=== PATIENT | male | born 1945 | race Caucasian/White ===

== ENCOUNTER → 2024-02-06 | Outpatient (CLI) | payer MEDICARE, MEDICAID, SELFPAY ==
[2024-02-06 16:54] LABS: Collection Type, Urine Catheter; Squamous Epithelial Cell,Urine 0 /hpf (0-5)
[2024-02-06 17:32] LABS: Bilirubin,Urine Negative (Negative); Blood,Urine 2+ (Negative); Color,Urine Yellow (Lt Yel-Yel); Glucose, Urine Negative (Negative); Hyaline Casts,Urine < 1 /hpf (0-1); Ketones,Urine Negative (Negative); Leukocyte Esterase,Urine Positive (Negative); Nitrite,Urine Negative (Negative); Protein,Urine 1+ (Neg - Trace); RBC,Urine 207 /hpf (0-3); Specific Gravity,Urine 1.014 (1.001-1.035); Urobilinogen,Urine Negative mg/dL (0.0-1.0); WBC,Urine 23 /hpf (0-5)
[2024-02-06 17:34] LABS: Clarity,Urine Hazy (Clear/Hazy); Culture Indicated,Urine Yes
== END | disposition home or self-care (01) ==
LOC: SLDO 16:41
PROVIDERS: PCP Family Medicine; Referring Provider Family Medicine; Visit Provider Family Medicine
DX: N39.0 Urinary tract infection, site not specified (principal); E11.9 Type 2 diabetes mellitus without complications; F73 Profound intellectual disabilities
CPT/HCPCS: 81001; 87086

== ENCOUNTER → 2024-03-25 | Outpatient (CLI) | payer MEDICARE, MEDICAID, SELFPAY ==
[2024-03-25 16:33] LABS: Collection Type, Urine Catheter
[2024-03-25 17:36] LABS: Bilirubin,Urine Negative (Negative); Blood,Urine 1+ (Negative); Color,Urine Yellow (Lt Yel-Yel); Glucose, Urine Negative (Negative); Hyaline Casts,Urine < 1 /hpf (0-1); Ketones,Urine Negative (Negative); Leukocyte Esterase,Urine Positive (Negative); Nitrite,Urine Negative (Negative); Protein,Urine Trace (Neg - Trace); RBC,Urine 24 /hpf (0-3); Squamous Epithelial Cell,Urine < 1 /hpf (0-5); Urobilinogen,Urine Negative mg/dL (0.0-1.0); WBC,Urine 22 /hpf (0-5)
[2024-03-25 17:43] LABS: Clarity,Urine Hazy (Clear/Hazy); Culture Indicated,Urine Yes
== END | disposition home or self-care (01) ==
LOC: SLDO 16:28
PROVIDERS: PCP Family Medicine; Referring Provider Family Medicine; Visit Provider Family Medicine
DX: N39.0 Urinary tract infection, site not specified (principal); E11.9 Type 2 diabetes mellitus without complications; F73 Profound intellectual disabilities
CPT/HCPCS: 81001; 87086

== ENCOUNTER → 2024-04-18 | Outpatient (CLI) | payer MEDICARE, MEDICAID, SELFPAY ==
[2024-04-18 20:41] LABS: Collection Type, Urine Catheter
[2024-04-18 21:26] LABS: Bacteria,Urine 1+; Bilirubin,Urine Negative (Negative); Blood,Urine 3+ (Negative); Clarity,Urine Turbid (Clear/Hazy); Color,Urine Yellow (Lt Yel-Yel); Glucose, Urine Negative (Negative); Hyaline Casts,Urine < 1 /hpf (0-1); Ketones,Urine Negative (Negative); Leukocyte Esterase,Urine Positive (Negative); Nitrite,Urine Negative (Negative); PH,Urine 6.5 (5.0-7.0); Protein,Urine 2+ (Neg - Trace); RBC,Urine 1375 /hpf (0-3); Squamous Epithelial Cell,Urine 1 /hpf (0-5); Urobilinogen,Urine Negative mg/dL (0.0-1.0); WBC,Urine 159 /hpf (0-5)
== END | disposition home or self-care (01) ==
LOC: SLAB 20:03
PROVIDERS: PCP Family Medicine; Referring Provider Family Medicine; Visit Provider Family Medicine
DX: N39.0 Urinary tract infection, site not specified (principal); E11.9 Type 2 diabetes mellitus without complications; F73 Profound intellectual disabilities
CPT/HCPCS: 81001

== ENCOUNTER → 2024-04-26 | Outpatient (CLI) | payer MEDICARE, MEDICAID, SELFPAY ==
[2024-04-26 16:59] LABS: Collection Type, Urine Catheter; Squamous Epithelial Cell,Urine 0 /hpf (0-5)
[2024-04-26 18:13] LABS: Bacteria,Urine Rare; Bilirubin,Urine Negative (Negative); Blood,Urine 1+ (Negative); Clarity,Urine Turbid (Clear/Hazy); Color,Urine Yellow (Lt Yel-Yel); Glucose, Urine Negative (Negative); Hyaline Casts,Urine < 1 /hpf (0-1); Ketones,Urine Negative (Negative); Leukocyte Esterase,Urine Positive (Negative); Nitrite,Urine Negative (Negative); Protein,Urine 1+ (Neg - Trace); RBC,Urine 11 /hpf (0-3); Specific Gravity,Urine 1.011 (1.001-1.035); Urobilinogen,Urine Negative mg/dL (0.0-1.0); WBC,Urine 124 /hpf (0-5)
[2024-04-26 18:14] LABS: Culture Indicated,Urine Yes
== END | disposition home or self-care (01) ==
LOC: SLDO 16:50
PROVIDERS: PCP Family Medicine; Referring Provider Family Medicine; Visit Provider Family Medicine
DX: N39.0 Urinary tract infection, site not specified (principal); E11.9 Type 2 diabetes mellitus without complications; F73 Profound intellectual disabilities
CPT/HCPCS: 81001; 87077; 87086; 87186

== ENCOUNTER → 2024-05-29 | Outpatient (CLI) | payer MEDICARE, MEDICAID, SELFPAY ==
[2024-05-29 20:09] LABS: Collection Type, Urine Catheter; Squamous Epithelial Cell,Urine 0 /hpf (0-5)
[2024-05-29 20:52] LABS: Bacteria,Urine 1+; Bilirubin,Urine Negative (Negative); Blood,Urine 2+ (Negative); Clarity,Urine Turbid (Clear/Hazy); Color,Urine Yellow (Lt Yel-Yel); Glucose, Urine Negative (Negative); Ketones,Urine Negative (Negative); Leukocyte Esterase,Urine Positive (Negative); Nitrite,Urine Negative (Negative); Protein,Urine 1+ (Neg - Trace); RBC,Urine 91 /hpf (0-3); Specific Gravity,Urine 1.014 (1.001-1.035); Urobilinogen,Urine Negative mg/dL (0.0-1.0); WBC,Urine 319 /hpf (0-5)
[2024-05-29 20:53] LABS: Culture Indicated,Urine Yes
== END | disposition home or self-care (01) ==
LOC: SLAB 19:56 → SLDO 05-30 09:26
PROVIDERS: PCP Family Medicine; Referring Provider Family Medicine; Visit Provider Family Medicine
DX: N39.0 Urinary tract infection, site not specified (principal); E11.9 Type 2 diabetes mellitus without complications; F73 Profound intellectual disabilities
CPT/HCPCS: 81001; 87077; 87086; 87186

== ENCOUNTER → 2024-07-15 | Outpatient (CLI) | payer MEDICARE, MEDICAID, SELFPAY ==
[2024-07-15 18:26] LABS: Collection Type, Urine Clean Catch
[2024-07-15 18:33] LABS: Basophils % (Auto) 0 % (0-2.5); Eosinophils % (Auto) 0 % (0-10); Hematocrit 33.7 % (41.0-53.0); Hemoglobin 11.2 g/dL (13.5-16.0); Immature Granulocytes % (Auto) 0 % (0-0); Immature Granulocytes Auto 0.03 Thou/mm3 (0.00-0.00); Lymphocytes # (Auto) 1.6 Thou/mm3 (1.0-4.8); Lymphocytes % (Auto) 13 % (10-50); Mean Corpuscular HGB Conc 33.2 g/dl (31.0-37.0); Mean Corpuscular Hemoglobin 30.9 pg (25.0-35.0); Mean Corpuscular Volume 93 fL (80-100); Monocytes # (Auto) 1.6 Thou/mm3 (0.0-0.8); Monocytes % (Auto) 13 % (0-12); Neutrophils # (Auto) 8.7 Thou/mm3 (1.8-7.7); Neutrophils % (Auto) 73 % (37-80); Nucleated Red Blood Cell % 0 /100 WBC (0); Platelet Count 160 Thou/mm3 (140-440); RDW Standard Deviation 45.6 fL (35.1-43.9); Red Blood Count 3.62 Miln/mm3 (4.50-5.90)
[2024-07-15 18:44] LABS: Bacteria,Urine 1+; Bilirubin,Urine Negative (Negative); Blood,Urine 1+ (Negative); Color,Urine Yellow (Lt Yel-Yel); Glucose, Urine Negative (Negative); Hyaline Casts,Urine 3 /hpf (0-1); Ketones,Urine Negative (Negative); Leukocyte Esterase,Urine Positive (Negative); Nitrite,Urine Positive (Negative); Protein,Urine 1+ (Neg - Trace); RBC,Urine 33 /hpf (0-3); Specific Gravity,Urine 1.018 (1.001-1.035); Squamous Epithelial Cell,Urine < 1 /hpf (0-5); Urobilinogen,Urine Negative mg/dL (0.0-1.0); WBC,Urine 907 /hpf (0-5)
[2024-07-15 18:46] LABS: Clarity,Urine Turbid (Clear/Hazy); Culture Indicated,Urine Yes
[2024-07-15 19:06] LABS: Alanine Aminotransferase 15 U/L (10-49); Albumin, Serum 3.6 gm/dL (3.4-4.8); Albumin/Globulin Ratio 1.2 (1.2-2.2); Alkaline Phosphatase 96 U/L (46-116); Anion Gap 10 (7-16); Aspartate Amino Transferase 23 U/L (0-34); BUN/Creatinine Ratio 24 Ratio (12-20); Bilirubin,Total 0.6 mg/dL (0.3-1.2); Blood Urea Nitrogen 34 mg/dL (9-23); Calcium 9.6 mg/dL (8.3-10.6); Calcium (Corrected) 9.9 mg/dL (8.5-10.1); Carbon Dioxide 28.5 mMol/L (20.0-31.0); Chloride 100 mMol/L (98-107); Creatinine (Component) 1.4 mg/dL (0.6-1.3); Globulin 2.9 gm/dL (2.3-3.5); Glucose 176 mg/dL (74-106); Osmolality,Calculated 287 (275-295); Sodium 138 mMol/L (136-145); Total Protein 6.5 gm/dL (5.7-8.2); eGFR 51 See Note
== END | disposition home or self-care (01) ==
LOC: SLDO 18:12
PROVIDERS: PCP Family Medicine; Referring Provider Family Medicine; Visit Provider Family Medicine
DX: N39.0 Urinary tract infection, site not specified (principal); F73 Profound intellectual disabilities; E11.9 Type 2 diabetes mellitus without complications
CPT/HCPCS: 36415; 80053; 81001; 84100; 85025; 87077; 87086; 87186

== ENCOUNTER 2024-07-19 23:20 | Inpatient (IN) | payer MEDICARE, MEDICAID, SELFPAY ==
[2024-07-19 23:38] VITALS: BP 127/76; PULSE 124; RESP 27; TEMP 39.7; O2SAT 96; BMI 18.3
[2024-07-19 23:45] VITALS: BP 127/76; PULSE 120; RESP 28; O2SAT 95
--- NOTE | 2024-07-19 23:45 | PD.EDSEIZ ---
ED Seizures RME/HPI General Chief Complaint: Seizure Stated Complaint: SEIZURES Time Seen by Provider: 07/19/24 23:48 Arrival date/time: 07/19/24 23:20 RME / HPI RME / HPI Narrative: This section includes all my notes and documentations, including HPI, PE, and ED course. Eugene Salas MD HPI: 78yo male with a history of developmental delay, seizures, DM, HLD BIBA from a [facility] presents with possible seizure. Per EMS, caregivers on scene called due to the patient having possible several minute seizure. They note the patient is taking all of his medications as prescribed, including Lamictal for seizures. Can't obtain history from the patient due to baseline GCS 10. ROS: Can't obtain history from the patient due to baseline GCS 10. Physical Exam: General: Alert. Moaning and groaning, possibly due to pain. Fever noted. Hypotension noted. Eyes: Conjunctivae and lids clear. PERRL. EOMI. ENT: No nasal congestion. Pharynx normal. TM normal bilaterally. Neck: Supple. Heart: Sinus tachycardia noted. Lungs: No respiratory distress. Good air movement with rales. Abdomen: Soft and nontender. Skin: Warm and dry. Neuro: Difficult exam due to baseline decreased mental status. Patient needed Ativan 1.5 mg IV to help him stay still for the CT scans. I reviewed all diagnostic test results. My interpretation of the EKG is sinus tachycardia with no acute ST?T changes. My interpretation of the chest x-ray is infiltrates. My review of the head CT report is NAD. My review of the chest/abdomen/pelvis CT report is right base pneumonia. Blood tests and urine tests remarkable for WBC 13.1, ESR 57, CRP 4.4, BNP 156, procalcitonin 1.91, and lactic acid 1.8. Influenza positive. At this point, diagnoses include: Sepsis Seizure Pneumonia UTI Influenza Treatment here included IV fluid, Tylenol and Toradol, Rocephin and Zithromax, Keppra, and Levophed drip. Significant improvement not noted. I discussed the case with our hospitalist. About the presentation and exam and diagnostics and treatments here. And need of further care in the hospital. Will accept the patient. Eugene Salas MD Related Data Home Medications ?Medication ?Instructions ?Recorded ?Confirmed Alendronate Sodium * (FOSAMAX *) 70 mg PO .MONDAY ##0 08/13/12 07/20/24 simvastatin 10 mg tablet (Zocor) 10 mg PO HS ##0 08/13/12 07/20/24 MULTIVITAMIN (MULTI VITAMIN DAILY) 1 tab PO QDAY ##0 08/02/16 07/20/24 docusate sodium 250 mg capsule 1 cap PO BID ##0 08/02/16 07/20/24 magnesium hydroxide 400 mg/5 mL 30 ml PO EVERYDAY 03/16/18 07/20/24 oral suspension (Milk of Magnesia) polyethylene glycol 3350 17 gram 17 g PO QDAY PRN constipation 03/16/18 07/20/24 oral powder packet (Miralax) melatonin 10 mg tablet 10 mg PO HS 12/12/23 07/20/24 olanzapine 2.5 mg tablet 5 mg PO HS 12/12/23 07/20/24 valbenazine 60 mg capsule 60 mg PO QDAY 12/12/23 07/20/24 (Ingrezza) cranberry-B.jzefpuray-X-Fm phos 1 tab PO QDAY 12/25/23 07/20/24 480 mg-20 mg-100 million cell tablet (Cranberry-Probiotic) metformin 500 mg tablet 500 mg PO BID 12/25/23 07/20/24 ibuprofen 400 mg tablet 400 mg PO Q6H PRN pain 07/20/24 07/20/24 loratadine 10 mg tablet 10 mg PO QDAY 07/20/24 07/20/24 zolpidem 5 mg tablet 5 mg PO QHSPRN 07/20/24 07/20/24 Allergies Allergy/AdvReac Type Severity Reaction Status Date / Time No Known Allergies Allergy Verified 07/19/24 23:27 Review of Systems Review of Systems Systems Reviewed: All systems reviewed, normal except as documented Past Medical History Past Medical History NEUROLOGIC: Positive Neurological Disorders and Seizures CARDIAC: Positive Hypercholesterolemia; Negative Congestive Heart Failure RESPIRATORY: Negative Chronic Obstructive Pulmonary Disease (COPD) GASTROINTESTINAL: Positive Gastrointestinal Disorders GENITOURINARY: Negative Genitourinary Disorders or Renal Disease MUSCULOSKELETAL: Positive Musculoskeletal Disorders ENDOCRINE: Positive Diabetes Mellitus Type 2; Negative Diabetes Mellitus Type 1 PSYCHO/SOCIAL: Positive Depression and Anxiety OTHER HISTORY: Positive Developmental Delay; Negative Blood Transfusions, Anesthesia Reactions or MRSA Social History SMOKING STATUS: Unknown if ever smoked SUBSTANCE USE: does not use ED Exam Narrative Physical exam: As noted in HPI. Course Course Course Narrative: 2339: Sepsis alert initiated. Orders made at this time are congruent with ED Adult Sepsis Order List. Re-evaluation is to be completed. CXR is ordered for determining the etiology of fever. 0012: NS IVF started. 0206: Sepsis reassessment performed consisting of lab review, vitals, physical exam including auscultation of heart, lungs, and visual evaluation of capillary refills, mucosal membranes and extremities. Quality Measures Possible source: pulmonary and genitourinary Blood cultures ordered: yes Antibiotic ordered: Yes Pertinent labs: 07/19/24 00:00 Lactic Acid 1.8 mMol/L (0.4-2.0) Procalcitonin 1.91 H ng/ml (0.0-0.49) sepsis Orders Category Date Time Status Bedside COVID-19 Antigen Test NOW Care 07/19/24 23:49 Completed Bedside Influenza A&B Antigen Test NOW Care 07/19/24 23:49 Completed COVID-19 Screening Questionnaire NOW Care 07/20/24 05:14 Completed Decision to Admit X1 Care 07/20/24 05:14 Completed EKG (ED ONLY) *Do not use* NOW Care 07/19/24 23:52 Completed Saline [Insert IV] NOW Care 07/19/24 23:49 Active Straight [In and Out Catheter] X1 Care 07/19/24 23:[address] chest abdomen pelvis wo Stat Exams 07/19/24 23:[address] head/brain wo con Stat Exams 07/19/24 23:53 Completed EKG (ED Only) Stat Exams 07/19/24 23:52 Stop Req XR chest 1V portable Stat Exams 07/19/24 23:52 Completed ABG [Arterial Blood Gas] Stat Lab 07/20/24 00:42 Completed Ammonia Stat Lab 07/19/24 23:53 Completed BNP [B-Type Natriuretic Peptide] Stat Lab 07/19/24 23:53 Completed Bilirubin,Direct Stat Lab 07/19/24 23:53 Completed Blood Culture (Lab) Stat Lab 07/19/24 23:53 Completed CBC Stat Lab 07/19/24 23:53 Completed CK [Creatine Kinase] Stat Lab 07/19/24 23:53 Completed CMP [Comprehensive Metabolic Panel] Stat Lab 07/19/24 23:53 Completed CRP [C-Reactive Protein] Stat Lab 07/19/24 23:53 Completed ESR [Sed Rate (ESR)] Stat Lab 07/19/24 23:53 Completed Free T4 (Free Thyroxine) Stat Lab 07/19/24 23:53 Completed Lactate (Lactic Acid) Stat Lab 07/19/24 23:53 Completed Magnesium Stat Lab 07/19/24 23:53 Completed PT [Prothrombin Time with INR] Stat Lab 07/19/24 23:53 Completed PTT [Partial Thromboplastin Time] Stat Lab 07/19/24 23:53 Completed Procalcitonin Stat Lab 07/19/24 23:53 Completed RSV [Respiratory Syncytial Virus Ag] Stat Lab 07/19/24 00:01 Completed Strep A Rapid Stat Lab 07/20/24 00:01 Completed TSH [Thyroid Stimulating Hormone] Stat Lab 07/19/24 23:53 Completed Troponin I Stat Lab 07/19/24 23:53 Completed UA, C/S IF [Urinalysis, C/S if Indicated] Stat Lab 07/19/24 00:01 Completed Urine Culture Stat Lab 07/19/24 00:01 Completed Acetaminophen Ivpb [Ofirmev Inj] Med 07/20/24 00:00 Discontinued 1,000 mg in 100 ml IV Q6HR Acetaminophen Ivpb [Ofirmev Inj] Med 07/19/24 23:52 Discontinued 1,000 mg in 100 ml IV X1 Azithromycin Inj [Zithromax Inj] 500 mg Med 07/20/24 05:10 Discontinued Sodium Chloride 0.9% 250 ml [Ns] 250 ml IV X1 Ketorolac Inj [Toradol Inj] Med 07/19/24 23:49 Discontinued 15 mg IVP X1 ONE LORazepam [Ativan Inj] Med 07/20/24 02:22 Discontinued 1.5 mg IVP X1 ONE Norepinephrine/NS 16mg/250ml [Levophed in NS 16mg/250ml Med 07/20/24 03:19 Discontinued ] 16 mg in 250 ml IV 0.05 mcg/kg/min Oseltamivir [Tamiflu] Med 07/20/24 00:06 Discontinued 75 mg PO X1 ONE Sodium Chloride 0.9% 1000 ml [Ns] 1,000 ml Med 07/19/24 23:49 Discontinued IV 999 mls/hr Sodium Chloride 0.9% 1000 ml [Ns] 1,000 ml Med 07/19/24 23:50 Discontinued IV 999 mls/hr cefTRIAXone [Rocephin] 1,000 mg Med 07/19/24 23:50 Discontinued SODIUM CHLORIDE 0.9% (Popper) [Ns 0.9% (P)] 50 ml IV X1 levETIRAcetam INJ [Keppra Inj] Med 07/19/24 23:49 Discontinued 1,500 mg IVP X1 ONE Vital Signs Vital signs: Vital Signs Temperature 103.5 F H 07/19/24 23:38 Pulse Rate 124 H 07/19/24 23:38 Respiratory Rate 27 H 07/19/24 23:38 Blood Pressure 127/76 07/19/24 23:38 Pulse Oximetry (%) 96 07/19/24 23:38 Oxygen Delivery Method Room Air 07/19/24 23:38 Seizure MDM Narrative MDM Narrative:: Scribe Attestation: 07/19/24 - Chantal Davis am scribing for and in the presence of Dr. Salas. 78yo male with a history of developmental delay, seizures, DM, H[facility]IB[facility] from a [facility] presents to the ED for a chief complaint of a seizure. Per EMS, caregivers on scene called due to the patient having a 2 minute seizure. They note the patient is taking all of his medications as prescribed. Full ROS is unobtainable due to the patient being nonverbal. Patient data External records reviewed:: [facility] previous records (Per chart review, patient was admitted here on 12/24/23 for a fever.) Clinical information provided by:: patient Social determinants that could affect healthcare access:: none Patient has the following chronic illnesses:: developmental delay, DM, HLD, seizures How is presenting disease/condition affected by chronic disease/condition?: caused by Evaluation data The following diagnostics were reviewed and interpreted by me:: lab results, radiology exam(s) and EKG tracing(s) (My interpretation of the EKG is: Sinus tachycardia (117 bpm) with nonspecific ST-T changes. Eugene Salas MD) Lab and/or radiology exams considered but not ordered:: none Interpretation Summary: I reviewed all diagnostic test results. My interpretation of the EKG is sinus tachycardia with no acute ST?T changes. My interpretation of the chest x-ray is infiltrates. My review of the head CT report is NAD. My review of the chest/abdomen/pelvis CT report is right base pneumonia. Blood tests and urine tests remarkable for WBC 13.1, ESR 57, CRP 4.4, BNP 156, procalcitonin 1.91, and lactic acid 1.8. Influenza positive. Medications / Prescriptions Medications or Prescriptions considered but not ordered:: none Medication administrations:: Medication Administration History Acetaminophen (Acetaminophen 325 Mg Tablet) 650 mg PO Q4HR PRN PRN Reason: PAIN SCALE 1-3 (mild Stop: 08/19/24 06:13 Atorvastatin Calcium (Atorvastatin Calcium 10 Mg Tablet) 5 mg PO HS GREG Stop: 08/19/24 20:59 Last Admin: 07/25/24 21:36 Dose: 5 mg Documented By: Admin: 07/24/24 20:35 Dose: 5 mg Documented By: Admin: 07/23/24 22:29 Dose: 5 mg Documented By: ANNA MARIE Admin: 07/22/24 22:38 Dose: 5 mg Documented By: ANNA MARIE Admin: 07/21/24 21:59 Dose: 5 mg Documented By: Admin: 07/20/24 21:00 Dose: 5 mg Documented By: JASE Docusate Sodium (Docusate Sod 250 Mg Capsule) 250 mg PO BID GREG; Protocol Stop: 08/20/24 10:14 Last Admin: 07/26/24 08:42 Dose: 250 mg Documented By: Admin: 07/25/24 21:36 Dose: 250 mg Documented By: Admin: 07/25/24 09:22 Dose: 250 mg Documented By: Admin: 07/24/24 20:35 Dose: 250 mg Documented By: Admin: 07/24/24 09:50 Dose: 250 mg Documented By: MIGUEL ÁNGEL Admin: 07/23/24 22:30 Dose: 250 mg Documented By: ANNA MARIE Admin: 07/23/24 10:08 Dose: Not Given Documented By: MIGUEL ÁNGEL Non-Admin Reason: Other, see note Admin: 07/22/24 22:38 Dose: 250 mg Documented By: ANNA MARIE Admin: 07/22/24 09:50 Dose: 250 mg Documented By: MIGUEL ÁNGEL Admin: 07/21/24 21:58 Dose: 250 mg Documented By: Admin: 07/21/24 10:15 Dose: Not Given Documented By: CS Non-Admin Reason: Contraindicated Comments: had pasty/soft bowel movement this AM Heparin Sodium (Porcine) (Heparin Sod Inj 5000 Unit/Ml Vial) 5,000 unit SC Q8HR GREG Stop: 08/03/24 13:59 Last Admin: 07/26/24 05:51 Dose: 5,000 unit Documented By: MALLY Co-signed By: KAYY Admin: 07/25/24 21:35 Dose: 5,000 unit Documented By: MALLY Co-signed By: POLO Admin: 07/25/24 14:37 Dose: 5,000 unit Documented By: CAMDEN Co-signed By: SHIVAM Admin: 07/25/24 06:21 Dose: 5,000 unit Documented By: Co-signed By: ANNA MARIE Admin: 07/24/24 21:58 Dose: 5,000 unit Documented By: Co-signed By: ANNA MARIE Admin: 07/24/24 15:01 Dose: 5,000 unit Documented By: JANETTE Co-signed By: ADRIAN Admin: 07/24/24 05:08 Dose: 5,000 unit Documented By: ANNA MARIE Co-signed By: OJ Admin: 07/23/24 22:29 Dose: 5,000 unit Documented By: ANNA MARIE Co-signed By: KIERRA Admin: 07/23/24 13:48 Dose: 5,000 unit Documented By: MIGUEL ÁNGEL Co-signed By: JUDY Admin: 07/23/24 05:35 Dose: 5,000 unit Documented By: ANNA MARIE Co-signed By: JOANNA Admin: 07/22/24 22:37 Dose: 5,000 unit Documented By: ANNA MARIE Co-signed By: MP Admin: 07/22/24 13:12 Dose: 5,000 unit Documented By: MIGUEL ÁNGEL Co-signed By: YM Admin: 07/22/24 05:17 Dose: 5,000 unit Documented By: KIERRA Co-signed By: ME Admin: 07/21/24 22:33 Dose: 5,000 unit Documented By: KIERRA Co-signed By: ME Admin: 07/21/24 14:55 Dose: 5,000 unit Documented By: SILVER Co-signed By: SHIVAM Admin: 07/21/24 05:15 Dose: 5,000 unit Documented By: JASE Co-signed By: Admin: 07/20/24 21:03 Dose: 5,000 unit Documented By: JASE Co-signed By: ARTUR Admin: 07/20/24 14:32 Dose: 5,000 unit Documented By: ONELIA Co-signed By: kayden Meropenem 1,000 mg/ Sodium (Chloride) 50 mls @ 100 mls/hr IV Q8HR GREG Stop: 07/26/24 23:00 Lamotrigine (Lamotrigine 25 Mg Chew) 100 mg PO BID GREG Stop: 08/19/24 20:59 Last Admin: 07/26/24 08:43 Dose: Not Given Documented By: VIV Non-Admin Reason: Medication Not Available Admin: 07/25/24 21:26 Dose: Not Given Documented By: MALLY Non-Admin Reason: Medication Not Available Admin: 07/25/24 09:29 Dose: Not Given Documented By: CAMDEN Non-Admin Reason: Medication Not Available Admin: 07/24/24 20:37 Dose: Not Given Documented By: Non-Admin Reason: Medication Not Available Admin: 07/24/24 09:50 Dose: Not Given Documented By: MIGUEL ÁNGEL Non-Admin Reason: Medication Not Available Admin: 07/23/24 22:31 Dose: Not Given Documented By: ANNA MARIE Non-Admin Reason: Other, see note Comments: Medication out of stock, aware and okayed to proceed to only give Keppra 500 mg. Admin: 07/23/24 10:00 Dose: Not Given Documented By: MIGUEL ÁNGEL Non-Admin Reason: Medication Not Available Admin: 07/22/24 23:10 Dose: 100 mg Documented By: ANNA MARIE Comments: Medication not available, awaiting delivery Admin: 07/22/24 09:50 Dose: 100 mg Documented By: MIGUEL ÁNGEL Admin: 07/21/24 21:58 Dose: 100 mg Documented By: Admin: 07/21/24 09:17 Dose: 100 mg Documented By: Admin: 07/20/24 21:02 Dose: 100 mg Documented By: JASE Levetiracetam (Levetiracetam Inj 100 Mg/Ml Vial 5ml) 500 mg IVP Q12HR GREG Stop: 08/22/24 20:59 Last Admin: 07/26/24 08:42 Dose: 500 mg Documented By: Admin: 07/25/24 21:37 Dose: 500 mg Documented By: Admin: 07/25/24 09:28 Dose: 500 mg Documented By: Admin: 07/24/24 20:36 Dose: 500 mg Documented By: Admin: 07/24/24 09:50 Dose: 500 mg Documented By: MIGUEL ÁNGEL Admin: 07/23/24 22:29 Dose: 500 mg Documented By: ANNA MARIE Olanzapine (Olanzapine 5 Mg Tablet) 5 mg PO HS GREG Stop: 08/19/24 20:59 Last Admin: 07/25/24 21:36 Dose: 5 mg Documented By: Admin: 07/24/24 20:35 Dose: 5 mg Documented By: Admin: 07/23/24 22:30 Dose: 5 mg Documented By: ANNA MARIE Admin: 07/22/24 22:38 Dose: 5 mg Documented By: ANNA MARIE Admin: 07/21/24 21:58 Dose: 5 mg Documented By: Admin: 07/20/24 21:02 Dose: 5 mg Documented By: JASE Pantoprazole Sodium (Pantoprazole Inj 40 Mg Vial) 40 mg IVP QDAY GREG Stop: 08/19/24 08:59 Last Admin: 07/26/24 08:42 Dose: 40 mg Documented By: Admin: 07/25/24 09:22 Dose: 40 mg Documented By: Admin: 07/24/24 09:50 Dose: 40 mg Documented By: MIGUEL ÁNGEL Admin: 07/23/24 10:07 Dose: 40 mg Documented By: MIGUEL ÁNGEL Admin: 07/22/24 09:49 Dose: 40 mg Documented By: MIGUEL ÁNGEL Admin: 07/21/24 09:17 Dose: 40 mg Documented By: Admin: 07/20/24 09:38 Dose: 40 mg Documented By: ONELIA Polyethylene Glycol (Polyethylene Glycol 17 Gm Packet) 17 gm PO QDAY GREG Stop: 08/20/24 08:59 Last Admin: 07/26/24 08:42 Dose: 17 gm Documented By: Admin: 07/25/24 09:22 Dose: 17 gm Documented By: Admin: 07/24/24 09:51 Dose: Not Given Documented By: MIGUEL ÁNGEL Non-Admin Reason: Other, see note Admin: 07/23/24 10:08 Dose: Not Given Documented By: MIGUEL ÁNGEL Non-Admin Reason: Other, see note Admin: 07/22/24 09:50 Dose: 17 gm Documented By: MIGUEL ÁNGEL Admin: 07/21/24 09:17 Dose: 17 gm Documented By: SILVER Sennosides (Senna Tablet) 1 tab PO QDAY PRN; Protocol PRN Reason: Constipation Stop: 08/19/24 08:59 Discontinued Medications Acetaminophen (Acetaminophen 325 Mg Tablet) 650 mg PO Q4HR PRN PRN Reason: PAIN SCALE 1-3 (mild Stop: 08/19/24 06:13 Last Admin: 07/20/24 21:03 Dose: 650 mg Documented By: JASE Alendronate Sodium (Alendronate Sodium 70 Mg Tablet) 70 mg PO Q7D GREG Stop: 08/23/24 06:29 Dextrose (Dextrose 50%-Water Inj 50 Ml Syringe) 25 ml IV Q15MIN PRN PRN Reason: BG 50-70 responsive npo pt Stop: 08/19/24 06:21 Dextrose (Dextrose 50%-Water Inj 50 Ml Syringe) 50 ml IV Q15MIN PRN PRN Reason: BG <50 OR BG <70 & pt unresponsive Stop: 08/19/24 06:21 Glucagon (Glucagon Inj 1 Mg Vial) 1 mg IM Q15MIN PRN PRN Reason: BG <70, and no IV access Acetaminophen (Ofirmev Inj) 1,000 mg in 100 mls @ 250 mls/hr IV Q6HR [facility] Stop: 07/20/24 18:23 Sodium Chloride (Ns) 1,000 mls @ 999 mls/hr IV .Q1H1M ONE Stop: 07/20/24 00:49 Last Infusion: 07/20/24 01:37 Dose: Infused Documented By: Admin: 07/20/24 00:12 Dose: 999 mls/hr Documented By: ROXY Ceftriaxone Sodium 1,000 mg/ (Sodium Chloride) 50 mls @ 100 mls/hr IV X1 ONE Stop: 07/20/24 00:19 Last Infusion: 07/20/24 00:53 Dose: Infused Documented By: Admin: 07/20/24 00:10 Dose: 100 mls/hr Documented By: ROXY Sodium Chloride (Ns) 1,000 mls @ 999 mls/hr IV .Q1H1M ONE Stop: 07/20/24 00:50 Last Infusion: 07/20/24 01:36 Dose: Infused Documented By: Admin: 07/20/24 00:13 Dose: 999 mls/hr Documented By: ROXY Acetaminophen (Ofirmev Inj) 1,000 mg in 100 mls @ 250 mls/hr IV X1 ONE Stop: 07/20/24 00:15 Last Infusion: 07/20/24 00:53 Dose: Infused Documented By: Admin: 07/20/24 00:12 Dose: 250 mls/hr Documented By: EE Norepinephrine Bitartrate (Levophed In Ns 16mg/250ml) 16 mg in 250 mls @ 2.87 mls/hr IV .Q24H PRN; Protocol PRN Reason: PER PROTOCOL Stop: 08/19/24 03:18 Last Titration: 07/20/24 09:40 Dose: 0 mcg/kg/min, 0 mls/hr Documented By: Titration: 07/20/24 09:30 Dose: 0.01 mcg/kg/min, 0.574 mls/hr Documented By: kayden Titration: 07/20/24 09:19 Dose: 0.03 mcg/kg/min, 1.722 mls/hr Documented By: kayden Titration: 07/20/24 09:13 Dose: 0.05 mcg/kg/min, 2.87 mls/hr Documented By: kayden Titration: 07/20/24 09:07 Dose: 0.07 mcg/kg/min, 4.019 mls/hr Documented By: kayden Titration: 07/20/24 08:30 Dose: 0.07 mcg/kg/min, 4.019 mls/hr Documented By: Titration: 07/20/24 08:20 Dose: 0.07 mcg/kg/min, 4.019 mls/hr Documented By: Titration: 07/20/24 08:15 Dose: 0.07 mcg/kg/min, 4.019 mls/hr Documented By: Titration: 07/20/24 08:00 Dose: 0.05 mcg/kg/min, 2.87 mls/hr Documented By: Titration: 07/20/24 07:45 Dose: 0.07 mcg/kg/min, 4.019 mls/hr Documented By: Titration: 07/20/24 07:30 Dose: 0.07 mcg/kg/min, 4.019 mls/hr Documented By: Titration: 07/20/24 07:14 Dose: 0.07 mcg/kg/min, 4.019 mls/hr Documented By: Titration: 07/20/24 05:10 Dose: 0.07 mcg/kg/min, 4.019 mls/hr Documented By: Titration: 07/20/24 04:45 Dose: 0.07 mcg/kg/min, 4.019 mls/hr Documented By: Titration: 07/20/24 04:12 Dose: 0.07 mcg/kg/min, 4.019 mls/hr Documented By: Titration: 07/20/24 04:00 Dose: 0.07 mcg/kg/min, 4.019 mls/hr Documented By: Titration: 07/20/24 03:55 Dose: 0.09 mcg/kg/min, 5.167 mls/hr Documented By: Titration: 07/20/24 03:50 Dose: 0.11 mcg/kg/min, 6.315 mls/hr Documented By: Titration: 07/20/24 03:45 Dose: 0.09 mcg/kg/min, 5.167 mls/hr Documented By: Titration: 07/20/24 03:40 Dose: 0.07 mcg/kg/min, 4.019 mls/hr Documented By: Admin: 07/20/24 03:35 Dose: 0.05 mcg/kg/min, 2.87 mls/hr Documented By: EE Azithromycin 500 mg/ Sodium (Chloride) 250 mls @ 250 mls/hr IV X1 ONE Stop: 07/20/24 06:09 Last Infusion: 07/20/24 07:00 Dose: Infused Documented By: Admin: 07/20/24 05:22 Dose: 250 mls/hr Documented By: EE Piperacillin/Tazobactam/Dextrose (Zosyn) 3.375 gm in 50 mls @ 12.5 mls/hr IV Q8HR [facility] Stop: 07/27/24 13:59 Last Admin: 07/22/24 05:17 Dose: 12.5 mls/hr Documented By: Infusion: 07/22/24 01:59 Dose: Infused Documented By: Admin: 07/21/24 21:59 Dose: 12.5 mls/hr Documented By: Infusion: 07/21/24 18:00 Dose: Infused Documented By: Admin: 07/21/24 14:00 Dose: 12.5 mls/hr Documented By: Infusion: 07/21/24 09:15 Dose: Infused Documented By: Admin: 07/21/24 05:15 Dose: 12.5 mls/hr Documented By: Infusion: 07/21/24 01:03 Dose: Infused Documented By: Admin: 07/20/24 21:03 Dose: 12.5 mls/hr Documented By: Infusion: 07/20/24 18:33 Dose: Infused Documented By: Admin: 07/20/24 14:33 Dose: 12.5 mls/hr Documented By: ONELIA Piperacillin/Tazobactam/Dextrose (Zosyn) 3.375 gm in 50 mls @ 100 mls/hr IV X1 ONE Stop: 07/20/24 06:59 Last Infusion: 07/20/24 07:22 Dose: Infused Documented By: Admin: 07/20/24 06:51 Dose: 100 mls/hr Documented By: ROXY Lactated Ringer's (Lactated Ringers) 1,000 mls @ 999 mls/hr IV .Q1H1M ONE Stop: 07/20/24 10:33 Last Admin: 07/20/24 09:39 Dose: 999 mls/hr Documented By: KR Sodium Chloride (Ns) 1,000 mls @ 75 mls/hr IV .[id number] ONE Stop: 07/21/24 05:04 Last Admin: 07/20/24 17:02 Dose: 75 mls/hr Documented By: KR Lactated Ringer's (Lactated Ringers) 1,000 mls @ 75 mls/hr IV .[id number] ONE Stop: 07/21/24 23:23 Last Admin: 07/21/24 11:47 Dose: 75 mls/hr Documented By: CS Meropenem 1,000 mg/ Sodium (Chloride) 50 mls @ 100 mls/hr IV Q8HR GREG Stop: 07/29/24 13:59 Last Admin: 07/26/24 05:50 Dose: 100 mls/hr Documented By: Infusion: 07/25/24 22:05 Dose: Infused Documented By: Admin: 07/25/24 21:35 Dose: 100 mls/hr Documented By: Infusion: 07/25/24 15:06 Dose: Infused Documented By: Admin: 07/25/24 14:36 Dose: 100 mls/hr Documented By: Infusion: 07/25/24 06:50 Dose: Infused Documented By: Admin: 07/25/24 06:20 Dose: 100 mls/hr Documented By: Infusion: 07/24/24 22:28 Dose: Infused Documented By: Admin: 07/24/24 21:58 Dose: 100 mls/hr Documented By: Infusion: 07/24/24 15:30 Dose: Infused Documented By: Admin: 07/24/24 15:00 Dose: 100 mls/hr Documented By: Infusion: 07/24/24 05:38 Dose: Infused Documented By: Admin: 07/24/24 05:08 Dose: 100 mls/hr Documented By: Infusion: 07/23/24 22:59 Dose: Infused Documented By: Admin: 07/23/24 22:29 Dose: 100 mls/hr Documented By: Infusion: 07/23/24 14:18 Dose: Infused Documented By: ANNA MARIE Admin: 07/23/24 13:48 Dose: 100 mls/hr Documented By: MIGUEL ÁNGEL Infusion: 07/23/24 06:06 Dose: Infused Documented By: MIGUEL ÁNGEL Admin: 07/23/24 05:36 Dose: 100 mls/hr Documented By: Infusion: 07/22/24 23:07 Dose: Infused Documented By: ANNA MARIE Admin: 07/22/24 22:37 Dose: 100 mls/hr Documented By: Infusion: 07/22/24 13:42 Dose: Infused Documented By: ANNA MARIE Admin: 07/22/24 13:12 Dose: 100 mls/hr Documented By: MIGUEL ÁNGEL Insulin Human Lispro (Insulin Lispro (Admelog) 1 Unit/0.01 Ml Unit) 0 unit SC AC GREG; Protocol Stop: 08/19/24 07:29 Last Admin: 07/22/24 07:26 Dose: Not Given Documented By: MIGUEL ÁNGEL Non-Admin Reason: Per Protocol Admin: 07/21/24 17:30 Dose: Not Given Documented By: CS Non-Admin Reason: Per Protocol Admin: 07/21/24 11:30 Dose: Not Given Documented By: CS Non-Admin Reason: Per Protocol Admin: 07/21/24 08:20 Dose: Not Given Documented By: CS Non-Admin Reason: Per Protocol Admin: 07/20/24 17:06 Dose: Not Given Documented By: KR Non-Admin Reason: Per Protocol Admin: 07/20/24 12:23 Dose: Not Given Documented By: kayden Non-Admin Reason: bs 140 Admin: 07/20/24 07:07 Dose: Not Given Documented By: ROXY Non-Admin Reason: Per Protocol Comments: FSBS 142 Ketorolac Tromethamine (Ketorolac Inj 30 Mg/Ml Vial) 15 mg IVP X1 ONE Stop: 07/19/24 23:50 Last Admin: 07/20/24 00:11 Dose: 15 mg Documented By: ROXY Levetiracetam (Levetiracetam Inj 100 Mg/Ml Vial 5ml) 1,500 mg IVP X1 ONE Stop: 07/19/24 23:50 Last Admin: 07/20/24 00:10 Dose: 1,500 mg Documented By: ROXY Lorazepam (Lorazepam 2 Mg/Ml Vial) 1.5 mg IVP X1 ONE Stop: 07/20/24 02:23 Last Admin: 07/20/24 02:33 Dose: 1.5 mg Documented By: ROXY Lorazepam (Lorazepam 2 Mg/Ml Vial) 4 mg IVP Q5MIN PRN PRN Reason: seizure Oseltamivir Phosphate (Oseltamivir 75 Mg Capsule) 75 mg PO X1 ONE Stop: 07/20/24 00:07 Last Admin: 07/20/24 00:22 Dose: Not Given Documented By: ROXY Non-Admin Reason: Contraindicated Oseltamivir Phosphate (Oseltamivir 75 Mg Capsule) 75 mg PO BID GREG Stop: 07/25/24 09:01 Last Admin: 07/25/24 09:22 Dose: 75 mg Documented By: Admin: 07/24/24 20:35 Dose: 75 mg Documented By: Admin: 07/24/24 09:50 Dose: 75 mg Documented By: MIGUEL ÁNGEL Admin: 07/23/24 22:30 Dose: 75 mg Documented By: ANNA MARIE Admin: 07/23/24 10:08 Dose: 75 mg Documented By: MIGUEL ÁNGEL Admin: 07/22/24 22:38 Dose: 75 mg Documented By: ANNA MARIE Admin: 07/22/24 09:50 Dose: 75 mg Documented By: MIGUEL ÁNGEL Admin: 07/21/24 21:58 Dose: 75 mg Documented By: Admin: 07/21/24 09:18 Dose: 75 mg Documented By: Admin: 07/20/24 21:03 Dose: 75 mg Documented By: JASE Treatment from mi here included IV fluid, Tylenol and Toradol, Rocephin and Zithromax, Keppra, and Levophed drip. Consultations Consultation(s) initiated? (list below): No Diagnosis Seizure Differential Diagnosis: intractable seizure disorder, febrile convulsion, focal seizure, generalized seizure, epileptic seizure, status epilepticus and other (CVA, brain tumor, UTI, Pneumonia, Sepsis) Most likely diagnosis given after review of the tests above:: At this point, diagnoses include: Sepsis Seizure Pneumonia UTI Influenza Admission Indicated Admission indicated?: indicated Explain why admission is indicated or not indicated:: Sepsis Seizure Pneumonia UTI Influenza Admission Request Was there a request for admission?: Yes Admission Attestation Admission request attestation: Discussed case with ICU service regarding admission. Discussed patients ED course, exam findings, labs, and radiology results. Agrees to accept the patient for admission. Disposition Plan Disposition Plan: Admit Critical Care Time Critical Care Time Critical Care Time: Yes Total Critical Care Time (min.): 36 Attestation: Due to a high probability of clinically significant, life threatening deterioration, the patient required my highest level of preparedness to intervene emergently and I personally spent this critical care time directly and personally managing the patient. This critical care time included obtaining a history; examining the patient; ordering and review of studies; arranging urgent treatment with development of a management plan; evaluation of patient's response to treatment; frequent reassessment; and discussions with family and other providers. It was exclusive of separately billable procedures and treating other patients and teaching time. Eugene Salas MD Discharge Plan Plan Patient Disposition: Admit Acute Care w/in Hospital Problem List Clinical Impression: Sepsis, Pneumonia, UTI (urinary tract infection), Influenza, Seizure
--- NOTE | 2024-07-19 23:52 | XR_ITS ---
Examination: CT chest, without intravenous contrast. CT abdomen, without intravenous contrast. CT pelvis, without intravenous contrast. 2-D sagittal and coronal reconstructions. 3-D reconstructions. Date and time of exam:July 20, 2024 0257 hrs. Indications: Shortness of breath chest and abdominal pain onset today CTDI vol (mgy) 9.62 DLP (MGycm)757 Technique: Multiple CT images, 3.0 mm slice thickness, obtained chest, abdomen, pelvis, with the high-resolution 64 slice scanner.. Sagittal and coronal 2-D reconstructions are obtained. 3-D reconstructions Low dose protocols were performed. One or more of the following dose reduction techniques were used; automated exposure control, adjustment of the mA and/or KV according to patient size, use of iterative reconstruction technique. Findings: No thoracic aortic aneurysm dilatation Pulmonary artery segments are not enlarged Significant calcification left anterior descending coronary artery Moderate vascular congestion Pneumonia right base with right pleural fluid 12 mm liver cyst, liver is irregular in contour Splenomegaly AP dimension 14.2 cm Possible gallbladder sludge No pancreatic mass Bilateral renal calculi including 22 mm calculus left ureteropelvic junction but no significant hydronephrosis Aorta normal size No bowel obstruction Abundant stool throughout the colon especially rectum with rectal wall thickening Prostate is irregular in contour, AP dimension 3.8 cm Fat-containing inguinal hernias No pericecal inflammatory change Impression: Right base pneumonia Primary hepatocellular disease Mild splenomegaly Bilateral renal calculi including 22 mm calculus left ureteropelvic junction but no significant hydronephrosis Abundant stool throughout the colon is partially rectum with thickening the rectal wall, proctitis included in the differential Prostate is irregular in contour, recommend correlation with PSA
--- NOTE | 2024-07-19 23:52 | XR_ITS ---
Examination: AP chest single view Technique one AP portable upright chest single view Exam date and time: July 20, 2024 at 0020 hrs. Indications: Shortness of breath today Findings: Right perihilar right basilar pneumonia Normal heart size Ectatic thoracic aorta Impression: Right perihilar right basilar pneumonia
--- NOTE | 2024-07-19 23:53 | XR_ITS ---
Examination: CT brain head without contrast. 2-D sagittal coronal reconstructions Date and time of exam:July 20, 2024 0255 hrs. Comparison 12/12/2023 Indications: Seizures today CTDI: vol (mGy):50.7 DLP: (mGycm):1165 Technique: Multiple CT axial sections of the brain have been obtained, 5 mm slice thickness. Contrast has not been administered. 2-D sagittal, coronal reconstructions have been obtained Low dose protocols were performed. One or more of the following dose reduction techniques were used; automated exposure control, adjustment of the mA and/or KV according to patient size, use of iterative reconstruction technique. Findings: There remains asymmetric enlargement of the right ventricular system The entire study is degraded by extensive patient motion Basal ganglia calcification No gross mass effect, no gross hemorrhage Impression: Study is severely limited secondary to patient motion No interval gross hemorrhage or gross mass effect
[2024-07-20] VITALS (49 sets, daily range): BP systolic 63–167; BP diastolic 35–91; PULSE 53–105; RESP 12–100; TEMP 36.2–39.7; O2SAT 91–100; BMI 18.3
[2024-07-20 00:10] LABS: Collection Type, Urine Clean Catch; Squamous Epithelial Cell,Urine 0 /hpf (0-5)
[2024-07-20] MEDS: levETIRAcetam INJ 100 MG/ML VIAL 5ML 1500 MG IVP (00:10)
[2024-07-20] MEDS: cefTRIAXone 1,000 MG in SODIUM CHLORIDE 0.9% (Popper) 50 ML 100 MG IV (00:10)
[2024-07-20] MEDS: KETOROLAC INJ 30 MG/ML VIAL 15 MG IVP (00:11)
[2024-07-20] MEDS: ACETAMINOPHEN IVPB 1,000 MG/100 ML VIAL 250 MG IV (00:12)
[2024-07-20] MEDS: SODIUM CHLORIDE 0.9% 1000 ML 1,000 ML 999 ML IV ×2 (00:12→00:13)
[2024-07-20 00:14] LABS: Lactate (Lactic Acid) 1.8 mMol/L (0.4-2.0)
[2024-07-20 00:15] LABS: Basophils % (Auto) 0 % (0-2.5); Eosinophils # (Auto) 0.1 Thou/mm3 (0.0-0.5); Eosinophils % (Auto) 1 % (0-10); Hematocrit 37.4 % (41.0-53.0); Hemoglobin 12.7 g/dL (13.5-16.0); Immature Granulocytes % (Auto) 1 % (0-0); Immature Granulocytes Auto 0.12 Thou/mm3 (0.00-0.00); Lymphocytes # (Auto) 0.6 Thou/mm3 (1.0-4.8); Lymphocytes % (Auto) 4 % (10-50); Mean Corpuscular Hemoglobin 30.5 pg (25.0-35.0); Mean Corpuscular Volume 90 fL (80-100); Monocytes # (Auto) 0.7 Thou/mm3 (0.0-0.8); Monocytes % (Auto) 5 % (0-12); Neutrophils # (Auto) 11.6 Thou/mm3 (1.8-7.7); Neutrophils % (Auto) 89 % (37-80); Nucleated Red Blood Cell % 0 /100 WBC (0); Platelet Count 172 Thou/mm3 (140-440); Red Blood Count 4.17 Miln/mm3 (4.50-5.90); White Blood Count 13.1 Thou/mm3 (3.8-10.6)
[2024-07-20 00:24] LABS: Bilirubin,Urine Negative (Negative); Blood,Urine 3+ (Negative); Clarity,Urine Turbid (Clear/Hazy); Color,Urine Lt-Yellow (Lt Yel-Yel); Glucose, Urine Negative (Negative); Ketones,Urine Negative (Negative); Leukocyte Esterase,Urine Positive (Negative); Nitrite,Urine Negative (Negative); Protein,Urine 1+ (Neg - Trace); RBC,Urine 574 /hpf (0-3); Specific Gravity,Urine 1.014 (1.001-1.035); Urobilinogen,Urine Negative mg/dL (0.0-1.0); WBC,Urine 137 /hpf (0-5)
[2024-07-20 00:25] LABS: Culture Indicated,Urine Yes
[2024-07-20 00:27] LABS: Sed Rate (ESR) 57 mm/hr (0-20)
[2024-07-20 00:30] LABS: INR 1.1 (0.9-1.3); Partial Thromboplastin Time 28.9 Seconds (22.0-36.0); Prothrombin Time 11.6 Seconds (9.0-12.2)
[2024-07-20 00:34] LABS: Ammonia < 10 uMol/L (11-32)
[2024-07-20 00:45] LABS: B-Type Natriuretic Peptide 156 pg/mL (0-100)
[2024-07-20 00:49] LABS: Base Excess 6 (-3-3); HCO3 30 mEq/L (20-26); Inspired Oxygen, FIO2 21 %; O2 Saturation 90 % (91-98); PCO2 43 mmHg (32.0-48.0); pH, Arterial 7.45 (7.35-7.45)
[2024-07-20 00:54] LABS: Strep A Rapid Negative (Negative)
[2024-07-20 00:54] LABS: Respiratory Syncytial Virus Ag Negative (Negative)
[2024-07-20 00:56] LABS: Allen Test Performed/OK; PO2 55 mmHg (83-108); Puncture Site Right Radial
[2024-07-20 00:57] LABS: Alanine Aminotransferase 16 U/L (10-49); Albumin/Globulin Ratio 1.1 (1.2-2.2); Alkaline Phosphatase 107 U/L (46-116); Anion Gap 6 (7-16); Aspartate Amino Transferase 21 U/L (0-34); BUN/Creatinine Ratio 14 Ratio (12-20); Bilirubin,Direct 0.2 mg/dL (0.0-0.3); Bilirubin,Total 0.6 mg/dL (0.3-1.2); Blood Urea Nitrogen 11 mg/dL (9-23); C-Reactive Protein 4.4 mg/dL (0.0-0.9); Calcium 10.2 mg/dL (8.3-10.6); Calcium (Corrected) 10.2 mg/dL (8.5-10.1); Carbon Dioxide 32.3 mMol/L (20.0-31.0); Chloride 101 mMol/L (98-107); Creatine Kinase 28 U/L (34-171); Creatinine (Component) 0.8 mg/dL (0.6-1.3); Estimated Creatinine Clearance 63.8 mL/min (>60); Globulin 3.5 gm/dL (2.3-3.5); Glucose 212 mg/dL (74-106); Magnesium 1.6 mg/dL (1.6-2.6); Osmolality,Calculated 282 (275-295); Potassium 4.2 mMol/L (3.4-5.1); Procalcitonin 1.91 ng/ml (0.0-0.49); Sodium 139 mMol/L (136-145); Thyroid Stimulating Hormone 3.12 uIU/mL (0.55-4.78); Total Protein 7.5 gm/dL (5.7-8.2); Troponin I < 0.020 ng/mL (0.0-0.045); eGFR > 60 See Note
[2024-07-20] MEDS: LORazepam 2 MG/ML VIAL 1.5 MG IVP (02:33)
[2024-07-20] MEDS: Norepinephrine/NS 16mg/250ml 16 MG/250 ML BAG 2.87 MG IV (03:35)
--- NOTE | 2024-07-20 04:48 | PRELIM_ITS ---
CT scan of the head without intravenous contrast (axial sections with sagittal and coronal reformats) July 20, 2024 0255 hours Clinical history: Seizure Comparison: None. Findings: The evaluation is markedly limited due to motion artifact. There is asymmetric [id number] enlargement of the right lateral ventricle.There is no gross evidence of intracranial hemorrhage or midline shift. There are periventricular white matter hypodensities, compatible with chronic small vessel ischemia. There is mild volume loss. Basal ganglia hyperdensities are present bilaterally. Pineal gland calcification is seen.There is atheromatous calcification of the intracranial arteries.The calvarium is unremarkable. 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 There is moderate mucosal thickening in ethmoid sinuses.The mastoid air cells and the other visualized paranasal sinuses are clear. Impression: The evaluation is grossly limited due to motion artifact.While there is no definitive evidence of intracranial hemorrhage or midline shift, a small hemorrhage cannot be entirely excluded. Recommend follow-up with motion free imaging. Asymmetric [id number] enlargement of the right lateral ventricle, which may be due to obstructive hydrocephalus. Recommend clinical correlation, comparison with prior studies and follow-up with MRI, if clinically indicated. Report Electronically Signed By: Rudy Shea 07/20/2024 4:47:45 AM [EST]
--- NOTE | 2024-07-20 05:01 | PRELIM_ITS ---
CT scan of the chest, abdomen and pelvis without intravenous contrast (axial sections with sagittal and coronal reformats) July 20, 2024 0257 hours Clinical History: Shortness of breath, abdominal pain. Findings: There is mild volume loss of the right lung.There is subpleural consolidation at the right lung baseand subpleural ground-glass opacities in the right upper lobe and right middle lobe. There is mild mucus impaction of the right lower lobe segmental bronchi. Interstitial septal thickening is seen bilaterally.There is no pleural effusion or pneumothorax. The thoracic aorta demonstrates atheromatous calcification without evidence of aneurysm. Coronary artery calcification is noted.No evidence of mediastinal mass or lymphadenopathy. There is no pericardial effusion. Small hypodense lesions are noted in the liver, too small to characterize. The liver is enlarged, measuring 20.8 cm. Dependent hyperdensity is identified within the gallbladder, which may represent sludge.There is mild nodular right adrenal thickening. Nonobstructing renal calculi are seen bilaterally, the largest in the left renal pelvis measuring 2 x 1.5 x 2.6 cm.No obstructing ureteric calculus or hydronephrosis. Extrarenal pelvis is seen on the right. Perinephric fat stranding on the left.The spleen, pancreas, left adrenal are unremarkableon this noncontrast study. No evidence of bowel obstruction. There are multiple colonic diverticula without evidence of diverticulitis.A moderate amount of fecal material is present in the colon. Abundant fecal material is noted in the rectum. The appendix is not visualized. The urinary bladder is incompletely distended at the time of the examination and appears mildly thick walled. The prostate is enlarged with its median lobe projecting within the bladder lumen.There is no free fluid or free air. There are small fat-containing bilateral inguinal hernias. Degenerative changes are identified in the spine. Impression: 1. No evidence of bowel obstruction, free air or fluid collection on this noncontrast study. Findings suggestive of rectal fecal impaction. 2. Large nonobstructing left renal pelvic calculus. Urinary infection cannot be excluded. No obstructing ureteric calculus or hydronephrosis. Recommend clinical correlation. 3. Chronic interstitial changes in the right lung withsubpleural infiltrate /atelectasis at the right lung base and mucus impaction as described. Superimposed infection cannot be excluded. Recommend clinical correlation. Report Electronically Signed By: Rudy Shea 07/20/2024 5:00:56 AM [EST]
[2024-07-20] MEDS: AZITHROMYCIN INJ 500 MG in SODIUM CHLORIDE 0.9% 250 ML 250 ML 250 MG IV (05:22)
--- NOTE | 2024-07-20 06:31 | PD.RESHP ---
Documentation for date of: 07/20/24 HPI History of Present Illness History of present illness: Patient is a 78-year-old male with history of developmental delay, seizure disorder, diabetes mellitus, hyperlipidemia, ESBL UTIs, depression, and GERD who presented [facility] with concerns of seizure disorder. Patient was accompanied by caregiver Anabella who assisted in providing history, history also obtained per chart review. Per caregiver, patient appears to be near his baseline mentation, which is non-verbal and unable to follow most commands, however is usually more active. Caregiver states patient had episodes of seizure like activity for about 30 minutes roughly 4 days prior. Patient was evaluated by his physician at the [facility] setting, was also treated by a nurse who visits the [facility]. Yesterday on 07/19, patient began to experience the shaking episodes again, was subsequently brought into the ED. There were no inciting factors or sick contacts reported. ROS pertinent only for physical shaking and seizure-like movements, remainder of ROS unremarkable. Remainder of history limited. PMH: developmental delay, seizure disorder, diabetes mellitus, hyperlipidemia, ESBL UTIs, depression, and GERD FH: Unknown Surgical Hx: Unknown Social Hx: No alcohol, tobacco, or illicit drug use Travel Hx: No recent travels outside of [place] Medication list per caregiver's documentation: - Acetaminophen 325mg prn - Ibuprofen 400mg prn - Polyethylene 17gms prn - Bisacodyl suppository 10mg prn - Calmoseptine ointment prn - Robitussin 5ml prn - Zolpidem tartrate 5mg hs prn - Simvastatin 10mg hs - Melatonin 10mg hs - Olanzapine 5mg hs - Ingrezza 60mg qday - Alendronate sodium 70mg q7days (on Wednesdays) - Metformin hcl 500mg BID - Loratadine 10mg qday - Docusate sodium 250 mg qd - Milk of magnesia liquid 30ml po q every other day - Cranberry probiotic tab - Multivitamin tab - NOTE: lamotrigine 100mg BID was not included in caregiver's list ED Significant vitals: 103.5F, heart rate 124, respiratory rate 27, blood pressure 69/46 Significant labs: WBC 13.1, CO2 32.3, glucose 212, CRP 4.4, procalcitonin 1.91 Urinalysis: 574 RBC, 137 WBC, leukocyte Esterase positive Head CT, chest/abdomen/pelvis CT, and chest x-ray: Final reads pending. Preliminary Head CT: Limited due to motion artifact, asymmetric moderate to severe enlargement of right lateral ventricle, which may be due to obstructive hydrocephalus, clinical correlation advised. No gross evidence of intracranial hemorrhage or midline shift. Periventricular white matter hypodensities, compatible with chronic small vessel ischemia. In ED, patient's presenting vitals revealed temperature of 103.5F, heart rate 124, respiratory rate 27, and blood pressure is 127/76, however BP noted to drop to 69/46. Patient was treated with 1500 mg Keppra, 2 L NS fluids, azithromycin, Rocephin, lorazepam, and oseltamivir. Patient was started on Levophed, ICU team consulted for admission for septic shock. Review of Systems Review of Systems ROS Unobtainable: unobtainable due to medical condition (Patient non-verbal, ROS negative per caregiver) Narrative Review of Systems: Patient non-verbal, ROS negative per caregiver Past Medical History Past Medical History Comments PMH COMMENT: PMH: developmental delay, seizure disorder, diabetes mellitus, hyperlipidemia, ESBL UTIs, depression, and GERD FH: Unknown Surgical Hx: Unknown Social Hx: No alcohol, tobacco, or illicit drug use Travel Hx: No recent travels outside of [place] Exam Vital Signs Temp Pulse Resp BP Pulse Ox O2 Del Method O2 Flow Rate 98.9 F 53 L 18 126/66 98 Nasal Cannula 2 07/20/24 02:00 07/20/24 05:20 07/20/24 05:20 07/20/24 05:20 07/20/24 05:20 07/20/24 05:20 07/20/24 05:20 Narrative Exam General: Does not appear to be in acute distress, non-verbal, AOx0 HEENT: Right eye opaque, edentulous, oral mucosa appears dry Heart: RRR, S1 and S2 without clicks or murmurs Lungs: Reduced left lung sounds, otherwise no difficulty breathing Abdomen: Soft, nontender. Bowel sounds present on all quadrants Skin: Intact, no cyanosis or edema noted Neuro: GCS 8, patient unable to cooperate with neurological exam Results: Labs 07/20/24 16:01 07/20/24 16:01 Labs: Short CBC 07/19/24 Range/Units 00:00 WBC 13.1 H (3.8-10.6) Thou/mm3 Hgb 12.7 L (13.5-16.0) g/dL Hct 37.4 L (41.0-53.0) % Plt Count 172 (140-440) Thou/mm3 BMP 07/19/24 00:00 Sodium 139 Potassium 4.2 Chloride 101 Carbon Dioxide 32.3 H BUN 11 Creatinine 0.8 D Glucose 212 H Calcium 10.2 Cardiac Enzymes 07/19/24 Range/Units 00:00 Total Creatine Kinase 28 L (34-171) U/L Troponin I < 0.020 (0.0-0.045) ng/mL Liver Function 07/19/24 Range/Units 00:00 Total Bilirubin 0.6 (0.3-1.2) mg/dL Direct Bilirubin 0.2 (0.0-0.3) mg/dL AST 21 (0-34) U/L ALT 16 (10-49) U/L Alkaline Phosphatase 107 (46-116) U/L Albumin 4.0 (3.4-4.8) gm/dL Urine 07/19/24 Range/Units 00:01 Urine Color Lt-Yellow (Lt Yel-Yel) Urine Clarity Turbid A (Clear/Hazy) Urine pH 8.0 H (5.0-7.0) Ur Specific [place] 1.014 (1.001-1.035) Urine Protein 1+ A (Neg - Trace) Urine Glucose (UA) Negative (Negative) ABG Interpretation ABG results: 07/20/24 00:42 ABG pH 7.45 ABG pCO2 43 ABG pO2 55 L* ABG HCO3 30 H ABG O2 Saturation 90 L ABG Base Excess 6 H Quality Measures Quality Measures VTE prophylaxis (Heparin subq) Advance care planning discussed with:: other Medications Home Medications and Allergies Home Medications ?Medication ?Instructions ?Recorded ?Confirmed ?Type Alendronate Sodium * (FOSAMAX *) 70 mg PO .MONDAY ##0 08/13/12 07/20/24 History OLANZAPINE (OLANZAPINE ODT) 5 mg PO HS ##0 08/13/12 07/20/24 History simvastatin 10 mg tablet (Zocor) 10 mg PO HS ##0 08/13/12 07/20/24 History Calcium Carbonate/Vitamin D3 1 tab PO BID ##0 08/02/16 07/20/24 History (Calcium + D 600 Mg Tablet) Held on 07/20/24. Instructions: Doctor's Order LORATADINE (CLARITIN) 1 tab PO QDAY ##0 08/02/16 07/20/24 History MULTIVITAMIN (MULTI VITAMIN DAILY) 1 tab PO QDAY ##0 08/02/16 07/20/24 History docusate sodium 250 mg capsule 1 cap PO BID ##0 08/02/16 07/20/24 History sertraline 100 mg tablet 200 mg PO QDAY 03/05/18 07/20/24 History cholecalciferol (vitamin D3) 25 1,000 unit PO BID 03/16/18 07/20/24 History mcg (1,000 unit) tablet (Vitamin D3) Held on 07/20/24. Instructions: Order Change magnesium hydroxide 400 mg/5 mL 30 ml PO EVERYOTHERDAY 03/16/18 07/20/24 History oral suspension (Milk of Magnesia) polyethylene glycol 3350 17 gram 17 g PO QDAY PRN constipation 03/16/18 07/20/24 History oral powder packet (Miralax) ferrous sulfate 325 mg (65 mg 325 mg PO TID 12/12/23 07/20/24 History iron) tablet (FeroSul) Held on 07/20/24. Instructions: Order Change melatonin 10 mg tablet 10 mg PO HS 12/12/23 07/20/24 History olanzapine 2.5 mg tablet 5 mg PO HS 12/12/23 07/20/24 History valbenazine 60 mg capsule 60 mg PO QDAY 12/12/23 07/20/24 History (Ingrezza) cranberry-B.xcdlmkxux-D-Bk phos 1 tab PO QDAY 12/25/23 07/20/24 History 480 mg-20 mg-100 million cell tablet (Cranberry-Probiotic) d-mannose 500 mg capsule (AZO 2,000 mg PO QDAY 12/25/23 07/20/24 History D-Mannose) metformin 500 mg tablet 500 mg PO BID 12/25/23 07/20/24 History amoxicillin 875 mg-potassium 1 tab PO Q8H 07/20/24 07/20/24 History clavulanate 125 mg tablet ibuprofen 400 mg tablet 400 mg PO Q6H PRN pain 07/20/24 07/20/24 History loratadine 10 mg tablet 10 mg PO QDAY 07/20/24 07/20/24 History zolpidem 5 mg tablet 5 mg PO QHSPRN 07/20/24 07/20/24 History Allergies Allergy/AdvReac Type Severity Reaction Status Date / Time No Known Allergies Allergy Verified 07/19/24 23:27 Visit Medications Acetaminophen (Acetaminophen 325 Mg Tablet) 650 mg PO Q4HR PRN PRN Reason: PAIN SCALE 1-3 (mild Stop: 08/19/24 06:13 Alendronate Sodium (Alendronate Sodium 70 Mg Tablet) 70 mg PO Q7D GREG Stop: 08/23/24 06:29 Dextrose (Dextrose 50%-Water Inj 50 Ml Syringe) 25 ml IV Q15MIN PRN PRN Reason: BG 50-70 responsive npo pt Stop: 08/19/24 06:21 Dextrose (Dextrose 50%-Water Inj 50 Ml Syringe) 50 ml IV Q15MIN PRN PRN Reason: BG <50 OR BG <70 & pt unresponsive Stop: 08/19/24 06:21 Glucagon (Glucagon Inj 1 Mg Vial) 1 mg IM Q15MIN PRN PRN Reason: BG <70, and no IV access Heparin Sodium (Porcine) (Heparin Sod Inj 5000 Unit/Ml Vial) 5,000 unit SC Q8HR GREG Stop: 08/03/24 13:59 Norepinephrine Bitartrate (Levophed In Ns 16mg/250ml) 16 mg in 250 mls @ 2.87 mls/hr IV .Q24H PRN; Protocol PRN Reason: PER PROTOCOL Stop: 08/19/24 03:18 Last Titration: 07/20/24 05:10 Dose: 0.07 mcg/kg/min, 4.019 mls/hr Piperacillin/Tazobactam/Dextrose (Zosyn) 3.375 gm in 50 mls @ 12.5 mls/hr IV Q8HR GREG Stop: 07/27/24 13:59 Piperacillin/Tazobactam/Dextrose (Zosyn) 3.375 gm in 50 mls @ 100 mls/hr IV X1 ONE Stop: 07/20/24 06:59 Insulin Human Lispro (Insulin Lispro (Admelog) 1 Unit/0.01 Ml Unit) 0 unit SC AC GREG; Protocol Stop: 08/19/24 07:29 Lorazepam (Lorazepam 2 Mg/Ml Vial) 4 mg IVP Q5MIN PRN PRN Reason: seizure Non-Formulary Medication (Simvastatin) 10 mg PO HS GREG Stop: 08/19/24 20:59 Olanzapine (Olanzapine 5 Mg Tablet) 5 mg PO HS GREG Stop: 08/19/24 20:59 Oseltamivir Phosphate (Oseltamivir 75 Mg Capsule) 75 mg PO BID GREG Stop: 07/24/24 20:59 Pantoprazole Sodium (Pantoprazole Inj 40 Mg Vial) 40 mg IVP QDAY GREG Stop: 08/19/24 08:59 Sennosides (Senna Tablet) 1 tab PO QDAY PRN; Protocol PRN Reason: Constipation Stop: 08/19/24 08:59 Discontinued Medications Acetaminophen (Ofirmev Inj) 1,000 mg in 100 mls @ 250 mls/hr IV Q6HR GREG Stop: 07/20/24 18:23 Sodium Chloride (Ns) 1,000 mls @ 999 mls/hr IV .Q1H1M ONE Stop: 07/20/24 00:49 Last Infusion: 07/20/24 01:37 Dose: Infused Ceftriaxone Sodium 1,000 mg/ (Sodium Chloride) 50 mls @ 100 mls/hr IV X1 ONE Stop: 07/20/24 00:19 Last Infusion: 07/20/24 00:53 Dose: Infused Sodium Chloride (Ns) 1,000 mls @ 999 mls/hr IV .Q1H1M ONE Stop: 07/20/24 00:50 Last Infusion: 07/20/24 01:36 Dose: Infused Acetaminophen (Ofirmev Inj) 1,000 mg in 100 mls @ 250 mls/hr IV X1 ONE Stop: 07/20/24 00:15 Last Infusion: 07/20/24 00:53 Dose: Infused Azithromycin 500 mg/ Sodium (Chloride) 250 mls @ 250 mls/hr IV X1 ONE Stop: 07/20/24 06:09 Last Admin: 07/20/24 05:22 Dose: 250 mls/hr Ketorolac Tromethamine (Ketorolac Inj 30 Mg/Ml Vial) 15 mg IVP X1 ONE Stop: 07/19/24 23:50 Last Admin: 07/20/24 00:11 Dose: 15 mg Levetiracetam (Levetiracetam Inj 100 Mg/Ml Vial 5ml) 1,500 mg IVP X1 ONE Stop: 07/19/24 23:50 Last Admin: 07/20/24 00:10 Dose: 1,500 mg Lorazepam (Lorazepam 2 Mg/Ml Vial) 1.5 mg IVP X1 ONE Stop: 07/20/24 02:23 Last Admin: 07/20/24 02:33 Dose: 1.5 mg Oseltamivir Phosphate (Oseltamivir 75 Mg Capsule) 75 mg PO X1 ONE Stop: 07/20/24 00:07 Last Admin: 07/20/24 00:22 Dose: Not Given Assessment & Plan Plan Patient is a 78-year-old male with history of developmental delay, seizure disorder, diabetes mellitus, hyperlipidemia, ESBL UTIs, depression, and GERD who presented [facility] with concerns of seizure disorder, found to become hypotensive requiring vasopressor support for likely septic shock secondary to UTI, flu, and/or pneumonia. Neurological #Possible acute encephalopathy secondary to infection vs post-ictal, resolving #History of developmental delay Patient noted to have seizure-like episodes, has resolved in ED. Per caregiver patient's mentation appears baseline, however patient is less active. ? Treat infection and seizure disorder as noted below ? NPO, speech therapy referral pending #History of seizure disorder No antiseizure medication was noted on patient's medication list. Previous hospitalizations indicate lamotrigine use Treated with Keppra in ED ? Neurologist Dr Gonzalez consulted, we appreciate recommendations ? Med rec pending, may consider resuming antiseizure medications if confirmed on med list ? IV Ativan as needed for seizures #Asymmetric moderate?severe enlargement of right lateral ventricle, possible obstructive hydrocephalus Preliminary Head CT: Limited due to motion artifact, asymmetric moderate to severe enlargement of right lateral ventricle, which may be due to obstructive hydrocephalus, clinical correlation advised. No gross evidence of intracranial hemorrhage or midline shift. Periventricular white matter hypodensities, compatible with chronic small vessel ischemia. ? Final head CT pending, consider MRI pending final CT report ? Will appreciate neurology recommendations #History of insomnia #History of depression #Possible history of Tardive dyskinesia ? Resume home Zyprexa ? Med rec pending, consider resuming home Ingrezza Cardiovascular #Shock, likely distributive/septic to UTI, Influenza, and/or community-acquired PNA. Blood pressures noted to drop to 69/46 after fluid resuscitation. Vasopressors started ? Continue Levophed wean as clinically tolerated ? Treat UTI, influenza, pneumonia as noted below #History of hyperlipidemia ? Resume home simvastatin 10mg qday, med rec pending Respiratory #Possible Community-acquired PNA ? See below under ID section Gastrointestinal #History of GERD #History of constipation ? IV Protonix 40 mg daily ? Senna as needed ? Med rec pending ? NPO, speech therapy referral pending Renal ? No active issue Endocrine #History of diabetes mellitus type 2 Glucose levels 212 in ED. Previous A1c in December 2023 was 5.4 ? Hold patient's home metformin ? Insulin sliding scale started #Suspected history of Osteoporosis ? Resume home alendronate 70mg q7days (on Wednesdays) Infectious Disease #Shock, likely distributive/septic to UTI, Influenza, and/or community-acquired PNA. #Influenza #Possible community-acquired pneumonia #History of ESBL UTIs, sensitive to Zosyn Vitals upon ED arrival show temperature 103.5 F, heart rate 124, respiratory rate 27. WBC 13.1 with CRP 4.4 and Pro-Giovanni 1.91. UA showing 137 WBC, 574 RBC, and leukocyte esterase positive ? Fluid resuscitation 2 liters normal saline given in ED ? Start IV Zosyn course ? Blood and urine cultures pending ? Wean vasopressor support as tolerated ? Tamiflu started Hematology/Oncology ? No active issue Diet: NPO, speech referral pending DVT prophylaxis: Heparin subcutaneously GI prophylaxis: IV Protonix 40mg qday Code status: Full Code Disposition: Admission to ICU for continued vasopressor support, will wean as tolerated. Patient case discussed with attending physician Dr. Jacob Crystal DO PGY-3 Attending Provider Attestation/Addendum I have examined the patient, reviewed labs and imaging findings, discussed the case with the resident(s), and reviewed entered orders. I agree with the plan of care as outlined in this note. Dr. Jacob MD
[2024-07-20] MEDS: PIPER/TAZO 3.375 GM PREMIX 3.375 GM/50 ML BAG IV ×3 (06:51→21:03)
--- NOTE | 2024-07-20 07:32 | PC.NURSE ---
DR. Memo MAR AT BEDSIDE ASSESSING PT.
--- NOTE | 2024-07-20 08:33 | PC.NURSE ---
ATTEMPTED TO GIVE REPORT TO DOROTHY ACUPRESSURE THERAPIST AT THIS TIME; DOROTHY BABCOCK NOT AVAILABLE; PER DOROTHY BABCOCK, WILL GIVE YOU A CALL BACK.
[2024-07-20] MEDS: PANTOPRAZOLE INJ 40 MG VIAL IVP (09:38)
[2024-07-20] MEDS: RINGERS LACTATED 1000 ML 1,000 ML 999 ML IV (09:39)
--- NOTE | 2024-07-20 13:38 | PD.RESPRO ---
Documentation for date of: 07/20/24 Exam Vital Signs Temp Pulse Resp BP Pulse Ox O2 Del Method O2 Flow Rate 100.5 F H 82 17 122/68 93 L Room Air 2 07/20/24 12:00 07/20/24 12:00 07/20/24 12:00 07/20/24 12:00 07/20/24 12:00 07/20/24 07:16 07/20/24 07:04 Objective Labs 07/19/24 00:00 07/19/24 00:00 Labs: Laboratory Results - last 24 hr 07/19/24 07/19/24 07/20/24 00:00 00:01 00:01 WBC 13.1 H RBC 4.17 L Hgb 12.7 L Hct 37.4 L MCV 90 MCH 30.5 MCHC 34.0 RDW Std Deviation 41.0 Plt Count 172 Neut % (Auto) 89 H Lymph % (Auto) 4 L [place] % (Auto) 5 Eos % (Auto) 1 Baso % (Auto) 0 Neut # (Auto) 11.6 H Lymph # (Auto) 0.6 L [place] # (Auto) 0.7 Eos # (Auto) 0.1 Baso # (Auto) 0.0 Immature Gran # (Auto) 0.12 H Absolute Nucleated RBC 0.00 Immature Gran % 1 H Nucleated RBC % 0 ESR 57 H PT 11.6 INR 1.1 APTT 28.9 Puncture Site ABG pH ABG pCO2 ABG pO2 ABG HCO3 ABG O2 Saturation ABG Base Excess FiO2 Sodium 139 Potassium 4.2 Chloride 101 Carbon Dioxide 32.3 H Anion Gap 6 L BUN 11 Creatinine 0.8 D Estim Creat Clear Calc 63.8 eGFR > 60 BUN/Creatinine Ratio 14 Glucose 212 H Calculated Osmolality 282 Lactic Acid 1.8 Calcium 10.2 Corrected Calcium 10.2 H Magnesium 1.6 Total Bilirubin 0.6 Direct Bilirubin 0.2 AST 21 ALT 16 Alkaline Phosphatase 107 Ammonia < 10 L Total Creatine Kinase 28 L Troponin I < 0.020 C-Reactive Prot, Quant 4.4 H B-Natriuretic Peptide 156 H Total Protein 7.5 Albumin 4.0 Globulin 3.5 Albumin/Globulin Ratio 1.1 L Procalcitonin 1.91 H TSH 3.12 Free T4 1.00 Ur Collection Type Clean Catch Urine Color Lt-Yellow Urine Clarity Turbid A Urine pH 8.0 H Ur Specific [place] 1.014 Urine Protein 1+ A Urine Glucose (UA) Negative Urine Ketones Negative Urine Blood 3+ A Urine Nitrite Negative Urine Bilirubin Negative Urine Urobilinogen (Auto) Negative Ur Leukocyte Esterase Positive Urine RBC 574 H Urine WBC 137 H Ur Squamous Epith Cells 0 Urine Bacteria None Ur Culture Indicated? Yes RSV Rapid Negative Group A Strep Rapid Negative 07/20/24 00:42 WBC RBC Hgb Hct MCV MCH MCHC RDW Std Deviation Plt Count Neut % (Auto) Lymph % (Auto) [place] % (Auto) Eos % (Auto) Baso % (Auto) Neut # (Auto) Lymph # (Auto) [place] # (Auto) Eos # (Auto) Baso # (Auto) Immature Gran # (Auto) Absolute Nucleated RBC Immature Gran % Nucleated RBC % ESR PT INR APTT Puncture Site Right Radial ABG pH 7.45 ABG pCO2 43 ABG pO2 55 L* ABG HCO3 30 H ABG O2 Saturation 90 L ABG Base Excess 6 H FiO2 21 Sodium Potassium Chloride Carbon Dioxide Anion Gap BUN Creatinine Estim Creat Clear Calc eGFR BUN/Creatinine Ratio Glucose Calculated Osmolality Lactic Acid Calcium Corrected Calcium Magnesium Total Bilirubin Direct Bilirubin AST ALT Alkaline Phosphatase Ammonia Total Creatine Kinase Troponin I C-Reactive Prot, Quant B-Natriuretic Peptide Total Protein Albumin Globulin Albumin/Globulin Ratio Procalcitonin TSH Free T4 Ur Collection Type Urine Color Urine Clarity Urine pH Ur Specific [place] Urine Protein Urine Glucose (UA) Urine Ketones Urine Blood Urine Nitrite Urine Bilirubin Urine Urobilinogen (Auto) Ur Leukocyte Esterase Urine RBC Urine WBC Ur Squamous Epith Cells Urine Bacteria Ur Culture Indicated? RSV Rapid Group A Strep Rapid ABG Interpretation ABG results: 07/20/24 00:42 ABG pH 7.45 ABG pCO2 43 ABG pO2 55 L* ABG HCO3 30 H ABG O2 Saturation 90 L ABG Base Excess 6 H Quality Measures Quality Measures VTE prophylaxis (Heparin subq) Assessment & Plan Assessment Current Active Medications: Generic Name Dose Route Start Last Admin Trade Name Freq PRN Reason Stop Dose Admin Acetaminophen 650 mg 07/20/24 06:14 Acetaminophen 325 Mg Tablet PO 08/19/24 06:13 Q4HR PRN PAIN SCALE 1-3 (mild Alendronate Sodium 70 mg 07/24/24 06:30 Alendronate Sodium 70 Mg Tablet PO 08/23/24 06:29 Q7D GREG Atorvastatin Calcium 5 mg 07/20/24 21:00 Atorvastatin Calcium 10 Mg Tablet PO 08/19/24 20:59 HS GREG Dextrose 25 ml 07/20/24 06:22 Dextrose 50%-Water Inj 50 Ml Syringe IV 08/19/24 06:21 Q15MIN PRN BG 50-70 responsive npo pt Dextrose 50 ml 07/20/24 06:22 Dextrose 50%-Water Inj 50 Ml Syringe IV 08/19/24 06:21 Q15MIN PRN BG <50 OR BG <70 & pt unresponsive Glucagon 1 mg 07/20/24 06:22 Glucagon Inj 1 Mg Vial IM Q15MIN PRN BG <70, and no IV access Heparin Sodium (Porcine) 5,000 unit 07/20/24 14:00 Heparin Sod Inj 5000 Unit/Ml Vial SC 08/03/24 13:59 Q8HR [facility] Norepinephrine Bitartrate 16 mg in 250 mls @ 2.87 mls/hr 07/20/24 03:19 07/20/24 09:40 Levophed In Ns 16mg/250ml IV 08/19/24 03:18 0 mcg/kg/min .Q24H PRN 0 mls/hr PER PROTOCOL Titration Protocol 0.05 MCG/KG/MIN Piperacillin/Tazobactam/Dextrose 3.375 gm in 50 mls @ 12.5 mls/hr 07/20/24 14:00 Zosyn IV 07/27/24 13:59 Q8HR [facility] Insulin Human Lispro 0 unit 07/20/24 07:30 07/20/24 12:23 Insulin Lispro (Admelog) 1 Unit/0.01 Ml Unit SC 08/19/24 07:29 Not Given AC [facility] Protocol Lorazepam 4 mg 07/20/24 06:18 Lorazepam 2 Mg/Ml Vial IVP Q5MIN PRN seizure Olanzapine 5 mg 07/20/24 21:00 Olanzapine 5 Mg Tablet PO 08/19/24 20:59 HS GREG Oseltamivir Phosphate 75 mg 07/20/24 21:00 Oseltamivir 75 Mg Capsule PO 07/24/24 20:59 BID GREG Pantoprazole Sodium 40 mg 07/20/24 09:00 07/20/24 09:38 Pantoprazole Inj 40 Mg Vial IVP 08/19/24 08:59 40 mg QDAY GREG Administration Sennosides 1 tab 07/20/24 06:25 Senna Tablet PO 08/19/24 08:59 QDAY PRN Constipation Protocol
--- NOTE | 2024-07-20 13:41 | ESPR_ITS ---
Documentation for date of: 07/20/24 Subjective Subjective Interval history: Patient admitted overnight for management of septic shock requiring pressors. Received 2L IV fluid resucitation while on the ER, was started on levophed at around 3am. This AM around 9:00 am pressors stopped, one more liter of fluid given, patient's MAP has mantained above 65 for the past few hours, saturating adequately on room air. Safe and stable fot downgrade to the floors. Exam Vital Signs Temp Pulse Resp BP Pulse Ox O2 Del Method O2 Flow Rate 100.5 F H 82 17 122/68 93 L Room Air 2 07/20/24 12:00 07/20/24 12:00 07/20/24 12:00 07/20/24 12:00 07/20/24 12:00 07/20/24 07:16 07/20/24 07:04 Narrative Exam GENERAL: Somnolent but able to be awaked, non verbal at baseline, doesnt follow commands at baseline HEENT: Normocephalic, atraumatic and nontender.? Pupils are equal and reactive to light and accommodation.? Oral mucosa dry NECK: Supple without adenopathy. Traquea midline. Nontender, carotid pulse 2+ bilaterally without bruits, no JVD.? CHEST: Heart rate and rythm normal, no murmurs, gallops auscultated. S1 & 2 normal insensity. Nontender on palpation, no deformity and no crepitus. LUNGS: Lung sounds are clear.? No wheezing, rales or ronchi.? No intercostal subcostal retraction. Room air ABDOMEN: Soft,symmetric , nontender, no guarding or rebound tenderness. Bowel sounds are normoactive in all 4 quadrants. EXTREMITIES: Nontender.? No pitting edema.? No cyanosis.? Patient is able to move all 4 extremities. SKIN: No rashes noted. Objective Labs 07/21/24 04:28 07/21/24 04:28 Labs: Laboratory Results - last 24 hr 07/19/24 07/19/24 07/20/24 00:00 00:01 00:01 WBC 13.1 H RBC 4.17 L Hgb 12.7 L Hct 37.4 L MCV 90 MCH 30.5 MCHC 34.0 RDW Std Deviation 41.0 Plt Count 172 Neut % (Auto) 89 H Lymph % (Auto) 4 L Turner % (Auto) 5 Eos % (Auto) 1 Baso % (Auto) 0 Neut # (Auto) 11.6 H Lymph # (Auto) 0.6 L Turner # (Auto) 0.7 Eos # (Auto) 0.1 Baso # (Auto) 0.0 Immature Gran # (Auto) 0.12 H Absolute Nucleated RBC 0.00 Immature Gran % 1 H Nucleated RBC % 0 ESR 57 H PT 11.6 INR 1.1 APTT 28.9 Puncture Site ABG pH ABG pCO2 ABG pO2 ABG HCO3 ABG O2 Saturation ABG Base Excess FiO2 Sodium 139 Potassium 4.2 Chloride 101 Carbon Dioxide 32.3 H Anion Gap 6 L BUN 11 Creatinine 0.8 D Estim Creat Clear Calc 63.8 eGFR > 60 BUN/Creatinine Ratio 14 Glucose 212 H Calculated Osmolality 282 Lactic Acid 1.8 Calcium 10.2 Corrected Calcium 10.2 H Magnesium 1.6 Total Bilirubin 0.6 Direct Bilirubin 0.2 AST 21 ALT 16 Alkaline Phosphatase 107 Ammonia < 10 L Total Creatine Kinase 28 L Troponin I < 0.020 C-Reactive Prot, Quant 4.4 H B-Natriuretic Peptide 156 H Total Protein 7.5 Albumin 4.0 Globulin 3.5 Albumin/Globulin Ratio 1.1 L Procalcitonin 1.91 H TSH 3.12 Free T4 1.00 Ur Collection Type Clean Catch Urine Color Lt-Yellow Urine Clarity Turbid A Urine pH 8.0 H Ur Specific [place] 1.014 Urine Protein 1+ A Urine Glucose (UA) Negative Urine Ketones Negative Urine Blood 3+ A Urine Nitrite Negative Urine Bilirubin Negative Urine Urobilinogen (Auto) Negative Ur Leukocyte Esterase Positive Urine RBC 574 H Urine WBC 137 H Ur Squamous Epith Cells 0 Urine Bacteria None Ur Culture Indicated? Yes RSV Rapid Negative Group A Strep Rapid Negative 07/20/24 00:42 WBC RBC Hgb Hct MCV MCH MCHC RDW Std Deviation Plt Count Neut % (Auto) Lymph % (Auto) Turner % (Auto) Eos % (Auto) Baso % (Auto) Neut # (Auto) Lymph # (Auto) Turner # (Auto) Eos # (Auto) Baso # (Auto) Immature Gran # (Auto) Absolute Nucleated RBC Immature Gran % Nucleated RBC % ESR PT INR APTT Puncture Site Right Radial ABG pH 7.45 ABG pCO2 43 ABG pO2 55 L* ABG HCO3 30 H ABG O2 Saturation 90 L ABG Base Excess 6 H FiO2 21 Sodium Potassium Chloride Carbon Dioxide Anion Gap BUN Creatinine Estim Creat Clear Calc eGFR BUN/Creatinine Ratio Glucose Calculated Osmolality Lactic Acid Calcium Corrected Calcium Magnesium Total Bilirubin Direct Bilirubin AST ALT Alkaline Phosphatase Ammonia Total Creatine Kinase Troponin I C-Reactive Prot, Quant B-Natriuretic Peptide Total Protein Albumin Globulin Albumin/Globulin Ratio Procalcitonin TSH Free T4 Ur Collection Type Urine Color Urine Clarity Urine pH Ur Specific [place] Urine Protein Urine Glucose (UA) Urine Ketones Urine Blood Urine Nitrite Urine Bilirubin Urine Urobilinogen (Auto) Ur Leukocyte Esterase Urine RBC Urine WBC Ur Squamous Epith Cells Urine Bacteria Ur Culture Indicated? RSV Rapid Group A Strep Rapid ABG Interpretation ABG results: 07/20/24 00:42 ABG pH 7.45 ABG pCO2 43 ABG pO2 55 L* ABG HCO3 30 H ABG O2 Saturation 90 L ABG Base Excess 6 H Quality Measures Quality Measures VTE prophylaxis (Heparin subq) Advance care planning discussed with:: patient Assessment & Plan Assessment Current Active Medications: Generic Name Dose Route Start Last Admin Trade Name Freq PRN Reason Stop Dose Admin Acetaminophen 650 mg 07/20/24 06:14 Acetaminophen 325 Mg Tablet PO 08/19/24 06:13 Q4HR PRN PAIN SCALE 1-3 (mild Alendronate Sodium 70 mg 07/24/24 06:30 Alendronate Sodium 70 Mg Tablet PO 08/23/24 06:29 Q7D GREG Atorvastatin Calcium 5 mg 07/20/24 21:00 Atorvastatin Calcium 10 Mg Tablet PO 08/19/24 20:59 HS GREG Dextrose 25 ml 07/20/24 06:22 Dextrose 50%-Water Inj 50 Ml Syringe IV 08/19/24 06:21 Q15MIN PRN BG 50-70 responsive npo pt Dextrose 50 ml 07/20/24 06:22 Dextrose 50%-Water Inj 50 Ml Syringe IV 08/19/24 06:21 Q15MIN PRN BG <50 OR BG <70 & pt unresponsive Glucagon 1 mg 07/20/24 06:22 Glucagon Inj 1 Mg Vial IM Q15MIN PRN BG <70, and no IV access Heparin Sodium (Porcine) 5,000 unit 07/20/24 14:00 Heparin Sod Inj 5000 Unit/Ml Vial SC 08/03/24 13:59 Q8HR [facility] Norepinephrine Bitartrate 16 mg in 250 mls @ 2.87 mls/hr 07/20/24 03:19 07/20/24 09:40 Levophed In Ns 16mg/250ml IV 08/19/24 03:18 0 mcg/kg/min .Q24H PRN 0 mls/hr PER PROTOCOL Titration Protocol 0.05 MCG/KG/MIN Piperacillin/Tazobactam/Dextrose 3.375 gm in 50 mls @ 12.5 mls/hr 07/20/24 14:00 Zosyn IV 07/27/24 13:59 Q8HR GREG Insulin Human Lispro 0 unit 07/20/24 07:30 07/20/24 12:23 Insulin Lispro (Admelog) 1 Unit/0.01 Ml Unit SC 08/19/24 07:29 Not Given AC GREG Protocol Lorazepam 4 mg 07/20/24 06:18 Lorazepam 2 Mg/Ml Vial IVP Q5MIN PRN seizure Olanzapine 5 mg 07/20/24 21:00 Olanzapine 5 Mg Tablet PO 08/19/24 20:59 HS GREG Oseltamivir Phosphate 75 mg 07/20/24 21:00 Oseltamivir 75 Mg Capsule PO 07/24/24 20:59 BID GREG Pantoprazole Sodium 40 mg 07/20/24 09:00 07/20/24 09:38 Pantoprazole Inj 40 Mg Vial IVP 08/19/24 08:59 40 mg QDAY GREG Administration Sennosides 1 tab 07/20/24 06:25 Senna Tablet PO 08/19/24 08:59 QDAY PRN Constipation Protocol Plan 78-year-old male with history of developmental delay, seizure disorder, diabetes mellitus, hyperlipidemia, ESBL UTIs, depression, and GERD who [facility] concerns of seizure disorder, found to become hypotensive requiring vasopressor support for likely septic shock secondary to flu, and/or pneumonia. Neurological #Acute encephalopathy #History of developmental delay Per caregiver patient's mentation appears baseline, however a bit more somnolent, he is non verbal and does not follow commands at baseline #History of seizure disorder No antiseizure medication was noted on patient's medication list. Previous hospitalizations indicate lamotrigine use Treated with Keppra in ED ? Neurologist Dr Gonzalez consulted, we appreciate recommendations ? Med rec pending, may consider resuming antiseizure medications if confirmed on med list ? IV Ativan as needed for seizures - No seizures noted since admit #History of insomnia #History of depression #Possible history of Tardive dyskinesia ? Resume home Zyprexa ? Med rec pending, consider resuming home Ingrezza Cardiovascular #Shock, -Likely distributive/septic due to Influenza with suspected superimposed bacterial pneumonia -Received 2L IV fluid resucitation while on the ER, was started on levophed at around 3am. This AM around 9:00 am pressors stopped, one more liter of fluid given, patient's MAP has mantained above 65 for the past few hours #History of hyperlipidemia ? Resume home simvastatin 10mg qday, med rec pending Respiratory #Flu infection with suspected superimposed bacterial pneumonia ? See below under ID section Gastrointestinal #History of GERD #History of constipation ? IV Protonix 40 mg daily ? Senna as needed ? Med rec pending ? NPO, speech therapy referral pending Renal ? No active issue Endocrine #History of diabetes mellitus type 2 Glucose levels 212 in ED. Previous A1c in December 2023 was 5.4 ? Hold patient's home metformin ? Insulin sliding scale started #Suspected history of Osteoporosis ? Resume home alendronate 70mg q7days (on Wednesdays) Infectious Disease #Influenza #Possible superimposed bacterial pneumonia #History of ESBL UTIs, sensitive to Zosyn Vitals upon ED arrival show temperature 103.5 F, heart rate 124, respiratory rate 27. WBC 13.1 with CRP 4.4 and Pro-Giovanni 1.91. UA showing 137 WBC, 574 RBC, and leukocyte esterase positive ? Fluid resuscitation 2 liters normal saline given in ED ? Start IV Zosyn course ? Blood and urine cultures pending ? Wean vasopressor support as tolerated ? Tamiflu started Hematology/Oncology ? No active issue Diet: NPO, speech referral pending DVT prophylaxis: Heparin subcutaneously GI prophylaxis: IV Protonix 40mg qday Code status: Full Code Disposition: Admission to ICU for continued vasopressor support, weaned off, safe and stable for downgrade to floors Patient case discussed with attending physician Dr. Jac Reid MD PGY-3 Attending Provider Attestation/Addendum pt seen and examined, d/w resident. In brief this is a 78yo M admitted for rigors and septic shock. He has a h/o sz disorder in the past and was originally brought to the ER for suspicion of sz. He is a [facility] resident and is conserved. He received 2lts of IVF on arrival. It is felt that he is still dry and was given additional volume. He was rapidly able to come off of levophed on arrival to the ICU. UA was suggestive of UTI. He is on abx. Physical exam shows a thin , frail, elderly gentleman who is nonverbal. oral mucosa appears dry, LCTAB, HRRR, no increase in WOB. He was given a 3rd lt of IVF. After observation for an additional 6hrs he was downgraded to tele. Case d/w ICU team labs, imaging, records reviewed ~38min required for eval, exam, review, intervention, discussion and formulation of POC
[2024-07-20] MEDS: HEPARIN SOD INJ 5000 UNIT/ML VIAL SC ×2 (14:32→21:03)
--- NOTE | 2024-07-20 14:38 | ESPR_ITS ---
Documentation for date of: 07/20/24 Subjective Subjective Interval history: Patient seen and assessed in ICU. Patient is an overnight admit that required pressors for blood pressure support. Patient has been off pressors since around 9 AM and has remained stable. Patient will be downgraded to floors will week we will continue care. Patient [facility], is now at baseline at his nonverbal state. Patient is flu positive. Exam Vital Signs Temp Pulse Resp BP Pulse Ox O2 Del Method O2 Flow Rate 100.5 F H 79 16 90/54 L 94 L Room Air 2 07/20/24 12:00 07/20/24 13:00 07/20/24 13:00 07/20/24 13:00 07/20/24 13:00 07/20/24 07:16 07/20/24 07:04 Narrative Exam GENERAL: Somnolent but arousable, non verbal, doesnt follow commands. CHEST: Regular rate and rhythm, no murmurs, gallops auscultated. LUNGS: Clear breath sounds bilaterally.? No wheezing, rales or ronchi.? No intercostal subcostal retraction. On room air ABDOMEN: Soft,symmetric , nontender, no guarding or rebound tenderness. Active bowel sounds. EXTREMITIES: Nontender.? No pitting edema.? No cyanosis.? Withdraws to pain/ noxious stimuli. B/l LE contracted SKIN: No rashes noted. Objective Labs 07/19/24 00:00 07/19/24 00:00 Labs: Laboratory Results - last 24 hr 07/19/24 07/19/24 07/20/24 00:00 00:01 00:01 WBC 13.1 H RBC 4.17 L Hgb 12.7 L Hct 37.4 L MCV 90 MCH 30.5 MCHC 34.0 RDW Std Deviation 41.0 Plt Count 172 Neut % (Auto) 89 H Lymph % (Auto) 4 L Rogers % (Auto) 5 Eos % (Auto) 1 Baso % (Auto) 0 Neut # (Auto) 11.6 H Lymph # (Auto) 0.6 L [place] # (Auto) 0.7 Eos # (Auto) 0.1 Baso # (Auto) 0.0 Immature Gran # (Auto) 0.12 H Absolute Nucleated RBC 0.00 Immature Gran % 1 H Nucleated RBC % 0 ESR 57 H PT 11.6 INR 1.1 APTT 28.9 Puncture Site ABG pH ABG pCO2 ABG pO2 ABG HCO3 ABG O2 Saturation ABG Base Excess FiO2 Sodium 139 Potassium 4.2 Chloride 101 Carbon Dioxide 32.3 H Anion Gap 6 L BUN 11 Creatinine 0.8 D Estim Creat Clear Calc 63.8 eGFR > 60 BUN/Creatinine Ratio 14 Glucose 212 H Calculated Osmolality 282 Lactic Acid 1.8 Calcium 10.2 Corrected Calcium 10.2 H Magnesium 1.6 Total Bilirubin 0.6 Direct Bilirubin 0.2 AST 21 ALT 16 Alkaline Phosphatase 107 Ammonia < 10 L Total Creatine Kinase 28 L Troponin I < 0.020 C-Reactive Prot, Quant 4.4 H B-Natriuretic Peptide 156 H Total Protein 7.5 Albumin 4.0 Globulin 3.5 Albumin/Globulin Ratio 1.1 L Procalcitonin 1.91 H TSH 3.12 Free T4 1.00 Ur Collection Type Clean Catch Urine Color Lt-Yellow Urine Clarity Turbid A Urine pH 8.0 H Ur Specific [place] 1.014 Urine Protein 1+ A Urine Glucose (UA) Negative Urine Ketones Negative Urine Blood 3+ A Urine Nitrite Negative Urine Bilirubin Negative Urine Urobilinogen (Auto) Negative Ur Leukocyte Esterase Positive Urine RBC 574 H Urine WBC 137 H Ur Squamous Epith Cells 0 Urine Bacteria None Ur Culture Indicated? Yes RSV Rapid Negative Group A Strep Rapid Negative 07/20/24 00:42 WBC RBC Hgb Hct MCV MCH MCHC RDW Std Deviation Plt Count Neut % (Auto) Lymph % (Auto) Rogers % (Auto) Eos % (Auto) Baso % (Auto) Neut # (Auto) Lymph # (Auto) Rogers # (Auto) Eos # (Auto) Baso # (Auto) Immature Gran # (Auto) Absolute Nucleated RBC Immature Gran % Nucleated RBC % ESR PT INR APTT Puncture Site Right Radial ABG pH 7.45 ABG pCO2 43 ABG pO2 55 L* ABG HCO3 30 H ABG O2 Saturation 90 L ABG Base Excess 6 H FiO2 21 Sodium Potassium Chloride Carbon Dioxide Anion Gap BUN Creatinine Estim Creat Clear Calc eGFR BUN/Creatinine Ratio Glucose Calculated Osmolality Lactic Acid Calcium Corrected Calcium Magnesium Total Bilirubin Direct Bilirubin AST ALT Alkaline Phosphatase Ammonia Total Creatine Kinase Troponin I C-Reactive Prot, Quant B-Natriuretic Peptide Total Protein Albumin Globulin Albumin/Globulin Ratio Procalcitonin TSH Free T4 Ur Collection Type Urine Color Urine Clarity Urine pH Ur Specific [place] Urine Protein Urine Glucose (UA) Urine Ketones Urine Blood Urine Nitrite Urine Bilirubin Urine Urobilinogen (Auto) Ur Leukocyte Esterase Urine RBC Urine WBC Ur Squamous Epith Cells Urine Bacteria Ur Culture Indicated? RSV Rapid Group A Strep Rapid ABG Interpretation ABG results: 07/20/24 00:42 ABG pH 7.45 ABG pCO2 43 ABG pO2 55 L* ABG HCO3 30 H ABG O2 Saturation 90 L ABG Base Excess 6 H Quality Measures Quality Measures VTE prophylaxis (Heparin subq) Advance care planning discussed with:: patient Assessment & Plan Assessment Current Active Medications: Generic Name Dose Route Start Last Admin Trade Name Freq PRN Reason Stop Dose Admin Acetaminophen 650 mg 07/20/24 06:14 Acetaminophen 325 Mg Tablet PO 08/19/24 06:13 Q4HR PRN PAIN SCALE 1-3 (mild Alendronate Sodium 70 mg 07/24/24 06:30 Alendronate Sodium 70 Mg Tablet PO 08/23/24 06:29 Q7D GREG Atorvastatin Calcium 5 mg 07/20/24 21:00 Atorvastatin Calcium 10 Mg Tablet PO 08/19/24 20:59 HS GREG Dextrose 25 ml 07/20/24 06:22 Dextrose 50%-Water Inj 50 Ml Syringe IV 08/19/24 06:21 Q15MIN PRN BG 50-70 responsive npo pt Dextrose 50 ml 07/20/24 06:22 Dextrose 50%-Water Inj 50 Ml Syringe IV 08/19/24 06:21 Q15MIN PRN BG <50 OR BG <70 & pt unresponsive Glucagon 1 mg 07/20/24 06:22 Glucagon Inj 1 Mg Vial IM Q15MIN PRN BG <70, and no IV access Heparin Sodium (Porcine) 5,000 unit 07/20/24 14:00 07/20/24 14:32 Heparin Sod Inj 5000 Unit/Ml Vial SC 08/03/24 13:59 5,000 unit Q8HR GREG Administration Piperacillin/Tazobactam/Dextrose 3.375 gm in 50 mls @ 12.5 mls/hr 07/20/24 14:00 07/20/24 14:33 Zosyn IV 07/27/24 13:59 12.5 mls/hr Q8HR GREG Administration Insulin Human Lispro 0 unit 07/20/24 07:30 07/20/24 12:23 Insulin Lispro (Admelog) 1 Unit/0.01 Ml Unit SC 08/19/24 07:29 Not Given AC [facility] Protocol Lorazepam 4 mg 07/20/24 06:18 Lorazepam 2 Mg/Ml Vial IVP Q5MIN PRN seizure Olanzapine 5 mg 07/20/24 21:00 Olanzapine 5 Mg Tablet PO 08/19/24 20:59 HS GREG Oseltamivir Phosphate 75 mg 07/20/24 21:00 Oseltamivir 75 Mg Capsule PO 07/24/24 20:59 BID GREG Pantoprazole Sodium 40 mg 07/20/24 09:00 07/20/24 09:38 Pantoprazole Inj 40 Mg Vial IVP 08/19/24 08:59 40 mg QDAY GREG Administration Sennosides 1 tab 07/20/24 06:25 Senna Tablet PO 08/19/24 08:59 QDAY PRN Constipation Protocol Plan 78-year-old male with history of developmental delay, seizure disorder, diabetes mellitus, hyperlipidemia, ESBL UTIs, depression, and GERD who presented [facility] the [facility] with concerns of seizure disorder, found to become hypotensive requiring vasopressor support for likely septic shock secondary to flu, and/or pneumonia. #Sepsis #Influenza pneumonia #Possible superimposed pneumonia VS aspiration pneumonia #Shock?resolved #History of ESBL E. coli Patient came in with leukocytosis, tachycardia, febrile, and tachypneic with source being influenza pneumonia with possible superimposed bacterial infection Imaging showing right base pneumonia Patient was admitted to ICU for pressor support and has not been stable off pressors since 9 AM this morning. UA positive for WBCs and leukocyte esterase Pro-Giovanni elevated Patient on antibiotics and Tamiflu. Patient received IV fluids per sepsis protocol Pending blood cultures Pending urine cultures Will narrow antibiotics pending cultures #Acute encephalopathy #History of developmental delay Possibly infectious in source versus secondary to medication as Ingrezza can cause somnolence CT head negative for any acute hemorrhage or mass effect. Per caregiver patient's mentation appears baseline, however a bit more somnolent, he is non verbal and does not follow commands at baseline Will await neurology evaluation to start Ingrezza. #History of seizure disorder No antiseizure medication was noted on patient's medication list. Previous hospitalizations indicate lamotrigine use Treated with Solange in ED Neurologist Dr Gonzalez consulted, we appreciate recommendations IV Ativan as needed for seizures No seizures noted since admit Patient noted to be prescribed lamotrigine 100 mg twice daily in June [address] Gonzalez, will resume this medication at this time. Will also order lamotrigine levels #History of insomnia #History of depression #Possible history of Tardive dyskinesia Resume home Zyprexa Med rec pending, consider resuming home Ingrezza #History of hyperlipidemia Resume home simvastatin #History of GERD #History of constipation IV Protonix 40 mg daily Senna as needed #History of diabetes mellitus type 2 Glucose levels 212 in ED. Previous A1c in December 2023 was 5.4 Hold patient's home metformin Patient on insulin sliding scale #History of Osteoporosis Resume home alendronate 70mg q7days (on Wednesdays) Diet: Dysphagia 1 diet DVT prophylaxis: Heparin GI prophylaxis: Protonix Code status: Full Code Case discussed with attending Dr. Raffaele Raphael MD PGY3 Attending Provider Attestation/Addendum Susan, Bess Castorena DO, attest that I was physically present for the [place] portions of the service and evaluated the patient with the resident and I reviewed and discussed the case with the resident and agree with the resident's findings and plans of care as documented above Patient is an 78 year old male with PmHx of developmental delay, seizures, ESBL UTIs, depression, GERD and type 2 NIDDM who was brought to ED due to seizure like activity. History was obtained from chart review as there was no drop machine operator at bedside. Patient is nonverbal and unable to follow commands at baseline. Patient was admitted to the ICU for septic shock. Due to history of frequent ESBL UTIs, patient was started on IV Zosyn. Patient was requiring pressor support due to septic shock. Urine culture positive for ESBL E.coli and blood culture positive GNR, likely from similar source. Patient has not required any pressors since this morning and has been downgraded to hospitalist service. Will continue with IV abx at this time. Pending neuro evaluation due to seizure like activity. Patient remained febrile overnight.
[2024-07-20 16:27] LABS: Basophils % (Auto) 0 % (0-2.5); Eosinophils # (Auto) 0.2 Thou/mm3 (0.0-0.5); Eosinophils % (Auto) 1 % (0-10); Hematocrit 34.8 % (41.0-53.0); Hemoglobin 11.5 g/dL (13.5-16.0); Immature Granulocytes % (Auto) 1 % (0-0); Immature Granulocytes Auto 0.05 Thou/mm3 (0.00-0.00); Lymphocytes # (Auto) 0.7 Thou/mm3 (1.0-4.8); Lymphocytes % (Auto) 7 % (10-50); Mean Corpuscular Hemoglobin 30.5 pg (25.0-35.0); Mean Corpuscular Volume 92 fL (80-100); Monocytes # (Auto) 0.6 Thou/mm3 (0.0-0.8); Monocytes % (Auto) 5 % (0-12); Neutrophils # (Auto) 9.5 Thou/mm3 (1.8-7.7); Neutrophils % (Auto) 86 % (37-80); Nucleated Red Blood Cell % 0 /100 WBC (0); Platelet Count 152 Thou/mm3 (140-440); RDW Standard Deviation 42.5 fL (35.1-43.9); Red Blood Count 3.77 Miln/mm3 (4.50-5.90)
[2024-07-20 16:40] LABS: Anion Gap 4 (7-16); BUN/Creatinine Ratio 13 Ratio (12-20); Blood Urea Nitrogen 10 mg/dL (9-23); Calcium 8.9 mg/dL (8.3-10.6); Carbon Dioxide 31.1 mMol/L (20.0-31.0); Chloride 109 mMol/L (98-107); Creatinine (Component) 0.8 mg/dL (0.6-1.3); Estimated Creatinine Clearance 63.8 mL/min (>60); Glucose 127 mg/dL (74-106); Osmolality,Calculated 287 (275-295); Potassium 4.4 mMol/L (3.4-5.1); Sodium 144 mMol/L (136-145); eGFR > 60 See Note
[2024-07-20] MEDS: SODIUM CHLORIDE 0.9% 1000 ML 1,000 ML 75 ML IV (17:02)
[2024-07-20] MEDS: ATORVASTATIN CALCIUM 10 MG TABLET 5 MG PO (21:00)
[2024-07-20] MEDS: lamoTRIgine 25 MG CHEW 100 MG PO (21:02)
[2024-07-20] MEDS: OLANZapine 5 MG TABLET PO (21:02)
[2024-07-20] MEDS: ACETAMINOPHEN 325 MG TABLET 650 MG PO (21:03)
[2024-07-20] MEDS: OSELTAMIVIR 75 MG CAPSULE PO (21:03)
[2024-07-21] VITALS (13 sets, daily range): BP systolic 87–145; BP diastolic 44–85; PULSE 53–80; RESP 14–96; TEMP 36.3–37.4; O2SAT 91–98
--- NOTE | 2024-07-21 03:15 | PC.NURSE ---
Patient noted to have red urine in haley tubing, pale yellow color noted previous to this, no other signs of bleeding noted. MD Esquivel notified, instructed to continue to monitor pt at this time.
[2024-07-21] MEDS: PIPER/TAZO 3.375 GM PREMIX 3.375 GM/50 ML BAG IV ×3 (05:15→21:59)
[2024-07-21] MEDS: HEPARIN SOD INJ 5000 UNIT/ML VIAL SC ×3 (05:15→22:33)
[2024-07-21 06:12] LABS: Basophils % (Auto) 0 % (0-2.5); Eosinophils # (Auto) 0.3 Thou/mm3 (0.0-0.5); Eosinophils % (Auto) 3 % (0-10); Hematocrit 30.2 % (41.0-53.0); Immature Granulocytes % (Auto) 1 % (0-0); Immature Granulocytes Auto 0.05 Thou/mm3 (0.00-0.00); Lymphocytes # (Auto) 1.7 Thou/mm3 (1.0-4.8); Lymphocytes % (Auto) 18 % (10-50); Mean Corpuscular HGB Conc 33.1 g/dl (31.0-37.0); Mean Corpuscular Hemoglobin 31.1 pg (25.0-35.0); Mean Corpuscular Volume 94 fL (80-100); Monocytes # (Auto) 1.1 Thou/mm3 (0.0-0.8); Monocytes % (Auto) 12 % (0-12); Neutrophils # (Auto) 6.2 Thou/mm3 (1.8-7.7); Neutrophils % (Auto) 67 % (37-80); Nucleated Red Blood Cell % 0 /100 WBC (0); Platelet Count 140 Thou/mm3 (140-440); RDW Standard Deviation 43.6 fL (35.1-43.9); Red Blood Count 3.22 Miln/mm3 (4.50-5.90); White Blood Count 9.3 Thou/mm3 (3.8-10.6)
[2024-07-21 06:54] LABS: Alanine Aminotransferase 27 U/L (10-49); Albumin, Serum 3.1 gm/dL (3.4-4.8); Albumin/Globulin Ratio 1.1 (1.2-2.2); Alkaline Phosphatase 83 U/L (46-116); Anion Gap 4 (7-16); Aspartate Amino Transferase 32 U/L (0-34); BUN/Creatinine Ratio 16 Ratio (12-20); Bilirubin,Total 0.5 mg/dL (0.3-1.2); Blood Urea Nitrogen 13 mg/dL (9-23); Calcium 8.5 mg/dL (8.3-10.6); Calcium (Corrected) 9.2 mg/dL (8.5-10.1); Carbon Dioxide 28.6 mMol/L (20.0-31.0); Chloride 110 mMol/L (98-107); Creatinine (Component) 0.8 mg/dL (0.6-1.3); Estimated Creatinine Clearance 63.8 mL/min (>60); Globulin 2.8 gm/dL (2.3-3.5); Glucose 99 mg/dL (74-106); Osmolality,Calculated 285 (275-295); Potassium 4.1 mMol/L (3.4-5.1); Sodium 143 mMol/L (136-145); Total Protein 5.9 gm/dL (5.7-8.2); eGFR > 60 See Note
--- NOTE | 2024-07-21 09:12 | PC.SS ---
SS follow up note; Patient has a large kidney stone and has GNR bacteremia.
[2024-07-21] MEDS: PANTOPRAZOLE INJ 40 MG VIAL IVP (09:17)
[2024-07-21] MEDS: lamoTRIgine 25 MG CHEW 100 MG PO ×2 (09:17→21:58)
[2024-07-21] MEDS: POLYETHYLENE GLYCOL 17 GM PACKET PO (09:17)
[2024-07-21] MEDS: OSELTAMIVIR 75 MG CAPSULE PO ×2 (09:18→21:58)
--- NOTE | 2024-07-21 11:38 | PC.SS ---
Patient Inocencio Hope is a 78 Year old male admitted for Seizure, Hypotension. SS contacted [facility] and spoke to Cecilia Koehler [phone]. She reports patient is not conserved, however for any invasive procedures they would have to get consent through [facility] [phone], for all other medical questions Cecilia would need to be contacted. Cecilia reports patient is non verbal and is bed bound, Patient utilizes a wheelchair and utilizes 02 at home PRN. Patient needs assistance completing all ADL's. At time of discharge patient will return back to [facility]. SS will need to assist with transportation via Ambulance, with [facility]. Next of kin: Leela Koehler [phone]. Invasive and consents, contact [facility] [phone]. Discharge plan: [facility].
[2024-07-21] MEDS: RINGERS LACTATED 1000 ML 1,000 ML 75 ML IV (11:47)
--- NOTE | 2024-07-21 12:55 | ESPR_ITS ---
<Statement entered by Javid Raphael MD - 07/21/24 18:26> Patient seen and assessed at bedside. Patient have hematuria overnight noted in catheter with some blood clots. Team asked nurse to flush and assess for any further blood clots. Patient on IV antibiotics with blood cultures showing GNR bacteremia. Patient continues with precautions due to influenza. Will continue patient on IV fluids as he is not really eating. Patient saturating well on room air. Case discussed with team. Javid Raphael MD PGY3 Documentation for date of: 07/21/24 Subjective Subjective Interval history: Patient is seen and examined at bedside Overnight, patient noted to have blood in the urinary catheter and febrile episode. Patient is not communicative at baseline Vitals are stable. On physical examination, noted milka blood coming out of the Haley catheter Labs showed mild anemia. Blood cultures showed gram-negative rods. Urine cultures are still pending Will continue Zosyn for now Informed nurse to flush the catheter and tape the catheter to the body so that he will not have traumatic hematuria from haley catheter Exam Vital Signs Temp Pulse Resp BP Pulse Ox O2 Del Method O2 Flow Rate 97.4 F 75 16 145/72 H 96 Room Air 3 07/21/24 12:00 07/21/24 12:00 07/21/24 12:00 07/21/24 12:00 07/21/24 12:00 07/21/24 12:00 07/20/24 18:43 Narrative Exam General: Awake. Not interactive at baseline HEENT: Normocephalic, atraumatic, mucous membranes moist. Heart: Regular rate and rhythm, no murmurs. Lungs: Clear to auscultation with no wheezing or crackles. Abdomen: Soft, nondistended, nontender, positive bowel sounds. ?No guarding or rebound tenderness. Noted gross blood in the catheter Neurologic: Alert and oriented x3, no gross neurological deficit, and patient able to move all 4 extremities. Extremities: Noted contractures and wasting in the lower extremities. Skin: No rash or ecchymoses. Objective Labs 07/22/24 05:26 07/22/24 05:26 Labs: Laboratory Results - last 24 hr 07/20/24 07/21/24 16:01 04:28 WBC 11.0 H 9.3 RBC 3.77 L 3.22 L Hgb 11.5 L 10.0 L Hct 34.8 L 30.2 L MCV 92 94 MCH 30.5 31.1 MCHC 33.0 33.1 RDW Std Deviation 42.5 43.6 Plt Count 152 140 Neut % (Auto) 86 H 67 Lymph % (Auto) 7 L 18 [place] % (Auto) 5 12 Eos % (Auto) 1 3 Baso % (Auto) 0 0 Neut # (Auto) 9.5 H 6.2 Lymph # (Auto) 0.7 L 1.7 [place] # (Auto) 0.6 1.1 H Eos # (Auto) 0.2 0.3 Baso # (Auto) 0.0 0.0 Immature Gran # (Auto) 0.05 H 0.05 H Absolute Nucleated RBC 0.00 0.00 Immature Gran % 1 H 1 H Nucleated RBC % 0 0 Sodium 144 143 Potassium 4.4 4.1 Chloride 109 H 110 H Carbon Dioxide 31.1 H 28.6 Anion Gap 4 L 4 L BUN 10 13 Creatinine 0.8 0.8 Estim Creat Clear Calc 63.8 63.8 eGFR > 60 > 60 BUN/Creatinine Ratio 13 16 Glucose 127 H D 99 Calculated Osmolality 287 285 Calcium 8.9 8.5 Corrected Calcium 9.2 Total Bilirubin 0.5 AST 32 ALT 27 Alkaline Phosphatase 83 D Total Protein 5.9 Albumin 3.1 L D Globulin 2.8 Albumin/Globulin Ratio 1.1 L ABG Interpretation ABG results: 07/20/24 00:42 ABG pH 7.45 ABG pCO2 43 ABG pO2 55 L* ABG HCO3 30 H ABG O2 Saturation 90 L ABG Base Excess 6 H Quality Measures Quality Measures VTE prophylaxis (Heparin subq) Advance care planning discussed with:: other Assessment & Plan Assessment Current Active Medications: Generic Name Dose Route Start Last Admin Trade Name Freq PRN Reason Stop Dose Admin Acetaminophen 650 mg 07/21/24 06:31 Acetaminophen 325 Mg Tablet PO 08/19/24 06:13 Q4HR PRN PAIN SCALE 1-3 (mild Atorvastatin Calcium 5 mg 07/20/24 21:00 07/20/24 21:00 Atorvastatin Calcium 10 Mg Tablet PO 08/19/24 20:59 5 mg HS GREG Administration Dextrose 25 ml 07/20/24 06:22 Dextrose 50%-Water Inj 50 Ml Syringe IV 08/19/24 06:21 Q15MIN PRN BG 50-70 responsive npo pt Dextrose 50 ml 07/20/24 06:22 Dextrose 50%-Water Inj 50 Ml Syringe IV 08/19/24 06:21 Q15MIN PRN BG <50 OR BG <70 & pt unresponsive Docusate Sodium 250 mg 07/21/24 10:15 07/21/24 10:15 Docusate Sod 250 Mg Capsule PO 08/20/24 10:14 Not Given BID [facility] Protocol Glucagon 1 mg 07/20/24 06:22 Glucagon Inj 1 Mg Vial IM Q15MIN PRN BG <70, and no IV access Heparin Sodium (Porcine) 5,000 unit 07/20/24 14:00 07/21/24 05:15 Heparin Sod Inj 5000 Unit/Ml Vial SC 08/03/24 13:59 5,000 unit Q8HR GREG Administration Piperacillin/Tazobactam/Dextrose 3.375 gm in 50 mls @ 12.5 mls/hr 07/20/24 14:00 07/21/24 05:15 Zosyn IV 07/27/24 13:59 12.5 mls/hr Q8HR GREG Administration Lactated Ringer's 1,000 mls @ 75 mls/hr 07/21/24 10:04 07/21/24 11:47 Lactated Ringers IV 07/21/24 23:23 75 mls/hr .[id number] Administration Insulin Human Lispro 0 unit 07/20/24 07:30 07/21/24 08:20 Insulin Lispro (Admelog) 1 Unit/0.01 Ml Unit SC 08/19/24 07:29 Not Given AC [facility] Protocol Lamotrigine 100 mg 07/20/24 21:00 07/21/24 09:17 Lamotrigine 25 Mg Chew PO 08/19/24 20:59 100 mg BID GREG Administration Lorazepam 4 mg 07/20/24 06:18 Lorazepam 2 Mg/Ml Vial IVP Q5MIN PRN seizure Olanzapine 5 mg 07/20/24 21:00 07/20/24 21:02 Olanzapine 5 Mg Tablet PO 08/19/24 20:59 5 mg HS GREG Administration Oseltamivir Phosphate 75 mg 07/20/24 21:00 07/21/24 09:18 Oseltamivir 75 Mg Capsule PO 07/24/24 20:59 75 mg BID GREG Administration Pantoprazole Sodium 40 mg 07/20/24 09:00 07/21/24 09:17 Pantoprazole Inj 40 Mg Vial IVP 08/19/24 08:59 40 mg QDAY GREG Administration Polyethylene Glycol 17 gm 07/21/24 09:00 07/21/24 09:17 Polyethylene Glycol 17 Gm Packet PO 08/20/24 08:59 17 gm QDAY GREG Administration Sennosides 1 tab 07/20/24 06:25 Senna Tablet PO 08/19/24 08:59 QDAY PRN Constipation Protocol Plan 78-year-old male with history of developmental delay, seizure disorder, diabetes mellitus, hyperlipidemia, ESBL UTIs, depression, and GERD who presented to the ED BIBA from care home with concerns of seizure disorder, found to become hypotensive requiring vasopressor support for likely septic shock secondary to flu, and/or pneumonia. # Hematuria # likely traumatic - Patient is noted to have hematuria in the catheter overnight on 07/20/2024 - On physical examination, no abrasions or trauma noted on the genital organs Plan - Recommended to flush the Haley catheter - Recommended to take the Haley catheter to the lower extremity - Will reevaluate tomorrow and if patient has persistent hematuria, will consider urological evaluation #Sepsis, resolved #Influenza pneumonia #Possible superimposed pneumonia VS aspiration pneumonia # Gram-negative bacteremia #Shock?resolved #History of ESBL E. coli Patient came in with leukocytosis, tachycardia, febrile, and tachypneic with source being influenza pneumonia with possible superimposed bacterial infection Imaging showing right base pneumonia Patient was admitted to ICU for pressor support and has not been stable off pressors since 07/20/2024 UA positive for WBCs and leukocyte esterase Pro-Giovanni elevated Blood cultures grew gram-negative rods, pending final culture Urine cultures are still pending Plan Patient received IV fluids per sepsis protocol Started on Zosyn 3.375 g every 8 hourly [07/20-present] Started on oseltamivir 75 Mg p.o. twice daily [07/20-present] #Acute encephalopathy, resolved #History of developmental delay Possibly infectious in source versus secondary to medication as Ingrezza can cause somnolence CT head negative for any acute hemorrhage or mass effect. Per caregiver patient's mentation appears baseline, however a bit more somnolent, he is non verbal and does not follow commands at baseline Consulted neurologist Dr. Gonzalez, will appreciate her recommendations #History of seizure disorder No antiseizure medication was noted on patient's medication list. Previous hospitalizations indicate lamotrigine use Treated with Keppra in ED Neurologist Dr Gonzalez consulted, we appreciate recommendations IV Ativan as needed for seizures No seizures noted since admit Patient noted to be prescribed lamotrigine 100 mg twice daily in June [address] Gonzalez, will resume this medication at this time. Will also order lamotrigine levels #History of insomnia #History of depression #Possible history of Tardive dyskinesia Resume home Zyprexa Med rec pending, consider resuming home Ingrezza #History of hyperlipidemia Resume home simvastatin #History of GERD #History of constipation IV Protonix 40 mg daily Senna as needed #History of diabetes mellitus type 2 Glucose levels 212 in ED. Previous A1c in December 2023 was 5.4 Hold patient's home metformin Patient on insulin sliding scale #History of Osteoporosis Recommended to continue alendronate on outpatient basis Diet: Dysphagia 1 diet DVT prophylaxis: Heparin GI prophylaxis: Protonix Code status: Full Code Patient plan of care was discussed with the attending physician, Dr. Castorena and senior resident Dr. Donavon Khan, PGY1 Attending Provider Attestation/Addendum Bess Davis DO, attest that I was physically present for the [place] portions of the service and evaluated the patient with the resident and I reviewed and discussed the case with the resident and agree with the resident's findings and plans of care as documented above Patient seen and evaluated this AM. Patient is much more alert and back at his baseline mental status. He is tapping his surroundings with his arms, which his safety coordinator states he likes to do. He is able to eat with assistance. Hematuria noted in haley, likely traumatic and suspect patient had tugged on it. Pending final cultures and sensitivities of blood cultures that is positive for GNR, likely same species as the urine that has grown ESBL E.coli
[2024-07-21] MEDS: DOCUSATE SOD 250 MG CAPSULE PO (21:58)
[2024-07-21] MEDS: OLANZapine 5 MG TABLET PO (21:58)
[2024-07-21] MEDS: ATORVASTATIN CALCIUM 10 MG TABLET 5 MG PO (21:59)
--- NOTE | 2024-07-21 23:57 | VVPN_ITS ---
Telemedicine visit statement This visit was conducted with the use of interactive audio and video telecommunications system that permits real time communication between the patient and the provider. Patient's verbal consent for virtual visit was obtained on 07/21/24 at 2357. Documentation for date of: 07/21/24 Subjective Subjective Interval history: Patient was seen in [facility] today virtually. No new symptoms reported. He is refusing to take medication today and eat. Slept well overnight. Virtual exam Vital Signs Temp Pulse Resp BP Pulse Ox O2 Del Method O2 Flow Rate 98.5 F 71 16 122/65 92 L Room Air 3 07/21/24 20:00 07/21/24 20:00 07/21/24 20:00 07/21/24 20:00 07/21/24 20:00 07/21/24 20:00 07/20/24 18:43 Objective Labs 07/21/24 04:28 07/21/24 04:28 Labs: Laboratory Results - last 24 hr 07/21/24 04:28 WBC 9.3 RBC 3.22 L Hgb 10.0 L Hct 30.2 L MCV 94 MCH 31.1 MCHC 33.1 RDW Std Deviation 43.6 Plt Count 140 Neut % (Auto) 67 Lymph % (Auto) 18 [place] % (Auto) 12 Eos % (Auto) 3 Baso % (Auto) 0 Neut # (Auto) 6.2 Lymph # (Auto) 1.7 [place] # (Auto) 1.1 H Eos # (Auto) 0.3 Baso # (Auto) 0.0 Immature Gran # (Auto) 0.05 H Absolute Nucleated RBC 0.00 Immature Gran % 1 H Nucleated RBC % 0 Sodium 143 Potassium 4.1 Chloride 110 H Carbon Dioxide 28.6 Anion Gap 4 L BUN 13 Creatinine 0.8 Estim Creat Clear Calc 63.8 eGFR > 60 BUN/Creatinine Ratio 16 Glucose 99 Calculated Osmolality 285 Calcium 8.5 Corrected Calcium 9.2 Total Bilirubin 0.5 AST 32 ALT 27 Alkaline Phosphatase 83 D Total Protein 5.9 Albumin 3.1 L D Globulin 2.8 Albumin/Globulin Ratio 1.1 L ABG Interpretation ABG results: 07/20/24 00:42 ABG pH 7.45 ABG pCO2 43 ABG pO2 55 L* ABG HCO3 30 H ABG O2 Saturation 90 L ABG Base Excess 6 H Assessment & Plan Problem List (1) Altered mental status: Status: Acute Assessment and plan: Likely from a flu/UTI Slowly should improve as the infection clears (2) UTI (urinary tract infection): Status: Acute Assessment and plan: Continue with Zosyn (3) Influenza: Status: Acute Assessment and plan: Continue with the supportive care and Tamiflu (4) Seizures: Status: Chronic Assessment and plan: Continue with Lamictal as before 100 mg twice (5) Mental and behavioral problem: Status: Chronic Assessment and plan: Continue with olanzapine
[2024-07-22] VITALS (8 sets, daily range): BP systolic 126–160; BP diastolic 72–96; PULSE 65–86; RESP 18–24; TEMP 36.2–36.8; O2SAT 92–97; BMI 17.6
--- NOTE | 2024-07-22 05:03 | PC.NURSE ---
called Dr. Florez regarding patient's urine pinkish red in color but no clots observed. Per MD to flush catheter and notify MD if clots appear or more red in color.
[2024-07-22] MEDS: HEPARIN SOD INJ 5000 UNIT/ML VIAL SC ×3 (05:17→22:37)
[2024-07-22] MEDS: PIPER/TAZO 3.375 GM PREMIX 3.375 GM/50 ML BAG IV (05:17)
--- NOTE | 2024-07-22 06:15 | PC.NURSE ---
called Dr. Solis regarding patient's urine catheter is blood tinged, reddish/ pinkish in color. Flushed cath with 20cc but no blood clots observed, also noticed catheter leaking. No new orders received.
[2024-07-22 06:17] LABS: Basophils % (Auto) 1 % (0-2.5); Eosinophils # (Auto) 0.4 Thou/mm3 (0.0-0.5); Eosinophils % (Auto) 7 % (0-10); Hematocrit 31.9 % (41.0-53.0); Hemoglobin 10.6 g/dL (13.5-16.0); Immature Granulocytes % (Auto) 1 % (0-0); Immature Granulocytes Auto 0.06 Thou/mm3 (0.00-0.00); Lymphocytes # (Auto) 1.9 Thou/mm3 (1.0-4.8); Lymphocytes % (Auto) 31 % (10-50); Mean Corpuscular HGB Conc 33.2 g/dl (31.0-37.0); Mean Corpuscular Hemoglobin 30.8 pg (25.0-35.0); Mean Corpuscular Volume 93 fL (80-100); Monocytes # (Auto) 0.8 Thou/mm3 (0.0-0.8); Monocytes % (Auto) 13 % (0-12); Neutrophils # (Auto) 2.8 Thou/mm3 (1.8-7.7); Neutrophils % (Auto) 47 % (37-80); Nucleated Red Blood Cell % 0 /100 WBC (0); Platelet Count 169 Thou/mm3 (140-440); RDW Standard Deviation 42.8 fL (35.1-43.9); Red Blood Count 3.44 Miln/mm3 (4.50-5.90)
[2024-07-22 06:59] LABS: Alanine Aminotransferase 23 U/L (10-49); Albumin, Serum 3.3 gm/dL (3.4-4.8); Albumin/Globulin Ratio 1.1 (1.2-2.2); Alkaline Phosphatase 77 U/L (46-116); Anion Gap 8 (7-16); Aspartate Amino Transferase 22 U/L (0-34); BUN/Creatinine Ratio 14 Ratio (12-20); Bilirubin,Total 0.6 mg/dL (0.3-1.2); Blood Urea Nitrogen 13 mg/dL (9-23); Calcium 8.5 mg/dL (8.3-10.6); Calcium (Corrected) 9.1 mg/dL (8.5-10.1); Carbon Dioxide 27.3 mMol/L (20.0-31.0); Chloride 105 mMol/L (98-107); Creatinine (Component) 0.9 mg/dL (0.6-1.3); Estimated Creatinine Clearance 54.8 mL/min (>60); Globulin 2.9 gm/dL (2.3-3.5); Glucose 99 mg/dL (74-106); Osmolality,Calculated 279 (275-295); Potassium 3.9 mMol/L (3.4-5.1); Sodium 140 mMol/L (136-145); Total Protein 6.2 gm/dL (5.7-8.2); eGFR > 60 See Note
[2024-07-22] MEDS: PANTOPRAZOLE INJ 40 MG VIAL IVP (09:49)
[2024-07-22] MEDS: DOCUSATE SOD 250 MG CAPSULE PO ×2 (09:50→22:38)
[2024-07-22] MEDS: OSELTAMIVIR 75 MG CAPSULE PO ×2 (09:50→22:38)
[2024-07-22] MEDS: lamoTRIgine 25 MG CHEW 100 MG PO ×2 (09:50→23:10)
[2024-07-22] MEDS: POLYETHYLENE GLYCOL 17 GM PACKET PO (09:50)
--- NOTE | 2024-07-22 12:20 | PC.SS ---
Addendum entered by Lulu Huston 07/22/24 15:15: F/u: [facility] Mary, who confirms their carehome cannot accommodate i.v. antibiotics. SS inquired if we are to send patient to SNF short term for the remaining days. Mgr states she needs to talk to [facility] and get back with us. Alternate option would be to keep patient here for remaining short days. Original Note: Follow up note: SS spoke to physician and patient will need i.v. antibiotics for an additional 4-5 days. SS [place] [facility] [place] for dry house wheeler, Mary. Patient is from a [facility] and will need approval for i.v. antibiotics.
[2024-07-22] MEDS: MEROPENEM INJ 1,000 MG in SODIUM CHLORIDE 0.9% (Popper) 50 ML 100 MG IV ×2 (13:12→22:37)
--- NOTE | 2024-07-22 14:51 | PD.RESPRO ---
Documentation for date of: 07/22/24 Subjective Subjective Interval history: Patient seen and examined at bedside. No acute overnight events. No new symptoms reported per nurse at bedside. Patient receiving medications and eating appropriately. Continues to be on Lamictal 100 mg twice daily as well as olanzapine 5 mg at bedtime. Exam Vital Signs Temp Pulse Resp BP Pulse Ox O2 Del Method O2 Flow Rate 97.9 F 80 19 160/96 H 97 Room Air 3 07/22/24 11:47 07/22/24 12:00 07/22/24 11:47 07/22/24 11:47 07/22/24 11:47 07/22/24 11:47 07/20/24 18:43 Narrative Exam GENERAL: Awake, non interactive NEURO: Able to move extremites x 4, CN 11-XII grossly intact, no focal neurologic deficits HEENT: Moist mucosa. Eyes open, symmetrical, & clear CARDIO: No chest pain on palpation. Heart RRR, no obvious murmurs PULM: No noted coughing/dyspnea. Lungs CTA B/L GI: Abdomen soft, nondistended, no pain on palpation. BSx4 URO/TRAVELING INVENTORY ASSOCIATE:: No further abnormalities noted. SKIN/MSK/EXT: Some wasting and contractures in bilateral lower extremities Objective Labs 07/23/24 05:50 07/23/24 05:50 Labs: Laboratory Results - last 24 hr 07/22/24 05:26 WBC 6.0 RBC 3.44 L Hgb 10.6 L Hct 31.9 L MCV 93 MCH 30.8 MCHC 33.2 RDW Std Deviation 42.8 Plt Count 169 D Neut % (Auto) 47 Lymph % (Auto) 31 [place] % (Auto) 13 H Eos % (Auto) 7 Baso % (Auto) 1 Neut # (Auto) 2.8 Lymph # (Auto) 1.9 [place] # (Auto) 0.8 Eos # (Auto) 0.4 Baso # (Auto) 0.0 Immature Gran # (Auto) 0.06 H Absolute Nucleated RBC 0.00 Immature Gran % 1 H Nucleated RBC % 0 Sodium 140 Potassium 3.9 Chloride 105 Carbon Dioxide 27.3 Anion Gap 8 BUN 13 Creatinine 0.9 Estim Creat Clear Calc 54.8 L eGFR > 60 BUN/Creatinine Ratio 14 Glucose 99 Calculated Osmolality 279 Calcium 8.5 Corrected Calcium 9.1 Total Bilirubin 0.6 AST 22 ALT 23 Alkaline Phosphatase 77 Total Protein 6.2 Albumin 3.3 L Globulin 2.9 Albumin/Globulin Ratio 1.1 L ABG Interpretation ABG results: 07/20/24 00:42 ABG pH 7.45 ABG pCO2 43 ABG pO2 55 L* ABG HCO3 30 H ABG O2 Saturation 90 L ABG Base Excess 6 H Quality Measures Quality Measures VTE prophylaxis (Heparin subq) Advance care planning discussed with:: other Assessment & Plan Assessment Current Active Medications: Generic Name Dose Route Start Last Admin Trade Name Freq PRN Reason Stop Dose Admin Acetaminophen 650 mg 07/21/24 06:31 Acetaminophen 325 Mg Tablet PO 08/19/24 06:13 Q4HR PRN PAIN SCALE 1-3 (mild Atorvastatin Calcium 5 mg 07/20/24 21:00 07/21/24 21:59 Atorvastatin Calcium 10 Mg Tablet PO 08/19/24 20:59 5 mg HS GREG Administration Docusate Sodium 250 mg 07/21/24 10:15 07/22/24 09:50 Docusate Sod 250 Mg Capsule PO 08/20/24 10:14 250 mg BID GREG Administration Protocol Heparin Sodium (Porcine) 5,000 unit 07/20/24 14:00 07/22/24 13:12 Heparin Sod Inj 5000 Unit/Ml Vial SC 08/03/24 13:59 5,000 unit Q8HR GREG Administration Meropenem 1,000 mg/ Sodium 50 mls @ 100 mls/hr 07/22/24 14:00 07/22/24 13:12 Chloride IV 07/29/24 13:59 100 mls/hr Q8HR GREG Administration Lamotrigine 100 mg 07/20/24 21:00 07/22/24 09:50 Lamotrigine 25 Mg Chew PO 08/19/24 20:59 100 mg BID GREG Administration Lorazepam 4 mg 07/20/24 06:18 Lorazepam 2 Mg/Ml Vial IVP Q5MIN PRN seizure Olanzapine 5 mg 07/20/24 21:00 07/21/24 21:58 Olanzapine 5 Mg Tablet PO 08/19/24 20:59 5 mg HS GREG Administration Oseltamivir Phosphate 75 mg 07/20/24 21:00 07/22/24 09:50 Oseltamivir 75 Mg Capsule PO 07/24/24 20:59 75 mg BID GREG Administration Pantoprazole Sodium 40 mg 07/20/24 09:00 07/22/24 09:49 Pantoprazole Inj 40 Mg Vial IVP 08/19/24 08:59 40 mg QDAY GREG Administration Polyethylene Glycol 17 gm 07/21/24 09:00 07/22/24 09:50 Polyethylene Glycol 17 Gm Packet PO 08/20/24 08:59 17 gm QDAY GREG Administration Sennosides 1 tab 07/20/24 06:25 Senna Tablet PO 08/19/24 08:59 QDAY PRN Constipation Protocol Plan Summary: The patient is an 78-year-old male with past medical history of developmental delay, seizure disorder, hyperlipidemia, type II DM, ESBL UTIs, depression and GERD who was [facility] to the ED from nursing home on 07/20/2024 with concerns of seizure-like activities #History of seizure disorder Patient was brought in from a nursing home with concern of seizure-like activities. Per caregiver although he was near his baseline mentation, he had some activities that were very similar to seizures for about 30 minutes about 4 days prior. He had a repeat episode about the day prior to presentation and presents ED for further evaluation. Head CT was done which showed no gross mass effect or hemorrhage although limited due to patient's inability to be immobile. Otherwise, he has had no seizure-like activities since admission and is relatively stable. He continues to be on Lamictal 100 mg twice daily was restarted on olanzapine 5 mg at bedtime. Plan: - Will continue Lamictal - Okay to discharge once medically clear #Acute encephalopathy, resolved #Sepsis, secondary to UTI #ESBL UTI -Management per primary team Case was discussed with attending physician, Dr Lisa Camara MD PGY-1 Disclaimer: This note was dictated by speech recognition. Minor errors in welding machine operator/tender may be present due to voice recognition software. Attending Provider Attestation/Addendum I personally have seen and examined the patient at the bedside and I agree with resident findings, assessment and plan of care. No seizures reported after admission. Continue with the current management.
--- NOTE | 2024-07-22 17:40 | ESPR_ITS ---
<Statement entered by Stan Bacon MD - 07/22/24 18:13> Senior Resident Attestation: I supervised/discussed management plan with research program intern physician Dr. Khan, and was involved in the care of this patient. I personally saw and examined the patient and discussed the assessment and plan with the entire medicine team, including my attending. I agree with the assessment and plan as documented. Patient continues to have hematuria which improved since yesterday. Urine culture showed ESBL E. coli and he was started on meropenem. Urology is on board and will evaluate patient today. Patient's care was discussed with attending physician, Dr. Castorena. Stan Bacon MD PGY-2. Documentation for date of: 07/22/24 Subjective Subjective Interval history: Patient is seen and examined at bedside No acute overnight events. Still noted hematuria, but decreased from yesterday Vitals are stable and patient is on room air Labs did not show any significant abnormality Blood culture showed ESBL E. coli and patient was started on meropenem Consulted urologist Dr. Sales in view of renal calculi and recurrent urinary tract infection. Recommended to follow-up in outpatient basis for percutaneous nephro lithotripsy Byrne catheter was discontinued Exam Vital Signs Temp Pulse Resp BP Pulse Ox O2 Del Method O2 Flow Rate 97.8 F 75 20 126/77 92 L Room Air 3 07/22/24 16:00 07/22/24 16:00 07/22/24 16:00 07/22/24 16:00 07/22/24 16:00 07/22/24 16:00 07/20/24 18:43 Narrative Exam General: Awake. Not interactive at baseline HEENT: Normocephalic, atraumatic, mucous membranes moist. Heart: Regular rate and rhythm, no murmurs. Lungs: Clear to auscultation with no wheezing or crackles. Abdomen: Soft, nondistended, nontender, positive bowel sounds. ?No guarding or rebound tenderness. Noted gross blood in the catheter Neurologic: Alert and oriented x3, no gross neurological deficit, and patient able to move all 4 extremities. Extremities: Noted contractures and wasting in the lower extremities. Skin: No rash or ecchymoses. Objective Labs 07/23/24 05:50 07/23/24 05:50 Labs: Laboratory Results - last 24 hr 07/22/24 05:26 WBC 6.0 RBC 3.44 L Hgb 10.6 L Hct 31.9 L MCV 93 MCH 30.8 MCHC 33.2 RDW Std Deviation 42.8 Plt Count 169 D Neut % (Auto) 47 Lymph % (Auto) 31 Sutter % (Auto) 13 H Eos % (Auto) 7 Baso % (Auto) 1 Neut # (Auto) 2.8 Lymph # (Auto) 1.9 Sutter # (Auto) 0.8 Eos # (Auto) 0.4 Baso # (Auto) 0.0 Immature Gran # (Auto) 0.06 H Absolute Nucleated RBC 0.00 Immature Gran % 1 H Nucleated RBC % 0 Sodium 140 Potassium 3.9 Chloride 105 Carbon Dioxide 27.3 Anion Gap 8 BUN 13 Creatinine 0.9 Estim Creat Clear Calc 54.8 L eGFR > 60 BUN/Creatinine Ratio 14 Glucose 99 Calculated Osmolality 279 Calcium 8.5 Corrected Calcium 9.1 Total Bilirubin 0.6 AST 22 ALT 23 Alkaline Phosphatase 77 Total Protein 6.2 Albumin 3.3 L Globulin 2.9 Albumin/Globulin Ratio 1.1 L ABG Interpretation ABG results: 07/20/24 00:42 ABG pH 7.45 ABG pCO2 43 ABG pO2 55 L* ABG HCO3 30 H ABG O2 Saturation 90 L ABG Base Excess 6 H Quality Measures Quality Measures VTE prophylaxis (Heparin subq) Advance care planning discussed with:: other Assessment & Plan Assessment Current Active Medications: Generic Name Dose Route Start Last Admin Trade Name Freq PRN Reason Stop Dose Admin Acetaminophen 650 mg 07/21/24 06:31 Acetaminophen 325 Mg Tablet PO 08/19/24 06:13 Q4HR PRN PAIN SCALE 1-3 (mild Atorvastatin Calcium 5 mg 07/20/24 21:00 07/21/24 21:59 Atorvastatin Calcium 10 Mg Tablet PO 08/19/24 20:59 5 mg HS GREG Administration Docusate Sodium 250 mg 07/21/24 10:15 07/22/24 09:50 Docusate Sod 250 Mg Capsule PO 08/20/24 10:14 250 mg BID GREG Administration Protocol Heparin Sodium (Porcine) 5,000 unit 07/20/24 14:00 07/22/24 13:12 Heparin Sod Inj 5000 Unit/Ml Vial SC 08/03/24 13:59 5,000 unit Q8HR GREG Administration Meropenem 1,000 mg/ Sodium 50 mls @ 100 mls/hr 07/22/24 14:00 07/22/24 13:12 Chloride IV 07/29/24 13:59 100 mls/hr Q8HR GREG Administration Lamotrigine 100 mg 07/20/24 21:00 07/22/24 09:50 Lamotrigine 25 Mg Chew PO 08/19/24 20:59 100 mg BID GREG Administration Lorazepam 4 mg 07/20/24 06:18 Lorazepam 2 Mg/Ml Vial IVP Q5MIN PRN seizure Olanzapine 5 mg 07/20/24 21:00 07/21/24 21:58 Olanzapine 5 Mg Tablet PO 08/19/24 20:59 5 mg HS GREG Administration Oseltamivir Phosphate 75 mg 07/20/24 21:00 07/22/24 09:50 Oseltamivir 75 Mg Capsule PO 07/24/24 20:59 75 mg BID GREG Administration Pantoprazole Sodium 40 mg 07/20/24 09:00 07/22/24 09:49 Pantoprazole Inj 40 Mg Vial IVP 08/19/24 08:59 40 mg QDAY GREG Administration Polyethylene Glycol 17 gm 07/21/24 09:00 07/22/24 09:50 Polyethylene Glycol 17 Gm Packet PO 08/20/24 08:59 17 gm QDAY GREG Administration Sennosides 1 tab 07/20/24 06:25 Senna Tablet PO 08/19/24 08:59 QDAY PRN Constipation Protocol Plan 78-year-old male with history of developmental delay, seizure disorder, diabetes mellitus, hyperlipidemia, ESBL UTIs, depression, and GERD who presented [facility] the [facility] with concerns of seizure disorder, found to become hypotensive requiring vasopressor support for likely septic shock secondary to flu, and/or pneumonia. # Hematuria # likely traumatic - Patient is noted to have hematuria in the catheter overnight on 07/20/2024 - On physical examination, no abrasions or trauma noted on the genital organs Plan -Byrne catheter was discontinued as it is suspected to cause traumatic hematuria - Urologist Dr. Sales was consulted and he recommended outpatient basis follow-up for percutaneous nephrolithotomy #Sepsis, resolved #Influenza pneumonia #Possible superimposed pneumonia VS aspiration pneumonia # ESBL E. coli bacteremia #Shock?resolved Patient came in with leukocytosis, tachycardia, febrile, and tachypneic with source being influenza pneumonia with possible superimposed bacterial infection Imaging showing right base pneumonia Patient was admitted to ICU for pressor support and has not been stable off pressors since 07/20/2024 UA positive for WBCs and leukocyte esterase Pro-Giovanni elevated Blood cultures grew ESBL E. coli Urine cultures are still pending Plan Patient received IV fluids per sepsis protocol Started on Zosyn 3.375 g every 8 hourly [07/20-07/21], started on meropenem in view of ESBL E. coli [07/22- Started on oseltamivir 75 Mg p.o. twice daily [07/20-present] #Acute encephalopathy, resolved #History of developmental delay Possibly infectious in source versus secondary to medication as Ingrezza can cause somnolence CT head negative for any acute hemorrhage or mass effect. Per caregiver patient's mentation appears baseline, however a bit more somnolent, he is non verbal and does not follow commands at baseline Consulted neurologist Dr. Gonzalez, will appreciate her recommendations #History of seizure disorder No antiseizure medication was noted on patient's medication list. Previous hospitalizations indicate lamotrigine use Treated with Keppra in ED Plan Neurologist Dr Gonzalez consulted, we appreciate recommendations IV Ativan as needed for seizures No seizures noted since admit Patient noted to be prescribed lamotrigine 100 mg twice daily in June [address] Gonzalez, resumed lamotrigine Will also order lamotrigine levels #History of insomnia #History of depression #Possible history of Tardive dyskinesia Resume home Zyprexa Med rec pending, consider resuming home Ingrezza on outpatient basis #History of hyperlipidemia Resume home simvastatin #History of GERD #History of constipation IV Protonix 40 mg daily Senna as needed #History of diabetes mellitus type 2 Glucose levels 212 in ED. Previous A1c in December 2023 was 5.4 Hold patient's home metformin Patient on insulin sliding scale #History of Osteoporosis Recommended to continue alendronate on outpatient basis Diet: Dysphagia 1 diet DVT prophylaxis: Heparin GI prophylaxis: Protonix Code status: Full Code Patient plan of care was discussed with the attending physician, Dr. Castorena and senior resident Dr. Jordi Khan, PGY1 Attending Provider Attestation/Addendum I, Bess Castorena, DO, attest that I was physically present for the [place] portions of the service and evaluated the patient with the resident and I reviewed and discussed the case with the resident and agree with the resident's findings and plans of care as documented above Patient seen and evaluated this AM. No acute events overnight. Patient remains at baseline. No bung remover at bedside at time of evaluation. Switched to meropenem due to ESBL UTI in preparation of discharging home with home health with PICC line to complete IV abx. However, [facility] and unable to accomodate IV abx at home. Pending bung remover's decision regarding snf placement for IV abx vs completing abx inpt. Case was discussed with urology regarding 22mm renal calculus at [facility]. Outpt f/u and PCNL was offered and discussed wtih bung remover by urologist, but risks may outweigh the benefits given patient's advanced age. Continue with IV abx at this time. No seizure activity throughout hospitalization.
--- NOTE | 2024-07-22 18:49 | ESPR_ITS ---
RE: BRANDON WRIGHT : 1945 DATE OF SERVICE: 07/22/2024 CHIEF COMPLAINT: 1. BPH with urinary obstruction, status post placement of Byrne catheter. 2. Bilateral nonobstructive renal calculi, 2.2 cm stone, left ureteropelvic junction with Hounsfield unit of 1016 and small stone on the right side. COMORBID CONDITIONS: 1. History of development delay. 2. Seizure disorder. 3. Diabetes mellitus. 4. Hyperlipidemia. 5. GERD 6 depression. 7 possible acute encephalopathy secondary to infection HISTORY OF PRESENT ILLNESS: This is an 78-year-old gentleman. He presented to the emergency room from assisted. He is accompanied by the care provider. I have reviewed the charts and dictated the consultation patientis nonverbal. I was unable to get the whole history from the patient all information I received is from patient's chart. Past medical history, family history, review of the system, personal history, please refer to patient's history form dated 07/20/2024, it is in HPI, in EMR. PHYSICAL EXAMINATION: The patient is lying in the bed. He is curled up. He is not in any acute distress he has indwelling catheter and patient has contraction of lower extremities vital signs are stable VARIOUS LABORATORIES: WBC is 13.1 and hemoglobin is 12.7. Serum sodium is 139, potassium 4.2, creatinine 0.9, and BUN is 11. ASSESSMENT AND PLAN: 1. For his kidney stones, stones are nonobstructive. My recommendation is to treat the patient with antibiotics according to the culture sensitivity. For his nonobstructive stones no surgical intervention is needed at this time 2. If he gets obstruction from the stones and sepsis, he is going to need a placement of percutaneous nephrostomy. At this time, he does not need surgical intervention and his urosepsis due to urinary tract infection Treated with appropriately antibiotics. Start him on tamsulosin 0.4 mg p.o. daily finasteride 5 mg p.o. daily give him a trial of voiding within week and I will give him follow-up appointment to see me in my office in 3 months thank you DT: 16:48:17 TT: 18:48:00 Ref: [id number] - TID: [id number] [facility]
[2024-07-22] MEDS: ATORVASTATIN CALCIUM 10 MG TABLET 5 MG PO (22:38)
[2024-07-22] MEDS: OLANZapine 5 MG TABLET PO (22:38)
[2024-07-23] VITALS: BP 134/78; PULSE 69; PULSE 71; RESP 16; TEMP 36.2; O2SAT 94
[2024-07-23 04:00] VITALS: BP 159/92; PULSE 82; RESP 20; TEMP 37.3; O2SAT 95
[2024-07-23] MEDS: HEPARIN SOD INJ 5000 UNIT/ML VIAL SC ×3 (05:35→22:29)
[2024-07-23] MEDS: MEROPENEM INJ 1,000 MG in SODIUM CHLORIDE 0.9% (Popper) 50 ML 100 MG IV ×3 (05:36→22:29)
[2024-07-23 05:46] VITALS: BMI 17.1
[2024-07-23 06:38] LABS: Nucleated Red Blood Cell % 0 /100 WBC (0); RDW Standard Deviation 41.8 fL (35.1-43.9)
[2024-07-23 06:51] LABS: Basophils % (Auto) 1 % (0-2.5); Eosinophils # (Auto) 0.4 Thou/mm3 (0.0-0.5); Eosinophils % (Auto) 6 % (0-10); Hemoglobin 12.1 g/dL (13.5-16.0); Immature Granulocytes % (Auto) 1 % (0-0); Immature Granulocytes Auto 0.08 Thou/mm3 (0.00-0.00); Lymphocytes # (Auto) 1.5 Thou/mm3 (1.0-4.8); Lymphocytes % (Auto) 25 % (10-50); Mean Corpuscular HGB Conc 33.6 g/dl (31.0-37.0); Mean Corpuscular Volume 89 fL (80-100); Monocytes # (Auto) 0.7 Thou/mm3 (0.0-0.8); Monocytes % (Auto) 11 % (0-12); Neutrophils # (Auto) 3.4 Thou/mm3 (1.8-7.7); Neutrophils % (Auto) 56 % (37-80); Platelet Count 199 Thou/mm3 (140-440); Red Blood Count 4.04 Miln/mm3 (4.50-5.90); White Blood Count 6.1 Thou/mm3 (3.8-10.6)
[2024-07-23 07:19] LABS: Alanine Aminotransferase 19 U/L (10-49); Albumin, Serum 3.5 gm/dL (3.4-4.8); Alkaline Phosphatase 87 U/L (46-116); Anion Gap 8 (7-16); Aspartate Amino Transferase 21 U/L (0-34); BUN/Creatinine Ratio 16 Ratio (12-20); Bilirubin,Total 0.6 mg/dL (0.3-1.2); Blood Urea Nitrogen 13 mg/dL (9-23); Calcium 8.8 mg/dL (8.3-10.6); Calcium (Corrected) 9.2 mg/dL (8.5-10.1); Carbon Dioxide 26.3 mMol/L (20.0-31.0); Chloride 110 mMol/L (98-107); Creatinine (Component) 0.8 mg/dL (0.6-1.3); Estimated Creatinine Clearance 59.7 mL/min (>60); Globulin 3.4 gm/dL (2.3-3.5); Glucose 111 mg/dL (74-106); Osmolality,Calculated 287 (275-295); Potassium 3.9 mMol/L (3.4-5.1); Sodium 144 mMol/L (136-145); Total Protein 6.9 gm/dL (5.7-8.2); eGFR > 60 See Note
[2024-07-23 08:00] VITALS: BP 166/93; PULSE 74; PULSE 77; RESP 17; TEMP 36.8; O2SAT 92
[2024-07-23 08:09] LABS: Glucose Estimated Average 117 mg/dL (80-131); Hemoglobin A1C 5.7 % Hgb (4.8-6.0)
[2024-07-23] MEDS: PANTOPRAZOLE INJ 40 MG VIAL IVP (10:07)
[2024-07-23] MEDS: OSELTAMIVIR 75 MG CAPSULE PO ×2 (10:08→22:30)
--- NOTE | 2024-07-23 11:20 | PD.RESPRO ---
Documentation for date of: 07/23/24 Subjective Subjective Interval history: Patient seen and examined with caregiver at bedside. No acute overnight events. Patient has been seizure-free since admission and continues to be on Lamictal 100 mg twice daily. Will continue Lamictal at this dose, monitor for seizure-like activities. Otherwise, continue other management. Exam Vital Signs Temp Pulse Resp BP Pulse Ox O2 Del Method O2 Flow Rate 98.2 F 74 17 166/93 H 92 L Room Air 3 07/23/24 08:00 07/23/24 08:00 07/23/24 08:00 07/23/24 08:00 07/23/24 08:00 07/23/24 08:00 07/23/24 08:00 Narrative Exam GENERAL: Awake, non interactive, incomprehensible sounds NEURO: Able to move extremites x 4, CN 11-XII grossly intact, no focal neurologic deficits HEENT: Moist mucosa. Eyes open, symmetrical, & clear CARDIO: No chest pain on palpation. Heart RRR, no obvious murmurs PULM: No noted coughing/dyspnea. Lungs CTA B/L GI: Abdomen soft, nondistended, no pain on palpation. BSx4 URO/ELECTRICAL UNIT REBUILDER:: No further abnormalities noted. SKIN/MSK/EXT: Some wasting and contractures in bilateral lower extremities Objective Labs 07/25/24 04:21 07/25/24 04:21 Labs: Laboratory Results - last 24 hr 07/23/24 05:50 WBC 6.1 RBC 4.04 L Hgb 12.1 L Hct 36.0 L MCV 89 MCH 30.0 MCHC 33.6 RDW Std Deviation 41.8 Plt Count 199 D Neut % (Auto) 56 Lymph % (Auto) 25 [place]ulloch % (Auto) 11 Eos % (Auto) 6 Baso % (Auto) 1 Neut # (Auto) 3.4 Lymph # (Auto) 1.5 [place]ulloch # (Auto) 0.7 Eos # (Auto) 0.4 Baso # (Auto) 0.0 Immature Gran # (Auto) 0.08 H Absolute Nucleated RBC 0.00 Immature Gran % 1 H Nucleated RBC % 0 Sodium 144 Potassium 3.9 Chloride 110 H Carbon Dioxide 26.3 Anion Gap 8 BUN 13 Creatinine 0.8 Estim Creat Clear Calc 59.7 L eGFR > 60 BUN/Creatinine Ratio [address] Glu mg/dL 117 Hemoglobin A1c 5.7 Calculated Osmolality 287 Calcium 8.8 Corrected Calcium 9.2 Total Bilirubin 0.6 AST 21 ALT 19 Alkaline Phosphatase 87 Total Protein 6.9 Albumin 3.5 Globulin 3.4 Albumin/Globulin Ratio 1.0 L ABG Interpretation ABG results: 07/20/24 00:42 ABG pH 7.45 ABG pCO2 43 ABG pO2 55 L* ABG HCO3 30 H ABG O2 Saturation 90 L ABG Base Excess 6 H Quality Measures Quality Measures VTE prophylaxis (Heparin subq) Advance care planning discussed with:: other Assessment & Plan Assessment Current Active Medications: Generic Name Dose Route Start Last Admin Trade Name Freq PRN Reason Stop Dose Admin Acetaminophen 650 mg 07/21/24 06:31 Acetaminophen 325 Mg Tablet PO 08/19/24 06:13 Q4HR PRN PAIN SCALE 1-3 (mild Atorvastatin Calcium 5 mg 07/20/24 21:00 07/22/24 22:38 Atorvastatin Calcium 10 Mg Tablet PO 08/19/24 20:59 5 mg HS GREG Administration Docusate Sodium 250 mg 07/21/24 10:15 07/23/24 10:08 Docusate Sod 250 Mg Capsule PO 08/20/24 10:14 Not Given BID GREG Protocol Heparin Sodium (Porcine) 5,000 unit 07/20/24 14:00 07/23/24 05:35 Heparin Sod Inj 5000 Unit/Ml Vial SC 08/03/24 13:59 5,000 unit Q8HR GREG Administration Meropenem 1,000 mg/ Sodium 50 mls @ 100 mls/hr 07/22/24 14:00 07/23/24 05:36 Chloride IV 07/29/24 13:59 100 mls/hr Q8HR GREG Administration Lamotrigine 100 mg 07/20/24 21:00 07/23/24 10:00 Lamotrigine 25 Mg Chew PO 08/19/24 20:59 Not Given BID GREG Lorazepam 4 mg 07/20/24 06:18 Lorazepam 2 Mg/Ml Vial IVP Q5MIN PRN seizure Olanzapine 5 mg 07/20/24 21:00 07/22/24 22:38 Olanzapine 5 Mg Tablet PO 08/19/24 20:59 5 mg HS GREG Administration Oseltamivir Phosphate 75 mg 07/20/24 21:00 07/23/24 10:08 Oseltamivir 75 Mg Capsule PO 07/24/24 20:59 75 mg BID GREG Administration Pantoprazole Sodium 40 mg 07/20/24 09:00 07/23/24 10:07 Pantoprazole Inj 40 Mg Vial IVP 08/19/24 08:59 40 mg QDAY GREG Administration Polyethylene Glycol 17 gm 07/21/24 09:00 07/23/24 10:08 Polyethylene Glycol 17 Gm Packet PO 08/20/24 08:59 Not Given QDAY GREG Sennosides 1 tab 07/20/24 06:25 Senna Tablet PO 08/19/24 08:59 QDAY PRN Constipation Protocol Plan Summary: The patient is an 78-year-old male with past medical history of developmental delay, seizure disorder, hyperlipidemia, type II DM, ESBL UTIs, depression and GERD who was [facility] to the ED from residential on 07/20/2024 with concerns of seizure-like activities #History of seizure disorder Patient was brought in from a residential with concern of seizure-like activities. Per caregiver although he was near his baseline mentation, he had some activities that were very similar to seizures for about 30 minutes about 4 days prior. He had a repeat episode about the day prior to presentation and presents ED for further evaluation. Head CT was done which showed no gross mass effect or hemorrhage although limited due to patient's inability to be immobile. Otherwise, he has had no seizure-like activities since admission and is relatively stable. He continues to be on Lamictal 100 mg twice daily was restarted on olanzapine 5 mg at bedtime. No new seizure like activities Plan: - Will continue Lamictal - Okay to discharge once medically clear #Acute encephalopathy, resolved #Sepsis, secondary to UTI #ESBL UTI -Management per primary team Case was discussed with attending physician, Dr Lisa Camara MD PGY-1 Attending Provider Attestation/Addendum I personally have seen and examined the patient and agreed with resident's findings, assessment and plan of care. stable on current AEDs.
[2024-07-23 12:00] VITALS: BP 173/111; PULSE 77; PULSE 99; RESP 25; TEMP 36.6; O2SAT 94
--- NOTE | 2024-07-23 12:35 | PC.SS ---
SS follow up note; SS was informed by Lulu OTERO that she was contacted by [facility] assisted living home director, Cecilia and she informed SS that she does not want patient to discharge to SNF and would like for patient to stay admitted until patient completes his ABX dosage. SS will update Team A.
--- NOTE | 2024-07-23 14:30 | PC.SS ---
Addendum entered by Tara Hernandez 07/23/24 15:41: SS follow up note; SS contacted [facility] [phone] and spoke to patient's [employer] Sales Representative, Markos Silva in regards to patient needing IV ABX for a duration of 10 days, however SS informed her that Cecilia from [facility] is refusing to allow the patient discharge to A SNF. Markos indicated that the decision regarding the patient's discharge plan will be Dr. Chavez, as to he is the one to decide whats best for the patient. If Dr. Chavez determines that the patient can be discharged to SNF, [facility] will then Contact Cecilia and inform her of patient's discharge plan. Markos requested for our Doctors to reach out to DR. Chavez to clarify the situation. SS updated Team A and they reported that at the time ID rec's are pending and once they are available, they will contact DR. Chavez to explain further more the situation. SS will stand by for further needs. Original Note: SS follow up note: SS Contacted Cecilia from [facility] in regards to patient needing IV ABX. provided choices and Cecilia reported She does not want patient to discharge to SNF or have patient discharge back to [facility] on IV ABX. She reported they are not allowed to administer medication in the senior care. Cecilia suggested for patient to complete IV ABX dosage and then have patient discharge back to [facility]. informed Cecilia that patient will need IV ABX for a duration of ten days and therefore there needs to be an established plan. Cecilia reported to that she would like for To contact her. updated Dr. Mckinley and Dr. Bacon. SS will stand by for further needs.
[2024-07-23 16:00] VITALS: BP 109/68; PULSE 88; PULSE 92; RESP 24; TEMP 36.6; O2SAT 94
--- NOTE | 2024-07-23 17:57 | ESPR_ITS ---
<Statement entered by Pilar Mckinley MD - 07/29/24 13:19> I reviewed above note and agree with findings and plans. I have also personally examined the patient with medicine team and went over assessment and plan with medical team including dietary internship and resident physician. <Statement entered by Stan Bacon MD - 07/24/24 14:44> Senior Resident Attestation: I supervised/discussed management plan with dietary internship physician Dr. Khan, and was involved in the care of this patient. I personally saw and examined the patient and discussed the assessment and plan with the entire medicine team, including my attending. I agree with the assessment and plan as documented. Patient remains asymptomatic and does not have any complaints. Will continue current antibiotic regimen for ESBL UTI and bacteremia, will obtain ID consult tomorrow for discharge planning. Patient's care was discussed with attending physician, Dr. Mckinley. Stan Bacon MD PGY-2. Documentation for date of: 07/23/24 Subjective Subjective Interval history: Patient is seen and examined at bedside No acute overnight events. Vitals are stable except for mildly elevated blood pressures CBC and CMP are within normal limits except for mild anemia Consulted Dr Blanco for antibiotic duration and route Plan to discharge tomorrow once we get Dr Blanco's recommendations Exam Vital Signs Temp Pulse Resp BP Pulse Ox O2 Del Method O2 Flow Rate 97.8 F 92 25 H 173/111 H 94 L Room Air 3 07/23/24 12:00 07/23/24 16:00 07/23/24 12:00 07/23/24 12:00 07/23/24 12:00 07/23/24 12:00 07/23/24 08:00 Narrative Exam General: Awake. Not interactive at baseline HEENT: Normocephalic, atraumatic, mucous membranes moist. Heart: Regular rate and rhythm, no murmurs. Lungs: Clear to auscultation with no wheezing or crackles. Abdomen: Soft, nondistended, nontender, positive bowel sounds. ?No guarding or rebound tenderness. Noted gross blood in the catheter Neurologic: Alert and oriented x3, no gross neurological deficit, and patient able to move all 4 extremities. Extremities: Noted contractures and wasting in the lower extremities. Skin: No rash or ecchymoses. Objective Labs 07/23/24 05:50 07/23/24 05:50 Labs: Laboratory Results - last 24 hr 07/23/24 05:50 WBC 6.1 RBC 4.04 L Hgb 12.1 L Hct 36.0 L MCV 89 MCH 30.0 MCHC 33.6 RDW Std Deviation 41.8 Plt Count 199 D Neut % (Auto) 56 Lymph % (Auto) 25 [place] % (Auto) 11 Eos % (Auto) 6 Baso % (Auto) 1 Neut # (Auto) 3.4 Lymph # (Auto) 1.5 [place] # (Auto) 0.7 Eos # (Auto) 0.4 Baso # (Auto) 0.0 Immature Gran # (Auto) 0.08 H Absolute Nucleated RBC 0.00 Immature Gran % 1 H Nucleated RBC % 0 Sodium 144 Potassium 3.9 Chloride 110 H Carbon Dioxide 26.3 Anion Gap 8 BUN 13 Creatinine 0.8 Estim Creat Clear Calc 59.7 L eGFR > 60 BUN/Creatinine Ratio [address] Glu mg/dL 117 Hemoglobin A1c 5.7 Calculated Osmolality 287 Calcium 8.8 Corrected Calcium 9.2 Total Bilirubin 0.6 AST 21 ALT 19 Alkaline Phosphatase 87 Total Protein 6.9 Albumin 3.5 Globulin 3.4 Albumin/Globulin Ratio 1.0 L ABG Interpretation ABG results: 07/20/24 00:42 ABG pH 7.45 ABG pCO2 43 ABG pO2 55 L* ABG HCO3 30 H ABG O2 Saturation 90 L ABG Base Excess 6 H Quality Measures Quality Measures VTE prophylaxis (Heparin subq) Advance care planning discussed with:: other Assessment & Plan Assessment Current Active Medications: Generic Name Dose Route Start Last Admin Trade Name Clemencia PRN Reason Stop Dose Admin Acetaminophen 650 mg 07/21/24 06:31 Acetaminophen 325 Mg Tablet PO 08/19/24 06:13 Q4HR PRN PAIN SCALE 1-3 (mild Atorvastatin Calcium 5 mg 07/20/24 21:00 07/22/24 22:38 Atorvastatin Calcium 10 Mg Tablet PO 08/19/24 20:59 5 mg HS GREG Administration Docusate Sodium 250 mg 07/21/24 10:15 07/23/24 10:08 Docusate Sod 250 Mg Capsule PO 08/20/24 10:14 Not Given BID GREG Protocol Heparin Sodium (Porcine) 5,000 unit 07/20/24 14:00 07/23/24 13:48 Heparin Sod Inj 5000 Unit/Ml Vial SC 08/03/24 13:59 5,000 unit Q8HR GREG Administration Meropenem 1,000 mg/ Sodium 50 mls @ 100 mls/hr 07/22/24 14:00 07/23/24 13:48 Chloride IV 07/29/24 13:59 100 mls/hr Q8HR GREG Administration Lamotrigine 100 mg 07/20/24 21:00 07/23/24 10:00 Lamotrigine 25 Mg Chew PO 08/19/24 20:59 Not Given BID GREG Levetiracetam 500 mg 07/23/24 21:00 Levetiracetam Inj 100 Mg/Ml Vial 5ml IVP 08/22/24 20:59 Q12HR GREG Lorazepam 4 mg 07/20/24 06:18 Lorazepam 2 Mg/Ml Vial IVP Q5MIN PRN seizure Olanzapine 5 mg 07/20/24 21:00 07/22/24 22:38 Olanzapine 5 Mg Tablet PO 08/19/24 20:59 5 mg HS GERG Administration Oseltamivir Phosphate 75 mg 07/20/24 21:00 07/23/24 10:08 Oseltamivir 75 Mg Capsule PO 07/24/24 20:59 75 mg BID GREG Administration Pantoprazole Sodium 40 mg 07/20/24 09:00 07/23/24 10:07 Pantoprazole Inj 40 Mg Vial IVP 08/19/24 08:59 40 mg QDAY GREG Administration Polyethylene Glycol 17 gm 07/21/24 09:00 07/23/24 10:08 Polyethylene Glycol 17 Gm Packet PO 08/20/24 08:59 Not Given QDAY GREG Sennosides 1 tab 07/20/24 06:25 Senna Tablet PO 08/19/24 08:59 QDAY PRN Constipation Protocol Plan 78-year-old male with history of developmental delay, seizure disorder, diabetes mellitus, hyperlipidemia, ESBL UTIs, depression, and GERD who presented to the ED BIBA from assisted with concerns of seizure disorder, found to become hypotensive requiring vasopressor support for likely septic shock secondary to flu, and/or pneumonia. # Hematuria, resolved # likely traumatic - Patient is noted to have hematuria in the catheter overnight on 07/20/2024 - On physical examination, no abrasions or trauma noted on the genital organs Plan -Byrne catheter was discontinued as it is suspected to cause traumatic hematuria - Urologist Dr. Sales was consulted and he recommended outpatient basis follow-up for percutaneous nephrolithotomy #Sepsis, resolved #Influenza pneumonia #Possible superimposed pneumonia VS aspiration pneumonia # ESBL E. coli bacteremia #Shock?resolved Patient came in with leukocytosis, tachycardia, febrile, and tachypneic with source being influenza pneumonia with possible superimposed bacterial infection Imaging showing right base pneumonia Patient was admitted to ICU for pressor support and has not been stable off pressors since 07/20/2024 UA positive for WBCs and leukocyte esterase Pro-Giovanni elevated Blood cultures grew ESBL E. coli Urine cultures are still pending Plan Patient received IV fluids per sepsis protocol Started on Zosyn 3.375 g every 8 hourly [07/20-07/21], started on meropenem in view of ESBL E. coli [07/22- Started on oseltamivir 75 Mg p.o. twice daily [07/20-present] #Acute encephalopathy, resolved #History of developmental delay Possibly infectious in source versus secondary to medication as Ingrezza can cause somnolence CT head negative for any acute hemorrhage or mass effect. Per caregiver patient's mentation appears baseline, however a bit more somnolent, he is non verbal and does not follow commands at baseline Consulted neurologist Dr. Gonzalez, will appreciate her recommendations #History of seizure disorder No antiseizure medication was noted on patient's medication list. Previous hospitalizations indicate lamotrigine use Treated with Keppra in ED Plan Neurologist Dr Gonzalez consulted, we appreciate recommendations IV Ativan as needed for seizures No seizures noted since admit Patient noted to be prescribed lamotrigine 100 mg twice daily in June [address] Gonzalez, resumed lamotrigine Will also order lamotrigine levels #History of insomnia #History of depression #Possible history of Tardive dyskinesia Resume home Zyprexa Med rec pending, consider resuming home Ingrezza on outpatient basis #History of hyperlipidemia Resume home simvastatin #History of GERD #History of constipation IV Protonix 40 mg daily Senna as needed #History of diabetes mellitus type 2 Glucose levels 212 in ED. Previous A1c in December 2023 was 5.4 Hold patient's home metformin Patient on insulin sliding scale #History of Osteoporosis Recommended to continue alendronate on outpatient basis Diet: Dysphagia 1 diet DVT prophylaxis: Heparin GI prophylaxis: Protonix Code status: Full Code Patient plan of care was discussed with the attending physician, Dr. Mckinley and senior resident Dr. Jordi Khan, PGY1
[2024-07-23 20:00] VITALS: BP 135/83; PULSE 78; PULSE 96; RESP 23; TEMP 37.1; O2SAT 95
[2024-07-23] MEDS: ATORVASTATIN CALCIUM 10 MG TABLET 5 MG PO (22:29)
[2024-07-23] MEDS: levETIRAcetam INJ 100 MG/ML VIAL 5ML 500 MG IVP (22:29)
[2024-07-23] MEDS: DOCUSATE SOD 250 MG CAPSULE PO (22:30)
[2024-07-23] MEDS: OLANZapine 5 MG TABLET PO (22:30)
[2024-07-24] VITALS (8 sets, daily range): BP systolic 107–142; BP diastolic 60–87; PULSE 75–87; RESP 16–20; TEMP 36.1–37.2; O2SAT 90–100; BMI 16.5
[2024-07-24] MEDS: HEPARIN SOD INJ 5000 UNIT/ML VIAL SC ×3 (05:08→21:58)
[2024-07-24] MEDS: MEROPENEM INJ 1,000 MG in SODIUM CHLORIDE 0.9% (Popper) 50 ML 100 MG IV ×3 (05:08→21:58)
--- NOTE | 2024-07-24 08:24 | PC.NURSE ---
RN contacted by MD about lack of morning lab draw, RN contacted lab about lack of morning labs, lab stated they will return to draw labs on patient. No reason given by lab for lack of morning labs
[2024-07-24 09:10] LABS: Basophils % (Auto) 1 % (0-2.5); Eosinophils # (Auto) 0.3 Thou/mm3 (0.0-0.5); Eosinophils % (Auto) 3 % (0-10); Hematocrit 34.5 % (41.0-53.0); Hemoglobin 11.6 g/dL (13.5-16.0); Immature Granulocytes % (Auto) 1 % (0-0); Immature Granulocytes Auto 0.06 Thou/mm3 (0.00-0.00); Lymphocytes # (Auto) 1.8 Thou/mm3 (1.0-4.8); Lymphocytes % (Auto) 20 % (10-50); Mean Corpuscular HGB Conc 33.6 g/dl (31.0-37.0); Mean Corpuscular Hemoglobin 30.7 pg (25.0-35.0); Mean Corpuscular Volume 91 fL (80-100); Monocytes % (Auto) 11 % (0-12); Neutrophils # (Auto) 5.6 Thou/mm3 (1.8-7.7); Neutrophils % (Auto) 64 % (37-80); Nucleated Red Blood Cell % 0 /100 WBC (0); Platelet Count 182 Thou/mm3 (140-440); RDW Standard Deviation 42.5 fL (35.1-43.9); Red Blood Count 3.78 Miln/mm3 (4.50-5.90); White Blood Count 8.7 Thou/mm3 (3.8-10.6)
[2024-07-24 09:42] LABS: Anion Gap 8 (7-16); BUN/Creatinine Ratio 20 Ratio (12-20); Blood Urea Nitrogen 14 mg/dL (9-23); Calcium 8.6 mg/dL (8.3-10.6); Carbon Dioxide 26.1 mMol/L (20.0-31.0); Chloride 110 mMol/L (98-107); Creatinine (Component) 0.7 mg/dL (0.6-1.3); Estimated Creatinine Clearance 65.7 mL/min (>60); Glucose 136 mg/dL (74-106); Osmolality,Calculated 289 (275-295); Potassium 3.9 mMol/L (3.4-5.1); Sodium 144 mMol/L (136-145); eGFR > 60 See Note
[2024-07-24] MEDS: OSELTAMIVIR 75 MG CAPSULE PO ×2 (09:50→20:35)
[2024-07-24] MEDS: DOCUSATE SOD 250 MG CAPSULE PO ×2 (09:50→20:35)
[2024-07-24] MEDS: levETIRAcetam INJ 100 MG/ML VIAL 5ML 500 MG IVP ×2 (09:50→20:36)
[2024-07-24] MEDS: PANTOPRAZOLE INJ 40 MG VIAL IVP (09:50)
--- NOTE | 2024-07-24 12:29 | PD.RESPRO ---
Documentation for date of: 07/24/24 Subjective Subjective Interval history: Patient seen and examined with caregiver at bedside. No acute overnight events. Patient has been seizure-free since admission and continues to be on Lamictal 100 mg twice daily. Will continue Lamictal at this dose, monitor for seizure-like activities. Pending Dr Blanco recommendations for antibiotics Otherwise, continue other management. Exam Vital Signs Temp Pulse Resp BP Pulse Ox O2 Del Method O2 Flow Rate 99 F 78 20 117/74 95 Nasal Cannula 2 07/24/24 11:35 07/24/24 11:35 07/24/24 11:35 07/24/24 11:35 07/24/24 11:37 07/24/24 11:37 07/24/24 11:37 Narrative Exam GENERAL: Awake, non interactive, incomprehensible sounds NEURO: Able to move extremites x 4, CN 11-XII grossly intact, no focal neurologic deficits HEENT: Moist mucosa. Eyes open, symmetrical, & clear CARDIO: No chest pain on palpation. Heart RRR, no obvious murmurs PULM: No noted coughing/dyspnea. Lungs CTA B/L GI: Abdomen soft, nondistended, no pain on palpation. BSx4 URO/EMERGENCY DEPARTMENT PHYSICIAN:: No further abnormalities noted. SKIN/MSK/EXT: Some wasting and contractures in bilateral lower extremities Objective Labs 07/25/24 04:21 07/25/24 04:21 Labs: Laboratory Results - last 24 hr 07/24/24 08:59 WBC 8.7 D RBC 3.78 L Hgb 11.6 L Hct 34.5 L MCV 91 MCH 30.7 MCHC 33.6 RDW Std Deviation 42.5 Plt Count 182 Neut % (Auto) 64 Lymph % (Auto) 20 [place] % (Auto) 11 Eos % (Auto) 3 Baso % (Auto) 1 Neut # (Auto) 5.6 Lymph # (Auto) 1.8 [place] # (Auto) 1.0 H Eos # (Auto) 0.3 Baso # (Auto) 0.0 Immature Gran # (Auto) 0.06 H Absolute Nucleated RBC 0.00 Immature Gran % 1 H Nucleated RBC % 0 Sodium 144 Potassium 3.9 Chloride 110 H Carbon Dioxide 26.1 Anion Gap 8 BUN 14 Creatinine 0.7 Estim Creat Clear Calc 65.7 eGFR > 60 BUN/Creatinine Ratio 20 Glucose 136 H Calculated Osmolality 289 Calcium 8.6 ABG Interpretation ABG results: 07/20/24 00:42 ABG pH 7.45 ABG pCO2 43 ABG pO2 55 L* ABG HCO3 30 H ABG O2 Saturation 90 L ABG Base Excess 6 H Quality Measures Quality Measures VTE prophylaxis (Heparin subq) Advance care planning discussed with:: other Assessment & Plan Assessment Current Active Medications: Generic Name Dose Route Start Last Admin Trade Name Freq PRN Reason Stop Dose Admin Acetaminophen 650 mg 07/21/24 06:31 Acetaminophen 325 Mg Tablet PO 08/19/24 06:13 Q4HR PRN PAIN SCALE 1-3 (mild Atorvastatin Calcium 5 mg 07/20/24 21:00 07/23/24 22:29 Atorvastatin Calcium 10 Mg Tablet PO 08/19/24 20:59 5 mg HS GREG Administration Docusate Sodium 250 mg 07/21/24 10:15 07/24/24 09:50 Docusate Sod 250 Mg Capsule PO 08/20/24 10:14 250 mg BID GREG Administration Protocol Heparin Sodium (Porcine) 5,000 unit 07/20/24 14:00 07/24/24 05:08 Heparin Sod Inj 5000 Unit/Ml Vial SC 08/03/24 13:59 5,000 unit Q8HR GREG Administration Meropenem 1,000 mg/ Sodium 50 mls @ 100 mls/hr 07/22/24 14:00 07/24/24 05:08 Chloride IV 07/29/24 13:59 100 mls/hr Q8HR GREG Administration Lamotrigine 100 mg 07/20/24 21:00 07/24/24 09:50 Lamotrigine 25 Mg Chew PO 08/19/24 20:59 Not Given BID GREG Levetiracetam 500 mg 07/23/24 21:00 07/24/24 09:50 Levetiracetam Inj 100 Mg/Ml Vial 5ml IVP 08/22/24 20:59 500 mg Q12HR GREG Administration Lorazepam 4 mg 07/20/24 06:18 Lorazepam 2 Mg/Ml Vial IVP Q5MIN PRN seizure Olanzapine 5 mg 07/20/24 21:00 07/23/24 22:30 Olanzapine 5 Mg Tablet PO 08/19/24 20:59 5 mg HS GREG Administration Oseltamivir Phosphate 75 mg 07/20/24 21:00 07/24/24 09:50 Oseltamivir 75 Mg Capsule PO 07/24/24 20:59 75 mg BID GREG Administration Pantoprazole Sodium 40 mg 07/20/24 09:00 07/24/24 09:50 Pantoprazole Inj 40 Mg Vial IVP 08/19/24 08:59 40 mg QDAY GREG Administration Polyethylene Glycol 17 gm 07/21/24 09:00 07/24/24 09:51 Polyethylene Glycol 17 Gm Packet PO 08/20/24 08:59 Not Given QDAY GREG Sennosides 1 tab 07/20/24 06:25 Senna Tablet PO 08/19/24 08:59 QDAY PRN Constipation Protocol Plan Summary: The patient is an 78-year-old male with past medical history of developmental delay, seizure disorder, hyperlipidemia, type II DM, ESBL UTIs, depression and GERD who was Biba to the ED from half-way on 07/20/2024 with concerns of seizure-like activities #History of seizure disorder Patient was brought in from a half-way with concern of seizure-like activities. Per caregiver although he was near his baseline mentation, he had some activities that were very similar to seizures for about 30 minutes about 4 days prior. He had a repeat episode about the day prior to presentation and presents ED for further evaluation. Head CT was done which showed no gross mass effect or hemorrhage although limited due to patient's inability to be immobile. Otherwise, he has had no seizure-like activities since admission and is relatively stable. He continues to be on Lamictal 100 mg twice daily was restarted on olanzapine 5 mg at bedtime. No new seizure like activities Plan: - Will continue Lamictal - Okay to discharge once medically clear #Acute encephalopathy, resolved #Sepsis, secondary to UTI #ESBL UTI -Management per primary team Case was discussed with attending physician, Dr Lisa Camara MD PGY-1 Disclaimer: This note was dictated by speech recognition. Minor errors in head of english may be present due to voice recognition software. Attending Provider Attestation/Addendum I personally have seen and reviewed the chart and agreed with resident's findings, assessment and plan of care. no sz on current meds.Continue the same.
--- NOTE | 2024-07-24 14:38 | PC.SS ---
SS follow up note: Dr. Blanco's Rec's pending, once recommendations are in, Team A will contact DR. Chavez in regard to discharge plan and patient discharging to SNF to complete IV ABX. SS also contactclaude Burrows- consulting solution manager from [facility] and she informed SS she would like SS to contact her once IV ABX is established.
--- NOTE | 2024-07-24 14:49 | ESPR_ITS ---
Subjective Subjective Interval history: reportedly failed augmentin, but may not have had it much if at all. even so, we usually do not trust those abx for esbl Exam Vital Signs Temp Pulse Resp BP Pulse Ox O2 Del Method O2 Flow Rate 99 F 78 20 117/74 95 Nasal Cannula 2 07/24/24 11:35 07/24/24 11:35 07/24/24 11:35 07/24/24 11:35 07/24/24 11:37 07/24/24 11:37 07/24/24 11:37 Narrative Exam pt status noted. organism is r to all po so those are not good options no hydronephrosis noted. Objective - Internal Medicine Labs 07/24/24 08:59 07/24/24 08:59 Labs: Laboratory Results - last 24 hr 07/24/24 08:59 WBC 8.7 D RBC 3.78 L Hgb 11.6 L Hct 34.5 L MCV 91 MCH 30.7 MCHC 33.6 RDW Std Deviation 42.5 Plt Count 182 Neut % (Auto) 64 Lymph % (Auto) 20 [place] % (Auto) 11 Eos % (Auto) 3 Baso % (Auto) 1 Neut # (Auto) 5.6 Lymph # (Auto) 1.8 [place] # (Auto) 1.0 H Eos # (Auto) 0.3 Baso # (Auto) 0.0 Immature Gran # (Auto) 0.06 H Absolute Nucleated RBC 0.00 Immature Gran % 1 H Nucleated RBC % 0 Sodium 144 Potassium 3.9 Chloride 110 H Carbon Dioxide 26.1 Anion Gap 8 BUN 14 Creatinine 0.7 Estim Creat Clear Calc 65.7 eGFR > 60 BUN/Creatinine Ratio 20 Glucose 136 H Calculated Osmolality 289 Calcium 8.6 ABG Interpretation ABG results: 07/20/24 00:42 ABG pH 7.45 ABG pCO2 43 ABG pO2 55 L* ABG HCO3 30 H ABG O2 Saturation 90 L ABG Base Excess 6 H Assessment & Plan A&P Narrative bacteremia with esbl e coli bc's noted serially, non obstructive renal stones osteoporosis dm II. on metformin finish rx with outpt ertapenem 1 gm iv daily thru 07/26 or merrem at current dose if he is to stay here for rx. as he was on zosyn on admit which works and is s if he stays, then stay with merrem thru 07/26. today is 07/24, so duration of outpt rx will be short. Time Spent With Patient Time: Total time spent is greater than 50% in coordination of care (as documented) at patient's floor/unit and/or counseling patient:
--- NOTE | 2024-07-24 17:44 | PD.RESCONSUL ---
HPI Data of Consult Patient: new to practice Consult date: 07/24/24 Requesting Physician: Pilar Mckinley MD Admitting Provider: Alex James MD Attending Provider: Pilar Mckinley MD Primary Care Provider: Emilio Nuñez Consult Narrative Reason for consult: ESBL bacteremia History of present illness: Patient is an 78-year-old male with past medical history of developmental delay, seizure disorder, type 2 diabetes, hyperlipidemia, frequent urinary tract infections with ESBL bacteria, depression, GERD who presented to [facility] with a chief complaint of seizure-like activity. Patient was experiencing seizure-like activity for a few days at home with repeat shaking-like episodes so decision was made to bring him to [facility]. Initially he was admitted to the ICU for management of septic shock requiring the use of chemical pressors. He was noted to have blood cultures positive for ESBL bacteria along with a urinary tract infection similar to his previous urinary tract infections with ESBL. PMH: developmental delay, seizure disorder, diabetes mellitus, hyperlipidemia, ESBL UTIs, depression, and GERD FH: Unknown Surgical Hx: Unknown Social Hx: No alcohol, tobacco, or illicit drug use Travel Hx: No recent travels outside of [place] Medication list per caregiver's documentation: - Acetaminophen 325mg prn - Ibuprofen 400mg prn - Polyethylene 17gms prn - Bisacodyl suppository 10mg prn - Calmoseptine ointment prn - Robitussin 5ml prn - Zolpidem tartrate 5mg hs prn - Simvastatin 10mg hs - Melatonin 10mg hs - Olanzapine 5mg hs - Ingrezza 60mg qday - Alendronate sodium 70mg q7days (on Wednesdays) - Metformin hcl 500mg BID - Loratadine 10mg qday - Docusate sodium 250 mg qd - Milk of magnesia liquid 30ml po q every other day - Cranberry probiotic tab - Multivitamin tab - NOTE: lamotrigine 100mg BID was not included in caregiver's list cc:: cc: Pilar Mckinley MD Review of Systems Review of Systems Systems Reviewed: All systems reviewed, normal except as documented Exam Vital Signs Temp Pulse Resp BP Pulse Ox O2 Del Method O2 Flow Rate 97.1 F 80 18 113/64 100 Nasal Cannula 2 07/24/24 16:00 07/24/24 16:00 07/24/24 16:00 07/24/24 16:00 07/24/24 16:00 07/24/24 16:00 07/24/24 16:00 Narrative Exam General: Awake. Not interactive at baseline HEENT: Normocephalic, atraumatic, mucous membranes moist. Heart: Regular rate and rhythm, no murmurs. Lungs: Clear to auscultation with no wheezing or crackles. Abdomen: Soft, nondistended, nontender, positive bowel sounds. ?No guarding or rebound tenderness. Neurologic: Alert and oriented x3, no gross neurological deficit, and patient able to move all 4 extremities. Extremities: Noted contractures and wasting in the lower extremities. Skin: No rash or ecchymoses. Results Labs 07/24/24 08:59 07/24/24 08:59 Labs: Short CBC 07/24/24 Range/Units 08:59 WBC 8.7 D (3.8-10.6) Thou/mm3 Hgb 11.6 L (13.5-16.0) g/dL Hct 34.5 L (41.0-53.0) % Plt Count 182 (140-440) Thou/mm3 BMP 07/24/24 08:59 Sodium 144 Potassium 3.9 Chloride 110 H Carbon Dioxide 26.1 BUN 14 Creatinine 0.7 Glucose 136 H Calcium 8.6 ABG Interpretation ABG results: 07/20/24 00:42 ABG pH 7.45 ABG pCO2 43 ABG pO2 55 L* ABG HCO3 30 H ABG O2 Saturation 90 L ABG Base Excess 6 H Quality Measures Quality Measures VTE prophylaxis (Heparin subq) Advance care planning discussed with:: other Medications Home Medications and Allergies Home Medications ?Medication ?Instructions ?Recorded ?Confirmed ?Type Alendronate Sodium * (FOSAMAX *) 70 mg PO .MONDAY ##0 08/13/12 07/20/24 History OLANZAPINE (OLANZAPINE ODT) 5 mg PO HS ##0 08/13/12 07/20/24 History simvastatin 10 mg tablet (Zocor) 10 mg PO HS ##0 08/13/12 07/20/24 History Calcium Carbonate/Vitamin D3 1 tab PO BID ##0 08/02/16 07/20/24 History (Calcium + D 600 Mg Tablet) Held on 07/20/24. Instructions: Doctor's Order LORATADINE (CLARITIN) 1 tab PO QDAY ##0 08/02/16 07/20/24 History MULTIVITAMIN (MULTI VITAMIN DAILY) 1 tab PO QDAY ##0 08/02/16 07/20/24 History docusate sodium 250 mg capsule 1 cap PO BID ##0 08/02/16 07/20/24 History sertraline 100 mg tablet 200 mg PO QDAY 03/05/18 07/20/24 History cholecalciferol (vitamin D3) 25 1,000 unit PO BID 03/16/18 07/20/24 History mcg (1,000 unit) tablet (Vitamin D3) Held on 07/20/24. Instructions: Order Change magnesium hydroxide 400 mg/5 mL 30 ml PO EVERYOTHERDAY 03/16/18 07/20/24 History oral suspension (Milk of Magnesia) polyethylene glycol 3350 17 gram 17 g PO QDAY PRN constipation 03/16/18 07/20/24 History oral powder packet (Miralax) ferrous sulfate 325 mg (65 mg 325 mg PO TID 12/12/23 07/20/24 History iron) tablet (FeroSul) Held on 07/20/24. Instructions: Order Change melatonin 10 mg tablet 10 mg PO HS 12/12/23 07/20/24 History olanzapine 2.5 mg tablet 5 mg PO HS 12/12/23 07/20/24 History valbenazine 60 mg capsule 60 mg PO QDAY 12/12/23 07/20/24 History (Ingrezza) cranberry-B.vxvycuure-I-Bt phos 1 tab PO QDAY 12/25/23 07/20/24 History 480 mg-20 mg-100 million cell tablet (Cranberry-Probiotic) d-mannose 500 mg capsule (AZO 2,000 mg PO QDAY 12/25/23 07/20/24 History D-Mannose) metformin 500 mg tablet 500 mg PO BID 12/25/23 07/20/24 History amoxicillin 875 mg-potassium 1 tab PO Q8H 07/20/24 07/20/24 History clavulanate 125 mg tablet ibuprofen 400 mg tablet 400 mg PO Q6H PRN pain 07/20/24 07/20/24 History loratadine 10 mg tablet 10 mg PO QDAY 07/20/24 07/20/24 History zolpidem 5 mg tablet 5 mg PO QHSPRN 07/20/24 07/20/24 History Allergies Allergy/AdvReac Type Severity Reaction Status Date / Time No Known Allergies Allergy Verified 07/19/24 23:27 Visit Medications Acetaminophen (Acetaminophen 325 Mg Tablet) 650 mg PO Q4HR PRN PRN Reason: PAIN SCALE 1-3 (mild Stop: 08/19/24 06:13 Atorvastatin Calcium (Atorvastatin Calcium 10 Mg Tablet) 5 mg PO HS GREG Stop: 08/19/24 20:59 Last Admin: 07/23/24 22:29 Dose: 5 mg Docusate Sodium (Docusate Sod 250 Mg Capsule) 250 mg PO BID GREG; Protocol Stop: 08/20/24 10:14 Last Admin: 07/24/24 09:50 Dose: 250 mg Heparin Sodium (Porcine) (Heparin Sod Inj 5000 Unit/Ml Vial) 5,000 unit SC Q8HR GREG Stop: 08/03/24 13:59 Last Admin: 07/24/24 15:01 Dose: 5,000 unit Meropenem 1,000 mg/ Sodium (Chloride) 50 mls @ 100 mls/hr IV Q8HR GREG Stop: 07/29/24 13:59 Last Admin: 07/24/24 15:00 Dose: 100 mls/hr Lamotrigine (Lamotrigine 25 Mg Chew) 100 mg PO BID GREG Stop: 08/19/24 20:59 Last Admin: 07/24/24 09:50 Dose: Not Given Levetiracetam (Levetiracetam Inj 100 Mg/Ml Vial 5ml) 500 mg IVP Q12HR GREG Stop: 08/22/24 20:59 Last Admin: 07/24/24 09:50 Dose: 500 mg Lorazepam (Lorazepam 2 Mg/Ml Vial) 4 mg IVP Q5MIN PRN PRN Reason: seizure Olanzapine (Olanzapine 5 Mg Tablet) 5 mg PO HS GREG Stop: 08/19/24 20:59 Last Admin: 07/23/24 22:30 Dose: 5 mg Oseltamivir Phosphate (Oseltamivir 75 Mg Capsule) 75 mg PO BID GREG Stop: 07/25/24 09:01 Last Admin: 07/24/24 09:50 Dose: 75 mg Pantoprazole Sodium (Pantoprazole Inj 40 Mg Vial) 40 mg IVP QDAY GREG Stop: 08/19/24 08:59 Last Admin: 07/24/24 09:50 Dose: 40 mg Polyethylene Glycol (Polyethylene Glycol 17 Gm Packet) 17 gm PO QDAY GREG Stop: 08/20/24 08:59 Last Admin: 07/24/24 09:51 Dose: Not Given Sennosides (Senna Tablet) 1 tab PO QDAY PRN; Protocol PRN Reason: Constipation Stop: 08/19/24 08:59 Discontinued Medications Acetaminophen (Acetaminophen 325 Mg Tablet) 650 mg PO Q4HR PRN PRN Reason: PAIN SCALE 1-3 (mild Stop: 08/19/24 06:13 Last Admin: 07/20/24 21:03 Dose: 650 mg Alendronate Sodium (Alendronate Sodium 70 Mg Tablet) 70 mg PO Q7D [facility] Stop: 08/23/24 06:29 Dextrose (Dextrose 50%-Water Inj 50 Ml Syringe) 25 ml IV Q15MIN PRN PRN Reason: BG 50-70 responsive npo pt Stop: 08/19/24 06:21 Dextrose (Dextrose 50%-Water Inj 50 Ml Syringe) 50 ml IV Q15MIN PRN PRN Reason: BG <50 OR BG <70 & pt unresponsive Stop: 08/19/24 06:21 Glucagon (Glucagon Inj 1 Mg Vial) 1 mg IM Q15MIN PRN PRN Reason: BG <70, and no IV access Acetaminophen (Ofirmev Inj) 1,000 mg in 100 mls @ 250 mls/hr IV Q6HR [facility] Stop: 07/20/24 18:23 Sodium Chloride (Ns) 1,000 mls @ 999 mls/hr IV .Q1H1M ONE Stop: 07/20/24 00:49 Last Infusion: 07/20/24 01:37 Dose: Infused Ceftriaxone Sodium 1,000 mg/ (Sodium Chloride) 50 mls @ 100 mls/hr IV X1 ONE Stop: 07/20/24 00:19 Last Infusion: 07/20/24 00:53 Dose: Infused Sodium Chloride (Ns) 1,000 mls @ 999 mls/hr IV .Q1H1M ONE Stop: 07/20/24 00:50 Last Infusion: 07/20/24 01:36 Dose: Infused Acetaminophen (Ofirmev Inj) 1,000 mg in 100 mls @ 250 mls/hr IV X1 ONE Stop: 07/20/24 00:15 Last Infusion: 07/20/24 00:53 Dose: Infused Norepinephrine Bitartrate (Levophed In Ns 16mg/250ml) 16 mg in 250 mls @ 2.87 mls/hr IV .Q24H PRN; Protocol PRN Reason: PER PROTOCOL Stop: 08/19/24 03:18 Last Titration: 07/20/24 09:40 Dose: 0 mcg/kg/min, 0 mls/hr Azithromycin 500 mg/ Sodium (Chloride) 250 mls @ 250 mls/hr IV X1 ONE Stop: 07/20/24 06:09 Last Infusion: 07/20/24 07:00 Dose: Infused Piperacillin/Tazobactam/Dextrose (Zosyn) 3.375 gm in 50 mls @ 12.5 mls/hr IV Q8HR [facility] Stop: 07/27/24 13:59 Last Admin: 07/22/24 05:17 Dose: 12.5 mls/hr Piperacillin/Tazobactam/Dextrose (Zosyn) 3.375 gm in 50 mls @ 100 mls/hr IV X1 ONE Stop: 07/20/24 06:59 Last Infusion: 07/20/24 07:22 Dose: Infused Lactated Ringer's (Lactated Ringers) 1,000 mls @ 999 mls/hr IV .Q1H1M ONE Stop: 07/20/24 10:33 Last Admin: 07/20/24 09:39 Dose: 999 mls/hr Sodium Chloride (Ns) 1,000 mls @ 75 mls/hr IV .[id number] ONE Stop: 07/21/24 05:04 Last Admin: 07/20/24 17:02 Dose: 75 mls/hr Lactated Ringer's (Lactated Ringers) 1,000 mls @ 75 mls/hr IV .[id number] ONE Stop: 07/21/24 23:23 Last Admin: 07/21/24 11:47 Dose: 75 mls/hr Insulin Human Lispro (Insulin Lispro (Admelog) 1 Unit/0.01 Ml Unit) 0 unit SC AC GREG; Protocol Stop: 08/19/24 07:29 Last Admin: 07/22/24 07:26 Dose: Not Given Ketorolac Tromethamine (Ketorolac Inj 30 Mg/Ml Vial) 15 mg IVP X1 ONE Stop: 07/19/24 23:50 Last Admin: 07/20/24 00:11 Dose: 15 mg Levetiracetam (Levetiracetam Inj 100 Mg/Ml Vial 5ml) 1,500 mg IVP X1 ONE Stop: 07/19/24 23:50 Last Admin: 07/20/24 00:10 Dose: 1,500 mg Lorazepam (Lorazepam 2 Mg/Ml Vial) 1.5 mg IVP X1 ONE Stop: 07/20/24 02:23 Last Admin: 07/20/24 02:33 Dose: 1.5 mg Oseltamivir Phosphate (Oseltamivir 75 Mg Capsule) 75 mg PO X1 ONE Stop: 07/20/24 00:07 Last Admin: 07/20/24 00:22 Dose: Not Given Assessment & Plan Plan #ESBL bacteremia E. coli #E. coli UTI #Influenza Initially on Zosyn which was further escalated to meropenem on the Patient was septic upon initial presentation requiring ICU stay with chemical pressors Currently patient is back to baseline health and mentation Recommend continued meropenem until July 26, 2024 for completed 7-day antibiotic therapy Recommend conversation with patient's medical decision-maker in regards to further treatments if necessitated given the fact that patient has multidrug-resistant bacteremia with potential for recurrence CT abdomen also reveals a 22 mm stone but no hydronephrosis for which urology recommends finasteride and Flomax Not a good candidate for surgical intervention May benefit from hospitalization till July 26 to complete antibiotic therapy with meropenem Can continue Tamiflu until completion of therapy #Acute encephalopathy, resolved #History of developmental delay #History of seizure disorder #History of insomnia #History of depression #Possible history of Tardive dyskinesia #History of hyperlipidemia #History of GERD #History of constipation #History of diabetes mellitus type 2 #History of Osteoporosis ?Rest of management as per primary team Plan of care discussed with supervising attending Dr. Francis Zazueta M.D. PGY-3
--- NOTE | 2024-07-24 17:48 | ESPR_ITS ---
<Statement entered by Pilar Mckinley MD - 07/30/24 13:38> I reviewed above note and agree with findings and plans. I have also personally examined the patient with medicine team and went over assessment and plan with medical team including marketing operations intern and resident physician. <Statement entered by Stan Bacon MD - 07/27/24 13:28> Senior Resident Attestation: I supervised/discussed management plan with marketing operations intern physician Dr. Khan, and was involved in the care of this patient. I personally saw and examined the patient and discussed the assessment and plan with the entire medicine team, including my attending. I agree with the assessment and plan as documented. Patient continues on meropenem for ESBL bacteremia and UTI. No complains or overnight events. Patient's care was discussed with attending physician, Dr. Mckinley. Stan Bacon MD PGY-2. Documentation for date of: 07/24/24 Subjective Subjective Interval history: Patient is seen and examined at bedside No acute overnight events and patient appears comfortably resting Vitals are stable. Patient is on room air Labs did not show any significant abnormality Will continue meropenem till 07/26/2024 Exam Vital Signs Temp Pulse Resp BP Pulse Ox O2 Del Method O2 Flow Rate 97.1 F 80 18 113/64 100 Nasal Cannula 2 07/24/24 16:00 07/24/24 16:00 07/24/24 16:00 07/24/24 16:00 07/24/24 16:00 07/24/24 16:00 07/24/24 16:00 Narrative Exam General: Awake. Not interactive at baseline HEENT: Normocephalic, atraumatic, mucous membranes moist. Heart: Regular rate and rhythm, no murmurs. Lungs: Clear to auscultation with no wheezing or crackles. Abdomen: Soft, nondistended, nontender, positive bowel sounds. ?No guarding or rebound tenderness. Noted gross blood in the catheter Neurologic: Alert and oriented x3, no gross neurological deficit, and patient able to move all 4 extremities. Extremities: Noted contractures and wasting in the lower extremities. Skin: No rash or ecchymoses. Objective Labs 07/24/24 08:59 07/24/24 08:59 Labs: Laboratory Results - last 24 hr 07/24/24 08:59 WBC 8.7 D RBC 3.78 L Hgb 11.6 L Hct 34.5 L MCV 91 MCH 30.7 MCHC 33.6 RDW Std Deviation 42.5 Plt Count 182 Neut % (Auto) 64 Lymph % (Auto) 20 [place] % (Auto) 11 Eos % (Auto) 3 Baso % (Auto) 1 Neut # (Auto) 5.6 Lymph # (Auto) 1.8 [place] # (Auto) 1.0 H Eos # (Auto) 0.3 Baso # (Auto) 0.0 Immature Gran # (Auto) 0.06 H Absolute Nucleated RBC 0.00 Immature Gran % 1 H Nucleated RBC % 0 Sodium 144 Potassium 3.9 Chloride 110 H Carbon Dioxide 26.1 Anion Gap 8 BUN 14 Creatinine 0.7 Estim Creat Clear Calc 65.7 eGFR > 60 BUN/Creatinine Ratio 20 Glucose 136 H Calculated Osmolality 289 Calcium 8.6 ABG Interpretation ABG results: 07/20/24 00:42 ABG pH 7.45 ABG pCO2 43 ABG pO2 55 L* ABG HCO3 30 H ABG O2 Saturation 90 L ABG Base Excess 6 H Quality Measures Quality Measures VTE prophylaxis (Heparin subq) Advance care planning discussed with:: other Assessment & Plan Assessment Current Active Medications: Generic Name Dose Route Start Last Admin Trade Name Freq PRN Reason Stop Dose Admin Acetaminophen 650 mg 07/21/24 06:31 Acetaminophen 325 Mg Tablet PO 08/19/24 06:13 Q4HR PRN PAIN SCALE 1-3 (mild Atorvastatin Calcium 5 mg 07/20/24 21:00 07/23/24 22:29 Atorvastatin Calcium 10 Mg Tablet PO 08/19/24 20:59 5 mg HS GREG Administration Docusate Sodium 250 mg 07/21/24 10:15 07/24/24 09:50 Docusate Sod 250 Mg Capsule PO 08/20/24 10:14 250 mg BID GREG Administration Protocol Heparin Sodium (Porcine) 5,000 unit 07/20/24 14:00 07/24/24 15:01 Heparin Sod Inj 5000 Unit/Ml Vial SC 08/03/24 13:59 5,000 unit Q8HR GREG Administration Meropenem 1,000 mg/ Sodium 50 mls @ 100 mls/hr 07/22/24 14:00 07/24/24 15:00 Chloride IV 07/29/24 13:59 100 mls/hr Q8HR GREG Administration Lamotrigine 100 mg 07/20/24 21:00 07/24/24 09:50 Lamotrigine 25 Mg Chew PO 08/19/24 20:59 Not Given BID GREG Levetiracetam 500 mg 07/23/24 21:00 07/24/24 09:50 Levetiracetam Inj 100 Mg/Ml Vial 5ml IVP 08/22/24 20:59 500 mg Q12HR GREG Administration Lorazepam 4 mg 07/20/24 06:18 Lorazepam 2 Mg/Ml Vial IVP Q5MIN PRN seizure Olanzapine 5 mg 07/20/24 21:00 07/23/24 22:30 Olanzapine 5 Mg Tablet PO 08/19/24 20:59 5 mg HS GREG Administration Oseltamivir Phosphate 75 mg 07/20/24 21:00 07/24/24 09:50 Oseltamivir 75 Mg Capsule PO 07/25/24 09:01 75 mg BID GREG Administration Pantoprazole Sodium 40 mg 07/20/24 09:00 07/24/24 09:50 Pantoprazole Inj 40 Mg Vial IVP 08/19/24 08:59 40 mg QDAY GREG Administration Polyethylene Glycol 17 gm 07/21/24 09:00 07/24/24 09:51 Polyethylene Glycol 17 Gm Packet PO 08/20/24 08:59 Not Given QDAY GREG Sennosides 1 tab 07/20/24 06:25 Senna Tablet PO 08/19/24 08:59 QDAY PRN Constipation Protocol Plan 78-year-old male with history of developmental delay, seizure disorder, diabetes mellitus, hyperlipidemia, ESBL UTIs, depression, and GERD who presented to the ED BIBA from [facility] with concerns of seizure disorder, found to become hypotensive requiring vasopressor support for likely septic shock secondary to flu, and/or pneumonia. # Hematuria, resolved # likely traumatic - Patient is noted to have hematuria in the catheter overnight on 07/20/2024 - On physical examination, no abrasions or trauma noted on the genital organs Plan -Byrne catheter was discontinued as it is suspected to cause traumatic hematuria - Urologist Dr. Sales was consulted and he recommended outpatient basis follow-up for percutaneous nephrolithotomy #Sepsis, resolved #Influenza pneumonia #Possible superimposed pneumonia VS aspiration pneumonia # ESBL E. coli bacteremia #Shock?resolved Patient came in with leukocytosis, tachycardia, febrile, and tachypneic with source being influenza pneumonia with possible superimposed bacterial infection Imaging showing right base pneumonia Patient was admitted to ICU for pressor support and has not been stable off pressors since 07/20/2024 UA positive for WBCs and leukocyte esterase Pro-Giovanni elevated Blood cultures grew ESBL E. coli Urine cultures showed no growth Plan Patient received IV fluids per sepsis protocol Started on Zosyn 3.375 g every 8 hourly [07/20-07/21], started on meropenem in view of ESBL E. coli [07/22-will continue till 07/26, per Dr. Blanco recommendations Started on oseltamivir 75 Mg p.o. twice daily [07/20-present] #Acute encephalopathy, resolved #History of developmental delay Possibly infectious in source versus secondary to medication as Ingrezza can cause somnolence CT head negative for any acute hemorrhage or mass effect. Per caregiver patient's mentation appears baseline, however a bit more somnolent, he is non verbal and does not follow commands at baseline Consulted neurologist Dr. Gonzalez, will appreciate her recommendations #History of seizure disorder No antiseizure medication was noted on patient's medication list. Previous hospitalizations indicate lamotrigine use Treated with Keppra in ED Plan Neurologist Dr Gonzalez consulted, we appreciate recommendations IV Ativan as needed for seizures No seizures noted since admit Patient noted to be prescribed lamotrigine 100 mg twice daily in June [address] Gonzalez, resumed lamotrigine Ordered lamotrigine levels, still pending #History of insomnia #History of depression #Possible history of Tardive dyskinesia Resume home Zyprexa Med rec pending, consider resuming home Ingrezza on outpatient basis #History of hyperlipidemia Resume home simvastatin #History of GERD #History of constipation IV Protonix 40 mg daily Senna as needed #History of diabetes mellitus type 2 Glucose levels 212 in ED. Previous A1c in December 2023 was 5.4 Hold patient's home metformin Patient on insulin sliding scale #History of Osteoporosis Recommended to continue alendronate on outpatient basis Diet: Dysphagia 1 diet DVT prophylaxis: Heparin GI prophylaxis: Protonix Code status: Full Code Patient plan of care was discussed with the attending physician, Dr. Mckinley and senior resident Dr. Jordi Khan, PGY1
[2024-07-24] MEDS: ATORVASTATIN CALCIUM 10 MG TABLET 5 MG PO (20:35)
[2024-07-24] MEDS: OLANZapine 5 MG TABLET PO (20:35)
[2024-07-25] VITALS (7 sets, daily range): BP systolic 116–130; BP diastolic 65–84; PULSE 68–102; RESP 16–19; TEMP 36.1–36.8; O2SAT 92–95; BMI 16.5
[2024-07-25 06:00] LABS: Basophils # (Auto) 0.1 Thou/mm3 (0.0-0.2); Basophils % (Auto) 1 % (0-2.5); Eosinophils # (Auto) 0.2 Thou/mm3 (0.0-0.5); Eosinophils % (Auto) 2 % (0-10); Hematocrit 36.7 % (41.0-53.0); Hemoglobin 12.3 g/dL (13.5-16.0); Immature Granulocytes % (Auto) 1 % (0-0); Lymphocytes # (Auto) 1.2 Thou/mm3 (1.0-4.8); Lymphocytes % (Auto) 12 % (10-50); Mean Corpuscular HGB Conc 33.5 g/dl (31.0-37.0); Mean Corpuscular Hemoglobin 30.4 pg (25.0-35.0); Mean Corpuscular Volume 91 fL (80-100); Monocytes % (Auto) 10 % (0-12); Neutrophils # (Auto) 7.5 Thou/mm3 (1.8-7.7); Neutrophils % (Auto) 75 % (37-80); Nucleated Red Blood Cell % 0 /100 WBC (0); Platelet Count 200 Thou/mm3 (140-440); RDW Standard Deviation 42.2 fL (35.1-43.9); Red Blood Count 4.05 Miln/mm3 (4.50-5.90)
[2024-07-25] MEDS: MEROPENEM INJ 1,000 MG in SODIUM CHLORIDE 0.9% (Popper) 50 ML 100 MG IV ×3 (06:20→21:35)
[2024-07-25] MEDS: HEPARIN SOD INJ 5000 UNIT/ML VIAL SC ×3 (06:21→21:35)
[2024-07-25 06:23] LABS: Anion Gap 7 (7-16); BUN/Creatinine Ratio 20 Ratio (12-20); Blood Urea Nitrogen 16 mg/dL (9-23); Calcium 8.8 mg/dL (8.3-10.6); Carbon Dioxide 26.3 mMol/L (20.0-31.0); Chloride 110 mMol/L (98-107); Creatinine (Component) 0.8 mg/dL (0.6-1.3); Estimated Creatinine Clearance 57.5 mL/min (>60); Glucose 137 mg/dL (74-106); Osmolality,Calculated 288 (275-295); Potassium 4.1 mMol/L (3.4-5.1); Sodium 143 mMol/L (136-145); eGFR > 60 See Note
[2024-07-25] MEDS: POLYETHYLENE GLYCOL 17 GM PACKET PO (09:22)
[2024-07-25] MEDS: DOCUSATE SOD 250 MG CAPSULE PO ×2 (09:22→21:36)
[2024-07-25] MEDS: OSELTAMIVIR 75 MG CAPSULE PO (09:22)
[2024-07-25] MEDS: PANTOPRAZOLE INJ 40 MG VIAL IVP (09:22)
[2024-07-25] MEDS: levETIRAcetam INJ 100 MG/ML VIAL 5ML 500 MG IVP ×2 (09:28→21:37)
--- NOTE | 2024-07-25 10:40 | PC.SS ---
1035- ASW Carlos Sterling contacted Skilled Nursing youth care worker Cecilia Koehler [phone] and provided her an update on the pts stay. She was informed that we are currently waiting on direction from Dr. Blacno's recommendation on IV antibiotics. Per Cecilia, she stated they are prepared to accept the pt home with IV antibiotic as they received approval from [facility] and have a RN ready to provide the IV antibiotic. [employer] Press Operator informed Cecilia that if there is any other additional information, flex o writer operator will contact her tripp.
--- NOTE | 2024-07-25 10:52 | PC.SS ---
1052-Plan update: Per Tara, Dr. Blanco reported in his progress note that pt will have a last dose of IV antibiotics tomorrow and after his last dose, pt will be ready for d/c. Driller Machine contacted Cecilia from the intermediate and provided this update. Cecilia is aware of the plan and will be ready to accept the pt back home.
--- NOTE | 2024-07-25 14:14 | PD.RESPRO ---
Documentation for date of: 07/25/24 Subjective Subjective Interval history: Patient seen and examined with caregiver at bedside. No acute overnight events. Patient has been seizure-free since admission and continues to be on Lamictal 100 mg twice daily plus Keppra 500mg bid Will continue Lamictal at this dose, monitor for seizure-like activities. Otherwise, continue other management. Planned for disharge tomorrow once antibiotic course has been completed Exam Vital Signs Temp Pulse Resp BP Pulse Ox O2 Del Method O2 Flow Rate 97.0 F 70 16 116/68 95 Room Air 1 07/25/24 12:00 07/25/24 12:00 07/25/24 12:00 07/25/24 12:00 07/25/24 12:00 07/25/24 12:00 07/25/24 08:00 Narrative Exam GENERAL: Awake, non interactive, incomprehensible sounds NEURO: Able to move extremites x 4, CN 11-XII grossly intact, no focal neurologic deficits HEENT: Moist mucosa. Eyes open, symmetrical, & clear CARDIO: No chest pain on palpation. Heart RRR, no obvious murmurs PULM: No noted coughing/dyspnea. Lungs CTA B/L GI: Abdomen soft, nondistended, no pain on palpation. BSx4 URO/MANUFACTURING DEVELOPMENT ENGINEER:: No further abnormalities noted. SKIN/MSK/EXT: Some wasting and contractures in bilateral lower extremities Objective Labs 07/26/24 05:47 07/26/24 05:47 Labs: Laboratory Results - last 24 hr 07/25/24 04:21 WBC 10.0 RBC 4.05 L Hgb 12.3 L Hct 36.7 L MCV 91 MCH 30.4 MCHC 33.5 RDW Std Deviation 42.2 Plt Count 200 Neut % (Auto) 75 Lymph % (Auto) 12 Coal % (Auto) 10 Eos % (Auto) 2 Baso % (Auto) 1 Neut # (Auto) 7.5 Lymph # (Auto) 1.2 Coal # (Auto) 1.0 H Eos # (Auto) 0.2 Baso # (Auto) 0.1 Immature Gran # (Auto) 0.10 H Absolute Nucleated RBC 0.00 Immature Gran % 1 H Nucleated RBC % 0 Sodium 143 Potassium 4.1 Chloride 110 H Carbon Dioxide 26.3 Anion Gap 7 BUN 16 Creatinine 0.8 Estim Creat Clear Calc 57.5 L eGFR > 60 BUN/Creatinine Ratio 20 Glucose 137 H Calculated Osmolality 288 Calcium 8.8 ABG Interpretation ABG results: 07/20/24 00:42 ABG pH 7.45 ABG pCO2 43 ABG pO2 55 L* ABG HCO3 30 H ABG O2 Saturation 90 L ABG Base Excess 6 H Quality Measures Quality Measures VTE prophylaxis (Heparin subq) Advance care planning discussed with:: other Assessment & Plan Assessment Current Active Medications: Generic Name Dose Route Start Last Admin Trade Name Freq PRN Reason Stop Dose Admin Acetaminophen 650 mg 07/21/24 06:31 Acetaminophen 325 Mg Tablet PO 08/19/24 06:13 Q4HR PRN PAIN SCALE 1-3 (mild Atorvastatin Calcium 5 mg 07/20/24 21:00 07/24/24 20:35 Atorvastatin Calcium 10 Mg Tablet PO 08/19/24 20:59 5 mg HS GREG Administration Docusate Sodium 250 mg 07/21/24 10:15 07/25/24 09:22 Docusate Sod 250 Mg Capsule PO 08/20/24 10:14 250 mg BID GREG Administration Protocol Heparin Sodium (Porcine) 5,000 unit 07/20/24 14:00 07/25/24 06:21 Heparin Sod Inj 5000 Unit/Ml Vial SC 08/03/24 13:59 5,000 unit Q8HR GREG Administration Meropenem 1,000 mg/ Sodium 50 mls @ 100 mls/hr 07/22/24 14:00 07/25/24 06:20 Chloride IV 07/29/24 13:59 100 mls/hr Q8HR GREG Administration Lamotrigine 100 mg 07/20/24 21:00 07/25/24 09:29 Lamotrigine 25 Mg Chew PO 08/19/24 20:59 Not Given BID GREG Levetiracetam 500 mg 07/23/24 21:00 07/25/24 09:28 Levetiracetam Inj 100 Mg/Ml Vial 5ml IVP 08/22/24 20:59 500 mg Q12HR GREG Administration Olanzapine 5 mg 07/20/24 21:00 07/24/24 20:35 Olanzapine 5 Mg Tablet PO 08/19/24 20:59 5 mg HS GREG Administration Pantoprazole Sodium 40 mg 07/20/24 09:00 07/25/24 09:22 Pantoprazole Inj 40 Mg Vial IVP 08/19/24 08:59 40 mg QDAY GREG Administration Polyethylene Glycol 17 gm 07/21/24 09:00 07/25/24 09:22 Polyethylene Glycol 17 Gm Packet PO 08/20/24 08:59 17 gm QDAY GREG Administration Sennosides 1 tab 07/20/24 06:25 Senna Tablet PO 08/19/24 08:59 QDAY PRN Constipation Protocol Plan Summary: The patient is an 78-year-old male with past medical history of developmental delay, seizure disorder, hyperlipidemia, type II DM, ESBL UTIs, depression and GERD who was [facility] to the ED from senior living on 07/20/2024 with concerns of seizure-like activities #History of seizure disorder Patient was brought in from a senior living with concern of seizure-like activities. Per caregiver although he was near his baseline mentation, he had some activities that were very similar to seizures for about 30 minutes about 4 days prior. He had a repeat episode about the day prior to presentation and presents ED for further evaluation. Head CT was done which showed no gross mass effect or hemorrhage although limited due to patient's inability to be immobile. Otherwise, he has had no seizure-like activities since admission and is relatively stable. He continues to be on Lamictal 100 mg twice daily was restarted on olanzapine 5 mg at bedtime. No new seizure like activities Plan: - Will continue Lamictal - Okay to discharge once medically clear #Acute encephalopathy, resolved #Sepsis, secondary to UTI #ESBL UTI -Management per primary team Case was discussed with attending physician, Dr Lisa Camara MD PGY-1 Disclaimer: This note was dictated by speech recognition. Minor errors in it infrastructure specialist may be present due to voice recognition software. Attending Provider Attestation/Addendum I personally have seen and examined the patient at the bedside and I agreed with resident's findings, assessment and plan of care. neurologically stable for dc on current meds, FU in 2 weeks.
--- NOTE | 2024-07-25 14:29 | PC.SS ---
Rounding note: Update is that pt will d/c tomorrow once he gets his stole softener. SS to contact Cecilia Koehler [phone] once pt is completely ready for d/c. Please provide Cecilia with any updates as the day goes along.
--- NOTE | 2024-07-25 15:47 | ESPR_ITS ---
<Statement entered by Pilar Mckinley MD - 07/30/24 13:44> I reviewed above note and agree with findings and plans. I have also personally examined the patient with medicine team and went over assessment and plan with medical team including internet cafe manager and resident physician. <Statement entered by Stan Bacon MD - 07/27/24 13:30> Senior Resident Attestation: I supervised/discussed management plan with internet cafe manager physician Dr. Khan, and was involved in the care of this patient. I personally saw and examined the patient and discussed the assessment and plan with the entire medicine team, including my attending. I agree with the assessment and plan as documented. Patient continues on meropenem, tomorrow is the last day of antibiotics and he will be discharged. Patient's care was discussed with attending physician, Dr. Mckinley. Stan Bacon MD PGY-2. Documentation for date of: 07/25/24 Subjective Subjective Interval history: Patient is seen and examined at bedside No acute overnight events. Vitals are stable Physical examination remains unchanged Labs did not show any significant abnormality Will continue meropenem till tomorrow and will discharge Exam Vital Signs Temp Pulse Resp BP Pulse Ox O2 Del Method O2 Flow Rate 97.0 F 70 16 116/68 95 Room Air 1 07/25/24 12:00 07/25/24 12:00 07/25/24 12:00 07/25/24 12:00 07/25/24 12:00 07/25/24 12:00 07/25/24 08:00 Narrative Exam General: Awake. Not interactive at baseline HEENT: Normocephalic, atraumatic, mucous membranes moist. Heart: Regular rate and rhythm, no murmurs. Lungs: Clear to auscultation with no wheezing or crackles. Abdomen: Soft, nondistended, nontender, positive bowel sounds. ?No guarding or rebound tenderness. Noted gross blood in the catheter Neurologic: Alert and oriented x3, no gross neurological deficit, and patient able to move all 4 extremities. Extremities: Noted contractures and wasting in the lower extremities. Skin: No rash or ecchymoses. Objective Labs 07/25/24 04:21 07/25/24 04:21 Labs: Laboratory Results - last 24 hr 07/25/24 04:21 WBC 10.0 RBC 4.05 L Hgb 12.3 L Hct 36.7 L MCV 91 MCH 30.4 MCHC 33.5 RDW Std Deviation 42.2 Plt Count 200 Neut % (Auto) 75 Lymph % (Auto) 12 [place] % (Auto) 10 Eos % (Auto) 2 Baso % (Auto) 1 Neut # (Auto) 7.5 Lymph # (Auto) 1.2 [place] # (Auto) 1.0 H Eos # (Auto) 0.2 Baso # (Auto) 0.1 Immature Gran # (Auto) 0.10 H Absolute Nucleated RBC 0.00 Immature Gran % 1 H Nucleated RBC % 0 Sodium 143 Potassium 4.1 Chloride 110 H Carbon Dioxide 26.3 Anion Gap 7 BUN 16 Creatinine 0.8 Estim Creat Clear Calc 57.5 L eGFR > 60 BUN/Creatinine Ratio 20 Glucose 137 H Calculated Osmolality 288 Calcium 8.8 ABG Interpretation ABG results: 07/20/24 00:42 ABG pH 7.45 ABG pCO2 43 ABG pO2 55 L* ABG HCO3 30 H ABG O2 Saturation 90 L ABG Base Excess 6 H Quality Measures Quality Measures VTE prophylaxis (Heparin subq) Advance care planning discussed with:: other Assessment & Plan Assessment Current Active Medications: Generic Name Dose Route Start Last Admin Trade Name Freq PRN Reason Stop Dose Admin Acetaminophen 650 mg 07/21/24 06:31 Acetaminophen 325 Mg Tablet PO 08/19/24 06:13 Q4HR PRN PAIN SCALE 1-3 (mild Atorvastatin Calcium 5 mg 07/20/24 21:00 07/24/24 20:35 Atorvastatin Calcium 10 Mg Tablet PO 08/19/24 20:59 5 mg HS GREG Administration Docusate Sodium 250 mg 07/21/24 10:15 07/25/24 09:22 Docusate Sod 250 Mg Capsule PO 08/20/24 10:14 250 mg BID GREG Administration Protocol Heparin Sodium (Porcine) 5,000 unit 07/20/24 14:00 07/25/24 14:37 Heparin Sod Inj 5000 Unit/Ml Vial SC 08/03/24 13:59 5,000 unit Q8HR GREG Administration Meropenem 1,000 mg/ Sodium 50 mls @ 100 mls/hr 07/22/24 14:00 07/25/24 14:36 Chloride IV 07/29/24 13:59 100 mls/hr Q8HR GREG Administration Lamotrigine 100 mg 07/20/24 21:00 07/25/24 09:29 Lamotrigine 25 Mg Chew PO 08/19/24 20:59 Not Given BID GREG Levetiracetam 500 mg 07/23/24 21:00 07/25/24 09:28 Levetiracetam Inj 100 Mg/Ml Vial 5ml IVP 08/22/24 20:59 500 mg Q12HR GREG Administration Olanzapine 5 mg 07/20/24 21:00 07/24/24 20:35 Olanzapine 5 Mg Tablet PO 08/19/24 20:59 5 mg HS GREG Administration Pantoprazole Sodium 40 mg 07/20/24 09:00 07/25/24 09:22 Pantoprazole Inj 40 Mg Vial IVP 08/19/24 08:59 40 mg QDAY GREG Administration Polyethylene Glycol 17 gm 07/21/24 09:00 07/25/24 09:22 Polyethylene Glycol 17 Gm Packet PO 08/20/24 08:59 17 gm QDAY GREG Administration Sennosides 1 tab 07/20/24 06:25 Senna Tablet PO 08/19/24 08:59 QDAY PRN Constipation Protocol Plan 78-year-old male with history of developmental delay, seizure disorder, diabetes mellitus, hyperlipidemia, ESBL UTIs, depression, and GERD who presented to the ED [facility]IB[facility] from [facility] with concerns of seizure disorder, found to become hypotensive requiring vasopressor support for likely septic shock secondary to flu, and/or pneumonia. # Hematuria, resolved # likely traumatic - Patient is noted to have hematuria in the catheter overnight on 07/20/2024 - On physical examination, no abrasions or trauma noted on the genital organs Plan -Byrne catheter was discontinued as it is suspected to cause traumatic hematuria - Urologist Dr. Sales was consulted and he recommended outpatient basis follow-up for percutaneous nephrolithotomy #Sepsis, resolved #Influenza pneumonia #Possible superimposed pneumonia VS aspiration pneumonia # ESBL E. coli bacteremia # Underlying Nephrolithiasis Patient came in with leukocytosis, tachycardia, febrile, and tachypneic with source being influenza pneumonia with possible superimposed bacterial infection Imaging showing right base pneumonia Patient was admitted to ICU for pressor support and has not been stable off pressors since 07/20/2024 UA positive for WBCs and leukocyte esterase Pro-Giovanni elevated Blood cultures grew ESBL E. coli Urine cultures showed no growth Plan Patient received IV fluids per sepsis protocol Started on Zosyn 3.375 g every 8 hourly [07/20-07/21], started on meropenem in view of ESBL E. coli [07/22-will continue till 07/26, per Dr. Blanco recommendations Started on oseltamivir 75 Mg p.o. twice daily [07/20-present] #Acute encephalopathy, resolved #History of developmental delay Possibly infectious in source versus secondary to medication as Ingrezza can cause somnolence CT head negative for any acute hemorrhage or mass effect. Per caregiver patient's mentation appears baseline, he is non verbal and does not follow commands at baseline Consulted neurologist Dr. Gonzalez, will appreciate her recommendations #History of seizure disorder No antiseizure medication was noted on patient's medication list. Previous hospitalizations indicate lamotrigine use Treated with Keppra in ED Plan Neurologist Dr Gonzalez consulted, we appreciate recommendations IV Ativan as needed for seizures No seizures noted since admit Patient noted to be prescribed lamotrigine 100 mg twice daily in June [address] Gonzalez, resumed lamotrigine Ordered lamotrigine levels, still pending #History of insomnia #History of depression #Possible history of Tardive dyskinesia Resume home Zyprexa Med rec pending, consider resuming home Ingrezza on outpatient basis #History of hyperlipidemia Resume home simvastatin #History of GERD #History of constipation IV Protonix 40 mg daily Senna as needed #History of diabetes mellitus type 2 Glucose levels 212 in ED. Previous A1c in December 2023 was 5.4 Hold patient's home metformin Patient on insulin sliding scale #History of Osteoporosis Recommended to continue alendronate on outpatient basis Diet: Dysphagia 1 diet DVT prophylaxis: Heparin GI prophylaxis: Protonix Code status: Full Code Patient plan of care was discussed with the attending physician, Dr. Mckinley and senior resident Dr. Jordi Khan, PGY1
[2024-07-25] MEDS: OLANZapine 5 MG TABLET PO (21:36)
[2024-07-25] MEDS: ATORVASTATIN CALCIUM 10 MG TABLET 5 MG PO (21:36)
[2024-07-26] VITALS: BP 111/65; PULSE 73; RESP 22; TEMP 36.4; O2SAT 91
[2024-07-26 04:00] VITALS: BP 96/57; PULSE 70; PULSE 78; RESP 20; TEMP 36.1; O2SAT 92
[2024-07-26] MEDS: MEROPENEM INJ 1,000 MG in SODIUM CHLORIDE 0.9% (Popper) 50 ML 100 MG IV ×2 (05:50→13:17)
[2024-07-26] MEDS: HEPARIN SOD INJ 5000 UNIT/ML VIAL SC ×2 (05:51→13:17)
[2024-07-26 06:00] VITALS: BMI 16.9
[2024-07-26 06:17] LABS: Basophils # (Auto) 0.1 Thou/mm3 (0.0-0.2); Basophils % (Auto) 1 % (0-2.5); Eosinophils # (Auto) 0.3 Thou/mm3 (0.0-0.5); Eosinophils % (Auto) 4 % (0-10); Hematocrit 34.4 % (41.0-53.0); Hemoglobin 11.6 g/dL (13.5-16.0); Immature Granulocytes % (Auto) 1 % (0-0); Lymphocytes # (Auto) 2.1 Thou/mm3 (1.0-4.8); Lymphocytes % (Auto) 30 % (10-50); Mean Corpuscular HGB Conc 33.7 g/dl (31.0-37.0); Mean Corpuscular Hemoglobin 30.8 pg (25.0-35.0); Mean Corpuscular Volume 91 fL (80-100); Monocytes % (Auto) 15 % (0-12); Neutrophils # (Auto) 3.4 Thou/mm3 (1.8-7.7); Neutrophils % (Auto) 49 % (37-80); Nucleated Red Blood Cell % 0 /100 WBC (0); Platelet Count 185 Thou/mm3 (140-440); Red Blood Count 3.77 Miln/mm3 (4.50-5.90); White Blood Count 6.9 Thou/mm3 (3.8-10.6)
[2024-07-26 06:51] LABS: Alanine Aminotransferase 27 U/L (10-49); Albumin, Serum 3.3 gm/dL (3.4-4.8); Alkaline Phosphatase 78 U/L (46-116); Anion Gap 5 (7-16); Aspartate Amino Transferase 28 U/L (0-34); BUN/Creatinine Ratio 26 Ratio (12-20); Bilirubin,Total 0.5 mg/dL (0.3-1.2); Blood Urea Nitrogen 18 mg/dL (9-23); Calcium 8.6 mg/dL (8.3-10.6); Calcium (Corrected) 9.2 mg/dL (8.5-10.1); Carbon Dioxide 26.1 mMol/L (20.0-31.0); Chloride 111 mMol/L (98-107); Creatinine (Component) 0.7 mg/dL (0.6-1.3); Estimated Creatinine Clearance 67.4 mL/min (>60); Globulin 3.2 gm/dL (2.3-3.5); Glucose 134 mg/dL (74-106); Osmolality,Calculated 287 (275-295); Potassium 3.9 mMol/L (3.4-5.1); Sodium 142 mMol/L (136-145); Total Protein 6.5 gm/dL (5.7-8.2); eGFR > 60 See Note
[2024-07-26 07:59] VITALS: BP 120/65; PULSE 83; RESP 15; TEMP 36.2; O2SAT 98
[2024-07-26 08:00] VITALS: PULSE 72
[2024-07-26] MEDS: POLYETHYLENE GLYCOL 17 GM PACKET PO (08:42)
[2024-07-26] MEDS: DOCUSATE SOD 250 MG CAPSULE PO (08:42)
[2024-07-26] MEDS: levETIRAcetam INJ 100 MG/ML VIAL 5ML 500 MG IVP (08:42)
[2024-07-26] MEDS: PANTOPRAZOLE INJ 40 MG VIAL IVP (08:42)
--- NOTE | 2024-07-26 09:48 | PD.IDPROG ---
Subjective Subjective Interval history: ok to finish abx today and f/u with outpt primary. Exam Vital Signs Temp Pulse Resp BP Pulse Ox O2 Del Method O2 Flow Rate 97.1 F 83 15 120/65 98 Room Air 1 07/26/24 07:59 07/26/24 07:59 07/26/24 07:59 07/26/24 07:59 07/26/24 07:59 07/26/24 07:59 07/25/24 08:00 Narrative Exam limited eval. Objective - Internal Medicine Labs 07/26/24 05:47 07/26/24 05:47 Labs: Laboratory Results - last 24 hr 07/26/24 05:47 WBC 6.9 RBC 3.77 L Hgb 11.6 L Hct 34.4 L MCV 91 MCH 30.8 MCHC 33.7 RDW Std Deviation 43.0 Plt Count 185 Neut % (Auto) 49 Lymph % (Auto) 30 [place] % (Auto) 15 H Eos % (Auto) 4 Baso % (Auto) 1 Neut # (Auto) 3.4 Lymph # (Auto) 2.1 [place] # (Auto) 1.0 H Eos # (Auto) 0.3 Baso # (Auto) 0.1 Immature Gran # (Auto) 0.10 H Absolute Nucleated RBC 0.00 Immature Gran % 1 H Nucleated RBC % 0 Sodium 142 Potassium 3.9 Chloride 111 H Carbon Dioxide 26.1 Anion Gap 5 L BUN 18 Creatinine 0.7 Estim Creat Clear Calc 67.4 eGFR > 60 BUN/Creatinine Ratio 26 H Glucose 134 H Calculated Osmolality 287 Calcium 8.6 Corrected Calcium 9.2 Total Bilirubin 0.5 AST 28 ALT 27 Alkaline Phosphatase 78 Total Protein 6.5 Albumin 3.3 L Globulin 3.2 Albumin/Globulin Ratio 1.0 L ABG Interpretation ABG results: 07/20/24 00:42 ABG pH 7.45 ABG pCO2 43 ABG pO2 55 L* ABG HCO3 30 H ABG O2 Saturation 90 L ABG Base Excess 6 H Assessment & Plan A&P Narrative bacteremia with esbl e coli bc's noted serially, non obstructive renal stones osteoporosis dm II. on metformin finish rx with merrem as ordered thru this pm dose note that he was on zosyn on admit which works and is s if he stays, then stay with merrem thru 07/26. today is 4/25 am, so duration of rx will be short. will see prn, order for merrem changed. likely home or placement when able. may be tomorrow Time Spent With Patient Time: Total time spent is greater than 50% in coordination of care (as documented) at patient's floor/unit and/or counseling patient:
--- NOTE | 2024-07-26 09:55 | PC.SS ---
SS follow up note; SS contacted Cecilia from [facility] in regards to patient discharging today. SS informed her that patient will discharge today after his IV ABX dosage. Cecilia requesting SS to set up transportation through [facility]. SS set up transportation through [email or web address] portal for 3PM. SS also contacted patient's nurse Alissa and informed her that SS would be setting up transportation for later this afternoon. SS will stand by for further needs.
[2024-07-26 12:00] VITALS: BP 105/57; PULSE 75; PULSE 81; RESP 16; TEMP 37.1; O2SAT 93
--- NOTE | 2024-07-26 12:12 | PC.SS ---
Addendum entered by Tara Hernandez 07/26/24 13:33: SS follow up note; SS contacted Cecilia from [facility] and informed her that patient would be transported via ambulance at 1600. SS also updated patient's nurse, Alissa. Original Note: SS Follow up note; SS received a call from Opal from [facility], ETA back to [facility] is 1600.
[2024-07-26 16:00] VITALS: BP 144/89; PULSE 79; RESP 16; TEMP 36.8; O2SAT 95
--- NOTE | 2024-07-26 17:36 | ESDS_ITS ---
<Statement entered by Pilar Mckinley MD - 08/02/24 08:19> I reviewed above note and agree with findings and plans. I have also personally examined the patient with medicine team and went over assessment and plan with medical team including recruitment intern and resident physician. Planned Discharge Date 07/26/24 DS: Providers Provider Date of admission: 07/20/24 06:13 Primary care physician: Emilio Nuñez Admitting Provider: Alex James MD Attending Provider on Admission: Pilar Mckinley MD Consults: 07/20/24 06:17 Consult to Neurology / Tele-Neurology Stat Comment: CC prolonged seizure, hx seizures Consulting Provider: Darrin Gonzalez Speech Therapy Stat Comment: 07/23/24 11:34 Consult to Infectious Diseases Routine Comment: ESBL E.Coli bacteremia Consulting Provider: Amadou Blanco Attending Provider on DC: Vin Khan MD Discharging Provider: Vin Khan MD DS: Diagnosis Problem List Completed Was Problem List Reviewed/Reconciled?: Yes Hospital Course Hospital Course Hospital course: A 78-year-old male with significant past medical history of developmental delay, seizure disorder, diabetes mellitus, hyperlipidemia, ESBL UTIs, depression, GERD presented to the hospital with concerns of seizure disorder and admitted in the hospital for sepsis 2/2 ESBL E. Coli Bacteremia and influenza pneumonia Hospital course: Vitals at the time of admission are significant for 103.5 F, HR 124, BP 69/46. Labs significant for WBC 13.1, procal 1.91. Urinalysis significant for 574 RBC, 137 WBC, positive Leukocyte esterase. Tested positive for Influenza A. CT Chest/Abdomen/pelvis showed Right base pneumonia, Mild splenomegaly, Bilateral renal calculi including 22 mm calculus left ureteropelvic junction but no significant hydronephrosis. issi. Head CT - limited study, no interval gross hemorrhage or gross mass effect. Urine culture and Blood culture showed ESBL E. Coli Patient is initially admitted in the ICU for septic shock and was treated with pessors, his blood pressure is improved and later downgraded the floors for further management. Consulted Dr. Blanco and he recommended to treat patient with Meropenem. Later urologist Dr. Sales was consulted in view of renal calculi and he recommended no procedure in the hospital and to follow up on outpatient basis in 3 months Patient is discharged back to nursing facility with the following medications and recommendations -Follow-up with PCP within 1 week of discharge. If you do not have appointment, please follow-up with the [facility] with Dr. Khan. Call [phone] to make an appointment. -Recommended to stop augmentin, Calcium, sertraline -Continue rest of the home medications -Return to ED if symptoms persist or return # Hematuria, resolved # likely traumatic #Sepsis, resolved #Influenza pneumonia #Possible superimposed pneumonia VS aspiration pneumonia # ESBL E. coli bacteremia # Underlying Nephrolithiasis #Acute encephalopathy, resolved #History of developmental delay #History of seizure disorder #History of insomnia #History of depression #Possible history of Tardive dyskinesia #History of hyperlipidemia #History of GERD #History of constipation #History of diabetes mellitus type 2 #History of Osteoporosis Patient plan of care was discussed with the attending physician, Dr. Elías Khan, PGY1 Time Spent with Patient Time attestation: Total time spent providing and/or coordinating discharge services: Time spent: Greater than 30 minutes Exam Vital Signs Temp Pulse Resp BP Pulse Ox O2 Del Method O2 Flow Rate 98.2 F 79 16 144/89 H 95 Room Air 1 07/26/24 16:00 07/26/24 16:00 07/26/24 16:00 07/26/24 16:00 07/26/24 16:00 07/26/24 12:00 07/25/24 08:00 Narrative Exam General: Awake. Not interactive at baseline HEENT: Normocephalic, atraumatic, mucous membranes moist. Heart: Regular rate and rhythm, no murmurs. Lungs: Clear to auscultation with no wheezing or crackles. Abdomen: Soft, nondistended, nontender, positive bowel sounds. ?No guarding or rebound tenderness. Noted gross blood in the catheter Neurologic: Alert and oriented x3, no gross neurological deficit, and patient able to move all 4 extremities. Extremities: Noted contractures and wasting in the lower extremities. Skin: No rash or ecchymoses. Discharge Plan Plan Patient Disposition: [facility]fer [facility] ([facility]) Patient condition on transfer: Stable Care Plan Goals: -Follow-up with PCP within 1 week of discharge. If you do not have appointment, please follow-up with the [facility] with Dr. Khan. Call [phone] to make an appointment. -Recommended to stop augmentin, Calcium, sertraline -Continue rest of the home medications -Return to ED if symptoms persist or return Prescriptions/Referrals Prescriptions/Med Rec: Continued Alendronate Sodium * (FOSAMAX *) 70 MG tablet 70 mg PO .MONDAY Qty: 0 simvastatin [Zocor] 10 MG tablet 10 mg PO HS Qty: 0 docusate sodium 250 MG capsule 1 cap PO BID Qty: 0 MULTIVITAMIN (MULTI VITAMIN DAILY) 1 EACH tablet 1 tab PO QDAY Qty: 0 polyethylene glycol 3350 [Miralax] 17 gram Powder In Packet 17 g PO QDAY PRN (Reason: constipation) Rx Instructions: hold for loose stools magnesium hydroxide [Milk of Magnesia] 400 mg/5 mL Suspension 30 ml PO EVERYOTHERDAY olanzapine 2.5 mg tablet 5 mg PO HS melatonin 10 mg Tablet 10 mg PO HS Ingrezza 60 mg capsule 60 mg PO QDAY loratadine 10 mg tablet 10 mg PO QDAY zolpidem 5 mg tablet 5 mg PO QHSPRN ibuprofen 400 mg tablet 400 mg PO Q6H PRN (Reason: pain) metformin 500 mg tablet 500 mg PO BID Cranberry-Probiotic 480 mg-20 mg- 100million cell Tablet 1 tab PO QDAY Discontinued sertraline 100 mg tablet 200 mg PO QDAY OLANZAPINE (OLANZAPINE ODT) 5 MG TAB.RAPDIS 5 mg PO HS Qty: 0 Calcium Carbonate/Vitamin D3 (Calcium + D 600 Mg Tablet) 1 EACH tablet 1 tab PO BID Qty: 0 LORATADINE (CLARITIN) 10 MG capsule 1 tab PO QDAY Qty: 0 cholecalciferol (vitamin D3) [Vitamin D3] 1,000 unit Tablet 1,000 unit PO BID ferrous sulfate [FeroSul] 325 mg (65 mg iron) tablet 325 mg PO TID amoxicillin-pot clavulanate 875-125 mg tablet 1 tab PO Q8H AZO D-Mannose 500 mg Capsule 2,000 mg PO QDAY Referrals: Emilio Nuñez [Primary Care Provider] - Patient/Caregiver Discharge Instructions Education Materials: What Is Pneumonia?, Anatomy of the Male Urinary Tract, Dementia Caregiver Tips, The Flu (Influenza) Print Language: Spanish Stand Alone Forms: Sarai Award Info., Patient Portal Info Letter Discharge Order Discharge Orders: Discharge (Routine); Ordered 07/26/24 Ordered By: Vin Khan Quality Discharge Quality Measures VTE prophylaxis
[2024-07-29 07:07] LABS: Lamotrigine* 2.9 mcg/mL (2.5-15.0)
--- NOTE | 2024-07-30 07:27 | ESCONSULT_ITS ---
RE: BRANDON WRIGHT : 1945 DATE OF CONSULTATION: 07/24/2024 REFERRING PHYSICIAN: Dr. James. REASON FOR CONSULTATION: Bacteremia in a 78-year-old man HISTORY OF PRESENT ILLNESS: The patient appears to come from a senior care. This is a senior care variant. He has been living there for a long time. The caregiver is at his bedside, knows him well. He has been there at least 7 months. She has not seen anybody come to visit. That is important information and probably should lead to a discussion about end of life goals. His medical problems include diabetes, hyperlipidemia, and altered mentation, which does not appear to be grossly improved. He is on supplemental oxygen, which is apparently new. According to the caregiver, his sats run between 93 and 94 on room air at the [facility] and probably here they are about the same, but he did get started on oxygen here.SURGICAL HISTORY: None noted. PMH: none noted other than in record IMMUNIZATIONS: Unavailable. ALLERGIES: NONE NOTED. FAMILY HISTORY: Unknown. SOCIAL HISTORY: He apparently lives in a senior care. No known tobacco, alcohol, or drug use. PHYSICAL EXAMINATION: General: A nearly hairless elderly man looking his stated age. He is not responsive and interactive and looks to have some contractures. HEENT: Appear benign grossly. Heart: Appear benign grossly. Lungs: Appear benign grossly. ASSESSMENT: 1. Probable infection in urine resulting in a bloodstream infection. Either even if it is not, if it is a spontaneous bloodstream infection, we needed some discussion about overall planning as an important variable for this unfortunate gentleman. Indeed, for the current process, we can easily treat that with a few more days of antimicrobial therapy. We can send him on ertapenem through Monday. Alternatively, we can keep him here till Monday and give him a dose of meropenem in the morning and let him go by mid. He seems to be doing okay currently and has been on Zosyn initially. And then was changed to meropenem when the cultures came back. Meropenem is non formulary but is a reasonable choice and ertapenem is non-formulary, so changing that for outpatient once a day use can be convenient for the senior care. It is otherwise more expensive for us. We usually give it inpatient. If he is going to stay, I would leave him on either Zosyn or meropenem. Either should be fine. Their issue is going to be whether or not he would want to have further intervention if that is appropriate. I will check on him on Monday if he remains. DT: 15:21:59 TT: 17:04:00 Ref: [id number] - TID: [id number] MTDD
== END 2024-07-26 17:13 | disposition intermediate care facility (04) | DRG 871 ==
LOC: SERX 07-20 05:19 → SERHOLD 07-20 06:45 → S2SX 07-20 09:07 → S3NX 07-21 06:57
PROVIDERS: Internal Medicine; Student in an Organized Health Care Education/Training Program; Admitting Provider Student in an Organized Health Care Education/Training Program; Emergency Provider Emergency Medicine; PCP Family Medicine; Visit Provider Internal Medicine
DX: A41.51 Sepsis due to Escherichia coli [E. coli] (principal); J10.01 Influenza due to other identified influenza virus with the same other identified influenza virus pneumonia; R65.21 Severe sepsis with septic shock; G93.40 Encephalopathy, unspecified; N39.0 Urinary tract infection, site not specified; Z16.12 Extended spectrum beta lactamase (ESBL) resistance; T83.83XA Hemorrhage due to genitourinary prosthetic devices, implants and grafts, initial encounter; Z16.24 Resistance to multiple antibiotics; N13.8 Other obstructive and reflux uropathy; N20.2 Calculus of kidney with calculus of ureter; E78.5 Hyperlipidemia, unspecified; E11.9 Type 2 diabetes mellitus without complications; K21.9 Gastro-esophageal reflux disease without esophagitis; K59.00 Constipation, unspecified; G47.00 Insomnia, unspecified; F32.A Depression, unspecified; R54 Age-related physical debility; R56.9 Unspecified convulsions; M81.0 Age-related osteoporosis without current pathological fracture; D64.9 Anemia, unspecified; N40.1 Benign prostatic hyperplasia with lower urinary tract symptoms; Z86.19 Personal history of other infectious and parasitic diseases; Z87.440 Personal history of urinary (tract) infections; Z86.69 Personal history of other diseases of the nervous system and sense organs; Z79.899 Other long term (current) drug therapy; Z79.84 Long term (current) use of oral hypoglycemic drugs; Y73.2 Prosthetic and other implants, materials and accessory gastroenterology and urology devices associated with adverse incidents; Y92.230 Patient room in hospital as the place of occurrence of the external cause; Y84.6 Urinary catheterization as the cause of abnormal reaction of the patient, or of later complication, without mention of misadventure at the time of the procedure
CPT/HCPCS: 36415; 36600; 70450; 71045; 71250; 74176; 80048; 80053; 80175; 81001; 82140; 82248; 82550; 82803; 83036; 83605; 83735; 83880; 84145; 84439; 84443; 84484; 85025; 85610; 85652; 85730; 86140; 87040; 87077; 87081; 87086; 87186; 87400; 87634; 87651; 87811; 92610; 93005; 93225; 96361; 96365; 96366; 96367; 96368; 96375; 99291; J0131; J0456; J0696; J1643; J1885; J1953; J2060; J2185; J2470; J2543; J3490; J7030; J7050; J7120; A9270

== ENCOUNTER → 2024-08-14 | Outpatient (CLI) | payer MEDICARE, MEDICAID, SELFPAY ==
[2024-08-14 15:18] LABS: Collection Type, Urine Catheter
[2024-08-14 16:56] LABS: Bacteria,Urine Rare; Bilirubin,Urine Negative (Negative); Blood,Urine 3+ (Negative); Clarity,Urine Turbid (Clear/Hazy); Color,Urine Yellow (Lt Yel-Yel); Glucose, Urine Negative (Negative); Ketones,Urine Negative (Negative); Leukocyte Esterase,Urine Positive (Negative); Nitrite,Urine Positive (Negative); Protein,Urine 1+ (Neg - Trace); RBC,Urine 7 /hpf (0-3); Specific Gravity,Urine 1.016 (1.001-1.035); Squamous Epithelial Cell,Urine 1 /hpf (0-5); Urobilinogen,Urine Negative mg/dL (0.0-1.0); WBC,Urine 8 /hpf (0-5)
[2024-08-14 17:00] LABS: Culture Indicated,Urine Yes
== END | disposition home or self-care (01) ==
LOC: SLDO 15:11
PROVIDERS: PCP Family Medicine; Referring Provider Family Medicine; Visit Provider Family Medicine
DX: E11.9 Type 2 diabetes mellitus without complications (principal); E73.9 Lactose intolerance, unspecified; N39.0 Urinary tract infection, site not specified
CPT/HCPCS: 81001; 87077; 87086; 87186

== ENCOUNTER → 2024-08-28 | Outpatient (CLI) | payer MEDICARE, MEDICAID, SELFPAY ==
[2024-08-28 17:02] LABS: Collection Type, Urine Catheter; Squamous Epithelial Cell,Urine 0 /hpf (0-5)
[2024-08-28 17:49] LABS: Bacteria,Urine Rare; Bilirubin,Urine Negative (Negative); Blood,Urine 2+ (Negative); Clarity,Urine Clear (Clear/Hazy); Color,Urine Yellow (Lt Yel-Yel); Glucose, Urine Negative (Negative); Hyaline Casts,Urine < 1 /hpf (0-1); Ketones,Urine Negative (Negative); Leukocyte Esterase,Urine Positive (Negative); Nitrite,Urine Negative (Negative); PH,Urine 6.5 (5.0-7.0); Protein,Urine 1+ (Neg - Trace); RBC,Urine 304 /hpf (0-3); Specific Gravity,Urine 1.014 (1.001-1.035); Urobilinogen,Urine Negative mg/dL (0.0-1.0); WBC,Urine 20 /hpf (0-5)
[2024-08-28 17:51] LABS: Culture Indicated,Urine Yes
== END | disposition home or self-care (01) ==
LOC: COPL 16:53 → SLDO 16:53
PROVIDERS: PCP Family Medicine; Referring Provider Family Medicine; Visit Provider Family Medicine
DX: N39.0 Urinary tract infection, site not specified (principal); E11.9 Type 2 diabetes mellitus without complications; R31.9 Hematuria, unspecified
CPT/HCPCS: 81001; 87086

== ENCOUNTER 2024-09-14 16:56 | Emergency (ER) | payer MEDICARE, MEDICAID, SELFPAY ==
[2024-09-14 16:56] VITALS: BMI 18.5
[2024-09-14 18:06] VITALS: BP 200/104; PULSE 62; RESP 19; TEMP 37.2; O2SAT 95
--- NOTE | 2024-09-14 18:13 | PD.EDMALE ---
ED Male Genitalurinary RME/HPI General Chief complaint: Urogenital-Male Stated complaint: BLOOD IN URINE Time Seen by Provider: 09/14/24 18:11 Arrival date/time: 09/14/24 16:56 RME / HPI RME / HPI Narrative: 78-year-old male patient nonverbal, coming in from her home came in for evaluation regarding bloody urine. Apparently patient caregiver was changing him and noticed some blood in the diaper. No fever was noted no other complaints was noted recently diagnosed with UTI more than 2 weeks ago but currently not taking any antibiotic. No vomiting noted Related Data Home Medications ?Medication ?Instructions ?Recorded ?Confirmed Alendronate Sodium * (FOSAMAX *) 70 mg PO .MONDAY ##0 08/13/12 07/20/24 simvastatin 10 mg tablet (Zocor) 10 mg PO HS ##0 08/13/12 07/20/24 MULTIVITAMIN (MULTI VITAMIN DAILY) 1 tab PO QDAY ##0 08/02/16 07/20/24 docusate sodium 250 mg capsule 1 cap PO BID ##0 08/02/16 07/20/24 magnesium hydroxide 400 mg/5 mL 30 ml PO EVERYOTHERDAY 03/16/18 07/20/24 oral suspension (Milk of Magnesia) polyethylene glycol 3350 17 gram 17 g PO QDAY PRN constipation 03/16/18 07/20/24 oral powder packet (Miralax) melatonin 10 mg tablet 10 mg PO HS 12/12/23 07/20/24 olanzapine 2.5 mg tablet 5 mg PO HS 12/12/23 07/20/24 valbenazine 60 mg capsule 60 mg PO QDAY 12/12/23 07/20/24 (Ingrezza) cranberry-B.cgjkhacdi-Y-Yf phos 1 tab PO QDAY 12/25/23 07/20/24 480 mg-20 mg-100 million cell tablet (Cranberry-Probiotic) metformin 500 mg tablet 500 mg PO BID 12/25/23 07/20/24 ibuprofen 400 mg tablet 400 mg PO Q6H PRN pain 07/20/24 07/20/24 loratadine 10 mg tablet 10 mg PO QDAY 07/20/24 07/20/24 zolpidem 5 mg tablet 5 mg PO QHSPRN 07/20/24 07/20/24 Previous Rx's ?Medication ?Instructions ?Recorded nitrofurantoin 100 mg PO Q12H 7 days #14 caps 09/14/24 monohydrate/macrocrystals 100 mg capsule (Macrobid) Allergies Allergy/AdvReac Type Severity Reaction Status Date / Time No Known Allergies Allergy Verified 09/14/24 16:59 Review of Systems Review of Systems Narrative Review of Systems: Review of system reviewed and within normal limits except mentioned in HPI ED Exam Narrative Physical exam: VITAL SIGNS: Reviewed. GENERAL APPEARANCE: Alert and, not verbal, does not follow commands no acute distress, HEAD AND FACE: Non-traumatic. ENT: PERRL, pink conjunctivitis, eyelid no trauma, Mucous membrane moist. NECK: Supple, nontender, no nuchal rigidity. CHEST: No tenderness, no crepitus, no paradoxical movement, no retractions. LUNGS: Clear, well ventilated, symmetric, no rales, no wheezing, no ronchi, no stridor, good breath sounds bilaterally. HEART: Regular rate, regular rhythm, no murmur, no gallops. ABDOMEN: Soft, positive bowel sounds, nondistended, no guarding, nontender, no rebound, no masses, RECTAL: Deferred. GENITAL: I did not notice any blood in the meatus, no redness no abrasion or excoriation noted on the penis no blood noted on the diaper. NEUROLOGICAL: Gross motor function intact sensory function intact, Appropriate for age. MUSCULOSKELETAL: low back nontender, full range of motion. EXTREMITIES: Nontender, full range of motion. SKIN: Color pink, dry, no rash, no lacerations, no abrasions, no contusions. LYMPHATICS: Deferred. Course Quality Measures none Orders Category Date Time Status Byrne [Urinary Catheter] QS Care 09/14/24 20:58 Active In and Out Catheter X1 Care 09/14/24 18:12 Active CBC [CBC] Stat Lab 09/14/24 18:44 Completed CMP [Comprehensive Metabolic Panel] Stat Lab 09/14/24 18:44 Completed UA, C/S IF [Urinalysis, C/S if Indicated] Stat Lab 09/14/24 21:05 Completed Urine Culture Stat Lab 09/14/24 21:05 Received Ampicillin/Sulbac Inj [Unasyn Inj] Med 09/14/24 22:34 Once 3 gm IM X1 ONE cefTRIAXone [Rocephin] 1,000 mg Med 09/14/24 22:29 Discontinued Lidocaine 1% 20 ml [Xylocaine 1% 20 ML] 2.1 ml IM X1 hydrALAZINE HCL [Apresoline] Med 09/14/24 18:13 Discontinued 25 mg PO X1 ONE hydrALAZINE HCL [Apresoline] Med 09/14/24 22:41 Once 25 mg PO X1 ONE Vital Signs Vital signs: Vital Signs Temperature 98.9 F 09/14/24 18:06 Pulse Rate 62 09/14/24 18:06 Respiratory Rate 19 09/14/24 18:06 Blood Pressure 200/104 H 09/14/24 18:06 Pulse Oximetry (%) 95 09/14/24 18:06 Oxygen Delivery Method Room Air 09/14/24 18:06 Urogenital - Male [facility] Narrative [facility] Narrative:: 78-year-old male patient nonverbal, coming in from her home came in for evaluation regarding bloody urine. Apparently patient caregiver was changing him and noticed some blood in the diaper. No fever was noted no other complaints was noted recently diagnosed with UTI more than 2 weeks ago but currently not taking any antibiotic. No vomiting noted CBC came back unremarkable. Urinalysis came back with UTI. Creatinine is normal. Patient was given Unasyn IM. Was also given hydralazine p.o. Patient afebrile tolerating p.o. fluids prior to discharge Patient data External records reviewed:: None Clinical information provided by:: patient Social determinants that could affect healthcare access:: none Patient has the following chronic illnesses:: Hypertension How is presenting disease/condition affected by chronic disease/condition?: exacerbated by Evaluation data The following diagnostics were reviewed and interpreted by me:: lab results Lab and/or radiology exams considered but not ordered:: None Interpretation Summary: See results MDM Medications / Prescriptions Medications or Prescriptions considered but not ordered:: None Medication administrations:: Medication Administration History Discontinued Medications Ampicillin Sodium/Sulbactam Sodium (Ampicillin/Sulbac Inj 3 Gm Vial) 3 gm IM X1 ONE Stop: 09/14/24 22:35 Ceftriaxone Sodium 1,000 mg/ (Lidocaine HCl 2.1 ml) 0 mg IM X1 ONE Stop: 09/14/24 22:30 Last Admin: 09/14/24 22:41 Dose: Not Given Hydralazine HCl (Hydralazine Hcl 25 Mg Tablet) 25 mg PO X1 ONE Stop: 09/14/24 18:14 Last Admin: 09/14/24 19:00 Dose: 25 mg Documented By: ED Hydralazine and ampicillin sulbactam Consultations Consultation(s) initiated? (list below): No Diagnosis Urogenital Male Differential Diagnosis: urinary tract infection and other (Hematuria, cystitis) Most likely diagnosis given after review of the tests above:: Hematuria, UTI Admission Indicated Admission indicated?: not indicated Explain why admission is indicated or not indicated:: None Admission Request Was there a request for admission?: No Disposition Plan Disposition Plan: Discharge Discharge Attestation Discharge Attestation: Patient condition: Stable Discharge Plan Plan Patient Disposition: HOME (Self Care) Discharge Disposition comment: Stable Prescriptions/Referrals Prescriptions/Med Rec: New nitrofurantoin monohyd/m-cryst [Macrobid] 100 mg capsule 100 mg PO Q12H 7 Days Qty: 14 0RF Rx Instructions: must administer with a meal/food No Action Alendronate Sodium * (FOSAMAX *) 70 MG tablet 70 mg PO .MONDAY Qty: 0 simvastatin [Zocor] 10 MG tablet 10 mg PO HS Qty: 0 docusate sodium 250 MG capsule 1 cap PO BID Qty: 0 MULTIVITAMIN (MULTI VITAMIN DAILY) 1 EACH tablet 1 tab PO QDAY Qty: 0 polyethylene glycol 3350 [Miralax] 17 gram Powder In Packet 17 g PO QDAY PRN (Reason: constipation) Rx Instructions: hold for loose stools magnesium hydroxide [Milk of Magnesia] 400 mg/5 mL Suspension 30 ml PO EVERYOTHERDAY olanzapine 2.5 mg tablet 5 mg PO HS melatonin 10 mg Tablet 10 mg PO HS Ingrezza 60 mg capsule 60 mg PO QDAY loratadine 10 mg tablet 10 mg PO QDAY zolpidem 5 mg tablet 5 mg PO QHSPRN ibuprofen 400 mg tablet 400 mg PO Q6H PRN (Reason: pain) metformin 500 mg tablet 500 mg PO BID Cranberry-Probiotic 480 mg-20 mg- 100million cell Tablet 1 tab PO QDAY Referrals: No Primary/Family,Physician [Primary Care Provider] - In 1 week Problem List Clinical Impression: UTI (urinary tract infection) Patient/Caregiver Discharge Instructions Discharge Activity: activity as tolerated Education Materials: Understanding Urinary Tract ... Additional Instructions: Thank you for the opportunity for serving you today. You are stable for discharged . You are advised to: Follow-up with your PCP in 1 to 2 days Return to ED for worsening of symptoms Increase oral fluids Take medication as prescribed Print Language: Turkish Stand Alone Forms: Sarai Award Info., Patient Portal Info Letter PA/ASSOCIATE ACCOUNTANT Supervising Physician JESI/FLORA Supervising Physician: MD Maritza
[2024-09-14 18:59] LABS: Basophils % (Auto) 1 % (0-2.5); Eosinophils # (Auto) 0.2 Thou/mm3 (0.0-0.5); Eosinophils % (Auto) 3 % (0-10); Hematocrit 38.2 % (41.0-53.0); Hemoglobin 12.8 g/dL (13.5-16.0); Immature Granulocytes % (Auto) 0 % (0-0); Immature Granulocytes Auto 0.02 Thou/mm3 (0.00-0.00); Lymphocytes # (Auto) 1.9 Thou/mm3 (1.0-4.8); Lymphocytes % (Auto) 29 % (10-50); Mean Corpuscular HGB Conc 33.5 g/dl (31.0-37.0); Mean Corpuscular Hemoglobin 30.8 pg (25.0-35.0); Mean Corpuscular Volume 92 fL (80-100); Monocytes # (Auto) 0.8 Thou/mm3 (0.0-0.8); Monocytes % (Auto) 13 % (0-12); Neutrophils # (Auto) 3.5 Thou/mm3 (1.8-7.7); Neutrophils % (Auto) 54 % (37-80); Nucleated Red Blood Cell % 0 /100 WBC (0); Platelet Count 188 Thou/mm3 (140-440); RDW Standard Deviation 43.8 fL (35.1-43.9); Red Blood Count 4.16 Miln/mm3 (4.50-5.90); White Blood Count 6.4 Thou/mm3 (3.8-10.6)
[2024-09-14 19:00] VITALS: BP 200/104; PULSE 62
[2024-09-14] MEDS: hydrALAZINE HCL 25 MG TABLET PO (19:00)
[2024-09-14 19:35] LABS: Alanine Aminotransferase 45 U/L (10-49); Albumin/Globulin Ratio 1.3 (1.2-2.2); Alkaline Phosphatase 93 U/L (46-116); Anion Gap 7 (7-16); Aspartate Amino Transferase 33 U/L (0-34); BUN/Creatinine Ratio 13 Ratio (12-20); Bilirubin,Total 0.4 mg/dL (0.3-1.2); Blood Urea Nitrogen 10 mg/dL (9-23); Calcium 9.4 mg/dL (8.3-10.6); Calcium (Corrected) 9.4 mg/dL (8.5-10.1); Carbon Dioxide 30.8 mMol/L (20.0-31.0); Chloride 102 mMol/L (98-107); Creatinine (Component) 0.8 mg/dL (0.6-1.3); Estimated Creatinine Clearance 59.3 mL/min (>60); Glucose 99 mg/dL (74-106); Osmolality,Calculated 278 (275-295); Potassium 4.6 mMol/L (3.4-5.1); Sodium 140 mMol/L (136-145); eGFR > 60 See Note
[2024-09-14 21:45] LABS: Collection Type, Urine Catheter; Squamous Epithelial Cell,Urine 0 /hpf (0-5)
[2024-09-14 22:10] LABS: Bacteria,Urine 1+; Bilirubin,Urine Negative (Negative); Blood,Urine 2+ (Negative); Clarity,Urine Turbid (Clear/Hazy); Color,Urine Yellow (Lt Yel-Yel); Glucose, Urine Negative (Negative); Ketones,Urine Negative (Negative); Leukocyte Esterase,Urine Positive (Negative); Nitrite,Urine Positive (Negative); Protein,Urine 1+ (Neg - Trace); RBC,Urine 128 /hpf (0-3); Specific Gravity,Urine 1.017 (1.001-1.035); Urobilinogen,Urine Negative mg/dL (0.0-1.0); WBC,Urine 170 /hpf (0-5)
[2024-09-14 22:21] LABS: Culture Indicated,Urine Yes
[2024-09-14 22:41] VITALS: BP 146/75; PULSE 60; RESP 16; TEMP 36.4; O2SAT 99
[2024-09-14] MEDS: LIDOCAINE HCL 1% 20 ML VIAL INFL (22:46)
[2024-09-14] MEDS: AMPICILLIN/SULBAC INJ 3 GM VIAL IM (22:46)
== END 2024-09-14 23:00 | disposition home or self-care (01) ==
PROVIDERS: Nurse Practitioner Family; Emergency Provider Emergency Medicine
DX: N39.0 Urinary tract infection, site not specified (principal)
CPT/HCPCS: 51702; 36415; 80053; 81001; 85025; 87077; 87086; 87186; 96372; 99283; A4314; J0295; J3490; A9270

== ENCOUNTER → 2024-09-25 | Outpatient (CLI) | payer MEDICARE, MEDICAID, SELFPAY ==
[2024-09-25 16:13] LABS: Collection Type, Urine Catheter; Squamous Epithelial Cell,Urine 0 /hpf (0-5)
[2024-09-25 16:31] LABS: Bacteria,Urine 2+; Bilirubin,Urine Negative (Negative); Blood,Urine 1+ (Negative); Color,Urine Yellow (Lt Yel-Yel); Glucose, Urine Negative (Negative); Ketones,Urine Negative (Negative); Leukocyte Esterase,Urine Positive (Negative); Nitrite,Urine Negative (Negative); Protein,Urine 1+ (Neg - Trace); RBC,Urine 44 /hpf (0-3); Specific Gravity,Urine 1.015 (1.001-1.035); Urobilinogen,Urine Negative mg/dL (0.0-1.0); WBC,Urine 482 /hpf (0-5)
[2024-09-25 17:00] LABS: Clarity,Urine Hazy (Clear/Hazy); Culture Indicated,Urine Yes
== END | disposition home or self-care (01) ==
LOC: SLDO 16:05
PROVIDERS: PCP Family Medicine; Referring Provider Family Medicine; Visit Provider Family Medicine
DX: N39.0 Urinary tract infection, site not specified (principal); E11.9 Type 2 diabetes mellitus without complications
CPT/HCPCS: 81001; 87077; 87086; 87186

== ENCOUNTER → 2024-10-14 | Outpatient (CLI) | payer MEDICARE, MEDICAID, SELFPAY ==
[2024-10-14 21:45] LABS: Collection Type, Urine Clean Catch
[2024-10-14 21:54] LABS: Basophils # (Auto) 0.0 Thou/mm3 (0.0-0.2); Basophils % (Auto) 1 % (0-2.5); Eosinophils # (Auto) 0.2 Thou/mm3 (0.0-0.5); Eosinophils % (Auto) 3 % (0-10); Hematocrit 36.4 % (41.0-53.0); Hemoglobin 12.6 g/dL (13.5-16.0); Immature Granulocytes Auto 0.01 Thou/mm3 (0.00-0.00); Lymphocytes # (Auto) 2.4 Thou/mm3 (1.0-4.8); Lymphocytes % (Auto) 37 % (10-50); Mean Corpuscular HGB Conc 34.6 g/dl (31.0-37.0); Mean Corpuscular Hemoglobin 30.7 pg (25.0-35.0); Mean Corpuscular Volume 89 fL (80-100); Monocytes # (Auto) 0.7 Thou/mm3 (0.0-0.8); Monocytes % (Auto) 10 % (0-12); Neutrophils # (Auto) 3.3 Thou/mm3 (1.8-7.7); Neutrophils % (Auto) 50 % (37-80); Nucleated Red Blood Cell # 0.00 Thou/mm3 (0.00-0.00); Nucleated Red Blood Cell % 0 /100 WBC (0); Platelet Count 181 Thou/mm3 (140-440); RDW Standard Deviation 42.9 fL (35.1-43.9); Red Blood Count 4.10 Miln/mm3 (4.50-5.90); White Blood Count 6.6 Thou/mm3 (3.8-10.6)
[2024-10-14 22:04] LABS: Glucose Estimated Average 114 mg/dL (80-131); Hemoglobin A1C 5.6 % Hgb (4.8-6.0)
[2024-10-14 22:08] LABS: Amorphous Crystals,Urine Present (Absent); Bacteria,Urine 1+; Bilirubin,Urine Negative (Negative); Blood,Urine 2+ (Negative); Clarity,Urine Clear (Clear/Hazy); Color,Urine Lt-Yellow (Lt Yel-Yel); Glucose, Urine Negative (Negative); Ketones,Urine Negative (Negative); Leukocyte Esterase,Urine Positive (Negative); Nitrite,Urine Negative (Negative); PH,Urine 8.0 (5.0-7.0); Protein,Urine Negative (Neg - Trace); RBC,Urine 84 /hpf (0-3); Specific Gravity,Urine 1.007 (1.001-1.035); Squamous Epithelial Cell,Urine < 1 /hpf (0-5); Urobilinogen,Urine Negative mg/dL (0.0-1.0); WBC,Urine 75 /hpf (0-5)
[2024-10-14 22:33] LABS: Vitamin B12 846 pg/mL (211-911)
[2024-10-14 22:35] LABS: Alanine Aminotransferase 45 U/L (10-49); Albumin, Serum 4.0 gm/dL (3.4-4.8); Albumin/Globulin Ratio 1.4 (1.2-2.2); Alkaline Phosphatase 84 U/L (46-116); Anion Gap 12 (7-16); Aspartate Amino Transferase 56 U/L (0-34); BUN/Creatinine Ratio 14 Ratio (12-20); Bilirubin,Total 0.4 mg/dL (0.3-1.2); Blood Urea Nitrogen 10 mg/dL (9-23); Calcium 9.0 mg/dL (8.3-10.6); Calcium (Corrected) 9.0 mg/dL (8.5-10.1); Carbon Dioxide 25.2 mMol/L (20.0-31.0); Chloride 104 mMol/L (98-107); Creatinine (Component) 0.7 mg/dL (0.6-1.3); Free T4 (Free Thyroxine) 0.84 ng/dL (0.89-1.76); Globulin 2.8 gm/dL (2.3-3.5); Glucose 58 mg/dL (74-106); Osmolality,Calculated 278 (275-295); Potassium 5.1 mMol/L (3.4-5.1); Sodium 141 mMol/L (136-145); Thyroid Stimulating Hormone 5.89 uIU/mL (0.55-4.78); Total Protein 6.8 gm/dL (5.7-8.2); eGFR > 60 See Note
== END | disposition home or self-care (01) ==
PROVIDERS: PCP Family Medicine; Referring Provider Family Medicine; Visit Provider Family Medicine
DX: N39.0 Urinary tract infection, site not specified (principal); F73 Profound intellectual disabilities; E11.9 Type 2 diabetes mellitus without complications; N40.1 Benign prostatic hyperplasia with lower urinary tract symptoms
CPT/HCPCS: 36415; 80053; 81001; 82607; 83036; 84439; 84443; 85025

== ENCOUNTER → 2024-11-14 | Outpatient (CLI) | payer MEDICARE, MEDICAID, SELFPAY ==
[2024-11-14 15:46] LABS: Collection Type, Urine Catheter; Squamous Epithelial Cell,Urine 0 /hpf (0-5)
[2024-11-14 18:02] LABS: Bacteria,Urine Rare; Bilirubin,Urine Negative (Negative); Blood,Urine 1+ (Negative); Clarity,Urine Clear (Clear/Hazy); Color,Urine Lt-Yellow (Lt Yel-Yel); Glucose, Urine Negative (Negative); Ketones,Urine Negative (Negative); Leukocyte Esterase,Urine Positive (Negative); Nitrite,Urine Negative (Negative); PH,Urine 7.0 (5.0-7.0); Protein,Urine Negative (Neg - Trace); RBC,Urine 1 /hpf (0-3); Specific Gravity,Urine 1.007 (1.001-1.035); Urobilinogen,Urine Negative mg/dL (0.0-1.0); WBC,Urine 40 /hpf (0-5)
[2024-11-14 18:17] LABS: Culture Indicated,Urine Yes
== END | disposition home or self-care (01) ==
LOC: SLDO 15:37
PROVIDERS: PCP Family Medicine; Referring Provider Family Medicine; Visit Provider Family Medicine
DX: N39.0 Urinary tract infection, site not specified (principal); F73 Profound intellectual disabilities; E11.9 Type 2 diabetes mellitus without complications; N40.1 Benign prostatic hyperplasia with lower urinary tract symptoms
CPT/HCPCS: 81001; 87077; 87086; 87186

== ENCOUNTER → 2024-12-16 | Outpatient (CLI) | payer MEDICARE, MEDICAID, SELFPAY ==
[2024-12-16 13:56] LABS: Collection Type, Urine Clean Catch; Squamous Epithelial Cell,Urine 0 /hpf (0-5)
[2024-12-16 14:47] LABS: Basophils # (Auto) 0.0 Thou/mm3 (0.0-0.2); Basophils % (Auto) 1 % (0-2.5); Eosinophils # (Auto) 0.1 Thou/mm3 (0.0-0.5); Eosinophils % (Auto) 2 % (0-10); Hematocrit 37.3 % (41.0-53.0); Hemoglobin 12.6 g/dL (13.5-16.0); Immature Granulocytes Auto 0.02 Thou/mm3 (0.00-0.00); Lymphocytes # (Auto) 1.5 Thou/mm3 (1.0-4.8); Lymphocytes % (Auto) 29 % (10-50); Mean Corpuscular HGB Conc 33.8 g/dl (31.0-37.0); Mean Corpuscular Hemoglobin 31.8 pg (25.0-35.0); Mean Corpuscular Volume 94 fL (80-100); Monocytes # (Auto) 0.5 Thou/mm3 (0.0-0.8); Monocytes % (Auto) 9 % (0-12); Neutrophils # (Auto) 3.1 Thou/mm3 (1.8-7.7); Neutrophils % (Auto) 59 % (37-80); Nucleated Red Blood Cell # 0.00 Thou/mm3 (0.00-0.00); Nucleated Red Blood Cell % 0 /100 WBC (0); Platelet Count 179 Thou/mm3 (140-440); RDW Standard Deviation 44.5 fL (35.1-43.9); Red Blood Count 3.96 Miln/mm3 (4.50-5.90); White Blood Count 5.2 Thou/mm3 (3.8-10.6)
[2024-12-16 14:58] LABS: T4 (Thyroxine) 5.3 mcg/dL (4.5-10.9)
[2024-12-16 15:01] LABS: Folate 23.39 ng/mL (>5.38); Vitamin B12 839 pg/mL (211-911); Vitamin D 25 Hydroxy Total 54.4 ng/mL (7.3-40.2)
[2024-12-16 15:03] LABS: Bilirubin,Urine Negative (Negative); Blood,Urine 1+ (Negative); Clarity,Urine Turbid (Clear/Hazy); Color,Urine Yellow (Lt Yel-Yel); Glucose, Urine Negative (Negative); Ketones,Urine Negative (Negative); Leukocyte Esterase,Urine Positive (Negative); Nitrite,Urine Positive (Negative); PH,Urine 6.5 (5.0-7.0); Protein,Urine 1+ (Neg - Trace); RBC,Urine 23 /hpf (0-3); Specific Gravity,Urine 1.014 (1.001-1.035); Urobilinogen,Urine Negative mg/dL (0.0-1.0); WBC,Urine 563 /hpf (0-5)
[2024-12-16 15:08] LABS: Alanine Aminotransferase 58 U/L (10-49); Albumin, Serum 3.9 gm/dL (3.4-4.8); Albumin/Globulin Ratio 1.5 (1.2-2.2); Alkaline Phosphatase 87 U/L (46-116); Anion Gap 9 (7-16); Aspartate Amino Transferase 46 U/L (0-34); BUN/Creatinine Ratio 20 Ratio (12-20); Bilirubin,Total 0.4 mg/dL (0.3-1.2); Blood Urea Nitrogen 14 mg/dL (9-23); Calcium 9.1 mg/dL (8.3-10.6); Calcium (Corrected) 9.2 mg/dL (8.5-10.1); Carbon Dioxide 27.8 mMol/L (20.0-31.0); Cardiac Risk Estimate 2.9 RATIO (4.0-6.7); Chloride 99 mMol/L (98-107); Cholesterol 143 mg/dL (132-200); Creatinine (Component) 0.7 mg/dL (0.6-1.3); Free T4 (Free Thyroxine) 0.84 ng/dL (0.89-1.76); Globulin 2.6 gm/dL (2.3-3.5); Glucose 197 mg/dL (74-106); HDL Cholesterol 49 mg/dL (40-60); LDL Cholesterol,Calculated 65 mg/dL (0-130); Magnesium 2.0 mg/dL (1.6-2.6); Osmolality,Calculated 277 (275-295); Potassium 4.1 mMol/L (3.4-5.1); Sodium 136 mMol/L (136-145); Thyroid Stimulating Hormone 5.26 uIU/mL (0.55-4.78); Total Protein 6.5 gm/dL (5.7-8.2); Triglycerides 144 mg/dL (30-150); eGFR > 60 See Note
[2024-12-16 15:11] LABS: Culture Indicated,Urine Yes
[2024-12-16 15:20] LABS: Glucose Estimated Average 120 mg/dL (80-131); Hemoglobin A1C 5.8 % Hgb (4.8-6.0)
[2024-12-20 06:34] LABS: T3,Total* 63 ng/dL (76-181)
== END | disposition home or self-care (01) ==
PROVIDERS: PCP Family Medicine; Referring Provider Family Medicine; Visit Provider Family Medicine
DX: G40.009 Localization-related (focal) (partial) idiopathic epilepsy and epileptic syndromes with seizures of localized onset, not intractable, without status epilepticus (principal); F73 Profound intellectual disabilities; E11.42 Type 2 diabetes mellitus with diabetic polyneuropathy; E78.5 Hyperlipidemia, unspecified; F39 Unspecified mood [affective] disorder
CPT/HCPCS: 36415; 80053; 80061; 81001; 82306; 82607; 82746; 83036; 83735; 84436; 84439; 84443; 84480; 85025; 87077; 87086; 87186

== ENCOUNTER 2024-12-21 09:29 | Inpatient (IN) | payer MEDICARE, MEDICAID, SELFPAY ==
[2024-12-21] VITALS (7 sets, daily range): BP systolic 111–165; BP diastolic 61–77; PULSE 58–81; RESP 14–20; TEMP 36.3–36.6; O2SAT 90–98; BMI 20.7
--- NOTE | 2024-12-21 09:51 | EKG_ITS ---
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
--- NOTE | 2024-12-21 09:51 | XR_ITS ---
Examination: AP chest single view Technique: AP portable supine chest single view Date and time: December 21, 2024, 1047 hrs., Comparison July 20, 2024 Indications: Chest pain and coughing beginning 2 days ago. Findings: Mild enlargement cardiac contour. Prominent vascular congestion. Subtle opacity in both lungs consistent with pneumonia Blunting of the right lateral costophrenic angle Impression: Bilateral pneumonia Mild heart failure
--- NOTE | 2024-12-21 10:08 | PD.EDMALE ---
ED Male Genitalurinary RME/HPI General Chief complaint: Nausea/Vomiting/Diarrhea Stated complaint: NAUSEA AND VOMITING Time Seen by Provider: 12/21/24 09:43 Arrival date/time: 12/21/24 09:29 Limitations: language barrier RME / HPI RME / HPI Narrative: DR. ARNOLD MAIN ED EVALUATION: 79-year-old male with past medical history of developmental delay, seizure disorder, diabetes mellitus, hyperlipidemia, recurrent ESBL UTIs, depression, and GERD presents to the Emergency Department from [facility] with concern for persistent UTI symptoms since the , despite current medications. History is provided by the water attendant. Related Data Home Medications ?Medication ?Instructions ?Recorded ?Confirmed Alendronate Sodium * (FOSAMAX *) 70 mg PO .MONDAY ##0 08/13/12 12/21/24 simvastatin 10 mg tablet (Zocor) 10 mg PO HS ##0 08/13/12 12/21/24 MULTIVITAMIN (MULTI VITAMIN DAILY) 1 tab PO QDAY ##0 08/02/16 12/21/24 docusate sodium 250 mg capsule 1 cap PO BID ##0 08/02/16 12/21/24 magnesium hydroxide 400 mg/5 mL 30 ml PO EVERYDAY 03/16/18 12/21/24 oral suspension (Milk of Magnesia) polyethylene glycol 3350 17 gram 17 g PO QDAY PRN constipation 03/16/18 12/21/24 oral powder packet (Miralax) melatonin 10 mg tablet 10 mg PO HS 12/12/23 12/21/24 olanzapine 2.5 mg tablet 5 mg PO HS 12/12/23 12/21/24 valbenazine 60 mg capsule 60 mg PO QDAY 12/12/23 12/21/24 (Ingrezza) cranberry-B.qpjawnafl-D-Rs phos 1 tab PO QDAY 12/25/23 12/21/24 480 mg-20 mg-100 million cell tablet (Cranberry-Probiotic) metformin 500 mg tablet 500 mg PO BID 12/25/23 12/21/24 ibuprofen 400 mg tablet 400 mg PO Q6H PRN pain 07/20/24 12/21/24 loratadine 10 mg tablet 10 mg PO QDAY 07/20/24 07/20/24 zolpidem 5 mg tablet 5 mg PO QHSPRN 07/20/24 12/21/24 Held on 12/21/24. Instructions: Order Change lamotrigine 100 mg tablet mg 12/21/24 sertraline 100 mg tablet 100 mg PO Q24H 12/21/24 12/21/24 Allergies Allergy/AdvReac Type Severity Reaction Status Date / Time No Known Allergies Allergy Verified 09/14/24 16:59 Review of Systems Review of Systems Systems Reviewed: All systems reviewed, normal except as documented Past Medical History Past Medical History NEUROLOGIC: Positive Neurological Disorders and Seizures CARDIAC: Positive Hypercholesterolemia GASTROINTESTINAL: Positive Gastrointestinal Disorders MUSCULOSKELETAL: Positive Musculoskeletal Disorders ENDOCRINE: Positive Diabetes Mellitus Type 2 PSYCHO/SOCIAL: Positive Depression and Anxiety OTHER HISTORY: Positive Developmental Delay Social History SMOKING STATUS: Never smoker SUBSTANCE USE: does not use ALCOHOL: Never ED Exam General Limitations: Present language barrier General appearance: Present in no apparent distress Head Head exam: Present atraumatic, normocephalic and normal inspection Eye Eye exam: Present normal appearance, PERRL and EOMI ENT ENT exam: Present normal oropharynx, mucous membranes moist and other (edentulous) Neck Neck exam: Present normal inspection, full ROM and trachea midline Chest Chest inspection: Present normal inspection and symmetric chest wall rise Respiratory Respiratory exam: Present normal lung sounds bilaterally (clear lungs); Absent respiratory distress Cardiovascular Cardiovascular exam: Present regular rate, normal rhythm and normal heart sounds; Absent systolic murmur or diastolic murmur Abdominal Exam Abdominal exam: Present soft and normal bowel sounds Extremities Exam Extremities exam: Present other (bilateral lower extremity contractures, preserved movement in upper extremities) Back Exam Back exam: Present normal inspection Neurological Exam Neurological exam: Present other (nonverbal baseline; bilateral lower extremity contractures, preserved movement in upper extremities) Skin Skin exam: Present warm, dry, intact and normal color Course Quality Measures none Orders Category Date Time Status Bedside COVID-19 Antigen Test NOW Care 12/21/24 10:32 Active COVID-19 Screening Questionnaire NOW Care 12/21/24 10:28 Active Reel Cart Operator NOW Care 12/21/24 09:51 Active Continuous Pulse Oximetry NOW Care 12/21/24 09:51 Completed Decision to Admit X1 Care 12/21/24 10:28 Completed EKG (ED ONLY) *Do not use* NOW Care 12/21/24 09:51 Completed Insert IV NOW Care 12/21/24 09:51 Active EKG (ED Only) Stat Exams 12/21/24 09:51 Draft XR chest 1V portable Stat Exams 12/21/24 09:51 Completed Blood Culture (Lab) Stat Lab 12/21/24 10:19 Received CBC Stat Lab 12/21/24 10:09 Completed Comprehensive Metabolic Panel Stat Lab 12/21/24 10:09 Completed Lactic Acid [Lactate (Lactic Acid)] Stat Lab 12/21/24 10:09 Results Prothrombin Time with INR Stat Lab 12/21/24 10:09 Completed Urinalysis Stat Lab 12/21/24 10:30 Completed Ondansetron Inj [Zofran Inj] Med 12/21/24 09:53 Discontinued 4 mg IVP X1 ONE Piper/Tazo 3.375 gm Premix [Zosyn] Med 12/21/24 09:52 Discontinued 3.375 gm in 50 ml IV X1 Sodium Chloride 0.9% 1000 ml [Ns] 1,000 ml Med 12/21/24 09:51 Active IV 250 mls/hr Vital Signs Vital signs: Vital Signs Temperature 97.6 F 12/21/24 09:31 Pulse Rate 72 12/21/24 09:31 Respiratory Rate 14 12/21/24 09:31 Blood Pressure 145/72 H 12/21/24 09:31 Pulse Oximetry (%) 95 12/21/24 09:31 Oxygen Delivery Method Room Air 12/21/24 09:31 Urogenital - Male MDM Narrative MDM Narrative:: 79-year-old male with multiple comorbidities presents with concern for unresolved UTI despite antibiotics. His history of recurrent ESBL infections raises concern for antibiotic resistance or inadequate coverage. He is nonverbal, limiting review of symptoms, but appears clinically stable with no respiratory or cardiac abnormalities on exam. Plan includes urinalysis, urine culture, CBC, CMP, CXR, EKG, and consideration for adjustment of antibiotics based on culture sensitivities. Plan to admit for IV antibiotics. IMelody am scribing for and in the presence of Dr. Arnold. Patient data External records reviewed:: [facility] previous records and EMS form Clinical information provided by:: EMS and water attendant Social determinants that could affect healthcare access:: housing ([facility]) Patient has the following chronic illnesses:: Developmental delay, seizure disorder, diabetes mellitus, hyperlipidemia, recurrent ESBL UTIs, depression, and GERD. How is presenting disease/condition affected by chronic disease/condition?: exacerbated by Evaluation data The following diagnostics were reviewed and interpreted by me:: lab results, radiology exam(s) and EKG tracing(s) (My interpretation: EKG performed at 1034 hours, sinus rhythm, rate 74, no acute changes, no STEMI ) Lab and/or radiology exams considered but not ordered:: none Interpretation Summary: Procedure(s): XR chest 1V portable Accession Number(s): [id number] cc: Wally Arnold MD; AMISHA PICKARD; Sergio Iniguez MD~ Examination: AP chest single view Technique: AP portable supine chest single view Date and time: December 21, 2024, 1047 hrs., Comparison July 20, 2024 Indications: Chest pain and coughing beginning 2 days ago. Findings: Mild enlargement cardiac contour. Prominent vascular congestion. Subtle opacity in both lungs consistent with pneumonia Blunting of the right lateral costophrenic angle Impression: Bilateral pneumonia Mild heart failure Dictated By: Sergio Iniguez MD Medications / Prescriptions Medications or Prescriptions considered but not ordered:: none Medication administrations:: Medication Administration History Sodium Chloride (Ns) 1,000 mls @ 250 mls/hr IV .Q4H ONE Stop: 12/21/24 13:50 Last Admin: 12/21/24 10:15 Dose: 250 mls/hr Documented By: BY Discontinued Medications Piperacillin/Tazobactam/Dextrose (Zosyn) 3.375 gm in 50 mls @ 100 mls/hr IV X1 ONE; Protocol Stop: 12/21/24 10:21 Last Infusion: 12/21/24 11:00 Dose: Infused Documented By: Admin: 12/21/24 10:16 Dose: 100 mls/hr Documented By: BY Ondansetron HCl (Ondansetron Inj 2 Mg/Ml Inj 2 Ml) 4 mg IVP X1 ONE; Protocol Stop: 12/21/24 09:54 Last Admin: 12/21/24 10:18 Dose: 4 mg Documented By: BY see above Consultations Consultation(s) initiated? (list below): Yes Consultation #1 (Physician, Specialty, Details): Discussed test HPI, PMHx, lab, radiology results and/or management with resident working with the hospitalist. Will admit for further evaluation and management. Accepts patient for admission. Time: 10:27 Diagnosis Urogenital Male Differential Diagnosis: urinary tract infection and other (Resistant urinary tract infection, pyelonephritis, and metabolic encephalopathy secondary to infection.) Most likely diagnosis given after review of the tests above:: UTI, multi drug resistance; chronically nonverbal Admission Indicated Admission indicated?: indicated Admission Request Was there a request for admission?: Yes Admission Attestation Admission request attestation: Discussed case with [] from Hospitalist service regarding admission. Discussed patients ED course, exam findings, labs, and radiology results. The Hospitalist [agrees,declines] to accept the patient for admission. Disposition Plan Disposition Plan: Admit Discharge Plan Plan Patient Disposition: Admit Acute Care w/in Hospital Prescriptions/Referrals Prescriptions/Med Rec: No Action Alendronate Sodium * (FOSAMAX *) 70 MG tablet 70 mg PO .MONDAY Qty: 0 simvastatin [Zocor] 10 MG tablet 10 mg PO HS Qty: 0 docusate sodium 250 MG capsule 1 cap PO BID Qty: 0 MULTIVITAMIN (MULTI VITAMIN DAILY) 1 EACH tablet 1 tab PO QDAY Qty: 0 polyethylene glycol 3350 [Miralax] 17 gram Powder In Packet 17 g PO QDAY PRN (Reason: constipation) Rx Instructions: hold for loose stools magnesium hydroxide [Milk of Magnesia] 400 mg/5 mL Suspension 30 ml PO EVERYOTHERDAY olanzapine 2.5 mg tablet 5 mg PO HS melatonin 10 mg Tablet 10 mg PO HS Ingrezza 60 mg capsule 60 mg PO QDAY loratadine 10 mg tablet 10 mg PO QDAY zolpidem 5 mg tablet 5 mg PO QHSPRN ibuprofen 400 mg tablet 400 mg PO Q6H PRN (Reason: pain) sertraline 100 mg tablet 100 mg PO Q24H lamotrigine 100 mg tablet metformin 500 mg tablet 500 mg PO BID Cranberry-Probiotic 480 mg-20 mg- 100million cell Tablet 1 tab PO QDAY Problem List Clinical Impression: UTI (urinary tract infection) Impression comment: UTI, multi drug resistance; chronically nonverbal Patient/Caregiver Discharge Instructions Print Language: Maltese Stand Alone Forms: Sarai Award Info., Patient Portal Info Letter
[2024-12-21] MEDS: SODIUM CHLORIDE 0.9% 1000 ML 1,000 ML 250 ML IV (10:15)
[2024-12-21] MEDS: PIPER/TAZO 3.375 GM PREMIX 3.375 GM/50 ML BAG IV ×2 (10:16→22:11)
[2024-12-21] MEDS: ONDANSETRON INJ 2 MG/ML INJ 2 ML 4 MG IVP (10:18)
[2024-12-21 10:34] LABS: Lactate (Lactic Acid) 2.3 mMol/L (0.4-2.0)
[2024-12-21 10:43] LABS: Basophils # (Auto) 0.0 Thou/mm3 (0.0-0.2); Basophils % (Auto) 0 % (0-2.5); Eosinophils # (Auto) 0.1 Thou/mm3 (0.0-0.5); Eosinophils % (Auto) 3 % (0-10); Hematocrit 37.6 % (41.0-53.0); Hemoglobin 12.7 g/dL (13.5-16.0); Immature Granulocytes Auto 0.02 Thou/mm3 (0.00-0.00); Lymphocytes # (Auto) 1.3 Thou/mm3 (1.0-4.8); Lymphocytes % (Auto) 25 % (10-50); Mean Corpuscular HGB Conc 33.8 g/dl (31.0-37.0); Mean Corpuscular Hemoglobin 31.0 pg (25.0-35.0); Mean Corpuscular Volume 92 fL (80-100); Monocytes # (Auto) 0.5 Thou/mm3 (0.0-0.8); Monocytes % (Auto) 10 % (0-12); Neutrophils # (Auto) 3.2 Thou/mm3 (1.8-7.7); Neutrophils % (Auto) 62 % (37-80); Nucleated Red Blood Cell # 0.00 Thou/mm3 (0.00-0.00); Nucleated Red Blood Cell % 0 /100 WBC (0); Platelet Count 193 Thou/mm3 (140-440); RDW Standard Deviation 42.6 fL (35.1-43.9); Red Blood Count 4.10 Miln/mm3 (4.50-5.90); White Blood Count 5.1 Thou/mm3 (3.8-10.6)
[2024-12-21 11:03] LABS: Collection Type, Urine Clean Catch
[2024-12-21 11:03] LABS: INR 1.1 (0.9-1.3); Prothrombin Time 11.2 Seconds (9.0-12.2)
[2024-12-21 11:21] LABS: Alanine Aminotransferase 51 U/L (10-49); Albumin, Serum 4.0 gm/dL (3.4-4.8); Albumin/Globulin Ratio 1.4 (1.2-2.2); Alkaline Phosphatase 90 U/L (46-116); Anion Gap 9 (7-16); Aspartate Amino Transferase 42 U/L (0-34); BUN/Creatinine Ratio 10 Ratio (12-20); Bilirubin,Total 0.6 mg/dL (0.3-1.2); Blood Urea Nitrogen 8 mg/dL (9-23); Calcium 9.5 mg/dL (8.3-10.6); Calcium (Corrected) 9.5 mg/dL (8.5-10.1); Carbon Dioxide 28.5 mMol/L (20.0-31.0); Chloride 101 mMol/L (98-107); Creatinine (Component) 0.8 mg/dL (0.6-1.3); Estimated Creatinine Clearance 63.4 mL/min (>60); Globulin 2.9 gm/dL (2.3-3.5); Glucose 122 mg/dL (74-106); Osmolality,Calculated 274 (275-295); Potassium 4.5 mMol/L (3.4-5.1); Sodium 138 mMol/L (136-145); Total Protein 6.9 gm/dL (5.7-8.2); eGFR > 60 See Note
[2024-12-21 11:43] LABS: Bacteria,Urine 4+; Bilirubin,Urine Negative (Negative); Blood,Urine 2+ (Negative); Clarity,Urine Turbid (Clear/Hazy); Color,Urine Yellow (Lt Yel-Yel); Glucose, Urine Negative (Negative); Ketones,Urine Negative (Negative); Leukocyte Esterase,Urine Positive (Negative); Nitrite,Urine Negative (Negative); PH,Urine 6.5 (5.0-7.0); Protein,Urine 1+ (Neg - Trace); RBC,Urine 38 /hpf (0-3); Specific Gravity,Urine 1.012 (1.001-1.035); Squamous Epithelial Cell,Urine 4 /hpf (0-5); Urobilinogen,Urine Negative mg/dL (0.0-1.0); WBC,Urine 380 /hpf (0-5)
--- NOTE | 2024-12-21 12:24 | PC.CC ---
Itz Hopeeduardo Shaffer is a 79-year-old male admitted for Nausea and Vomiting. Syrup Mixer made contact with Pt at bedside to complete initial and discuss discharge disposition. clinical dental technician was bedside - Pt unable to engage. Role and reason for the contact was explained to caregiver. Demographic information was verified. clinical dental technician identified care staff Shanice Lyman [phone] as his surrogate decision maker. Pt needs assistance with all ADLs. Pt utilizes wheelchair as source of DME. Pt?s choice of pharmacy is [facility] in [facility]. At time of discharge patient will return to detention, caregiver reported Pt will will provide transportation due to wheelchair not transported with Pt. Discharge Plan: Home Next of Kin: care staff Shanice Lyman [phone]
[2024-12-21 13:35] LABS: Reflex Lactate? Y
--- NOTE | 2024-12-21 13:47 | PD.RESHP ---
Documentation for date of: 12/21/24 [facility] History of Present Illness History of present illness: Inocencio Hope is a an 79-year-old male with a history of developmental delay, seizure disorder, diabetes mellitus, hyperlipidemia, and ESBL UTIs who presents after urine cultures showed multi-drug resistant E. coli on urine culture. 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 Patient comes from [facility] and is noted to have recurrent UTIs. Recently he visited his PCP and reflex urine culture showed growth of MDR E. coli, sensitive to zosyn and carbapenems and thus was brought in for IV antibiotics. Otherwise, per caregiver, patient remains at baseline and has not appeared more agitated but has noticed foul-smelling urine, which is recurrent. He is not able to walk and is transported via wheelchair. In ED, vital signs stable. Labs show no leukocytosis, chronic and stable anemia, lactic acid 2.3, and LFTs slightly elevated. As stated, urine culture showed MDR E. coli and patient given 1 L NS, zosyn, and zofran. CXR showed b/l pneumonia but patient is on room air, no fevers, and no white count. EKG showed sinus rhythm. PMH: developmental delay, seizure disorder, diabetes mellitus, hyperlipidemia, ESBL UTIs, depression, and GERD FH: Unknown Surgical Hx: Unknown Social Hx: No alcohol, tobacco, or illicit drug use Travel Hx: No recent travels outside of [place] Admitted for management of MDR E. coli UTI. Review of Systems Review of Systems ROS Unobtainable: unobtainable due to mental status Exam Vital Signs Temp Pulse Resp BP Pulse Ox O2 Del Method 97.7 F 73 18 111/61 90 L Room Air 12/21/24 13:10 12/21/24 13:10 12/21/24 13:10 12/21/24 13:10 12/21/24 13:10 12/21/24 13:10 Narrative Exam General: at baseline per caregiver (utters sounds, blanket over face, in diaper/no Byrne) HEENT: NC/AT, mucous membranes moist, bilateral sclera anicteric Cardiovascular: regular rate and rhythm, S1/S2 present, no murmurs appreciated Pulmonary: clear to auscultation bilaterally, no rales/rhonchi/wheezes Abdominal: soft, non-tender, non-distended, no rebound/guarding, normal bowel sounds present Musculoskeletal: lower extremity muscular atrophy; normal ROM, no peripheral edema Skin: warm and dry, intact, no rashes Neuro: CN II-XII intact, no focal deficits Results: Labs 12/22/24 05:00 12/22/24 05:00 Labs: Short CBC 12/21/24 Range/Units 10:09 WBC 5.1 (3.8-10.6) Thou/mm3 Hgb 12.7 L (13.5-16.0) g/dL Hct 37.6 L (41.0-53.0) % Plt Count 193 (140-440) Thou/mm3 BMP 12/21/24 10:09 Sodium 138 Potassium 4.5 Chloride 101 Carbon Dioxide 28.5 BUN 8 L Creatinine 0.8 Glucose 122 H Calcium 9.5 Liver Function 12/21/24 Range/Units 10:09 Total Bilirubin 0.6 (0.3-1.2) mg/dL AST 42 H (0-34) U/L ALT 51 H (10-49) U/L Alkaline Phosphatase 90 (46-116) U/L Albumin 4.0 (3.4-4.8) gm/dL Urine 12/21/24 Range/Units 10:30 Urine Color Yellow (Lt Yel-Yel) Urine Clarity Turbid A (Clear/Hazy) Urine pH 6.5 (5.0-7.0) Ur Specific [place] 1.012 (1.001-1.035) Urine Protein 1+ A (Neg - Trace) Urine Glucose (UA) Negative (Negative) Quality Measures Quality Measures none Advance care planning discussed with:: patient and spouse Medications Home Medications and Allergies Home Medications ?Medication ?Instructions ?Recorded ?Confirmed ?Type Alendronate Sodium * (FOSAMAX *) 70 mg PO .MONDAY ##0 08/13/12 12/21/24 History simvastatin 10 mg tablet (Zocor) 10 mg PO HS ##0 08/13/12 12/21/24 History MULTIVITAMIN (MULTI VITAMIN DAILY) 1 tab PO QDAY ##0 08/02/16 12/21/24 History docusate sodium 250 mg capsule 1 cap PO BID ##0 08/02/16 12/21/24 History magnesium hydroxide 400 mg/5 mL 30 ml PO EVERYOTHERDAY 12/14/18 09/20/25 History oral suspension (Milk of Magnesia) polyethylene glycol 3350 17 gram 17 g PO QDAY PRN constipation 03/16/18 12/21/24 History oral powder packet (Miralax) melatonin 10 mg tablet 10 mg PO HS 12/12/23 12/21/24 History olanzapine 2.5 mg tablet 5 mg PO HS 12/12/23 12/21/24 History valbenazine 60 mg capsule 60 mg PO QDAY 12/12/23 12/21/24 History (Ingrezza) cranberry-B.uwgyisblm-H-Qy phos 1 tab PO QDAY 12/25/23 12/21/24 History 480 mg-20 mg-100 million cell tablet (Cranberry-Probiotic) metformin 500 mg tablet 500 mg PO BID 12/25/23 12/21/24 History ibuprofen 400 mg tablet 400 mg PO Q6H PRN pain 07/20/24 12/21/24 History zolpidem 5 mg tablet 5 mg PO QHSPRN 07/20/24 12/21/24 History Held on 12/21/24. Instructions: Order Change lamotrigine 100 mg tablet 100 mg PO BID 12/21/24 12/21/24 History sertraline 100 mg tablet 100 mg PO Q24H 12/21/24 12/21/24 History Allergies Allergy/AdvReac Type Severity Reaction Status Date / Time No Known Allergies Allergy Verified 09/14/24 16:59 Visit Medications Acetaminophen (Acetaminophen 325 Mg Tablet) 650 mg PO Q6H PRN PRN Reason: PAIN OR FEVER > 100.4 Stop: 01/20/25 13:34 Enoxaparin Sodium (Enoxaparin Sod Inj 40 Mg/0.4 Ml Syringe) 40 mg SC QDAY GREG Stop: 01/05/25 08:59 Sodium Chloride (Ns) 1,000 mls @ 250 mls/hr IV .Q4H ONE Stop: 12/21/24 13:50 Last Admin: 12/21/24 10:15 Dose: 250 mls/hr Piperacillin/Tazobactam/Dextrose (Zosyn) 3.375 gm in 50 mls @ 12.5 mls/hr IV Q8HR GREG; Protocol Stop: 12/28/24 21:59 Ondansetron HCl (Ondansetron Inj 2 Mg/Ml Inj 2 Ml) 4 mg IVP Q6H PRN; Protocol PRN Reason: NAUSEA OR VOMITING Stop: 01/20/25 13:34 Discontinued Medications Piperacillin/Tazobactam/Dextrose (Zosyn) 3.375 gm in 50 mls @ 100 mls/hr IV X1 ONE; Protocol Stop: 12/21/24 10:21 Last Infusion: 12/21/24 11:00 Dose: Infused Ondansetron HCl (Ondansetron Inj 2 Mg/Ml Inj 2 Ml) 4 mg IVP X1 ONE; Protocol Stop: 12/21/24 09:54 Last Admin: 12/21/24 10:18 Dose: 4 mg Assessment & Plan Plan Inocencio Hope is a an 79-year-old male with a history of developmental delay, seizure disorder, diabetes mellitus, hyperlipidemia, and ESBL UTIs who is admitted for management of MDR E. coli UTI. #MDR E. coli UTI #History of recurrent UTIs Urine culture grew E. coli only sensitive to Zosyn and carbapenems, thus requiring IV antibiotics. ? Zosyn 3.375 g every 6 hours ? NS at 80 cc/h x 1 given slightly elevated lactic acid #History of seizure disorder ? Lamotrigine 100 mg p.o. twice daily ? PRN benzo for breakthrough seizure #Developmental delay #Depression # ? Tardive dyskinesia Per caregiver, patient's mentation and behavior is at baseline ? Sertraline 200 mg daily ? Ingrezza 60 mg daily #Type 2 diabetes mellitus A1c 5.8% on 12/16/2024 ? SSI ? Hypoglycemic protocol in place #Hyperlipidemia ? Simvastatin 10 mg p.o. daily #Insomnia ? Melatonin 1 tablet p.o. at bedtime #Constipation ? MiraLAX 17 g daily ? Milk of magnesia 30 mL every other day Hospital management: Disposition: IV antibiotics for MDR E. coli Fluids: NS at 80 cc/h x1 Diet: pureed, thickened Lines: PIV DVT prophylaxis: SCDs GI prophylaxis: pantoprazole 40 mg PO daily Byrne: not placed; diaper CODE STATUS: full code ----- Plan discussed with attending physician Dr. Walter Rees MD PGY-2 Internal Medicine Attending Provider Attestation/Addendum Susan Watson MD reviewed the note and agree with the resident's assessment & plan with modifications/additions/exceptions as below. I have personally reviewed labs, imaging, home meds/prior records, examined the patient, formulated and discussed management plan with the IM team. An 79-year-old male with a Hx of developmental delay, seizure disorder, diabetes mellitus, hyperlipidemia, and ESBL UTIs following urine cultures revealing multi-drug resistant E. coli with failed outpatient treatment. Will start on Zosyn as E. coli and urine culture is sensitive. Continue supportive care, seizure medications and pur?ed diet as tolerated.
[2024-12-21 14:00] LABS: Lactic Acid, 3 HR 1.3 mMol/L (0.4-2.0)
[2024-12-21] MEDS: Milk Of Magnesia Susp 30 ML UDC PO (16:23)
[2024-12-21] MEDS: SODIUM CHLORIDE 0.9% 1000 ML 1,000 ML 80 ML IV (16:23)
[2024-12-21] MEDS: SERTRALINE HCL 25 MG TABLET 100 MG PO (16:23)
[2024-12-21] MEDS: MELATONIN 3 MG TABLET 9 MG PO (21:06)
[2024-12-21] MEDS: ATORVASTATIN CALCIUM 10 MG TABLET 5 MG PO (21:08)
[2024-12-21] MEDS: DOCUSATE SOD 250 MG CAPSULE PO (21:10)
[2024-12-21] MEDS: lamoTRIgine 25 MG CHEW 100 MG PO (21:24)
[2024-12-22] VITALS (7 sets, daily range): BP systolic 105–146; BP diastolic 66–92; PULSE 51–88; RESP 18; TEMP 36.1–36.4; O2SAT 94–97
[2024-12-22] MEDS: PIPER/TAZO 3.375 GM PREMIX 3.375 GM/50 ML BAG IV ×3 (05:05→21:57)
[2024-12-22 05:32] LABS: Basophils # (Auto) 0.0 Thou/mm3 (0.0-0.2); Basophils % (Auto) 1 % (0-2.5); Eosinophils # (Auto) 0.2 Thou/mm3 (0.0-0.5); Eosinophils % (Auto) 5 % (0-10); Hematocrit 32.5 % (41.0-53.0); Hemoglobin 10.8 g/dL (13.5-16.0); Immature Granulocytes Auto 0.01 Thou/mm3 (0.00-0.00); Lymphocytes # (Auto) 1.9 Thou/mm3 (1.0-4.8); Lymphocytes % (Auto) 38 % (10-50); Mean Corpuscular HGB Conc 33.2 g/dl (31.0-37.0); Mean Corpuscular Hemoglobin 31.1 pg (25.0-35.0); Mean Corpuscular Volume 94 fL (80-100); Monocytes # (Auto) 0.7 Thou/mm3 (0.0-0.8); Monocytes % (Auto) 14 % (0-12); Neutrophils # (Auto) 2.1 Thou/mm3 (1.8-7.7); Neutrophils % (Auto) 42 % (37-80); Nucleated Red Blood Cell # 0.00 Thou/mm3 (0.00-0.00); Nucleated Red Blood Cell % 0 /100 WBC (0); Platelet Count 152 Thou/mm3 (140-440); RDW Standard Deviation 43.7 fL (35.1-43.9); Red Blood Count 3.47 Miln/mm3 (4.50-5.90); White Blood Count 4.9 Thou/mm3 (3.8-10.6)
[2024-12-22 06:01] LABS: Alanine Aminotransferase 38 U/L (10-49); Albumin, Serum 3.5 gm/dL (3.4-4.8); Albumin/Globulin Ratio 1.5 (1.2-2.2); Alkaline Phosphatase 77 U/L (46-116); Anion Gap 8 (7-16); Aspartate Amino Transferase 26 U/L (0-34); BUN/Creatinine Ratio 20 Ratio (12-20); Bilirubin,Total 0.5 mg/dL (0.3-1.2); Blood Urea Nitrogen 12 mg/dL (9-23); Calcium 8.6 mg/dL (8.3-10.6); Calcium (Corrected) 9.0 mg/dL (8.5-10.1); Carbon Dioxide 28.3 mMol/L (20.0-31.0); Cardiac Risk Estimate 2.6 RATIO (4.0-6.7); Chloride 104 mMol/L (98-107); Cholesterol 127 mg/dL (132-200); Creatinine (Component) 0.6 mg/dL (0.6-1.3); Estimated Creatinine Clearance 84.5 mL/min (>60); Globulin 2.4 gm/dL (2.3-3.5); Glucose 89 mg/dL (74-106); HDL Cholesterol 48 mg/dL (40-60); LDL Cholesterol,Calculated 68 mg/dL (0-130); Magnesium 2.0 mg/dL (1.6-2.6); Osmolality,Calculated 278 (275-295); Phosphorous 3.3 mg/dL (2.4-5.1); Potassium 4.2 mMol/L (3.4-5.1); Sodium 140 mMol/L (136-145); Total Protein 5.9 gm/dL (5.7-8.2); Triglycerides 57 mg/dL (30-150); eGFR > 60 See Note
[2024-12-22] MEDS: SERTRALINE HCL 25 MG TABLET 100 MG PO (09:08)
[2024-12-22] MEDS: DOCUSATE SOD 250 MG CAPSULE PO ×2 (09:08→20:37)
[2024-12-22] MEDS: lamoTRIgine 25 MG CHEW 100 MG PO ×2 (09:08→20:37)
[2024-12-22] MEDS: PANTOPRAZOLE 40 MG TABLET PO (09:08)
[2024-12-22] MEDS: MULTIVITAMINS TABLET 1 TAB PO (09:09)
[2024-12-22] MEDS: ENOXAPARIN SOD INJ 40 MG/0.4 ML SYRINGE SC (09:09)
--- NOTE | 2024-12-22 12:51 | PC.SS ---
Rounding: On IV ABX, DC plan to return to [facility]
--- NOTE | 2024-12-22 13:56 | ESPR_ITS ---
<Statement entered by Yogi Rees MD - 12/22/24 14:54> Note reviewed and agree with care plan as documented. Please refer to the note below for further details. Plan discussed with attending physician Yogi Rees MD PGY-2 Internal Medicine Documentation for date of: 12/22/24 Subjective Subjective Interval history: Patient was seen and examined at bedside. No acute events took place overnight. Patient is accompanied by caregiver at bedside. As patient is nonverbal information is gathered from the caregiver who says that the patient has been afebrile. Patient has been tolerating his diet of pur?e and thick fluids well without nausea or vomiting. He ate all of his food yesterday. Patient able to generate bowel movements and urinates well 3-4 times by 7 PM yesterday. Bowel movement at 3 AM according to the nurse. Exam Vital Signs Temp Pulse Resp BP Pulse Ox O2 Del Method 97.6 F 74 18 125/73 94 L Room Air 12/22/24 11:55 12/22/24 11:55 12/22/24 11:55 12/22/24 11:55 12/22/24 11:55 12/22/24 08:00 Narrative Exam Narrative Exam General: at baseline per caregiver (utters sounds, blanket over face, in diaper/no Byrne) HEENT: NC/AT, mucous membranes moist, bilateral sclera anicteric Cardiovascular: regular rate and rhythm, S1/S2 present, no murmurs appreciated Pulmonary: clear to auscultation bilaterally, no rales/rhonchi/wheezes Abdominal: soft, non-tender, non-distended, no rebound/guarding, normal bowel sounds present Musculoskeletal: lower extremity muscular atrophy; normal ROM, no peripheral edema Skin: warm and dry, intact, no rashes Neuro: CN II-XII intact, no focal deficits Objective Labs 12/22/24 05:00 12/22/24 05:00 Labs: Laboratory Results - last 24 hr 12/21/24 12/22/24 13:43 05:00 WBC 4.9 RBC 3.47 L Hgb 10.8 L Hct 32.5 L MCV 94 MCH 31.1 MCHC 33.2 RDW Std Deviation 43.7 Plt Count 152 D Neut % (Auto) 42 Lymph % (Auto) 38 [place] % (Auto) 14 H Eos % (Auto) 5 Baso % (Auto) 1 Neut # (Auto) 2.1 Lymph # (Auto) 1.9 [place] # (Auto) 0.7 Eos # (Auto) 0.2 Baso # (Auto) 0.0 Immature Gran # (Auto) 0.01 H Absolute Nucleated RBC 0.00 Immature Gran % 0 Nucleated RBC % 0 Sodium 140 Potassium 4.2 Chloride 104 Carbon Dioxide 28.3 Anion Gap 8 BUN 12 Creatinine 0.6 Estim Creat Clear Calc 84.5 eGFR > 60 BUN/Creatinine Ratio 20 Glucose 89 Calculated Osmolality 278 Lactic Acid 1.3 Calcium 8.6 Corrected Calcium 9.0 Phosphorus 3.3 Magnesium 2.0 Total Bilirubin 0.5 AST 26 ALT 38 Alkaline Phosphatase 77 Total Protein 5.9 Albumin 3.5 D Globulin 2.4 Albumin/Globulin Ratio 1.5 Triglycerides 57 Cholesterol 127 L LDL Cholesterol, Calc 68 HDL Cholesterol 48 Cholesterol/HDL Ratio 2.6 L Quality Measures Quality Measures none Advance care planning discussed with:: legal surragate Assessment & Plan Assessment Current Active Medications: Generic Name Dose Route Start Last Admin Trade Name Freq PRN Reason Stop Dose Admin Acetaminophen 650 mg 12/21/24 13:35 Acetaminophen 325 Mg Tablet PO 01/20/25 13:34 Q6H PRN PAIN OR FEVER > 100.4 Atorvastatin Calcium 5 mg 12/21/24 21:00 12/21/24 21:08 Atorvastatin Calcium 10 Mg Tablet PO 01/20/25 20:59 5 mg HS GREG Administration Protocol Dextrose 25 ml 12/21/24 14:31 Dextrose 50%-Water Inj 50 Ml Syringe IV 01/20/25 14:30 Q15MIN PRN BG 50-70 responsive npo pt Dextrose 50 ml 12/21/24 14:31 Dextrose 50%-Water Inj 50 Ml Syringe IV 01/20/25 14:30 Q15MIN PRN BG <50 OR BG <70 & pt unresponsive Docusate Sodium 250 mg 12/21/24 21:00 12/22/24 09:08 Docusate Sod 250 Mg Capsule PO 01/20/25 20:59 250 mg BID GREG Administration Protocol Enoxaparin Sodium 40 mg 12/22/24 09:00 12/22/24 09:09 Enoxaparin Sod Inj 40 Mg/0.4 Ml Syringe SC 01/05/25 08:59 40 mg QDAY GREG Administration Glucagon 1 mg 12/21/24 14:31 Glucagon Inj 1 Mg Vial IM Q15MIN PRN BG <70, and no IV access Piperacillin/Tazobactam/Dextrose 3.375 gm in 50 mls @ 12.5 mls/hr 12/21/24 22:00 12/22/24 13:45 Zosyn IV 12/28/24 21:59 12.5 mls/hr Q8HR GREG Administration Protocol Insulin Human Lispro 0 unit 12/21/24 17:00 12/22/24 12:51 Insulin Lispro (Admelog) 1 Unit/0.01 Ml Unit SC 01/20/25 16:59 Not Given AC GREG Protocol Lamotrigine 100 mg 12/21/24 21:05 12/22/24 09:08 Lamotrigine 25 Mg Chew PO 01/20/25 20:59 100 mg BID GREG Administration Magnesium Hydroxide 30 ml 12/21/24 14:45 12/21/24 16:23 Milk Of Magnesia Susp 30 Ml Udc PO 01/20/25 14:44 30 ml QOD GREG Administration Protocol Melatonin 9 mg 12/21/24 21:00 12/21/24 21:06 Melatonin 3 Mg Tablet PO 01/20/25 20:59 9 mg HS GREG Administration Multivitamins 1 tab 12/22/24 09:00 12/22/24 09:09 Multivitamins Tablet PO 01/21/25 08:59 1 tab QDAY GREG Administration Non-Formulary Medication 60 mg 12/22/24 09:00 Valbenazine [Ingrezza] PO 01/21/25 08:59 QDAY GREG Olanzapine 5 mg 12/21/24 21:00 12/21/24 21:10 Olanzapine 5 Mg Tablet PO 01/20/25 20:59 5 mg HS GREG Administration Ondansetron HCl 4 mg 12/21/24 13:35 Ondansetron Inj 2 Mg/Ml Inj 2 Ml IVP 01/20/25 13:34 Q6H PRN NAUSEA OR VOMITING Protocol Pantoprazole Sodium 40 mg 12/22/24 09:00 12/22/24 09:08 Pantoprazole 40 Mg Tablet PO 01/21/25 08:59 40 mg QDAY GREG Administration Polyethylene Glycol 17 gm 12/21/24 14:32 Polyethylene Glycol 17 Gm Packet PO 01/20/25 14:31 QDAY PRN CONSTIPATION Protocol Sertraline HCl 100 mg 12/21/24 14:45 12/22/24 09:08 Sertraline Hcl 25 Mg Tablet PO 01/20/25 14:44 100 mg QDAY GREG Administration Plan Inocencio Hope is a an 79-year-old male with a history of developmental delay, seizure disorder, diabetes mellitus, hyperlipidemia, and ESBL UTIs who presents after urine cultures showed multi-drug resistant E. coli on urine culture. #MDR E. coli UTI #History of recurrent UTIs Urine culture grew E. coli only sensitive to Zosyn and carbapenems, thus requiring IV antibiotics. Blood culture negative after 24 hours for 2/2 samples. ? Zosyn 3.375 g every 6 hours ? NS at 80 cc/h x 1 given slightly elevated lactic acid ? Pending ID recommendation for outpatient antibiotics #History of seizure disorder ? Lamotrigine 100 mg p.o. twice daily ? PRN benzo for breakthrough seizure #Developmental delay #Depression # ? Tardive dyskinesia Per caregiver, patient's mentation and behavior is at baseline ? Sertraline 200 mg daily ? Ingrezza 60 mg daily #Type 2 diabetes mellitus A1c 5.8% on 12/16/2024 ? SSI ? Hypoglycemic protocol in place #Hyperlipidemia ? Simvastatin 10 mg p.o. daily #Insomnia ? Melatonin 1 tablet p.o. at bedtime #Constipation ? MiraLAX 17 g daily ? Milk of magnesia 30 mL every other day Hospital management: Disposition: IV antibiotics for MDR E. coli Fluids: NS at 80 cc/h x1 Diet: pureed, thickened Lines: PIV DVT prophylaxis: SCDs GI prophylaxis: pantoprazole 40 mg PO daily Byrne: not placed; diaper CODE STATUS: full code This case was discussed with my attending physician, Dr. Watson, and senior resident, Dr Cabrera Engel. Elif Castro, DO PGY I Attending Provider Attestation/Addendum I Aida Watson MD reviewed the note and agree with the resident's assessment & plan with modifications/additions/exceptions as below. I have personally reviewed labs, imaging, home meds/prior records, examined the patient, formulated and discussed management plan with the IM team. An 79-year-old male with a Hx of developmental delay, seizure disorder, diabetes mellitus, hyperlipidemia, and ESBL UTIs following urine cultures revealing multi-drug resistant E. coli with failed outpatient treatment. Will start on Zosyn as E. coli and urine culture is sensitive. Continue supportive care, seizure medications and pur?ed diet as tolerated. Will consult ID regarding antibiotic selection for outpatient management.
--- NOTE | 2024-12-22 18:15 | PC.NURSE ---
I let the caregiver know that [facility]'s pharmacy doesn't carry Ingrezza if they can bring it from the home
[2024-12-22] MEDS: MELATONIN 3 MG TABLET 9 MG PO (20:35)
[2024-12-22] MEDS: ATORVASTATIN CALCIUM 10 MG TABLET 5 MG PO (20:35)
[2024-12-23 04:00] VITALS: BP 128/67; PULSE 68; RESP 20; TEMP 36.2; O2SAT 95
[2024-12-23] MEDS: PIPER/TAZO 3.375 GM PREMIX 3.375 GM/50 ML BAG IV ×3 (05:06→21:02)
[2024-12-23] MEDS: ACETAMINOPHEN 325 MG TABLET 650 MG PO (05:31)
[2024-12-23 06:03] LABS: Basophils # (Auto) 0.0 Thou/mm3 (0.0-0.2); Basophils % (Auto) 1 % (0-2.5); Eosinophils # (Auto) 0.2 Thou/mm3 (0.0-0.5); Eosinophils % (Auto) 3 % (0-10); Hematocrit 36.3 % (41.0-53.0); Hemoglobin 12.3 g/dL (13.5-16.0); Immature Granulocytes Auto 0.01 Thou/mm3 (0.00-0.00); Lymphocytes # (Auto) 2.4 Thou/mm3 (1.0-4.8); Lymphocytes % (Auto) 41 % (10-50); Mean Corpuscular HGB Conc 33.9 g/dl (31.0-37.0); Mean Corpuscular Hemoglobin 31.2 pg (25.0-35.0); Mean Corpuscular Volume 92 fL (80-100); Monocytes # (Auto) 0.8 Thou/mm3 (0.0-0.8); Monocytes % (Auto) 13 % (0-12); Neutrophils # (Auto) 2.4 Thou/mm3 (1.8-7.7); Neutrophils % (Auto) 41 % (37-80); Nucleated Red Blood Cell # 0.00 Thou/mm3 (0.00-0.00); Nucleated Red Blood Cell % 0 /100 WBC (0); Platelet Count 175 Thou/mm3 (140-440); RDW Standard Deviation 42.5 fL (35.1-43.9); Red Blood Count 3.94 Miln/mm3 (4.50-5.90); White Blood Count 5.7 Thou/mm3 (3.8-10.6)
[2024-12-23 06:36] LABS: Alanine Aminotransferase 44 U/L (10-49); Albumin, Serum 4.1 gm/dL (3.4-4.8); Albumin/Globulin Ratio 1.3 (1.2-2.2); Alkaline Phosphatase 82 U/L (46-116); Anion Gap 9 (7-16); Aspartate Amino Transferase 37 U/L (0-34); BUN/Creatinine Ratio 21 Ratio (12-20); Bilirubin,Total 0.6 mg/dL (0.3-1.2); Blood Urea Nitrogen 17 mg/dL (9-23); Calcium 9.3 mg/dL (8.3-10.6); Calcium (Corrected) 9.3 mg/dL (8.5-10.1); Carbon Dioxide 27.3 mMol/L (20.0-31.0); Chloride 104 mMol/L (98-107); Creatinine (Component) 0.8 mg/dL (0.6-1.3); Estimated Creatinine Clearance 63.4 mL/min (>60); Globulin 3.1 gm/dL (2.3-3.5); Glucose 79 mg/dL (74-106); Magnesium 2.5 mg/dL (1.6-2.6); Osmolality,Calculated 279 (275-295); Phosphorous 3.1 mg/dL (2.4-5.1); Potassium 4.2 mMol/L (3.4-5.1); Sodium 140 mMol/L (136-145); Total Protein 7.2 gm/dL (5.7-8.2); eGFR > 60 See Note
[2024-12-23 08:00] VITALS: BP 136/72; PULSE 69; RESP 20; TEMP 35.7; O2SAT 96
[2024-12-23] MEDS: lamoTRIgine 25 MG CHEW 100 MG PO ×2 (09:38→20:55)
[2024-12-23] MEDS: PANTOPRAZOLE 40 MG TABLET PO (09:38)
[2024-12-23] MEDS: Milk Of Magnesia Susp 30 ML UDC PO (09:38)
[2024-12-23] MEDS: SERTRALINE HCL 25 MG TABLET 100 MG PO (09:38)
[2024-12-23] MEDS: DOCUSATE SOD 250 MG CAPSULE PO ×2 (09:38→20:55)
[2024-12-23] MEDS: ENOXAPARIN SOD INJ 40 MG/0.4 ML SYRINGE SC (09:38)
[2024-12-23] MEDS: MULTIVITAMINS TABLET 1 TAB PO (09:38)
[2024-12-23 11:50] VITALS: BP 140/76; PULSE 73; RESP 20; TEMP 36.3; O2SAT 95
--- NOTE | 2024-12-23 13:37 | PD.ADDPROG ---
Addendum Progress Note Addendum Date of report being addended: 12/23/24 Narrative: I Aida Watson MD reviewed the note and agree with the resident's assessment & plan with modifications/additions/exceptions as below. I have personally reviewed labs, imaging, home meds/prior records, examined the patient, formulated and discussed management plan with the IM team. An 79-year-old male with a Hx of developmental delay, seizure disorder, diabetes mellitus, hyperlipidemia, and ESBL UTIs following urine cultures revealing multi-drug resistant E. coli with failed outpatient treatment. Continue Zosyn as E. coli and urine culture is sensitive. Continue supportive care, seizure medications and pur?ed diet as tolerated. Will consult ID regarding antibiotic selection for outpatient management.
--- NOTE | 2024-12-23 15:05 | ESPR_ITS ---
<Statement entered by Yogi Rees MD - 12/23/24 15:13> Note reviewed and agree with care plan as documented. Please refer to the note below for further details. Plan discussed with attending physician Dr. Walter Rees MD PGY-2 Internal Medicine Documentation for date of: 12/23/24 Subjective Subjective Interval history: Patient was seen and examined at bedside. No acute events took place overnight. Noted to have temperature 96.2, which the caregiver states is within his baseline of 96-97. Patient was agitated this morning but was accompanied by caregiver at bedside. Patient able to generate BM and urinate, although needed brief. [place] from caregiver that patient will see a urologist in [place] outpatient upon discharge. Exam Vital Signs Temp Pulse Resp BP Pulse Ox O2 Del Method 97.3 F 73 20 140/76 H 95 Room Air 12/23/24 11:50 12/23/24 11:50 12/23/24 11:50 12/23/24 11:50 12/23/24 11:50 12/23/24 11:50 Narrative Exam Narrative Exam General: at baseline per caregiver (utters sounds, blanket over face, in diaper/no Byrne) HEENT: NC/AT, mucous membranes moist, bilateral sclera anicteric Cardiovascular: regular rate and rhythm, S1/S2 present, no murmurs appreciated Pulmonary: clear to auscultation bilaterally, no rales/rhonchi/wheezes Abdominal: soft, non-tender, non-distended, no rebound/guarding, normal bowel sounds present Musculoskeletal: lower extremity muscular atrophy; normal ROM, no peripheral edema Skin: warm and dry, intact, no rashes Neuro: CN II-XII intact, no focal deficits Objective Labs 12/23/24 05:31 12/23/24 05:31 Labs: Laboratory Results - last 24 hr 12/23/24 05:31 WBC 5.7 RBC 3.94 L Hgb 12.3 L Hct 36.3 L MCV 92 MCH 31.2 MCHC 33.9 RDW Std Deviation 42.5 Plt Count 175 Neut % (Auto) 41 Lymph % (Auto) 41 [place] % (Auto) 13 H Eos % (Auto) 3 Baso % (Auto) 1 Neut # (Auto) 2.4 Lymph # (Auto) 2.4 [place] # (Auto) 0.8 Eos # (Auto) 0.2 Baso # (Auto) 0.0 Immature Gran # (Auto) 0.01 H Absolute Nucleated RBC 0.00 Immature Gran % 0 Nucleated RBC % 0 Sodium 140 Potassium 4.2 Chloride 104 Carbon Dioxide 27.3 Anion Gap 9 BUN 17 Creatinine 0.8 Estim Creat Clear Calc 63.4 eGFR > 60 BUN/Creatinine Ratio 21 H Glucose 79 Calculated Osmolality 279 Calcium 9.3 Corrected Calcium 9.3 Phosphorus 3.1 Magnesium 2.5 Total Bilirubin 0.6 AST 37 H ALT 44 Alkaline Phosphatase 82 Total Protein 7.2 Albumin 4.1 D Globulin 3.1 Albumin/Globulin Ratio 1.3 Quality Measures Quality Measures none Advance care planning discussed with:: legal surragate Assessment & Plan Assessment Current Active Medications: Generic Name Dose Route Start Last Admin Trade Name Freq PRN Reason Stop Dose Admin Acetaminophen 650 mg 12/21/24 13:35 12/23/24 05:31 Acetaminophen 325 Mg Tablet PO 01/20/25 13:34 650 mg Q6H PRN Administration PAIN OR FEVER > 100.4 Atorvastatin Calcium 5 mg 12/21/24 21:00 12/22/24 20:35 Atorvastatin Calcium 10 Mg Tablet PO 01/20/25 20:59 5 mg HS GREG Administration Protocol Dextrose 25 ml 12/21/24 14:31 Dextrose 50%-Water Inj 50 Ml Syringe IV 01/20/25 14:30 Q15MIN PRN BG 50-70 responsive npo pt Dextrose 50 ml 12/21/24 14:31 Dextrose 50%-Water Inj 50 Ml Syringe IV 01/20/25 14:30 Q15MIN PRN BG <50 OR BG <70 & pt unresponsive Docusate Sodium 250 mg 12/21/24 21:00 12/23/24 09:38 Docusate Sod 250 Mg Capsule PO 01/20/25 20:59 250 mg BID GREG Administration Protocol Enoxaparin Sodium 40 mg 12/22/24 09:00 12/23/24 09:38 Enoxaparin Sod Inj 40 Mg/0.4 Ml Syringe SC 01/05/25 08:59 40 mg QDAY GREG Administration Glucagon 1 mg 12/21/24 14:31 Glucagon Inj 1 Mg Vial IM Q15MIN PRN BG <70, and no IV access Piperacillin/Tazobactam/Dextrose 3.375 gm in 50 mls @ 12.5 mls/hr 12/21/24 22:00 12/23/24 13:52 Zosyn IV 12/28/24 21:59 12.5 mls/hr Q8HR GREG Administration Protocol Insulin Human Lispro 0 unit 12/21/24 17:00 12/23/24 12:14 Insulin Lispro (Admelog) 1 Unit/0.01 Ml Unit SC 01/20/25 16:59 Not Given AC GREG Protocol Lamotrigine 100 mg 12/21/24 21:05 12/23/24 09:38 Lamotrigine 25 Mg Chew PO 01/20/25 20:59 100 mg BID GREG Administration Magnesium Hydroxide 30 ml 12/21/24 14:45 12/23/24 09:38 Milk Of Magnesia Susp 30 Ml Udc PO 01/20/25 14:44 30 ml QOD GREG Administration Protocol Melatonin 9 mg 12/21/24 21:00 12/22/24 20:35 Melatonin 3 Mg Tablet PO 01/20/25 20:59 9 mg HS GREG Administration Multivitamins 1 tab 12/22/24 09:00 12/23/24 09:38 Multivitamins Tablet PO 01/21/25 08:59 1 tab QDAY GREG Administration Non-Formulary Medication 60 mg 12/22/24 09:00 Valbenazine [Ingrezza] PO 01/21/25 08:59 QDAY GREG Olanzapine 5 mg 12/21/24 21:00 12/22/24 20:36 Olanzapine 5 Mg Tablet PO 01/20/25 20:59 5 mg HS GREG Administration Ondansetron HCl 4 mg 12/21/24 13:35 Ondansetron Inj 2 Mg/Ml Inj 2 Ml IVP 01/20/25 13:34 Q6H PRN NAUSEA OR VOMITING Protocol Pantoprazole Sodium 40 mg 12/22/24 09:00 12/23/24 09:38 Pantoprazole 40 Mg Tablet PO 01/21/25 08:59 40 mg QDAY GREG Administration Polyethylene Glycol 17 gm 12/21/24 14:32 Polyethylene Glycol 17 Gm Packet PO 01/20/25 14:31 QDAY PRN CONSTIPATION Protocol Sertraline HCl 100 mg 12/21/24 14:45 12/23/24 09:38 Sertraline Hcl 25 Mg Tablet PO 01/20/25 14:44 100 mg QDAY GREG Administration Plan Inocencio Hope is a an 79-year-old male with a history of developmental delay, seizure disorder, diabetes mellitus, hyperlipidemia, and ESBL UTIs who presents after urine cultures showed multi-drug resistant E. coli on urine culture. #MDR E. coli UTI #History of recurrent UTIs Urine culture grew E. coli only sensitive to Zosyn and carbapenems, thus requiring IV antibiotics. Blood culture negative after 24 hours for 2/2 samples. Patient will follow-up with a urologist in [place] upon discharge according to [facility] charge nurse. ? Zosyn 3.375 g every 6 hours (12/21 -) ? NS at 80 cc/h x 1 given slightly elevated lactic acid ? Pending ID recommendation for outpatient antibiotics #History of seizure disorder ? Lamotrigine 100 mg p.o. twice daily ? PRN benzo for breakthrough seizure #Developmental delay #Depression #Tardive dyskinesia Per caregiver, patient's mentation and behavior is at baseline ? Sertraline 200 mg daily ? Ingrezza 60 mg daily ? Clonazepam PO 0.5 mg in substitution for home valbenazine while inpatient #Type 2 diabetes mellitus A1c 5.8% on 12/16/2024 ? SSI ? Hypoglycemic protocol in place #Hyperlipidemia ? Simvastatin 10 mg p.o. daily #Insomnia ? Melatonin 1 tablet p.o. at bedtime #Constipation ? MiraLAX 17 g daily ? Milk of magnesia 30 mL every other day Hospital management: Disposition: IV antibiotics for MDR E. coli Fluids: NS at 80 cc/h x1 Diet: pureed, thickened Lines: PIV DVT prophylaxis: SCDs GI prophylaxis: pantoprazole 40 mg PO daily Byrne: not placed; diaper CODE STATUS: full code This case was discussed with my attending physician, Dr. Watson, and senior resident, Dr Cabrera Engel. Elif Castro, DO PGY I
[2024-12-23 16:00] VITALS: BP 160/84; PULSE 59; RESP 18; TEMP 36.6; O2SAT 96
[2024-12-23 20:00] VITALS: BP 107/65; PULSE 68; RESP 16; TEMP 36.8; O2SAT 97
[2024-12-23] MEDS: ATORVASTATIN CALCIUM 10 MG TABLET 5 MG PO (20:54)
[2024-12-23] MEDS: MELATONIN 3 MG TABLET 9 MG PO (20:54)
[2024-12-24] VITALS (8 sets, daily range): BP systolic 98–138; BP diastolic 51–65; PULSE 55–96; RESP 16–20; TEMP 36.2–36.7; O2SAT 93–97; BMI 20.7
[2024-12-24 05:23] LABS: Basophils # (Auto) 0.0 Thou/mm3 (0.0-0.2); Basophils % (Auto) 1 % (0-2.5); Eosinophils # (Auto) 0.2 Thou/mm3 (0.0-0.5); Eosinophils % (Auto) 4 % (0-10); Hematocrit 38.0 % (41.0-53.0); Hemoglobin 12.7 g/dL (13.5-16.0); Immature Granulocytes Auto 0.01 Thou/mm3 (0.00-0.00); Lymphocytes # (Auto) 2.2 Thou/mm3 (1.0-4.8); Lymphocytes % (Auto) 39 % (10-50); Mean Corpuscular HGB Conc 33.4 g/dl (31.0-37.0); Mean Corpuscular Hemoglobin 31.5 pg (25.0-35.0); Mean Corpuscular Volume 94 fL (80-100); Monocytes # (Auto) 0.7 Thou/mm3 (0.0-0.8); Monocytes % (Auto) 12 % (0-12); Neutrophils # (Auto) 2.5 Thou/mm3 (1.8-7.7); Neutrophils % (Auto) 44 % (37-80); Nucleated Red Blood Cell # 0.00 Thou/mm3 (0.00-0.00); Nucleated Red Blood Cell % 0 /100 WBC (0); Platelet Count 181 Thou/mm3 (140-440); RDW Standard Deviation 45.0 fL (35.1-43.9); Red Blood Count 4.03 Miln/mm3 (4.50-5.90); White Blood Count 5.7 Thou/mm3 (3.8-10.6)
[2024-12-24 05:41] LABS: Alanine Aminotransferase 38 U/L (10-49); Albumin, Serum 3.9 gm/dL (3.4-4.8); Albumin/Globulin Ratio 1.3 (1.2-2.2); Alkaline Phosphatase 79 U/L (46-116); Anion Gap 8 (7-16); Aspartate Amino Transferase 30 U/L (0-34); BUN/Creatinine Ratio 15 Ratio (12-20); Bilirubin,Total 0.5 mg/dL (0.3-1.2); Blood Urea Nitrogen 15 mg/dL (9-23); Calcium 9.5 mg/dL (8.3-10.6); Calcium (Corrected) 9.6 mg/dL (8.5-10.1); Carbon Dioxide 29.3 mMol/L (20.0-31.0); Chloride 108 mMol/L (98-107); Creatinine (Component) 1.0 mg/dL (0.6-1.3); Estimated Creatinine Clearance 50.7 mL/min (>60); Globulin 2.9 gm/dL (2.3-3.5); Glucose 99 mg/dL (74-106); Magnesium 2.4 mg/dL (1.6-2.6); Osmolality,Calculated 289 (275-295); Phosphorous 3.8 mg/dL (2.4-5.1); Potassium 4.1 mMol/L (3.4-5.1); Sodium 145 mMol/L (136-145); Total Protein 6.8 gm/dL (5.7-8.2); eGFR > 60 See Note
[2024-12-24] MEDS: PIPER/TAZO 3.375 GM PREMIX 3.375 GM/50 ML BAG IV ×3 (06:00→21:14)
[2024-12-24] MEDS: ENOXAPARIN SOD INJ 40 MG/0.4 ML SYRINGE SC (09:02)
[2024-12-24] MEDS: DOCUSATE SOD 250 MG CAPSULE PO ×2 (09:02→21:14)
[2024-12-24] MEDS: SERTRALINE HCL 25 MG TABLET 100 MG PO (09:02)
[2024-12-24] MEDS: PANTOPRAZOLE 40 MG TABLET PO (09:02)
[2024-12-24] MEDS: MULTIVITAMINS TABLET 1 TAB PO (09:02)
[2024-12-24] MEDS: lamoTRIgine 25 MG CHEW 100 MG PO ×2 (09:02→21:14)
[2024-12-24] MEDS: INSULIN LISPRO (AdmeLOG) 1 UNIT/0.01 ML UNIT SC (11:28)
--- NOTE | 2024-12-24 11:45 | PC.NURSE ---
Dr. Cohen at bedside per MD patient is on antibiotic for UTI, contact precaution can be removed.
--- NOTE | 2024-12-24 13:22 | ESPR_ITS ---
<Statement entered by Yogi Rees MD - 12/24/24 19:23> Note reviewed and agree with care plan as documented. Please refer to the note below for further details. Plan discussed with attending physician Dr. Neftaly Rees MD PGY-2 Internal Medicine Documentation for date of: 12/24/24 Subjective Subjective Interval history: Patient was seen and examined at bedside. No acute events took place overnight. Patient is accompanied by caregiver at bedside. As patient is nonverbal information is gathered from the caregiver who says that the patient has been more agitated, restless. Patient tolerated breakfast of pur?e and milk well without nausea or vomiting. He ate all of his food yesterday. Patient able to generate bowel movements and urinates well. Temperature 97.4 measured at bedside improved from yesterday as the fan was running on in front of the patient. Exam Vital Signs Temp Pulse Resp BP Pulse Ox O2 Del Method 97.6 F 68 18 104/51 L 93 L Room Air 12/24/24 11:20 12/24/24 11:20 12/24/24 11:20 12/24/24 11:20 12/24/24 11:20 12/24/24 11:20 Narrative Exam Narrative Exam General: at baseline per caregiver (utters sounds, blanket over face, in diaper/no Byrne) HEENT: NC/AT, mucous membranes moist, bilateral sclera anicteric Cardiovascular: regular rate and rhythm, S1/S2 present, no murmurs appreciated Pulmonary: clear to auscultation bilaterally, no rales/rhonchi/wheezes Abdominal: soft, non-tender, non-distended, no rebound/guarding, normal bowel sounds present Musculoskeletal: lower extremity muscular atrophy; normal ROM, no peripheral edema Skin: warm and dry, intact, no rashes Neuro: CN II-XII intact, no focal deficits. Patient exhibiting dysknesia with repeated long range choreiform movements of the upper extremities. Tardive dysknesia in the face with tongue protrusion and mouthing. . Objective Labs 12/24/24 04:34 12/24/24 04:34 Labs: Laboratory Results - last 24 hr 12/24/24 04:34 WBC 5.7 RBC 4.03 L Hgb 12.7 L Hct 38.0 L MCV 94 MCH 31.5 MCHC 33.4 RDW Std Deviation 45.0 H Plt Count 181 Neut % (Auto) 44 Lymph % (Auto) 39 [place] % (Auto) 12 Eos % (Auto) 4 Baso % (Auto) 1 Neut # (Auto) 2.5 Lymph # (Auto) 2.2 [place] # (Auto) 0.7 Eos # (Auto) 0.2 Baso # (Auto) 0.0 Immature Gran # (Auto) 0.01 H Absolute Nucleated RBC 0.00 Immature Gran % 0 Nucleated RBC % 0 Sodium 145 Potassium 4.1 Chloride 108 H Carbon Dioxide 29.3 Anion Gap 8 BUN 15 Creatinine 1.0 Estim Creat Clear Calc 50.7 L eGFR > 60 BUN/Creatinine Ratio 15 Glucose 99 Calculated Osmolality 289 Calcium 9.5 Corrected Calcium 9.6 Phosphorus 3.8 Magnesium 2.4 Total Bilirubin 0.5 AST 30 ALT 38 Alkaline Phosphatase 79 Total Protein 6.8 Albumin 3.9 Globulin 2.9 Albumin/Globulin Ratio 1.3 Quality Measures Quality Measures none Advance care planning discussed with:: legal surragate Assessment & Plan Assessment Current Active Medications: Generic Name Dose Route Start Last Admin Trade Name Freq PRN Reason Stop Dose Admin Acetaminophen 650 mg 12/21/24 13:35 12/23/24 05:31 Acetaminophen 325 Mg Tablet PO 01/20/25 13:34 650 mg Q6H PRN Administration PAIN OR FEVER > 100.4 Atorvastatin Calcium 5 mg 12/21/24 21:00 12/23/24 20:54 Atorvastatin Calcium 10 Mg Tablet PO 01/20/25 20:59 5 mg HS GREG Administration Protocol Clonazepam 0.5 mg 12/24/24 09:45 12/24/24 09:49 Clonazepam 0.5 Mg Tablet PO 12/29/24 09:44 0.5 mg QDAY GREG Administration Dextrose 25 ml 12/21/24 14:31 Dextrose 50%-Water Inj 50 Ml Syringe IV 01/20/25 14:30 Q15MIN PRN BG 50-70 responsive npo pt Dextrose 50 ml 12/21/24 14:31 Dextrose 50%-Water Inj 50 Ml Syringe IV 01/20/25 14:30 Q15MIN PRN BG <50 OR BG <70 & pt unresponsive Docusate Sodium 250 mg 12/21/24 21:00 12/24/24 09:02 Docusate Sod 250 Mg Capsule PO 01/20/25 20:59 250 mg BID GREG Administration Protocol Enoxaparin Sodium 40 mg 12/22/24 09:00 12/24/24 09:02 Enoxaparin Sod Inj 40 Mg/0.4 Ml Syringe SC 01/05/25 08:59 40 mg QDAY GREG Administration Glucagon 1 mg 12/21/24 14:31 Glucagon Inj 1 Mg Vial IM Q15MIN PRN BG <70, and no IV access Piperacillin/Tazobactam/Dextrose 3.375 gm in 50 mls @ 12.5 mls/hr 12/21/24 22:00 12/24/24 06:00 Zosyn IV 12/28/24 21:59 12.5 mls/hr Q8HR GREG Administration Protocol Insulin Human Lispro 0 unit 12/21/24 17:00 12/24/24 11:28 Insulin Lispro (Admelog) 1 Unit/0.01 Ml Unit SC 01/20/25 16:59 1 unit AC GREG Administration Protocol Lamotrigine 100 mg 12/21/24 21:05 12/24/24 09:02 Lamotrigine 25 Mg Chew PO 01/20/25 20:59 100 mg BID GREG Administration Magnesium Hydroxide 30 ml 12/21/24 14:45 12/23/24 09:38 Milk Of Magnesia Susp 30 Ml Udc PO 01/20/25 14:44 30 ml QOD GREG Administration Protocol Melatonin 9 mg 12/21/24 21:00 12/23/24 20:54 Melatonin 3 Mg Tablet PO 01/20/25 20:59 9 mg HS GREG Administration Multivitamins 1 tab 12/22/24 09:00 12/24/24 09:02 Multivitamins Tablet PO 01/21/25 08:59 1 tab QDAY GREG Administration Olanzapine 5 mg 12/21/24 21:00 12/23/24 20:54 Olanzapine 5 Mg Tablet PO 01/20/25 20:59 5 mg HS GREG Administration Ondansetron HCl 4 mg 12/21/24 13:35 Ondansetron Inj 2 Mg/Ml Inj 2 Ml IVP 01/20/25 13:34 Q6H PRN NAUSEA OR VOMITING Protocol Pantoprazole Sodium 40 mg 12/22/24 09:00 12/24/24 09:02 Pantoprazole 40 Mg Tablet PO 01/21/25 08:59 40 mg QDAY GREG Administration Polyethylene Glycol 17 gm 12/21/24 14:32 Polyethylene Glycol 17 Gm Packet PO 01/20/25 14:31 QDAY PRN CONSTIPATION Protocol Sertraline HCl 100 mg 12/21/24 14:45 12/24/24 09:02 Sertraline Hcl 25 Mg Tablet PO 01/20/25 14:44 100 mg QDAY GREG Administration Plan Inocencio Hope is a an 79-year-old male with a history of developmental delay, seizure disorder, diabetes mellitus, hyperlipidemia, and ESBL UTIs who presents after urine cultures showed multi-drug resistant E. coli on urine culture. #MDR E. coli UTI #History of recurrent UTIs Urine culture grew E. coli only sensitive to Zosyn and carbapenems, thus requiring IV antibiotics. Blood culture negative after 24 hours for 2/2 samples. Patient will follow-up with a urologist in [place] upon discharge according to [facility] charge nurse. ? Zosyn 3.375 g every 6 hours (12/21 -) ? NS at 80 cc/h x 1 given slightly elevated lactic acid ? Pending ID recommendation for outpatient antibiotics #History of seizure disorder ? Lamotrigine 100 mg p.o. twice daily ? PRN benzo for breakthrough seizure #Developmental delay #Depression #Tardive dyskinesia #Respiratory Distress Per caregiver, patient's mentation and behavior is at baseline ? Sertraline 200 mg daily ? Ingrezza 60 mg daily ? Clonazepam PO 0.5 mg daily in substitution for home valbenazine while inpatient - ordered quaifenesin PO 200mg syrup x1 - DuoNebs Q6h RT #Type 2 diabetes mellitus A1c 5.8% on 12/16/2024 ? SSI ? Hypoglycemic protocol in place #Hyperlipidemia ? Simvastatin 10 mg p.o. daily #Insomnia ? Melatonin 1 tablet p.o. at bedtime #Constipation ? MiraLAX 17 g daily ? Milk of magnesia 30 mL every other day Hospital management: Disposition: IV antibiotics for MDR E. coli Fluids: NS at 80 cc/h x1 Diet: pureed, thickened Lines: PIV DVT prophylaxis: SCDs GI prophylaxis: pantoprazole 40 mg PO daily Byrne: not placed; diaper CODE STATUS: full code This case was discussed with my attending physician, Dr. Higginbotham, and senior resident, Dr. Cabrera Engel. Elif Castro, DO PGY I Attending Provider Attestation/Addendum I attest that I was physically present for the evaluation, physical examination, lab and imaging review of the patient with the residents. I discussed the case with the residents and agree with the findings and plans of care as documented above. Patient seen and examined at bedside this morning. Appears comfortable. Vital signs are stable. Lab results are stable as well. Continues to be on IV antibiotics for MDR E. coli UTI. Blood culture has been negative for more than 48 hours. Patient has failed outpatient oral antibiotic treatment, we will continue with IV antibiotics to complete the course. Vivi Higginbotham MD
[2024-12-24] MEDS: guaiFENesin SYRUP 200 MG/10 ML UDC PO (14:09)
[2024-12-24] MEDS: ALBUTEROL/IPRATROPIUM (Duoneb) RT SOL 3 ML NEBU INH (18:22)
[2024-12-24] MEDS: MELATONIN 3 MG TABLET 9 MG PO (21:13)
[2024-12-24] MEDS: ATORVASTATIN CALCIUM 10 MG TABLET 5 MG PO (21:14)
[2024-12-25] VITALS (7 sets, daily range): BP systolic 107–135; BP diastolic 57–72; PULSE 60–87; RESP 16–20; TEMP 36.1–36.6; O2SAT 18–98
[2024-12-25] MEDS: ALBUTEROL/IPRATROPIUM (Duoneb) RT SOL 3 ML NEBU INH ×2 (01:26→06:27)
[2024-12-25] MEDS: PIPER/TAZO 3.375 GM PREMIX 3.375 GM/50 ML BAG IV (05:30)
[2024-12-25 05:50] LABS: Basophils # (Auto) 0.0 Thou/mm3 (0.0-0.2); Basophils % (Auto) 0 % (0-2.5); Eosinophils # (Auto) 0.2 Thou/mm3 (0.0-0.5); Eosinophils % (Auto) 4 % (0-10); Hematocrit 37.0 % (41.0-53.0); Hemoglobin 12.6 g/dL (13.5-16.0); Immature Granulocytes Auto 0.01 Thou/mm3 (0.00-0.00); Lymphocytes # (Auto) 2.1 Thou/mm3 (1.0-4.8); Lymphocytes % (Auto) 36 % (10-50); Mean Corpuscular HGB Conc 34.1 g/dl (31.0-37.0); Mean Corpuscular Hemoglobin 32.0 pg (25.0-35.0); Mean Corpuscular Volume 94 fL (80-100); Monocytes # (Auto) 0.6 Thou/mm3 (0.0-0.8); Monocytes % (Auto) 11 % (0-12); Neutrophils # (Auto) 2.8 Thou/mm3 (1.8-7.7); Neutrophils % (Auto) 49 % (37-80); Nucleated Red Blood Cell # 0.00 Thou/mm3 (0.00-0.00); Nucleated Red Blood Cell % 0 /100 WBC (0); Platelet Count 167 Thou/mm3 (140-440); RDW Standard Deviation 44.6 fL (35.1-43.9); Red Blood Count 3.94 Miln/mm3 (4.50-5.90); White Blood Count 5.7 Thou/mm3 (3.8-10.6)
[2024-12-25 06:13] LABS: Alanine Aminotransferase 45 U/L (10-49); Albumin, Serum 3.9 gm/dL (3.4-4.8); Albumin/Globulin Ratio 1.3 (1.2-2.2); Alkaline Phosphatase 78 U/L (46-116); Anion Gap 12 (7-16); Aspartate Amino Transferase 41 U/L (0-34); BUN/Creatinine Ratio 19 Ratio (12-20); Bilirubin,Total 0.6 mg/dL (0.3-1.2); Blood Urea Nitrogen 15 mg/dL (9-23); Calcium 9.4 mg/dL (8.3-10.6); Calcium (Corrected) 9.5 mg/dL (8.5-10.1); Carbon Dioxide 28.5 mMol/L (20.0-31.0); Chloride 106 mMol/L (98-107); Creatinine (Component) 0.8 mg/dL (0.6-1.3); Estimated Creatinine Clearance 63.4 mL/min (>60); Globulin 3.0 gm/dL (2.3-3.5); Glucose 96 mg/dL (74-106); Magnesium 2.1 mg/dL (1.6-2.6); Osmolality,Calculated 291 (275-295); Phosphorous 3.4 mg/dL (2.4-5.1); Potassium 3.7 mMol/L (3.4-5.1); Sodium 146 mMol/L (136-145); Total Protein 6.9 gm/dL (5.7-8.2); eGFR > 60 See Note
[2024-12-25] MEDS: ENOXAPARIN SOD INJ 40 MG/0.4 ML SYRINGE SC (08:09)
[2024-12-25] MEDS: Milk Of Magnesia Susp 30 ML UDC PO (08:10)
[2024-12-25] MEDS: lamoTRIgine 25 MG CHEW 100 MG PO (08:10)
[2024-12-25] MEDS: SERTRALINE HCL 25 MG TABLET 100 MG PO (08:10)
[2024-12-25] MEDS: DOCUSATE SOD 250 MG CAPSULE PO (08:11)
[2024-12-25] MEDS: MULTIVITAMINS TABLET 1 TAB PO (08:11)
[2024-12-25] MEDS: PANTOPRAZOLE 40 MG TABLET PO (08:11)
--- NOTE | 2024-12-25 10:00 | XR_ITS ---
Examination: CT abdomen and pelvis without contrast. Coronal 3-D reconstructions. Sagittal 2-D reconstructions. Date and time of exam:December 25, 2024, 1022 hours INDICATIONS: Abdominal pain flank pain this week, bilateral renal calculi on CT chest July 20, 2024 CTDI: vol (mGy): 5.30 DLP: (mGycm): 327 Technique: Axial images of the abdomen have been obtained, 3 mm slice thickness Intravenous contrast material has not been administered. Low dose protocols were performed. One or more of the following dose reduction techniques were used; automated exposure control, adjustment of the mA and/or KV according to patient size, use of iterative reconstruction technique. Findings: Mild enlargement cardiac contour No visualized liver or splenic lesion Gallbladder wall appears thickened No pancreatic mass Multiple bilateral renal calculi including 22 mm calculus in the left renal pelvis No significant hydronephrosis No ureteral calculi Abundant stool throughout the colon and large amounts of stool in the rectum, abnormal thickened rectal wall axial image 229 No pericecal inflammatory change No diverticulitis Intact urinary bladder Abnormal prostate, enlarged 4.1 cm with markedly irregular contour Severe osteopenia Moderate narrowing hip joints IMPRESSION: Multiple bilateral renal calculi including 22 mm calculus in the left renal pelvis No significant hydronephrosis No ureteral calculi Abnormal prostate, enlarged with markedly irregular contour, recommend correlation with PSA and consider transrectal prostate sonography follow-up Abundant stool in the rectum with thickening of the rectal wall which is marked, axial image 229, differential would include proctitis, rectal tumor, recommend direct inspection
[2024-12-25] MEDS: INSULIN LISPRO (AdmeLOG) 1 UNIT/0.01 ML UNIT SC (11:37)
--- NOTE | 2024-12-25 13:01 | PD.RESPRO ---
Documentation for date of: 12/25/24 Exam Vital Signs Temp Pulse Resp BP Pulse Ox O2 Del Method 97.0 F 68 16 133/63 H 98 Room Air 12/25/24 08:00 12/25/24 08:00 12/25/24 08:00 12/25/24 08:00 12/25/24 08:00 12/25/24 08:00 Objective Labs 12/25/24 05:11 12/25/24 05:11 Labs: Laboratory Results - last 24 hr 12/25/24 05:11 WBC 5.7 RBC 3.94 L Hgb 12.6 L Hct 37.0 L MCV 94 MCH 32.0 MCHC 34.1 RDW Std Deviation 44.6 H Plt Count 167 Neut % (Auto) 49 Lymph % (Auto) 36 [place] % (Auto) 11 Eos % (Auto) 4 Baso % (Auto) 0 Neut # (Auto) 2.8 Lymph # (Auto) 2.1 [place] # (Auto) 0.6 Eos # (Auto) 0.2 Baso # (Auto) 0.0 Immature Gran # (Auto) 0.01 H Absolute Nucleated RBC 0.00 Immature Gran % 0 Nucleated RBC % 0 Sodium 146 H Potassium 3.7 Chloride 106 Carbon Dioxide 28.5 Anion Gap 12 BUN 15 Creatinine 0.8 Estim Creat Clear Calc 63.4 eGFR > 60 BUN/Creatinine Ratio 19 Glucose 96 Calculated Osmolality 291 Calcium 9.4 Corrected Calcium 9.5 Phosphorus 3.4 Magnesium 2.1 Total Bilirubin 0.6 AST 41 H ALT 45 Alkaline Phosphatase 78 Total Protein 6.9 Albumin 3.9 Globulin 3.0 Albumin/Globulin Ratio 1.3 Quality Measures Quality Measures none Assessment & Plan Assessment Current Active Medications: Generic Name Dose Route Start Last Admin Trade Name Freq PRN Reason Stop Dose Admin Acetaminophen 650 mg 12/21/24 13:35 12/23/24 05:31 Acetaminophen 325 Mg Tablet PO 01/20/25 13:34 650 mg Q6H PRN Administration PAIN OR FEVER > 100.4 Albuterol/Ipratropium 3 ml 12/25/24 12:28 Albuterol/Ipratropium (Duoneb) Rt Rosio 3 Ml Nebu INH 01/23/25 18:59 Q6HRRT PRN WHEEZING Atorvastatin Calcium 5 mg 12/21/24 21:00 12/24/24 21:14 Atorvastatin Calcium 10 Mg Tablet PO 01/20/25 20:59 5 mg HS GREG Administration Protocol Clonazepam 0.5 mg 12/24/24 09:45 12/25/24 08:11 Clonazepam 0.5 Mg Tablet PO 12/29/24 09:44 0.5 mg QDAY GREG Administration Dextrose 25 ml 12/21/24 14:31 Dextrose 50%-Water Inj 50 Ml Syringe IV 01/20/25 14:30 Q15MIN PRN BG 50-70 responsive npo pt Dextrose 50 ml 12/21/24 14:31 Dextrose 50%-Water Inj 50 Ml Syringe IV 01/20/25 14:30 Q15MIN PRN BG <50 OR BG <70 & pt unresponsive Docusate Sodium 250 mg 12/21/24 21:00 12/25/24 08:11 Docusate Sod 250 Mg Capsule PO 01/20/25 20:59 250 mg BID GREG Administration Protocol Enoxaparin Sodium 40 mg 12/22/24 09:00 12/25/24 08:09 Enoxaparin Sod Inj 40 Mg/0.4 Ml Syringe SC 01/05/25 08:59 40 mg QDAY GREG Administration Glucagon 1 mg 12/21/24 14:31 Glucagon Inj 1 Mg Vial IM Q15MIN PRN BG <70, and no IV access Piperacillin/Tazobactam/Dextrose 3.375 gm in 50 mls @ 12.5 mls/hr 12/21/24 22:00 12/25/24 05:30 Zosyn IV 12/28/24 21:59 12.5 mls/hr Q8HR GREG Administration Protocol Insulin Human Lispro 0 unit 12/21/24 17:00 12/25/24 11:37 Insulin Lispro (Admelog) 1 Unit/0.01 Ml Unit SC 01/20/25 16:59 1 unit AC GREG Administration Protocol Lamotrigine 100 mg 12/21/24 21:05 12/25/24 08:10 Lamotrigine 25 Mg Chew PO 01/20/25 20:59 100 mg BID GREG Administration Magnesium Hydroxide 30 ml 12/21/24 14:45 12/25/24 08:10 Milk Of Magnesia Susp 30 Ml Udc PO 01/20/25 14:44 30 ml QOD GREG Administration Protocol Melatonin 9 mg 12/21/24 21:00 12/24/24 21:13 Melatonin 3 Mg Tablet PO 01/20/25 20:59 9 mg HS GREG Administration Multivitamins 1 tab 12/22/24 09:00 12/25/24 08:11 Multivitamins Tablet PO 01/21/25 08:59 1 tab QDAY GREG Administration Olanzapine 5 mg 12/21/24 21:00 12/24/24 21:14 Olanzapine 5 Mg Tablet PO 01/20/25 20:59 5 mg HS GREG Administration Ondansetron HCl 4 mg 12/21/24 13:35 Ondansetron Inj 2 Mg/Ml Inj 2 Ml IVP 01/20/25 13:34 Q6H PRN NAUSEA OR VOMITING Protocol Pantoprazole Sodium 40 mg 12/22/24 09:00 12/25/24 08:11 Pantoprazole 40 Mg Tablet PO 01/21/25 08:59 40 mg QDAY GREG Administration Polyethylene Glycol 17 gm 12/21/24 14:32 Polyethylene Glycol 17 Gm Packet PO 01/20/25 14:31 QDAY PRN CONSTIPATION Protocol Sertraline HCl 100 mg 12/21/24 14:45 12/25/24 08:10 Sertraline Hcl 25 Mg Tablet PO 01/20/25 14:44 100 mg QDAY GREG Administration
--- NOTE | 2024-12-25 13:02 | PD.IDPROG ---
Subjective Subjective Interval history: no repeat urine noted. so rx is off cx from 12/16 today is 12/25 Exam Vital Signs Temp Pulse Resp BP Pulse Ox O2 Del Method 97.0 F 68 16 133/63 H 98 Room Air 12/25/24 08:00 12/25/24 08:00 12/25/24 08:00 12/25/24 08:00 12/25/24 08:00 12/25/24 08:00 Narrative Exam likely done with abx but will give single dose fosfomycin and note that in future, cx should be obtained on admit as pt can not offer any hx. abd benign, admit 12/21 noted. Objective - Internal Medicine Labs 12/25/24 05:11 12/25/24 05:11 Labs: Laboratory Results - last 24 hr 12/25/24 05:11 WBC 5.7 RBC 3.94 L Hgb 12.6 L Hct 37.0 L MCV 94 MCH 32.0 MCHC 34.1 RDW Std Deviation 44.6 H Plt Count 167 Neut % (Auto) 49 Lymph % (Auto) 36 [place] % (Auto) 11 Eos % (Auto) 4 Baso % (Auto) 0 Neut # (Auto) 2.8 Lymph # (Auto) 2.1 [place] # (Auto) 0.6 Eos # (Auto) 0.2 Baso # (Auto) 0.0 Immature Gran # (Auto) 0.01 H Absolute Nucleated RBC 0.00 Immature Gran % 0 Nucleated RBC % 0 Sodium 146 H Potassium 3.7 Chloride 106 Carbon Dioxide 28.5 Anion Gap 12 BUN 15 Creatinine 0.8 Estim Creat Clear Calc 63.4 eGFR > 60 BUN/Creatinine Ratio 19 Glucose 96 Calculated Osmolality 291 Calcium 9.4 Corrected Calcium 9.5 Phosphorus 3.4 Magnesium 2.1 Total Bilirubin 0.6 AST 41 H ALT 45 Alkaline Phosphatase 78 Total Protein 6.9 Albumin 3.9 Globulin 3.0 Albumin/Globulin Ratio 1.3 Assessment & Plan A&P Narrative uti, presumptive mr/dd per notes will stop the zosyn and give a single dose fosfomycin po x 1 can go home when you see fit. he is 80 and a full code you may want to have a goals of care discussion with decision makers if available. Time Spent With Patient Time: Total time spent is greater than 50% in coordination of care (as documented) at patient's floor/unit and/or counseling patient:
[2024-12-25] MEDS: FOSFOMYCIN PWD 3 GM PACKET (NON-FORMULARY) PO (13:29)
--- NOTE | 2024-12-25 15:56 | PC.NURSE ---
Spoke with YOKO Garcia from [facility] at 1553 to give report. Also gave report to transfer nurses on the flight crew.
--- NOTE | 2024-12-25 16:35 | PC.SS ---
Patient is ready for d/c. set up gurney transport for 7:30p.m. with [facility] for gurney transport. [facility]
--- NOTE | 2024-12-25 16:37 | ESCONSULT_ITS ---
RE: BRANDON WRIGHT : 1945 DATE OF CONSULTATION: 12/25/2024 REFERRING PHYSICIAN: Dr. Watson. REASON FOR CONSULTATION: Mental retardation, developmental delay, UTI versus ASB, and renal stone disease by CT scan without obstruction. HISTORY OF PRESENT ILLNESS: The patient is an 79-year-old man who reportedly has had repeated UTIs. He has had ESBL in the past which was sensitive to Zosyn. He was given Zosyn. He has been afebrile since admission. He is on some cranberry on a chronic basis, which is acceptable, although has limited benefit as noted. He is also diabetic on some metformin, which may be more preventive and has some mental health problems for which he is on other medications. He is unable to offer any history, so history was obtained by review of the records and review of the imaging. His white count is normal. His glucoses have been largely normal. Liver enzymes mildly elevated. He apparently has osteoporosis, for which he takes alendronate weekly as well. He takes some ibuprofen periodically also. Again, he is a poor historian and I am not sure but even tried to obtain a history on him because he is so out of it at the moment that I am not sure any history is useful. His exam is notable for the lack of history. He is diapered. He apparently has a decubitus ulceration as well as some other health problems and he looks to be very thin. He may well have some other malignancy or some other problem for which he will need careful evaluation. He is uncertain if he is conserved I assume he may be as his parents have probably given his age of 79 and his mental health problems. ASSESSMENT: 1. Apparent urinary tract infection with ESBL E. coli. It could be a transient, but it has been cultured many times in the past. 2. Developmental delay. 3. Borderline diabetes based on medications. 4. Osteoporosis based on medications. RECOMMENDATIONS: The patient should continue his home medications upon release. I am going to stop his other new medications as being started here and go with fosfomycin on a 1-time basis. This is often effective. We will check the urine for fosfomycin resistance and note that he is on a low dose of atorvastatin as well. I will check on him Monday if he remains, but he may go home at your discretion. DT: 13:57:12 TT: 15:47:00 Ref: [id number] - TID: [id number] MTDD
--- NOTE | 2024-12-25 17:27 | ESDS_ITS ---
<Statement entered by Yogi Rees MD - 12/25/24 17:31> Note reviewed and agree with care plan as documented. Please refer to the note below for further details. Plan discussed with attending physician Dr. Neftaly Rees MD PGY-2 Internal Medicine Planned Discharge Date 12/25/24 DS: Providers Provider Date of admission: 12/21/24 13:35 Primary care physician: Emilio Nuñez Admitting Provider: Aida Watson MD Attending Provider on Admission: Vivi Higginbotham MD Consults: 12/25/24 10:00 Consult to Infectious Diseases Routine Comment: ESBL Consulting Provider: Amadou Blanco Attending Provider on DC: Vivi Higginbotham MD Discharging Provider: Sandeep Danielson DO DS: Diagnosis Discharge Diagnosis (1) UTI (urinary tract infection): Status: Acute (2) Altered mental status: Status: Acute (3) Seizure: Status: Acute Problem List Completed Was Problem List Reviewed/Reconciled?: Yes Hospital Course Hospital Course Hospital course: Hospital Course: Inocencio Hope is a an 79-year-old male with a history of developmental delay, seizure disorder, diabetes mellitus, hyperlipidemia, and ESBL UTIs who presented after urine cultures showed multi-drug resistant E. coli. The patient was admitted and was treated with Zosyn and fosfomycin for his UTI. Blood cultures were negative. The patient was supervised by his caregiver during his hospital stay and his diet was advanced as tolerated and he started to generate bowel movements. The patient did experience intermittent agitation during his hospital stay. He was treated with clonazepam, lamotrigine, and olanzapine. He was treated with DuoNebs as needed for his respiratory distress, which was related to his developmental delay and depression. Patient completed a 4-day course of Zosyn during his hospital stay. He received 1 dose of fosfomycin. Vitals were reviewed and are stable upon discharge. The patient will return to his residential. Problem List: #MDR E. coli UTI #History of recurrent UTIs #History of seizure disorder #Developmental delay #Depression #Tardive dyskinesia #Respiratory Distress #Type 2 diabetes mellitus #Hyperlipidemia #Insomnia #Constipation Discharge Instructions: - Hold zolpidem - Continue taking all other home medications as prescribed - Remainder of daily care instructions per residential - Follow-up with PCP within 1-2 weeks of discharge - If you do not have a PCP, you can follow-up at the [facility] - Return to ED if symptoms worsen The patient was seen and discussed with my attending physician Dr. Neftaly MICHAELS and my senior resident Dr. Cabrera MICHAELS PGY-2. Sandeep Jagjit BUSH PGY-1 Time Spent with Patient Time attestation: Total time spent providing and/or coordinating discharge services: 36 min Time spent: Greater than 30 minutes Exam Vital Signs Temp Pulse Resp BP Pulse Ox O2 Del Method 97 F 85 17 109/71 98 Room Air 12/25/24 16:00 12/25/24 16:00 12/25/24 16:00 12/25/24 16:00 12/25/24 16:12/25/24 16:00 Narrative Exam General: Frail chronically ill-appearing elderly man. Neurologic: [place] dyskinesia, uncontrolled movements of the upper extremities, not responding to verbal stimuli, patient able to move all 4 extremities. HEENT: Normocephalic, atraumatic, mucous membranes moist. Pupils reactive to light. Heart: Regular rate and rhythm, normal S1 and S2, no murmurs. Lungs: Clear to auscultation bilaterally with no wheezing or crackles. Abdomen: Soft, nondistended, nontender, positive bowel sounds. No guarding or rebound tenderness. Extremities: No edema. 2+ radial and dorsalis pedis pulses bilaterally. Skin: Warm. Dry. No rash or ecchymoses. Discharge Plan Plan Patient Disposition: Xfer Other Disposition Comment: DC to Residential Patient condition on transfer: Stable Prescriptions/Referrals Prescriptions/Med Rec: Continued Alendronate Sodium * (FOSAMAX *) 70 MG tablet 70 mg PO .MONDAY Qty: 0 simvastatin [Zocor] 10 MG tablet 10 mg PO HS Qty: 0 docusate sodium 250 MG capsule 1 cap PO BID Qty: 0 MULTIVITAMIN (MULTI VITAMIN DAILY) 1 EACH tablet 1 tab PO QDAY Qty: 0 polyethylene glycol 3350 [Miralax] 17 gram Powder In Packet 17 g PO QDAY PRN (Reason: constipation) Rx Instructions: hold for loose stools magnesium hydroxide [Milk of Magnesia] 400 mg/5 mL Suspension 30 ml PO EVERYOTHERDAY olanzapine 2.5 mg tablet 5 mg PO HS melatonin 10 mg Tablet 10 mg PO HS ibuprofen 400 mg tablet 400 mg PO Q6H PRN (Reason: pain) sertraline 100 mg tablet 100 mg PO Q24H lamotrigine 100 mg tablet 100 mg PO BID metformin 500 mg tablet 500 mg PO BID Cranberry-Probiotic 480 mg-20 mg- 100million cell Tablet 1 tab PO QDAY Held zolpidem 5 mg tablet 5 mg PO QHSPRN Hold Instructions: Hold until you follow-up with PCP No Action Ingrezza 60 mg capsule 60 mg PO QDAY Referrals: Emilio Nuñez [Primary Care Provider] Patient/Caregiver Discharge Instructions Print Language: Armenian Stand Alone Forms: Sarai Award Info., Patient Portal Info Letter Discharge Order Discharge Orders: Discharge (Routine); Ordered 12/25/24 Ordered By: Yogi Rees Quality Discharge Quality Measures none MD Attestestation MD Attestation I attest that I was physically present for the evaluation, physical examination, lab and imaging review of the patient with the residents. I discussed the case with the residents and agree with the findings and plans of care as documented above. Vivi Higginbotham MD
--- NOTE | 2024-12-25 19:15 | ESCONSULT_ITS ---
<Statement entered by Amadou Blanco MD - 12/27/24 08:56> pt seen with resident. am struck that he is not communicative. hope that a decision maker is identified. all findings of resident confirmed. see additional notes for details HPI Data of Consult Requesting Physician: Vivi Higginbotham MD Admitting Provider: Aida Watson MD Attending Provider: Vivi Higginbotham MD Primary Care Provider: Emilio Nuñez Consult Narrative History of present illness: The patient is an 79-year-old male with significant past medical history of developmental delay, seizure disorder, diabetes mellitus type 2, hyperlipidemia and ESBL UTI presented to ED on 12/21/2024 after urine culture grew multidrug resistant E. coli. The patient was nonverbal during my evaluation, and history was obtained from chart review. The patient has recurrent history of UTIs. Recently, the patient was taken to PCP, where his UA was positive for UTI, and reflex urine culture grew MDR E. coli sensitive to Zosyn and carbapenem, and was admitted for IV antibiotics. There was some concern regarding foul-smelling urine which is recurrent. The patient is wheelchair and bedbound. In this hospitalization, his UA was significant for turbid urine, 2+ blood, 1+ protein, leukocyte esterase positive, WBC 380, bacteria 4+, and urine culture grew ESBL and MDR E. coli, similar to previous urine culture done on 11/14/2024, and also earlier. The patient was started on Zosyn 3.375 g every 6 hourly during admission. During my evaluation, his vitals were stable, white count 5.7, sodium 146, with other chemistry panel WNL, CT abdomen/pelvis revealed multiple bilateral renal calculi including 22 mm calculus in the left renal pelvis, no ureteral calculi. 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 cc:: cc: Vivi Higginbotham MD Review of Systems Review of Systems ROS Unobtainable: unobtainable due to mental status Exam Vital Signs Temp Pulse Resp BP Pulse Ox O2 Del Method 97 F 85 17 109/71 98 Room Air 12/25/24 16:00 12/25/24 16:00 12/25/24 16:00 12/25/24 16:00 12/25/24 16:00 12/25/24 16:00 Narrative Exam General: Frail, ill-appearing gentleman, no acute distress, nonverbal HEENT: Moist mucous membranes, oropharynx clear Neck: Supple, No masses, No JVD CVS: S1S2 Regular rate and rhythm, No murmurs, rubs or gallops Lungs: Clear to auscultation with no accessory use, no wheeze no rhonchi Abd: Soft, NT/ND, +BS, no organomegaly Ext: Left knee medial aspect with ulcer under clean dressing, peripheral pulses bilaterally palpable Skin: No rash Psych: Unobtainable Results Labs 12/25/24 05:11 12/25/24 05:11 Labs: Short CBC 12/25/24 Range/Units 05:11 WBC 5.7 (3.8-10.6) Thou/mm3 Hgb 12.6 L (13.5-16.0) g/dL Hct 37.0 L (41.0-53.0) % Plt Count 167 (140-440) Thou/mm3 BMP 12/25/24 05:11 Sodium 146 H Potassium 3.7 Chloride 106 Carbon Dioxide 28.5 BUN 15 Creatinine 0.8 Glucose 96 Calcium 9.4 Liver Function 12/25/24 Range/Units 05:11 Total Bilirubin 0.6 (0.3-1.2) mg/dL AST 41 H (0-34) U/L ALT 45 (10-49) U/L Alkaline Phosphatase 78 (46-116) U/L Albumin 3.9 (3.4-4.8) gm/dL Quality Measures Quality Measures none Advance care planning discussed with:: other (Hospitalist team) Medications Home Medications and Allergies Home Medications ?Medication ?Instructions ?Recorded ?Confirmed ?Type Alendronate Sodium * (FOSAMAX *) 70 mg PO .MONDAY # #0 08/13/12 12/21/24 History simvastatin 10 mg tablet (Zocor) 10 mg PO HS ##0 08/1312/21/24 History MULTIVITAMIN (MULTI VITAMIN DAILY) 1 tab PO QDAY ##0 0 08/02/16 12/21/24 History docusate sodium 250 mg capsule 1 cap PO BID ##0 12/21/24 History magnesium hydroxide 400 mg/5 mL 30 ml PO EVERYOTHERDAY 03/16/18 12/21/24 History oral suspension (Milk of Magnesia) polyethylene glycol 3350 17 gram 17 g PO QDAY PRN cons tipation 03/16/18 12/21/24 History oral powder packet (Miralax) melatonin 10 mg tablet 10 mg PO HS 12/12/23 5 History olanzapine 2.5 mg tablet 5 mg PO HS 12/12/23 12/21/24 History valbenazine 60 mg capsule 60 mg PO QDAY 12/12/2312/21 History (Ingrezza) cranberry-B.dvotlvvvq-F-At phos 1 tab PO QDAY 12/25/23 12/21/24 History 480 mg-20 mg-100 million cell tablet (Cranberry-Probiotic) metformin 500 mg tablet 500 mg PO BID 12/25/2312/21 History ibuprofen 400 mg tablet 400 mg PO Q6H PRN pain 07/2012/21/24 History zolpidem 5 mg tablet 5 mg PO QHSPRN 07/20/2412/03 History Held on 12/25/24. Instructions: Hold until you follow-up with PCP lamotrigine 100 mg tablet 100 mg PO BID 12/21/2412/21 History sertraline 100 mg tablet 100 mg PO Q24H 12/21/2412/03 History Allergies Allergy/AdvReac Type Severity Reaction Status Date / Time No Known Allergies Allergy Verified 09/14/24 16:59 Visit Medications Acetaminophen (Acetaminophen 325 Mg Tablet) 650 mg PO Q6H PRN PRN Reason: PAIN OR FEVER > 100.4 Stop: 01/20/25 13:34 Last Admin: 12/23/24 05:31 Dose: 650 mg Albuterol/Ipratropium (Albuterol/Ipratropium (Duoneb) Rt Rosio 3 Ml Nebu) 3 ml INH Q6HRRT PRN PRN Reason: WHEEZING Stop: 01/23/25 18:59 Atorvastatin Calcium (Atorvastatin Calcium 10 Mg Tablet) 5 mg PO HS GREG; Protocol Stop: 01/20/25 20:59 Last Admin: 12/24/24 21:14 Dose: 5 mg Clonazepam (Clonazepam 0.5 Mg Tablet) 0.5 mg PO QDAY GREG Stop: 12/29/24 09:44 Last Admin: 12/25/24 08:11 Dose: 0.5 mg Dextrose (Dextrose 50%-Water Inj 50 Ml Syringe) 25 ml IV Q15MIN PRN PRN Reason: BG 50-70 responsive npo pt Stop: 01/20/25 14:30 Dextrose (Dextrose 50%-Water Inj 50 Ml Syringe) 50 ml IV Q15MIN PRN PRN Reason: BG <50 OR BG <70 & pt unresponsive Stop: 01/20/25 14:30 Docusate Sodium (Docusate Sod 250 Mg Capsule) 250 mg PO BID [facility]; Protocol Stop: 01/20/25 20:59 Last Admin: 12/25/24 08:11 Dose: 250 mg Enoxaparin Sodium (Enoxaparin Sod Inj 40 Mg/0.4 Ml Syringe) 40 mg SC QDAY GREG Stop: 01/05/25 08:59 Last Admin: 12/25/24 08:09 Dose: 40 mg Glucagon (Glucagon Inj 1 Mg Vial) 1 mg IM Q15MIN PRN PRN Reason: BG <70, and no IV access Insulin Human Lispro (Insulin Lispro (Admelog) 1 Unit/0.01 Ml Unit) 0 unit SC AC [facility]; Protocol Stop: 01/20/25 16:59 Last Admin: 12/25/24 16:56 Dose: Not Given Lamotrigine (Lamotrigine 25 Mg Chew) 100 mg PO BID GREG Stop: 01/20/25 20:59 Last Admin: 12/25/24 08:10 Dose: 100 mg Magnesium Hydroxide (Milk Of Magnesia Susp 30 Ml Udc) 30 ml PO QOD [facility]; Protocol Stop: 01/20/25 14:44 Last Admin: 12/25/24 08:10 Dose: 30 ml Melatonin (Melatonin 3 Mg Tablet) 9 mg PO HS [facility] Stop: 01/20/25 20:59 Last Admin: 12/24/24 21:13 Dose: 9 mg Multivitamins (Multivitamins Tablet) 1 tab PO QDAY GREG Stop: 01/21/25 08:59 Last Admin: 12/25/24 08:11 Dose: 1 tab Olanzapine (Olanzapine 5 Mg Tablet) 5 mg PO HS [facility] Stop: 01/20/25 20:59 Last Admin: 12/24/24 21:14 Dose: 5 mg Ondansetron HCl (Ondansetron Inj 2 Mg/Ml Inj 2 Ml) 4 mg IVP Q6H PRN; Protocol PRN Reason: NAUSEA OR VOMITING Stop: 01/20/25 13:34 Polyethylene Glycol (Polyethylene Glycol 17 Gm Packet) 17 gm PO QDAY PRN; Protocol PRN Reason: CONSTIPATION Stop: 01/20/25 14:31 Sertraline HCl (Sertraline Hcl 25 Mg Tablet) 100 mg PO QDAY GREG Stop: 01/20/25 14:44 Last Admin: 12/25/24 08:10 Dose: 100 mg Discontinued Medications Albuterol/Ipratropium (Albuterol/Ipratropium (Duoneb) Rt Rosio 3 Ml Nebu) 3 ml INH Q6HRRT GREG Stop: 01/23/25 18:59 Last Admin: 12/25/24 06:27 Dose: 3 ml Clonazepam (Clonazepam 0.5 Mg Tablet) 0.5 mg PO X1 ONE Stop: 12/23/24 16:01 Last Admin: 12/23/24 17:21 Dose: 0.5 mg Fosfomycin Tromethamine (Fosfomycin Pwd 3 Gm Packet (Non-Formulary)) 3 gm PO X1 ONE Stop: 12/25/24 13:10 Last Admin: 12/25/24 13:29 Dose: 3 gm Guaifenesin (Guaifenesin Syrup 200 Mg/10 Ml Udc) 200 mg PO X1 ONE; Protocol Stop: 12/24/24 13:23 Last Admin: 12/24/24 14:09 Dose: 200 mg Piperacillin/Tazobactam/Dextrose (Zosyn) 3.375 gm in 50 mls @ 100 mls/hr IV X1 ONE; Protocol Stop: 12/21/24 10:21 Last Infusion: 12/21/24 11:00 Dose: Infused Sodium Chloride (Ns) 1,000 mls @ 250 mls/hr IV .Q4H ONE Stop: 12/21/24 13:50 Last Admin: 12/21/24 10:15 Dose: 250 mls/hr Piperacillin/Tazobactam/Dextrose (Zosyn) 3.375 gm in 50 mls @ 12.5 mls/hr IV Q8HR GREG; Protocol Stop: 12/28/24 21:59 Last Admin: 12/25/24 05:30 Dose: 12.5 mls/hr Sodium Chloride (Ns) 1,000 mls @ 80 mls/hr IV .[id number] ONE Stop: 12/22/24 02:53 Last Admin: 12/21/24 16:23 Dose: 80 mls/hr Lamotrigine (Lamotrigine 100 Mg Tablet) 100 mg PO BID GREG Stop: 01/20/25 20:59 Last Admin: 12/21/24 21:00 Dose: Not Given Non-Formulary Medication (Cranberry-B.Uzznaynj-X-Mz Phos [Cranberry-Probiotic]) 1 tab PO QDAY GREG Stop: 01/21/25 08:59 Non-Formulary Medication (Valbenazine [Ingrezza]) 60 mg PO QDAY GREG Stop: 01/21/25 08:59 Last Admin: 12/24/24 09:47 Dose: Not Given Non-Formulary Medication (Fosfomycin) 3 g PO DAILY GREG Stop: 01/24/25 13:14 Olanzapine (Olanzapine 2.5 Mg Tablet) 5 mg PO HS GREG Stop: 01/20/25 20:59 Ondansetron HCl (Ondansetron Inj 2 Mg/Ml Inj 2 Ml) 4 mg IVP X1 ONE; Protocol Stop: 12/21/24 09:54 Last Admin: 12/21/24 10:18 Dose: 4 mg Pantoprazole Sodium (Pantoprazole 40 Mg Tablet) 40 mg PO QDAY GREG Stop: 01/21/25 08:59 Last Admin: 12/25/24 08:11 Dose: 40 mg Assessment & Plan Plan The patient is an 79-year-old male with significant past medical history of developmental delay, seizure disorder, diabetes mellitus type 2, hyperlipidemia and ESBL UTI presented to ED on 12/21/2024 after urine culture grew multidrug resistant E. coli. The patient was nonverbal during my evaluation, and history was obtained from chart review. The patient has recurrent history of UTIs. Recently, the patient was taken to PCP, where his UA was positive for UTI, and reflex urine culture grew MDR E. coli sensitive to Zosyn and carbapenem, and was admitted for IV antibiotics. Infectious disease consultation was done for further management of ESBL and MDR E. COLI UTI. #Possible ESBL and MDR UTI The patient has been growing ESBL and MDR E. coli recurrently, sensitive to Zosyn The patient did not had any fever, and UA was positive after being found to have foul-smelling urine, and reflex urine culture grew ESBL and MDR E. coli. Likely colonization, as patient did not had any fever, and did not appeared agitated, has been calm as before Already completed 5 days of IV antibiotics - Discontinued Zosyn - Fosfomycin 3 g p.o. x 1, and may go back home after that, if patient is stable #Developmental delay disorder #Seizure disorder #Diabetes mellitus type 2 #Goals of care discussion - Management deferred to primary hospitalist team Thank you for your opportunity to participate in this patient care. We will sign off from this case at this time, and if required we will be happy to participate in this patient care. The patient's management plan was discussed with my attending physician MD Curtis Paris MD, PGY3
== END 2024-12-25 20:00 | disposition skilled nursing facility (03) | DRG 689 ==
LOC: SERX 11:30 → SERHOLD 14:18 → S3SX 15:28
PROVIDERS: Admitting Provider Student in an Organized Health Care Education/Training Program; Emergency Provider Family Medicine; PCP Family Medicine; Visit Provider Student in an Organized Health Care Education/Training Program
DX: N39.0 Urinary tract infection, site not specified (principal); J18.9 Pneumonia, unspecified organism; Z16.24 Resistance to multiple antibiotics; E87.20 Acidosis, unspecified; K21.9 Gastro-esophageal reflux disease without esophagitis; G40.909 Epilepsy, unspecified, not intractable, without status epilepticus; E78.5 Hyperlipidemia, unspecified; E11.9 Type 2 diabetes mellitus without complications; F32.A Depression, unspecified; B96.20 Unspecified Escherichia coli [E. coli] as the cause of diseases classified elsewhere; G47.00 Insomnia, unspecified; K59.00 Constipation, unspecified; Z87.440 Personal history of urinary (tract) infections; G24.01 Drug induced subacute dyskinesia; M81.0 Age-related osteoporosis without current pathological fracture; N20.0 Calculus of kidney; Z74.01 Bed confinement status; Z79.83 Long term (current) use of bisphosphonates; F79 Unspecified intellectual disabilities; Z79.84 Long term (current) use of oral hypoglycemic drugs; Z79.899 Other long term (current) drug therapy; Z99.3 Dependence on wheelchair
CPT/HCPCS: 36415; 71045; 74176; 80053; 80061; 81001; 83605; 83735; 84100; 85025; 85610; 87040; 87400; 87811; 93005; 94640; 94664; 96365; 96366; 96375; 99284; A9270; J1650; J1815; J2405; J2543; J7030

== ENCOUNTER → 2025-01-11 | Outpatient (CLI) | payer MEDICARE, MEDICAID, SELFPAY ==
[2025-01-12 01:06] LABS: Bacteria,Urine 3+; Bilirubin,Urine Negative (Negative); Blood,Urine 2+ (Negative); Collection Type, Urine Catheter; Color,Urine Yellow (Lt Yel-Yel); Glucose, Urine Negative (Negative); Hyaline Casts,Urine 1 /hpf (0-1); Ketones,Urine Negative (Negative); Leukocyte Esterase,Urine Positive (Negative); Nitrite,Urine Positive (Negative); PH,Urine 7.5 (5.0-7.0); Protein,Urine 1+ (Neg - Trace); RBC,Urine 14 /hpf (0-3); Renal Epithelial Cells,Urine 3 /hpf (0-5); Specific Gravity,Urine 1.008 (1.001-1.035); Squamous Epithelial Cell,Urine 0 /hpf (0-5); Urobilinogen,Urine Negative mg/dL (0.0-1.0); WBC,Urine 1089 /hpf (0-5)
[2025-01-12 01:07] LABS: Clarity,Urine Turbid (Clear/Hazy); Culture Indicated,Urine Yes
== END | disposition home or self-care (01) ==
LOC: SERX 12:03 → SLDO 02-14 09:07
PROVIDERS: PCP Family Medicine; Referring Provider Family Medicine; Visit Provider Family Medicine
DX: N39.0 Urinary tract infection, site not specified (principal); F73 Profound intellectual disabilities; E11.9 Type 2 diabetes mellitus without complications; N40.1 Benign prostatic hyperplasia with lower urinary tract symptoms
CPT/HCPCS: 81001; 87077; 87086; 87186

== ENCOUNTER 2025-02-01 11:51 | Emergency (ER) | payer MEDICARE, MEDICAID, SELFPAY ==
[2025-02-01 11:55] VITALS: BP 153/73; PULSE 65; RESP 18; TEMP 35.9; O2SAT 98
--- NOTE | 2025-02-01 11:57 | PD.EDADULT ---
ED General RME/HPI General Chief complaint: Nausea/Vomiting/Diarrhea Stated complaint: vomiting Time Seen by Provider: 02/01/25 11:57 Arrival date/time: 02/01/25 11:51 79-year-old male patient with significant history of mental retardation, nonverbal, history of recurrent UTI, seizure disorder was brought in by EMS for evaluation regarding vomiting. She per EMS, patient has been vomiting for the last 3 days, nonbloody. No fever noted no cough noted no abdominal pain noted. Patient was recently started on prophylactic medication for UTI. Related Data Home Medications ?Medication ?Instructions ?Recorded ?Confirmed Alendronate Sodium * (FOSAMAX *) 70 mg PO .MONDAY ##0 08/13/12 12/21/24 simvastatin 10 mg tablet (Zocor) 10 mg PO HS ##0 08/13/12 12/21/24 MULTIVITAMIN (MULTI VITAMIN DAILY) 1 tab PO QDAY ##0 08/02/16 12/21/24 docusate sodium 250 mg capsule 1 cap PO BID ##0 08/02/16 12/21/24 magnesium hydroxide 400 mg/5 mL 30 ml PO EVERYOTHERDAY 03/16/18 12/21/24 oral suspension (Milk of Magnesia) polyethylene glycol 3350 17 gram 17 g PO QDAY PRN constipation 03/16/18 12/21/24 oral powder packet (Miralax) melatonin 10 mg tablet 10 mg PO HS 12/12/23 12/21/24 olanzapine 2.5 mg tablet 5 mg PO HS 12/12/23 12/21/24 valbenazine 60 mg capsule 60 mg PO QDAY 12/12/23 12/21/24 (Ingrezza) cranberry-B.wubfljvsj-V-Uz phos 1 tab PO QDAY 12/25/23 12/21/24 480 mg-20 mg-100 million cell tablet (Cranberry-Probiotic) metformin 500 mg tablet 500 mg PO BID 12/25/23 12/21/24 ibuprofen 400 mg tablet 400 mg PO Q6H PRN pain 07/20/24 12/21/24 zolpidem 5 mg tablet 5 mg PO QHSPRN 07/20/24 12/21/24 Held on 12/25/24. Instructions: Hold until you follow-up with PCP lamotrigine 100 mg tablet 100 mg PO BID 12/21/24 12/21/24 sertraline 100 mg tablet 100 mg PO Q24H 12/21/24 12/21/24 Previous Rx's ?Medication ?Instructions ?Recorded cefuroxime axetil 500 mg tablet 500 mg PO BID #14 tabs 02/01/25 lactulose 10 gram/15 mL oral 20 g (30 mL) PO BID PRN 02/01/25 solution constipation #473 mL ondansetron HCl 4 mg tablet 4 mg PO Q8H PRN nausea and 02/01/25 vomiting 5 days #20 tabs Allergies Allergy/AdvReac Type Severity Reaction Status Date / Time No Known Allergies Allergy Verified 02/01/25 12:07 Review of Systems Review of Systems Narrative Review of Systems: Review of system reviewed and within normal limits except mentioned in HPI ED Exam Narrative Physical exam: VITAL SIGNS: Reviewed. GENERAL APPEARANCE: Alert and nonverbal, does not follows commands, no acute distress, HEAD AND FACE: Non-traumatic. ENT: PERRL, pink conjunctivitis, eyelid no trauma, Mucous membrane moist. NECK: Supple, nontender, no nuchal rigidity. CHEST: No tenderness, no crepitus, no paradoxical movement, no retractions. LUNGS: Clear, well ventilated, symmetric, no rales, no wheezing, no ronchi, no stridor, good breath sounds bilaterally. HEART: Regular rate, regular rhythm, no murmur, no gallops. ABDOMEN: Soft, positive bowel sounds, nondistended, no guarding, nontender, no rebound, no masses, RECTAL: Deferred. GENITAL: Deferred. NEUROLOGICAL: Gross motor function intact sensory function intact, Appropriate for age. MUSCULOSKELETAL: low back nontender, full range of motion. EXTREMITIES: Nontender, full range of motion. SKIN: Color pink, dry, no rash, no lacerations, no abrasions, no contusions. LYMPHATICS: Deferred. Course Quality Measures none Orders Category Date Time Status CT Screening NOW Care 02/01/25 12:00 Active EKG (ED ONLY) *Do not use* NOW Care 02/01/25 12:00 Completed Straight [In and Out Catheter] X1 Care 02/01/25 12:[address] abdomen pelvis w con Stat Exams 02/01/25 12:00 Completed EKG (ED Only) Stat Exams 02/01/25 12:00 Draft XR chest 1V Stat Exams 02/01/25 12:00 Completed CBC Stat Lab 02/01/25 12:13 Completed Comprehensive Metabolic Panel Stat Lab 02/01/25 12:13 Completed Partial Thromboplastin Time Stat Lab 02/01/25 12:13 Completed Urinalysis, C/S if Indicated Stat Lab 02/01/25 12:20 Completed Urine Culture Stat Lab 02/01/25 12:20 Received DiphenhydrAMINE INJ [Benadryl Inj] Med 02/01/25 12:00 Discontinued 25 mg IVP X1 ONE Magnesium Citrate Liqd [Citrate of Magnesia Liqd] Med 02/01/25 17:32 Discontinued 300 ml PO X1 ONE Ondansetron Inj [Zofran Inj] Med 02/01/25 12:00 Discontinued 4 mg IVP X1 ONE Ringers Lactated 1000 ml [Lactated Ringers] 1,000 ml Med 02/01/25 12:00 Discontinued IV 999 mls/hr cefTRIAXone/D5w 1gm IV premix [Rocephin/D5w 1gm IV Med 02/01/25 14:13 Discontinued premix] 1 gm in 50 ml IV X1 Vital Signs Vital signs: Vital Signs Temperature 96.7 F L 02/01/25 11:55 Pulse Rate 65 02/01/25 11:55 Respiratory Rate 18 02/01/25 11:55 Blood Pressure 153/73 H 02/01/25 11:55 Pulse Oximetry (%) 98 02/01/25 11:55 Oxygen Delivery Method Room Air 02/01/25 11:55 Discharge Plan Plan Patient Disposition: HOME (Self Care) Discharge Disposition comment: stable Prescriptions/Referrals Prescriptions/Med Rec: New lactulose 10 gram/15 mL solution 20 g PO BID PRN (Reason: constipation) Qty: 473 0RF cefuroxime axetil 500 mg tablet 500 mg PO BID Qty: 14 0RF ondansetron HCl 4 mg tablet 4 mg PO Q8H PRN (Reason: nausea and vomiting) 5 Days Qty: 20 0RF No Action Alendronate Sodium * (FOSAMAX *) 70 MG tablet 70 mg PO .MONDAY Qty: 0 simvastatin [Zocor] 10 MG tablet 10 mg PO HS Qty: 0 docusate sodium 250 MG capsule 1 cap PO BID Qty: 0 MULTIVITAMIN (MULTI VITAMIN DAILY) 1 EACH tablet 1 tab PO QDAY Qty: 0 polyethylene glycol 3350 [Miralax] 17 gram Powder In Packet 17 g PO QDAY PRN (Reason: constipation) Rx Instructions: hold for loose stools magnesium hydroxide [Milk of Magnesia] 400 mg/5 mL Suspension 30 ml PO EVERYOTHERDAY olanzapine 2.5 mg tablet 5 mg PO HS melatonin 10 mg Tablet 10 mg PO HS Ingrezza 60 mg capsule 60 mg PO QDAY zolpidem 5 mg tablet 5 mg PO QHSPRN ibuprofen 400 mg tablet 400 mg PO Q6H PRN (Reason: pain) sertraline 100 mg tablet 100 mg PO Q24H lamotrigine 100 mg tablet 100 mg PO BID metformin 500 mg tablet 500 mg PO BID Cranberry-Probiotic 480 mg-20 mg- 100million cell Tablet 1 tab PO QDAY Referrals: Rylan Benoit, DPM [Primary Care Provider] - In 1 week Problem List Clinical Impression: Constipation, UTI (urinary tract infection) Patient/Caregiver Discharge Instructions Discharge Activity: activity as tolerated Education Materials: ED Constipation (Adult) Additional Instructions: Thank you for the opportunity for serving you today. You are stable for discharged . You are advised to: Follow-up with your PCP in 1 to 2 days Return to ED for worsening of symptoms Increase oral fluids Take medication as prescribed Print Language: Dominican Stand Alone Forms: [email or web address] Award Info., Patient Portal Info Letter JESI/FLORA Supervising Physician JESI/FLORA Supervising Physician: MD Maritza MDM Narrative MDM hospital course (for use when minimal MDM required): 79-year-old male patient with significant history of mental retardation, nonverbal, history of recurrent UTI, seizure disorder was brought in by EMS for evaluation regarding vomiting. She per EMS, patient has been vomiting for the last 3 days, nonbloody. No fever noted no cough noted no abdominal pain noted. Patient was recently started on prophylactic medication for UTI. CT scan of the abdomen pelvis showed no acute abnormality except for constipation. EKG showed sinus rhythm, ventricular rate of 60 bpm, no ST segment elevation or depression. Laboratory workup significant for UTI. Patient received IV ceftriaxone, Benadryl IV, IV fluids magnesium citrate. Plan of care discussed with his caregiver. Stable discharge home Imaging Imaging Interpretation(s): I personally reviewed and interpreted the x-ray of this patient. There is no acute abnormalities found, no infiltrates no pneumothorax no hemothorax normal chest x-ray. Except for prominent vascular congestion. Review of other structures was without significant abnormal findings also. I additionally reviewed the radiologist report and agree with the interpretation. Medication Administration(s) Medication Administration History Discontinued Medications Diphenhydramine HCl (Diphenhydramine Inj 50 Mg/Ml Vial) 25 mg IVP X1 ONE Stop: 02/01/25 12:01 Last Admin: 02/01/25 12:41 Dose: 25 mg Documented By: DAVE Lactated Ringer's (Lactated Ringers) 1,000 mls @ 999 mls/hr IV .Q1H1M ONE Stop: 02/01/25 13:00 Last Infusion: 02/01/25 13:42 Dose: Infused Documented By: Admin: 02/01/25 12:41 Dose: 999 mls/hr Documented By: DAVE Ceftriaxone Sodium/Dextrose (Rocephin/D5w 1gm Iv Premix) 1 gm in 50 mls @ 100 mls/hr IV X1 ONE Stop: 02/01/25 14:42 Last Infusion: 02/01/25 15:01 Dose: Infused Documented By: Admin: 02/01/25 14:31 Dose: 100 mls/hr Documented By: DAVE Magnesium Citrate (Magnesium Citrate 300 Ml Btl) 300 ml PO X1 ONE Stop: 02/01/25 17:33 Ondansetron HCl (Ondansetron Inj 2 Mg/Ml Inj 2 Ml) 4 mg IVP X1 ONE; Protocol Stop: 02/01/25 12:01 Last Admin: 02/01/25 12:41 Dose: 4 mg Documented By: DAVE Diagnosis Differential Diagnosis ED Complaint MDM: Vomiting, small bowel obstruction, constipation, UTI Diagnoses ruled out and/or further discussions: Constipation, UTI
[2025-02-01 11:59] VITALS: PULSE 78; RESP 16
--- NOTE | 2025-02-01 12:00 | EKG_ITS ---
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
--- NOTE | 2025-02-01 12:00 | XR_ITS ---
Examination: CT abdomen with intravenous contrast CT pelvis with intravenous contrast 2-D coronal reconstructions 2-D sagittal reconstructions Date and time of exam: February 01, 2025, 1405 hours COMPARISON: December 25, 2024 INDICATIONS: Vomiting beginning 2 weeks ago. CTDI: vol (mGy) 7.5 DLP: (mGycm) 415 Technique: Multiple axial sections of the abdomen and pelvis have been obtained. 64 slice high-resolution scanner used. 3 mm axial sections have been obtained, post intravenous injection 60 cc Isovue 370 2-D sagittal, coronal reconstructions obtained. Low dose protocols were performed. One or more of the following dose reduction techniques were used; automated exposure control, adjustment of the mA and/or KV according to patient size, use of iterative reconstruction technique. Findings: Left lobe 10 mm liver lesion which may represent a cyst Liver appears mildly irregular in contour No gallstones Splenomegaly AP dimension 14 cm No pancreatic or adrenal mass Mild to moderate renal parenchymal scar formation Bilateral renal calculi including 21 mm left renal pelvis calculus Minimal right hydronephrosis, no ureteral calculi noted No bowel obstruction No diverticulitis, there is colonic diverticulosis Very large amounts of stool are present in the rectum with thickening of the rectal wall The prostate is markedly irregular in contour and enlarged 4.1 cm Urinary bladder wall is thickened Right inguinal hernia containing bowel although no definite incarcerated bowel Prominent osteopenia IMPRESSION: 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
--- NOTE | 2025-02-01 12:00 | XR_ITS ---
EXAMINATION: AP chest single view TECHNIQUE: AP portable semiupright chest single view Date and time: February 01, 2025, 1227 hours, comparison 12/21/2024 INDICATIONS: Nausea and vomiting today. 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 Prominent vascular congestion. Suspicious for pneumonia versus scarring at the left base obscuring detail left hemidiaphragm Mild elevation right hemidiaphragm Prominent osteopenia IMPRESSION: Prominent vascular congestion Scarring versus pneumonia left base, clinical correlation advised
[2025-02-01 12:09] VITALS: BMI 22.1
[2025-02-01 12:25] LABS: Basophils # (Auto) 0.0 Thou/mm3 (0.0-0.2); Basophils % (Auto) 1 % (0-2.5); Eosinophils # (Auto) 0.1 Thou/mm3 (0.0-0.5); Eosinophils % (Auto) 1 % (0-10); Hematocrit 40.4 % (41.0-53.0); Hemoglobin 13.6 g/dL (13.5-16.0); Immature Granulocytes Auto 0.02 Thou/mm3 (0.00-0.00); Lymphocytes # (Auto) 1.9 Thou/mm3 (1.0-4.8); Lymphocytes % (Auto) 31 % (10-50); Mean Corpuscular HGB Conc 33.7 g/dl (31.0-37.0); Mean Corpuscular Hemoglobin 31.3 pg (25.0-35.0); Mean Corpuscular Volume 93 fL (80-100); Monocytes # (Auto) 0.5 Thou/mm3 (0.0-0.8); Monocytes % (Auto) 8 % (0-12); Neutrophils # (Auto) 3.6 Thou/mm3 (1.8-7.7); Neutrophils % (Auto) 60 % (37-80); Nucleated Red Blood Cell # 0.00 Thou/mm3 (0.00-0.00); Nucleated Red Blood Cell % 0 /100 WBC (0); Platelet Count 167 Thou/mm3 (140-440); RDW Standard Deviation 42.5 fL (35.1-43.9); Red Blood Count 4.35 Miln/mm3 (4.50-5.90); White Blood Count 6.1 Thou/mm3 (3.8-10.6)
[2025-02-01 12:36] VITALS: BP 147/84; PULSE 57; RESP 18; TEMP 36.2; O2SAT 97
[2025-02-01 12:39] LABS: Collection Type, Urine Catheter; Squamous Epithelial Cell,Urine 0 /hpf (0-5)
[2025-02-01] MEDS: RINGERS LACTATED 1000 ML 1,000 ML 999 ML IV (12:41)
[2025-02-01] MEDS: ONDANSETRON INJ 2 MG/ML INJ 2 ML 4 MG IVP (12:41)
[2025-02-01 13:08] LABS: Bacteria,Urine 1+; Bilirubin,Urine Negative (Negative); Blood,Urine 1+ (Negative); Clarity,Urine Clear (Clear/Hazy); Color,Urine Lt-Yellow (Lt Yel-Yel); Glucose, Urine Negative (Negative); Ketones,Urine Negative (Negative); Leukocyte Esterase,Urine Positive (Negative); Nitrite,Urine Negative (Negative); PH,Urine 8.0 (5.0-7.0); Protein,Urine Negative (Neg - Trace); RBC,Urine 7 /hpf (0-3); Specific Gravity,Urine 1.004 (1.001-1.035); Urobilinogen,Urine Negative mg/dL (0.0-1.0); WBC,Urine 75 /hpf (0-5)
[2025-02-01 13:09] LABS: Partial Thromboplastin Time 30.7 Seconds (22.0-36.0)
[2025-02-01 13:09] LABS: Culture Indicated,Urine Yes
[2025-02-01 13:18] LABS: Alanine Aminotransferase 22 U/L (10-49); Albumin, Serum 4.7 gm/dL (3.4-4.8); Albumin/Globulin Ratio 1.6 (1.2-2.2); Alkaline Phosphatase 88 U/L (46-116); Anion Gap 10 (7-16); Aspartate Amino Transferase 24 U/L (0-34); BUN/Creatinine Ratio 10 Ratio (12-20); Bilirubin,Total 0.6 mg/dL (0.3-1.2); Blood Urea Nitrogen 7 mg/dL (9-23); Calcium 9.8 mg/dL (8.3-10.6); Calcium (Corrected) 9.8 mg/dL (8.5-10.1); Carbon Dioxide 29.3 mMol/L (20.0-31.0); Chloride 101 mMol/L (98-107); Creatinine (Component) 0.7 mg/dL (0.6-1.3); Estimated Creatinine Clearance 79.6 mL/min (>60); Globulin 2.9 gm/dL (2.3-3.5); Glucose 121 mg/dL (74-106); Osmolality,Calculated 278 (275-295); Potassium 4.6 mMol/L (3.4-5.1); Sodium 140 mMol/L (136-145); Total Protein 7.6 gm/dL (5.7-8.2); eGFR > 60 See Note
[2025-02-01] MEDS: cefTRIAXone/D5w 1gm IV premix 1 GM/50 ML BAG IV (14:31)
[2025-02-01 16:05] VITALS: BP 139/72; PULSE 53; RESP 18; TEMP 36.1; O2SAT 97
[2025-02-01] MEDS: MAGNESIUM CITRATE 300 ML BTL PO (18:14)
[2025-02-01 19:04] VITALS: BP 149/74; PULSE 55; RESP 19; TEMP 37; O2SAT 98
[2025-02-01 19:48] VITALS: RESP 16
== END 2025-02-01 19:49 | disposition home or self-care (01) ==
PROVIDERS: Nurse Practitioner Family; Emergency Provider Emergency Medicine; PCP Podiatrist
DX: N39.0 Urinary tract infection, site not specified (principal)
CPT/HCPCS: 36415; 51701; 71045; 74177; 80053; 81001; 85025; 85730; 87077; 87086; 87186; 93005; 96361; 96365; 96375; 99284; A4649; J0696; J1200; J2405; J7120; Q9967; A9270

== ENCOUNTER → 2025-03-15 | Outpatient (CLI) | payer MEDICARE, MEDICAID, SELFPAY ==
[2025-03-15 14:01] LABS: Collection Type, Urine Clean Catch; Squamous Epithelial Cell,Urine 0 /hpf (0-5)
[2025-03-15 14:21] LABS: Amorphous Crystals,Urine Present (Absent); Bacteria,Urine 3+; Bilirubin,Urine Negative (Negative); Blood,Urine 1+ (Negative); Color,Urine Yellow (Lt Yel-Yel); Glucose, Urine Negative (Negative); Ketones,Urine Negative (Negative); Leukocyte Esterase,Urine Positive (Negative); Nitrite,Urine Negative (Negative); PH,Urine 8.0 (5.0-7.0); Protein,Urine Trace (Neg - Trace); RBC,Urine 60 /hpf (0-3); Specific Gravity,Urine 1.011 (1.001-1.035); Urobilinogen,Urine Negative mg/dL (0.0-1.0); WBC,Urine 1044 /hpf (0-5)
[2025-03-15 14:28] LABS: Clarity,Urine Turbid (Clear/Hazy); Culture Indicated,Urine Yes
== END | disposition home or self-care (01) ==
LOC: SLDO 13:40
PROVIDERS: PCP Family Medicine; Referring Provider Emergency Medicine; Visit Provider Emergency Medicine
DX: N39.0 Urinary tract infection, site not specified (principal); F73 Profound intellectual disabilities; E11.9 Type 2 diabetes mellitus without complications; N40.1 Benign prostatic hyperplasia with lower urinary tract symptoms
CPT/HCPCS: 81001; 87077; 87086; 87186

== ENCOUNTER 2025-03-21 13:09 | Emergency (ER) | payer MEDICARE, MEDICAID, SELFPAY ==
[2025-03-21] VITALS (7 sets, daily range): BP systolic 125–155; BP diastolic 70–89; PULSE 55–77; RESP 16–19; TEMP 36.6–36.7; O2SAT 95–99; BMI 18.8
--- NOTE | 2025-03-21 13:52 | PD.EDADULT ---
ED General RME/HPI General Chief complaint: Recheck/Abnormal Lab/Rx Stated complaint: UTI Time Seen by Provider: 03/21/25 13:49 Arrival date/time: 03/21/25 13:09 79-year-old male patient history of developmental delay, seizure disorder, diabetes mellitus, hyperlipidemia, and ESBL UTIs was sent to us from [facility] for request of IV antibiotic. Apparently patient had UTI and resistance to multiple antibiotic. Patient is not having any fever patient is not answering question patient is wearing a diaper. Related Data Home Medications ?Medication ?Instructions ?Recorded ?Confirmed Alendronate Sodium * (FOSAMAX *) 70 mg PO .MONDAY ##0 08/13/12 12/21/24 simvastatin 10 mg tablet (Zocor) 10 mg PO HS ##0 08/13/12 12/21/24 MULTIVITAMIN (MULTI VITAMIN DAILY) 1 tab PO QDAY ##0 08/02/16 12/21/24 docusate sodium 250 mg capsule 1 cap PO BID ##0 08/02/16 12/21/24 magnesium hydroxide 400 mg/5 mL 30 ml PO EVERYOTHERDAY 03/16/18 12/21/24 oral suspension (Milk of Magnesia) polyethylene glycol 3350 17 gram 17 g PO QDAY PRN constipation 03/16/18 12/21/24 oral powder packet (Miralax) melatonin 10 mg tablet 10 mg PO HS 12/12/23 12/21/24 olanzapine 2.5 mg tablet 5 mg PO HS 12/12/23 12/21/24 valbenazine 60 mg capsule 60 mg PO QDAY 12/12/23 12/21/24 (Ingrezza) cranberry-B.ptqkciook-P-Cn phos 1 tab PO QDAY 12/25/23 12/21/24 480 mg-20 mg-100 million cell tablet (Cranberry-Probiotic) metformin 500 mg tablet 500 mg PO BID 12/25/23 12/21/24 ibuprofen 400 mg tablet 400 mg PO Q6H PRN pain 07/20/24 12/21/24 zolpidem 5 mg tablet 5 mg PO QHSPRN 07/20/24 12/21/24 Held on 12/25/24. Instructions: Hold until you follow-up with PCP lamotrigine 100 mg tablet 100 mg PO BID 12/21/24 12/21/24 sertraline 100 mg tablet 100 mg PO Q24H 12/21/24 12/21/24 Previous Rx's ?Medication ?Instructions ?Recorded cefuroxime axetil 500 mg tablet 500 mg PO BID #14 tabs 02/01/25 cefuroxime axetil 500 mg tablet 500 mg PO BID #14 tabs 02/01/25 lactulose 10 gram/15 mL oral 20 g (30 mL) PO BID PRN 02/01/25 solution constipation #300 mL lactulose 10 gram/15 mL oral 20 g (30 mL) PO BID PRN 02/01/25 solution constipation #473 mL Allergies Allergy/AdvReac Type Severity Reaction Status Date / Time No Known Allergies Allergy Verified 03/21/25 13:32 Review of Systems Review of Systems Narrative Review of Systems: Review of system reviewed and within normal limits except mentioned in HPI ED Exam Narrative Physical exam: VITAL SIGNS: Reviewed. GENERAL APPEARANCE: Awake, does not follows commands, no acute distress, GCS of 9 HEAD AND FACE: Non-traumatic. ENT: PERRL, pink conjunctivitis, eyelid no trauma, Mucous membrane moist. NECK: Supple, nontender, no nuchal rigidity. CHEST: No tenderness, no crepitus, no paradoxical movement, no retractions. LUNGS: Clear, well ventilated, symmetric, no rales, no wheezing, no ronchi, no stridor, good breath sounds bilaterally. HEART: Regular rate, regular rhythm, no murmur, no gallops. ABDOMEN: Soft, positive bowel sounds, nondistended, no guarding, nontender, no rebound, no masses, RECTAL: Deferred. GENITAL: Deferred. NEUROLOGICAL: Gross motor function intact sensory function intact, Appropriate for age. MUSCULOSKELETAL: low back nontender, full range of motion. EXTREMITIES: Nontender, full range of motion. SKIN: Color pink, dry, no rash, no lacerations, no abrasions, no contusions. LYMPHATICS: Deferred. Course Quality Measures none Orders Category Date Time Status Straight [In and Out Catheter] X1 Care 03/21/25 13:[address] abdomen pelvis wo con Stat Exams 03/21/25 16:29 Completed CBC [CBC] Stat Lab 03/21/25 14:52 Completed CMP [Comprehensive Metabolic Panel] Stat Lab 03/21/25 15:33 Completed Lactate (Lactic Acid) Stat Lab 03/21/25 14:52 Completed UA, C/S IF [Urinalysis, C/S if Indicated] Stat Lab 03/21/25 15:17 Completed Urine Culture Stat Lab 03/21/25 15:17 Received Piper/Tazo 3.375 gm Premix [Zosyn] Med 03/21/25 13:55 Discontinued 3.375 gm in 50 ml IV X1 Ringers Lactated 1000 ml [Lactated Ringers] 1,000 ml Med 03/21/25 13:56 Discontinued IV 999 mls/hr Vital Signs Vital signs: Vital Signs Pulse Rate 61 03/21/25 13:52 Respiratory Rate 16 03/21/25 13:52 Blood Pressure 136/74 H 03/21/25 13:52 Pulse Oximetry (%) 97 03/21/25 13:52 Oxygen Delivery Method Room Air 03/21/25 13:52 Discharge Plan Plan Patient Disposition: HOME (Self Care) Discharge Disposition comment: Stable Prescriptions/Referrals Prescriptions/Med Rec: No Action Alendronate Sodium * (FOSAMAX *) 70 MG tablet 70 mg PO .MONDAY Qty: 0 simvastatin [Zocor] 10 MG tablet 10 mg PO HS Qty: 0 docusate sodium 250 MG capsule 1 cap PO BID Qty: 0 MULTIVITAMIN (MULTI VITAMIN DAILY) 1 EACH tablet 1 tab PO QDAY Qty: 0 polyethylene glycol 3350 [Miralax] 17 gram Powder In Packet 17 g PO QDAY PRN (Reason: constipation) Rx Instructions: hold for loose stools magnesium hydroxide [Milk of Magnesia] 400 mg/5 mL Suspension 30 ml PO EVERYOTHERDAY olanzapine 2.5 mg tablet 5 mg PO HS melatonin 10 mg Tablet 10 mg PO HS Ingrezza 60 mg capsule 60 mg PO QDAY zolpidem 5 mg tablet 5 mg PO QHSPRN ibuprofen 400 mg tablet 400 mg PO Q6H PRN (Reason: pain) sertraline 100 mg tablet 100 mg PO Q24H lamotrigine 100 mg tablet 100 mg PO BID lactulose 10 gram/15 mL solution 20 g PO BID PRN (Reason: constipation) Qty: 473 0RF cefuroxime axetil 500 mg tablet 500 mg PO BID Qty: 14 0RF cefuroxime axetil 500 mg tablet 500 mg PO BID Qty: 14 0RF lactulose 10 gram/15 mL solution 20 g PO BID PRN (Reason: constipation) Qty: 300 0RF metformin 500 mg tablet 500 mg PO BID Cranberry-Probiotic 480 mg-20 mg- 100million cell Tablet 1 tab PO QDAY Referrals: No Primary/Family,Physician [Primary Care Provider] - In 1 week Problem List Clinical Impression: History of UTI Patient/Caregiver Discharge Instructions Discharge Activity: activity as tolerated Education Materials: ED Urinary Tract Infections in Men Additional Instructions: Thank you for the opportunity for serving you today. You are stable for discharged . You are advised to: Follow-up with your PCP in 1 to 2 days Return to ED for worsening of symptoms Increase oral fluids Clinically you are probably having asymptomatic UTI which is not giving you the symptoms. You are febrile, there is no leukocytosis on yourr CBC. I want you to follow-up with your urologist in few days. Print Language: Czech Stand Alone Forms: [employer] Award Info., Patient Portal Info Letter JESI/FLORA Supervising Physician JESI/FLORA Supervising Physician: MD Denis MDM Narrative MDM hospital course (for use when minimal MDM required): 79-year-old male patient history of developmental delay, seizure disorder, diabetes mellitus, hyperlipidemia, and ESBL UTIs was sent to us from [facility] for request of IV antibiotic. Apparently patient had UTI and resistance to multiple antibiotic. Patient is not having any fever patient is not answering question patient is wearing a diaper. Patient CBC showed no leukocytosis however urinalysis straight cath urine, showed WBC count of 69, positive leukocyte esterase negative nitrites. Patient was given IV Zosyn and IV fluids I spoke with hospitalist, who examined the patient in the emergency room, and told me that at this time patient does not need any admission or any IV antibiotic. Patient is probably having chronic asymptomatic UTI due to colonization. Plan discussed with caregiver, who agrees to be discharged home. Clinical Information Provided by: guardian Medication Administration(s) Medication Administration History Discontinued Medications Piperacillin/Tazobactam/Dextrose (Zosyn) 3.375 gm in 50 mls @ 100 mls/hr IV X1 ONE; Protocol Stop: 03/21/25 14:24 Last Infusion: 03/21/25 16:22 Dose: Infused Documented By: Admin: 03/21/25 15:52 Dose: 100 mls/hr Documented By: BLESSING Lactated Ringer's (Lactated Ringers) 1,000 mls @ 999 mls/hr IV .Q1H1M ONE Stop: 03/21/25 14:56 Last Infusion: 03/21/25 19:27 Dose: Infused Documented By: Admin: 03/21/25 15:53 Dose: 999 mls/hr Documented By: BLESSING Diagnosis Differential Diagnosis ED Complaint MDM: aChronic symptomatic UTI, ESBL, Diagnoses ruled out and/or further discussions: Chronic asymptomatic UTI, history of UTI
[2025-03-21 15:01] LABS: Lactate (Lactic Acid) 1.2 mMol/L (0.4-2.0)
[2025-03-21 15:09] LABS: Basophils # (Auto) 0.0 Thou/mm3 (0.0-0.2); Basophils % (Auto) 1 % (0-2.5); Eosinophils # (Auto) 0.1 Thou/mm3 (0.0-0.5); Eosinophils % (Auto) 2 % (0-10); Hematocrit 38.3 % (41.0-53.0); Hemoglobin 13.0 g/dL (13.5-16.0); Immature Granulocytes Auto 0.02 Thou/mm3 (0.00-0.00); Lymphocytes # (Auto) 1.8 Thou/mm3 (1.0-4.8); Lymphocytes % (Auto) 34 % (10-50); Mean Corpuscular HGB Conc 33.9 g/dl (31.0-37.0); Mean Corpuscular Hemoglobin 31.6 pg (25.0-35.0); Mean Corpuscular Volume 93 fL (80-100); Monocytes # (Auto) 0.5 Thou/mm3 (0.0-0.8); Monocytes % (Auto) 10 % (0-12); Neutrophils # (Auto) 2.9 Thou/mm3 (1.8-7.7); Neutrophils % (Auto) 54 % (37-80); Nucleated Red Blood Cell # 0.00 Thou/mm3 (0.00-0.00); Nucleated Red Blood Cell % 0 /100 WBC (0); Platelet Count 158 Thou/mm3 (140-440); RDW Standard Deviation 42.5 fL (35.1-43.9); Red Blood Count 4.12 Miln/mm3 (4.50-5.90); White Blood Count 5.4 Thou/mm3 (3.8-10.6)
[2025-03-21 15:29] LABS: Collection Type, Urine Catheter; Squamous Epithelial Cell,Urine 0 /hpf (0-5)
[2025-03-21 15:38] LABS: Bacteria,Urine Rare; Bilirubin,Urine Negative (Negative); Blood,Urine 2+ (Negative); Clarity,Urine Clear (Clear/Hazy); Color,Urine Lt-Yellow (Lt Yel-Yel); Glucose, Urine Negative (Negative); Ketones,Urine Negative (Negative); Leukocyte Esterase,Urine Positive (Negative); Nitrite,Urine Negative (Negative); PH,Urine 8.0 (5.0-7.0); Protein,Urine Negative (Neg - Trace); RBC,Urine 21 /hpf (0-3); Specific Gravity,Urine 1.007 (1.001-1.035); Urobilinogen,Urine Negative mg/dL (0.0-1.0); WBC,Urine 69 /hpf (0-5)
[2025-03-21 15:43] LABS: Culture Indicated,Urine Yes
[2025-03-21] MEDS: PIPER/TAZO 3.375 GM PREMIX 3.375 GM/50 ML BAG IV (15:52)
[2025-03-21] MEDS: RINGERS LACTATED 1000 ML 1,000 ML 999 ML IV (15:53)
--- NOTE | 2025-03-21 16:29 | XR_ITS ---
Examination: CT abdomen and pelvis without contrast. Coronal 3-D reconstructions. Sagittal 2-D reconstructions. Date and time of exam: March 21, 2025, 1735 hours INDICATIONS: Blood in the urine today, diagnosis obstructive uropathy, abnormal prostate thickening of the urinary bladder on CT abdomen/pelvis February 01, 2025 CTDI: vol (mGy): 7.88 DLP: (mGycm): 447 Technique: Axial images of the abdomen have been obtained, 3 mm slice thickness Intravenous contrast material has not been administered. Low dose protocols were performed. One or more of the following dose reduction techniques were used; automated exposure control, adjustment of the mA and/or KV according to patient size, use of iterative reconstruction technique. Findings: Mild enlargement cardiac contour Atelectasis in the lower lung zones Small left lobe liver cyst No definite gallstones Spleen not enlarged No pancreatic mass Multiple bilateral renal calculi, the largest in the right kidney 11 mm, the largest in the left kidney, 29 mm, this calculus in the left renal pelvis also prominent upper pole staghorn calculus left kidney No significant hydronephrosis Large amounts of stool throughout the entire colon especially rectum with thickening of the rectal wall No pericecal inflammatory change Markedly abnormal prostate, enlarged, AP dimension 4.3 cm mediolateral dimension 5.2 cm with markedly irregular anterior contour markedly indenting the base of the bladder Mild urinary bladder wall thickening Moderate osteopenia IMPRESSION: Large bilateral renal calculi including 29 mm calculus in the left renal pelvis, no hydronephrosis Markedly abnormal enlarged prostate with irregular contour indenting the base of the bladder, recommend correlation with PSA
[2025-03-21 16:30] LABS: Alanine Aminotransferase 35 U/L (10-49); Albumin, Serum 4.3 gm/dL (3.4-4.8); Albumin/Globulin Ratio 1.4 (1.2-2.2); Alkaline Phosphatase 87 U/L (46-116); Anion Gap 5 (7-16); Aspartate Amino Transferase 30 U/L (0-34); BUN/Creatinine Ratio 14 Ratio (12-20); Bilirubin,Total 0.5 mg/dL (0.3-1.2); Blood Urea Nitrogen 10 mg/dL (9-23); Calcium 9.3 mg/dL (8.3-10.6); Calcium (Corrected) 9.3 mg/dL (8.5-10.1); Carbon Dioxide 33.6 mMol/L (20.0-31.0); Chloride 104 mMol/L (98-107); Creatinine (Component) 0.7 mg/dL (0.6-1.3); Estimated Creatinine Clearance 63.7 mL/min (>60); Globulin 3.0 gm/dL (2.3-3.5); Glucose 105 mg/dL (74-106); Osmolality,Calculated 283 (275-295); Potassium 4.4 mMol/L (3.4-5.1); Sodium 143 mMol/L (136-145); Total Protein 7.3 gm/dL (5.7-8.2); eGFR > 60 See Note
--- NOTE | 2025-03-21 20:48 | ESCONSULT_ITS ---
<Statement entered by Clarence Monsalve DO - 03/21/25 21:21> Patient was seen and examined by me. After the review of the clinical data, pt's clinical picture is not consistent with an acute infection. His UA from today appears to have less pyuria compared to UA from 03/15/25. He already has a known history of showing ESBL colonizing infection in the urine. There are no indications for repeating abx for now or for admission. Pt will need to have a follow up with his PCP and urologist outpt. I Clarence Monsalve DO, attest that I was physically present for [place] portions of evaluation, examined the patient, reviewed the labs and imaging, and discussed the plan of care and management with the residents team. I agree with the findings and plans documented above. HPI Data of Consult Attending Provider: Clarence Monsalve DO Primary Care Provider: Physician No Primary/Family Consult Narrative History of present illness: HPI: 79-year-old male history of developmental delay, seizures, diabetes, hyperlipidemia, chronic ESBL UTI sent at the request of urologist BUCK SWAMPER in [place] for IV antibiotic treatment from [facility]. Patient is a longstanding history of UTI resistant to multiple antibiotics. Urinalysis showed 2+ blood, 21 RBC, 69 WBC, all these values have been similar on previous admissions. The hospitalist team was consulted ED Course: * Significant vitals on arrival: BP 136/74, remainder vitals within normal limits * Significant labs: Hemoglobin 13, hematocrit 38.3, bicarb 33.6 * Imaging: CTAP showed large bilateral renal calculi including 29 mm calculus in the left renal pelvis with no hydronephrosis, markedly abnormal enlarged prostate irregular contour indenting the base of the bladder. * ED intervention: Patient received a dose of Zosyn 3.375 GM, 1 L of LR. Byrne was placed in the ED, was apparently not placed on patient arrival. When hospitalist team arrived bloody urine was draining, per the caregiver the patient was pulling on the Byrne. History: (Patient is at baseline, not speaking, staying under his blankets) * Past medical history: As above in HPI Allergies: * No known drug allergies. Home Medications: (Pending Med Rec) * Med list CODE STATUS: Full Code cc:: cc: Review of Systems Review of Systems Narrative Review of Systems: Unable to obtain due to the patient's mental status, not cooperating. Exam Vital Signs Temp Pulse Resp BP Pulse Ox O2 Del Method 98.0 F 77 16 125/89 H 95 Room Air 03/21/25 19:21 03/21/25 18:00 03/21/25 19:21 03/21/25 19:21 03/21/25 19:21 03/21/25 19:21 Narrative Exam Limited due to the patient's mental status, not cooperating. Attempts were made to take blankets off of patient for exam, patient immediately pulled blankets back over himself: * Frail elderly man. * Byrne in place, draining bloody urine. * Vitals stable. * Patient wearing a diaper. * Incomprehensible sounds. * Caregiver at bedside, mentions that this was the patient's baseline. Results Labs 03/21/25 14:52 03/21/25 15:33 Labs: Short CBC 03/21/25 Range/Units 14:52 WBC 5.4 (3.8-10.6) Thou/mm3 Hgb 13.0 L (13.5-16.0) g/dL Hct 38.3 L (41.0-53.0) % Plt Count 158 (140-440) Thou/mm3 BMP 03/21/25 15:33 Sodium 143 Potassium 4.4 Chloride 104 Carbon Dioxide 33.6 H BUN 10 Creatinine 0.7 Glucose 105 Calcium 9.3 Liver Function 03/21/25 Range/Units 15:33 Total Bilirubin 0.5 (0.3-1.2) mg/dL AST 30 (0-34) U/L ALT 35 (10-49) U/L Alkaline Phosphatase 87 (46-116) U/L Albumin 4.3 (3.4-4.8) gm/dL Urine 03/21/25 Range/Units 15:17 Urine Color Lt-Yellow (Lt Yel-Yel) Urine Clarity Clear (Clear/Hazy) Urine pH 8.0 H (5.0-7.0) Ur Specific Alvin 1.007 (1.001-1.035) Urine Protein Negative (Neg - Trace) Urine Glucose (UA) Negative (Negative) Quality Measures Quality Measures VTE prophylaxis and none Advance care planning discussed with:: other (Caregiver) Medications Home Medications and Allergies Home Medications ?Medication ?Instructions ?Recorded ?Confirmed ?Type Alendronate Sodium * (FOSAMAX *) 70 mg PO .MONDAY # #0 08/13/12 12/21/24 History simvastatin 10 mg tablet (Zocor) 10 mg PO HS ##0 08/1312/21/24 History MULTIVITAMIN (MULTI VITAMIN DAILY) 1 tab PO QDAY ##0 0 08/02/16 12/21/24 History docusate sodium 250 mg capsule 1 cap PO BID ##0 12/21/24 History magnesium hydroxide 400 mg/5 mL 30 ml PO EVERYOTHERDAY 03/16/18 12/21/24 History oral suspension (Milk of Magnesia) polyethylene glycol 3350 17 gram 17 g PO QDAY PRN cons tipation 03/16/18 12/21/24 History oral powder packet (Miralax) melatonin 10 mg tablet 10 mg PO HS 12/12/23 5 History olanzapine 2.5 mg tablet 5 mg PO HS 12/12/23 12/21/24 History valbenazine 60 mg capsule 60 mg PO QDAY 12/12/2312/21 History (Ingrezza) cranberry-B.qbbjdtrrh-Q-Fa phos 1 tab PO QDAY 12/25/23 12/21/24 History 480 mg-20 mg-100 million cell tablet (Cranberry-Probiotic) metformin 500 mg tablet 500 mg PO BID 12/25/2312/21 History ibuprofen 400 mg tablet 400 mg PO Q6H PRN pain 07/2012/21/24 History zolpidem 5 mg tablet 5 mg PO QHSPRN 07/20/2412/03 History Held on 12/25/24. Instructions: Hold until you follow-up with PCP lamotrigine 100 mg tablet 100 mg PO BID 12/21/2412/21 History sertraline 100 mg tablet 100 mg PO Q24H 12/21/2412/03 History Allergies Allergy/AdvReac Type Severity Reaction Status Date / Time No Known Allergies Allergy Verified 03/21/25 13:32 Visit Medications Discontinued Medications Piperacillin/Tazobactam/Dextrose (Zosyn) 3.375 gm in 50 mls @ 100 mls/hr IV X1 ONE; Protocol Stop: 03/21/25 14:24 Last Infusion: 03/21/25 16:22 Dose: Infused Lactated Ringer's (Lactated Ringers) 1,000 mls @ 999 mls/hr IV .Q1H1M ONE Stop: 03/21/25 14:56 Last Infusion: 03/21/25 19:27 Dose: Infused Assessment & Plan Plan Summary: 79-year-old male history of developmental delay, seizures, diabetes, hyperlipidemia, chronic ESBL UTI sent at the request of urologist FLORA in [place] for IV antibiotic treatment from [facility]. Patient is a longstanding history of UTI resistant to multiple antibiotics. Urinalysis showed 2+ blood, 21 RBC, 69 WBC, all these values have been similar on previous admissions. The hospitalist team was consulted #History of recurrent so-resistant UTIs #MDR E. coli UTI #History of recurrent UTIs #History of seizure disorder #Developmental delay #Depression #Tardive dyskinesia #Respiratory Distress #Type 2 diabetes mellitus #Hyperlipidemia #Insomnia #Constipation * Urinalysis showed 2+ blood, 21 RBC, 69 WBC, all these values have been similar on previous admissions * Patient was seen by ID on 12/21/2024 and per their assessment the recurrent ESBL E. coli growth was deemed to be a possible colonizer * Upon urinalysis, exam, chart review, it was determined that the patient's current UTI is his baseline colonization * The patient's pai gow manager was contacted and informed * The patient's vitals are stable, he is afebrile, has no leukocytosis, and there is no concern for sepsis * It was determined that the patient does not require acute care in the hospital and he should follow-up outpatient urology Patient was seen and discussed with my attending physician Dr. Bello BUSH. Sandeep Danielson DO PGY-1.
--- NOTE | 2025-03-21 20:51 | PC.NURSE ---
PER PROVIDER ABREA REMOVE CRAFT CATHETER. CRAFT CATHETER REMOVED THAT WAS PLACED BY DAY SHIFT. BLOODY URINE NOTED IN CRAFT BAG. 1200ML URINE OUTPUT.
== END 2025-03-21 22:13 | disposition home or self-care (01) ==
PROVIDERS: Nurse Practitioner Family; Emergency Provider Family Medicine
DX: Z87.440 Personal history of urinary (tract) infections (principal)
CPT/HCPCS: 36415; 51701; 74176; 80053; 81001; 83605; 85025; 87077; 87086; 87186; 96361; 96365; 99283; J2543; J7120

== ENCOUNTER 2025-03-23 13:15 | Inpatient (IN) | payer MEDICARE, MEDICAID, SELFPAY ==
[2025-03-23] VITALS (11 sets, daily range): BP systolic 88–127; BP diastolic 46–68; PULSE 67–92; RESP 14–20; TEMP 36.5–38.1; O2SAT 91–100
--- NOTE | 2025-03-23 13:21 | EKG_ITS ---
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
--- NOTE | 2025-03-23 13:23 | EDNOTE_ITS ---
ED General RME/HPI General Chief complaint: Seizure Stated complaint: SEIZURES Time Seen by Provider: 03/23/25 13:21 Arrival date/time: 03/23/25 13:15 CC: Seizure and HPI patient presents to the ER via EMS who reports stable vital signs. There is reported witnessed 3 seizures 1 4 minutes 1 3 minutes and 1 to 2 minutes. The patient is baseline nonverbal with a history of seizures. Last seizure was 1 year ago. Patient recently seen here for urinary tract infection. No other complaints reported by EMS. Related Data Home Medications ?Medication ?Instructions ?Recorded ?Confirmed Alendronate Sodium * (FOSAMAX *) 70 mg PO .MONDAY # #0 08/13/12 12/21/24 simvastatin 10 mg tablet (Zocor) 10 mg PO HS ##0 08/1312/21/24 MULTIVITAMIN (MULTI VITAMIN DAILY) 1 tab PO QDAY ##0 0 08/02/16 12/21/24 docusate sodium 250 mg capsule 1 cap PO BID ##0 12/21/24 magnesium hydroxide 400 mg/5 mL 30 ml PO EVERYOTHERDAY 03/16/18 12/21/24 oral suspension (Milk of Magnesia) polyethylene glycol 3350 17 gram 17 g PO QDAY PRN cons tipation 03/16/18 12/21/24 oral powder packet (Miralax) melatonin 10 mg tablet 10 mg PO HS 12/12/23 5 olanzapine 2.5 mg tablet 5 mg PO HS 12/12/23 12/21/24 valbenazine 60 mg capsule 60 mg PO QDAY 12/12/2312/21 (Ingrezza) cranberry-B.frddgnxiv-S-Bh phos 1 tab PO QDAY 12/25/23 12/21/24 480 mg-20 mg-100 million cell tablet (Cranberry-Probiotic) metformin 500 mg tablet 500 mg PO BID 12/25/2312/21 ibuprofen 400 mg tablet 400 mg PO Q6H PRN pain 07/2012/21/24 zolpidem 5 mg tablet 5 mg PO QHSPRN 07/20/2412/03 Held on 12/25/24. Instructions: Hold until you follow-up with PCP lamotrigine 100 mg tablet 100 mg PO BID 12/21/2412/21 sertraline 100 mg tablet 100 mg PO Q24H 12/21/2412/03 Previous Rx's ?Medication ?Instructions ?Recorded cefuroxime axetil 500 mg tablet 500 mg PO BID #14 tabs 02/01/25 cefuroxime axetil 500 mg tablet 500 mg PO BID #14 tabs 02/01/25 lactulose 10 gram/15 mL oral 20 g (30 mL) PO BID PRN 1 04/03/24 solution constipation #300 mL lactulose 10 gram/15 mL oral 20 g (30 mL) PO BID PRN 1 04/03/24 solution constipation #473 mL Allergies Allergy/AdvReac Type Severity Reaction Status Date / Time No Known Allergies Allergy Verified 03/21/25 13:32 Review of Systems Review of Systems ROS Unobtainable: unobtainable due to mental status Past Medical History Past Medical History NEUROLOGIC: Positive Neurological Disorders and Seizures; Negative Transient Ischemic Attacks (TIA), Dementia, Alzheimer's Disease, Brain Tumor, Meningitis, Multiple Sclerosis, Cerebral Palsy, Spina Bifida, Spinal Cord Injury or Traumatic Brain Injury CARDIAC: Positive Hypercholesterolemia and Hypertension; Negative Cardiac Disorders, Myocardial Infarction, Cardiac Arrhythmia, Atrial Fibrillation, Angina, Heart Murmur, Coronary Artery Disease, Atherosclerotic Heart Disease, Peripheral Vascular Disease, Aneurysm, Congestive Heart Failure, Congenital Heart Disease, Valvular Heart Disease, Rheumatic Fever, Cardiomyopathy, Edema, Pericarditis, Cellulitis, Deep Vein Thrombosis, Hypotension or Varicose Veins RESPIRATORY: Positive Pneumonia; Negative Chronic Obstructive Pulmonary Disease (COPD), Asthma, Cystic Fibrosis, Pulmonary Embolism or Sleep Apnea GASTROINTESTINAL: Positive Gastrointestinal Disorders and Gastroesophageal Reflux Disease; Negative Hepatitis, Daniel's Esophagus, Colitis, Ulcerative Colitis, Diverticulosis, Colorectal Cancer, Obstructive Bowel or Hemorrhoids GENITOURINARY: Negative Genitourinary Disorders, Renal Disease, Neurogenic Bladder, Dialysis or Prostate Cancer REPRODUCTIVE: Negative Breast Cancer, Fibroids, Genital Herpes, Gonorrhea, Syphilis or Testicular Cancer MUSCULOSKELETAL: Positive Musculoskeletal Disorders; Negative Myasthenia Gravis, Marfan's Syndrome, Bone Cancer, Rheumatoid Arthritis, Degenerative Disk Disease, Scoliosis, Carpal Tunnel Syndrome, Fractures or Poliovirus ENT: Negative Cataracts, Retinal Detachment, Macular Degeneration, Deafness or Eye Prosthesis ENDOCRINE: Positive Diabetes Mellitus Type 2; Negative Endocrine Disorders, Diabetes Mellitus Type 1, Hypoglycemia, [place]'s Syndrome, Lamb's Disease, Hyperthyroidism, Hypothyroidism, Parathyroid Disease, Pituitary Disease, Systemic Lupus Erythematosus, Syndrome of Inappropriate Antidiuretic Hormone (SIADH), Adrenal Disease or Graves' Disease HEMATOLOGIC: Negative Blood Disorders, Anemia, Leukemia, Hemophilia, Thalassemia, Sickle Cell Disease or Clotting Problems PSYCHO/SOCIAL: Positive Depression and Anxiety; Negative Psychiatric Problems, Schizophrenia, Attention Deficit Disorder or Depression OTHER HISTORY: Positive Hospitalization, Developmental Delay and Falls; Negative Down Syndrome, Autism, Shingles, Blood Transfusions, Blood Transfusion Reaction, Anesthesia Reactions, Organ Transplant, Chemotherapy, Radiation Therapy, Hyperbaric Therapy, MRSA, VRSA, Vancomycin-Resistant Enterococci, Human Immunodeficiency Virus (HIV), Chicken Pox, Measles, Mumps, Rubella (Upper Sor[place] Measles), Pertussis, Clostridium Difficile, Cancer, Breast Cancer, Colorectal Cancer, Lung Cancer, Prostate Cancer or Testicular Cancer Family History FAMILY HISTORY: Negative Family Cardiac Disorders Surgical History SURGICAL: Negative Cardiac Surgery, Open Heart Surgery, Valve Replacement, Co ronary Stent, Cardiac Catheterization, Pacemaker, Angiogram, Endocrine Surgery, Thyroidectomy, Ear Surgery, Tympanostomy Tube, Eye Surgery, Nose Surgery, Oral Surgery, Tonsillectomy, Adenoidectomy, Cochlear Implant, Corneal Transplant, Throat Surgery, Abdominal Surgery, Tracheostomy, Gastric Bypass Surgery, Gastrostomy, Bowel Surgery, Nephrectomy, Transurethral Resection, Joint Replacement, Amputation, Open Reduction Internal Fixation, Arthroscopy, Neurologic Surgery, Brain Shunt, Mastectomy, Vasectomy or Organ Transplant Social History SMOKING STATUS: Never smoker SUBSTANCE USE: does not use ED Exam Narrative Physical exam: [General: Appears not in any acute distress Head normocephalic HEENT: Within acceptable limits Neck is supple nontender Chest equal chest rise nontender to palpation Respiratory: Clear to auscultation no wheezes crackles or rubs CV: Rate rhythm is regular no murmurs rubs or clicks Abdomen is soft nontender no masses positive bowel sounds all 4 quadrants Back: No CVA tenderness no spinous process tenderness from cervical spine thoracic and lumbar spine Skin: Intact no petechiae rash induration ulceration or crepitus Extremities: Moving all extremity against resistance cap refill less than 2 seconds neurosensory intact Neuro: Nonverbal, in a position. Reported baseline. Course Course Course Narrative: Patient's case clinical findings discussed with Dr. Hinojosa and his resident, agrees to accept the patient if the patient's pressures remain soft and he will be admitted to the ICU. Quality Measures none Orders Category Date Time Status EKG (ED ONLY) *Do not use* NOW Care 03/23/25 13:21 Completed In and Out Catheter X1 Care 03/23/25 13:21 Completed Saline [Insert IV] NOW Care 03/23/25 13:[address] head/brain wo con Stat Exams 03/23/25 15:24 Completed EKG (ED Only) Stat Exams 03/23/25 13:21 Draft B-Type Natriuretic Peptide Stat Lab 03/23/25 14:05 Received Blood Culture (Lab) Stat Lab 03/23/25 14:05 Received CBC Stat Lab 03/23/25 14:05 Completed Comprehensive Metabolic Panel Stat Lab 03/23/25 14:05 Completed Drug Screen,Urine Stat Lab 03/23/25 14:18 Ordered LDH (Lactate Dehydrogenase) Stat Lab 03/23/25 14:05 Completed Lactic Acid [Lactate (Lactic Acid)] Stat Lab 03/23/25 14:05 Results Magnesium Stat Lab 03/23/25 14:05 Completed Partial Thromboplastin Time Stat Lab 03/23/25 14:05 Completed Procalcitonin Stat Lab 03/23/25 14:05 Completed Prothrombin Time with INR Stat Lab 03/23/25 14:05 Completed Troponin I Stat Lab 03/23/25 14:05 Completed Urinalysis, C/S if Indicated Stat Lab 03/23/25 14:18 Ordered Acetaminophen Ivpb [Ofirmev Inj] Med 03/23/25 13:37 Active 1,000 mg in 100 ml IV Q6HR Meropenem Inj [Merrem Inj] 1,000 mg Med 03/23/25 15:06 Discontinued SODIUM CHLORIDE 0.9% (Popper) [Ns 0.9% (P)] 50 ml IV X1 Piper/Tazo 3.375 gm Premix [Zosyn] Med 03/23/25 13:36 Discontinued 3.375 gm in 50 ml IV X1 Ringers Lactated 1000 ml [Lactated Ringers] 1,000 ml Med 03/23/25 13:36 Discontinued IV 999 mls/hr Ringers Lactated 1000 ml [Lactated Ringers] 1,000 ml Med 03/23/25 14:43 Discontinued IV 999 mls/hr Ringers Lactated 500 ml [Lactated Ringers] 500 ml Med 03/23/25 16:21 Active IV 999 mls/hr levETIRAcetam INJ [Keppra Inj] Med 03/23/25 13:21 Discontinued 1,000 mg IVP X1 ONE Vital Signs Vital signs: Vital Signs Temperature 98.9 F 03/23/25 13:20 Pulse Rate 85 03/23/25 13:20 Respiratory Rate 20 03/23/25 13:20 Blood Pressure 127/68 03/23/25 13:20 Pulse Oximetry (%) 99 03/23/25 13:20 Oxygen Delivery Method Oxy Mask 03/23/25 13:20 Oxygen Flow Rate 8 03/23/25 13:20 Discharge Plan Plan Patient Disposition: Other Care w/in Hosp ([facility]) Patient condition on transfer: Stable Prescriptions/Referrals Prescriptions/Med Rec: No Action Alendronate Sodium * (FOSAMAX *) 70 MG tablet 70 mg PO .MONDAY Qty: 0 simvastatin [Zocor] 10 MG tablet 10 mg PO HS Qty: 0 docusate sodium 250 MG capsule 1 cap PO BID Qty: 0 MULTIVITAMIN (MULTI VITAMIN DAILY) 1 EACH tablet 1 tab PO QDAY Qty: 0 polyethylene glycol 3350 [Miralax] 17 gram Powder In Packet 17 g PO QDAY PRN (Reason: constipation) Rx Instructions: hold for loose stools magnesium hydroxide [Milk of Magnesia] 400 mg/5 mL Suspension 30 ml PO EVERYOTHERDAY olanzapine 2.5 mg tablet 5 mg PO HS melatonin 10 mg Tablet 10 mg PO HS Ingrezza 60 mg capsule 60 mg PO QDAY zolpidem 5 mg tablet 5 mg PO QHSPRN ibuprofen 400 mg tablet 400 mg PO Q6H PRN (Reason: pain) sertraline 100 mg tablet 100 mg PO Q24H lamotrigine 100 mg tablet 100 mg PO BID lactulose 10 gram/15 mL solution 20 g PO BID PRN (Reason: constipation) Qty: 473 0RF cefuroxime axetil 500 mg tablet 500 mg PO BID Qty: 14 0RF cefuroxime axetil 500 mg tablet 500 mg PO BID Qty: 14 0RF lactulose 10 gram/15 mL solution 20 g PO BID PRN (Reason: constipation) Qty: 300 0RF metformin 500 mg tablet 500 mg PO BID Cranberry-Probiotic 480 mg-20 mg- 100million cell Tablet 1 tab PO QDAY Referrals: No Primary/Family,Physician [Primary Care Provider] - In 1 week Problem List Clinical Impression: Sepsis, Fever Patient/Caregiver Discharge Instructions Print Language: Luxembourgish Stand Alone Forms: Sarai Award Info., Patient Portal Info Letter PA/FLORA Supervising Physician JESI/FLORA Supervising Physician: Naseem Marquez ENP [facility] Clinical Information Provided by: patient and EMS Medical Records reviewed [facility] and EMS Meds/Rx considered, not ordered None Labs/Rad/Tests considered, not ordered None Chronic Illness/Social Conditions Explain: Developmental delay nonverbal recurrent UTIs EKG Interpretation EKG #1: EKG Interpretation: EKG performed at 1501 shows a ventricular rate of 76 [place] interval 144 QRS of 105 QTc 403 this normal sinus rhythm. Labs Labs: interpreted by tx Lab(s) Interpretation(s): CBC shows no leukocytosis H&H of 12.4 and 36.6 respectively platelets at 114. Coags within acceptable limits Sodium 134 chloride 96 glucose at 111 no other electrolyte imbalances renal impairment transaminitis or T. bili elevation Lactic at 6.0 Pro-Giovanni at 4.00 Troponin and BNP within acceptable limits Imaging Imaging interpretation: interpreted by tx Imaging Interpretation(s): Head CT is negative for any acute finding. Medication Administration(s) Medication Administration History Acetaminophen (Ofirmev Inj) 1,000 mg in 100 mls @ 250 mls/hr IV Q6HR GREG Stop: 03/24/25 06:23 Last Infusion: 03/23/25 14:31 Dose: Infused Documented By: Admin: 03/23/25 14:07 Dose: 250 mls/hr Documented By: Comments: given for fever Lactated Ringer's (Lactated Ringers) 500 mls @ 999 mls/hr IV .Q31M ONE Stop: 03/23/25 16:51 Discontinued Medications Piperacillin/Tazobactam/Dextrose (Zosyn) 3.375 gm in 50 mls @ 100 mls/hr IV X1 ONE; Protocol Stop: 03/23/25 14:05 Last Infusion: 03/23/25 14:43 Dose: Infused Documented By: Admin: 03/23/25 14:13 Dose: 100 mls/hr Documented By: Lactated Ringer's (Lactated Ringers) 1,000 mls @ 999 mls/hr IV .Q1H1M ONE Stop: 03/23/25 14:36 Last Infusion: 03/23/25 15:02 Dose: Infused Documented By: Admin: 03/23/25 14:01 Dose: 999 mls/hr Documented By: DO Lactated Ringer's (Lactated Ringers) 1,000 mls @ 999 mls/hr IV .Q1H1M ONE Stop: 03/23/25 15:43 Last Admin: 03/23/25 15:10 Dose: 999 mls/hr Documented By: DO Meropenem 1,000 mg/ Sodium (Chloride) 50 mls @ 100 mls/hr IV X1 ONE Stop: 03/23/25 15:07 Last Admin: 03/23/25 16:08 Dose: 100 mls/hr Documented By: DO Levetiracetam (Levetiracetam Inj 100 Mg/Ml Vial 5ml) 1,000 mg IVP X1 ONE Stop: 03/23/25 13:22 Last Admin: 03/23/25 13:59 Dose: 1,000 mg Documented By: DO
[2025-03-23] MEDS: levETIRAcetam INJ 100 MG/ML VIAL 5ML 1000 MG IVP (13:59)
[2025-03-23] MEDS: RINGERS LACTATED 1000 ML 1,000 ML 999 ML IV ×2 (14:01→15:10)
[2025-03-23] MEDS: ACETAMINOPHEN IVPB 1,000 MG/100 ML VIAL 250 MG IV ×2 (14:07→21:44)
[2025-03-23] MEDS: PIPER/TAZO 3.375 GM PREMIX 3.375 GM/50 ML BAG IV (14:13)
[2025-03-23 14:23] LABS: Basophils # (Auto) 0.0 Thou/mm3 (0.0-0.2); Basophils % (Auto) 0 % (0-2.5); Eosinophils # (Auto) 0.0 Thou/mm3 (0.0-0.5); Eosinophils % (Auto) 0 % (0-10); Hematocrit 36.6 % (41.0-53.0); Hemoglobin 12.4 g/dL (13.5-16.0); Immature Granulocytes Auto 0.00 Thou/mm3 (0.00-0.00); Lymphocytes # (Auto) 0.3 Thou/mm3 (1.0-4.8); Lymphocytes % (Auto) 7 % (10-50); Mean Corpuscular HGB Conc 33.9 g/dl (31.0-37.0); Mean Corpuscular Hemoglobin 32.0 pg (25.0-35.0); Mean Corpuscular Volume 94 fL (80-100); Monocytes # (Auto) 0.1 Thou/mm3 (0.0-0.8); Monocytes % (Auto) 2 % (0-12); Neutrophils # (Auto) 4.4 Thou/mm3 (1.8-7.7); Neutrophils % (Auto) 91 % (37-80); Nucleated Red Blood Cell # 0.00 Thou/mm3 (0.00-0.00); Nucleated Red Blood Cell % 0 /100 WBC (0); Platelet Count 114 Thou/mm3 (140-440); RDW Standard Deviation 43.8 fL (35.1-43.9); Red Blood Count 3.88 Miln/mm3 (4.50-5.90); White Blood Count 4.8 Thou/mm3 (3.8-10.6)
[2025-03-23 14:31] LABS: Lactate (Lactic Acid) 6.0 mMol/L (0.4-2.0)
[2025-03-23 14:55] LABS: Alanine Aminotransferase 31 U/L (10-49); Albumin, Serum 4.3 gm/dL (3.4-4.8); Albumin/Globulin Ratio 1.3 (1.2-2.2); Alkaline Phosphatase 94 U/L (46-116); Anion Gap 12 (7-16); Aspartate Amino Transferase 34 U/L (0-34); BUN/Creatinine Ratio 16 Ratio (12-20); Bilirubin,Total 0.9 mg/dL (0.3-1.2); Blood Urea Nitrogen 16 mg/dL (9-23); Calcium 8.8 mg/dL (8.3-10.6); Calcium (Corrected) 8.8 mg/dL (8.5-10.1); Carbon Dioxide 26.3 mMol/L (20.0-31.0); Chloride 96 mMol/L (98-107); Creatinine (Component) 1.0 mg/dL (0.6-1.3); Globulin 3.2 gm/dL (2.3-3.5); Glucose 111 mg/dL (74-106); LDH (Lactate Dehydrogenase) 227 U/L (120-246); Magnesium 1.9 mg/dL (1.6-2.6); Osmolality,Calculated 270 (275-295); Potassium 4.3 mMol/L (3.4-5.1); Procalcitonin 4.00 ng/ml (0.0-0.49); Sodium 134 mMol/L (136-145); Total Protein 7.5 gm/dL (5.7-8.2); Troponin I < 0.020 ng/mL (0.0-0.045); eGFR > 60 See Note
--- NOTE | 2025-03-23 15:24 | XR_ITS ---
Examination: CT brain head without contrast. 2-D sagittal coronal reconstructions Date and time of exam: March 23, 2025, 1551 hours, comparison July 20, 2024 INDICATIONS: Seizure today followed by altered mental status CTDI: vol (mGy): 51 DLP: (mGycm): 1200 Technique: Multiple CT axial sections of the brain have been obtained, 5 mm slice thickness. Contrast has not been administered. 2-D sagittal, coronal reconstructions have been obtained Low dose protocols were performed. One or more of the following dose reduction techniques were used; automated exposure control, adjustment of the mA and/or KV according to patient size, use of iterative reconstruction technique. Findings: Again noted chronic changes including significant enlargement of the right lateral ventricular system with shift of the frontal horns to the left as a result of this ventricular enlargement Heavy calcification in the basal ganglia No interval acute hemorrhage The cranial vault is intact IMPRESSION: Stable chronic changes compared with July 20, 2024 No interval acute hemorrhage
[2025-03-23 15:29] LABS: INR 1.1 (0.9-1.3); Partial Thromboplastin Time 33.0 Seconds (22.0-36.0); Prothrombin Time 12.0 Seconds (9.0-12.2)
--- NOTE | 2025-03-23 15:42 | PC.NURSE ---
Pt placed on 2L nasal cannula and escorted to CT scan at this time with technical sales consultant
[2025-03-23] MEDS: MEROPENEM INJ 1,000 MG in SODIUM CHLORIDE 0.9% (Popper) 50 ML 100 MG IV (16:08)
--- NOTE | 2025-03-23 16:10 | PC.NURSE ---
Admit providers at bedside
[2025-03-23 16:37] LABS: Collection Type, Urine Clean Catch; Squamous Epithelial Cell,Urine 0 /hpf (0-5)
[2025-03-23] MEDS: RINGERS LACTATED 500 ML 500 ML 999 ML IV ×2 (16:40→17:13)
[2025-03-23 17:07] LABS: Amphetamine/Methamp Scrn,U Negative (Negative); Barbiturate Screen,Urine Negative (Negative); Benzodiazepines Screen,Urine Negative (Negative); Benzoylecgonine Screen, Ur Negative (Negative); Fentanyl Screen,Urine Negative (Negative); Opiate Screen,Urine Negative (Negative); THC Screen,Urine Negative (Negative)
[2025-03-23 17:14] LABS: Bacteria,Urine Rare; Bilirubin,Urine Negative (Negative); Blood,Urine 3+ (Negative); Clarity,Urine Turbid (Clear/Hazy); Color,Urine Yellow (Lt Yel-Yel); Glucose, Urine Negative (Negative); Ketones,Urine Negative (Negative); Leukocyte Esterase,Urine Positive (Negative); Nitrite,Urine Negative (Negative); PH,Urine 6.0 (5.0-7.0); Protein,Urine 1+ (Neg - Trace); RBC,Urine 179 /hpf (0-3); Specific Gravity,Urine 1.016 (1.001-1.035); Urobilinogen,Urine Negative mg/dL (0.0-1.0); WBC,Urine 266 /hpf (0-5)
[2025-03-23 17:15] LABS: Culture Indicated,Urine Yes
[2025-03-23 17:15] LABS: Reflex Lactate? Y
--- NOTE | 2025-03-23 17:15 | PD.RESHP ---
Documentation for date of: 03/23/25 HPI History of Present Illness History of present illness: 79-year-old male with a past medical history of developmental delay, seizure disorder, type 2 diabetes mellitus, hyperlipidemia, and history of ESBL UTI who presents to the ED for seizures. Given patient's developmental delay and nonverbal status, history obtained from chart review and from supply chain director who was present at bedside. Patient comes from a skilled nursing and supply chain director states that there were 3 witnessed seizures, each lasting approximately 2 to 4 minutes. Characterized as tonic-clonic with noted tongue biting. Apparently last seizure was more than 1 year ago. Of note, he presented to the ED on 03/21 due to concerns for UTI and was given zosyn and IVF with consultation from hospitalist team and discharged back to his skilled nursing. In the ED, initial vitals showed patient saturating 99% on oxy mask, afebrile, and hemodynamically stable. However, noted to be febrile with temperature of 100.5 ?F and soft blood pressures, with lowest reading at 88/46. Subsequently given 2 L IV fluid boluses by ED and subsequent 1 L IVF bolus and blood pressure improving. Also given loading dose Keppra 1 g, Zosyn and meropenem x 1. CBC unremarkable. CHEM panel showed lactate of 6.0 with repeat of 3.0 after IVF, Pro-Giovanni of 4.0 but otherwise unremarkable. UA turbid with 266 WBC, 197 RBC, and rare bacteria. CT head showing stable, chronic changes compared to 07/2024. CT A/P taken on 03/21/2025 showed large bilateral lateral renal calculi and left renal pelvis without hydronephrosis and markedly enlarged prostate with irregular contour, indenting the base of the bladder. Blood and urine cultures obtained in ED. PMH: developmental delay, seizure disorder, diabetes mellitus, hyperlipidemia, ESBL UTIs, depression, and GERD FH: Unknown Surgical Hx: Unknown Social Hx: No alcohol, tobacco, or illicit drug use Travel Hx: No recent travels outside of [place] Review of Systems Review of Systems ROS Unobtainable: unobtainable due to mental status and unobtainable due to medical condition Exam Vital Signs Temp Pulse Resp BP Pulse Ox O2 Del Method O2 Flow Rate 100.5 F H 88 18 98/55 L 93 L Room Air 3 03/23/25 16:00 03/23/25 16:58 03/23/25 16:58 03/23/25 16:58 03/23/25 16:58 03/23/25 16:58 03/23/25 16:00 Narrative Exam General: more fatigued per supply chain director, frail, elderly HEENT: NC/AT, mucous membranes moist, bilateral sclera anicteric Cardiovascular: regular rate and rhythm, S1/S2 present, no murmurs appreciated Pulmonary: clear to auscultation bilaterally, no rales/rhonchi/wheezes Abdominal: soft, non-tender, non-distended, no rebound/guarding, normal bowel sounds present Musculoskeletal: lower extremity muscular atrophy; normal ROM, no peripheral edema Skin: warm and dry, intact, no rashes Results: Labs 03/24/25 05:31 03/24/25 05:31 Labs: Short CBC 03/23/25 Range/Units 14:05 WBC 4.8 (3.8-10.6) Thou/mm3 Hgb 12.4 L (13.5-16.0) g/dL Hct 36.6 L (41.0-53.0) % Plt Count 114 L D (140-440) Thou/mm3 BMP 03/23/25 14:05 Sodium 134 L Potassium 4.3 Chloride 96 L Carbon Dioxide 26.3 BUN 16 Creatinine 1.0 Glucose 111 H Calcium 8.8 Cardiac Enzymes 03/23/25 Range/Units 14:05 Troponin I < 0.020 (0.0-0.045) ng/mL Liver Function 03/23/25 Range/Units 14:05 Total Bilirubin 0.9 (0.3-1.2) mg/dL AST 34 (0-34) U/L ALT 31 (10-49) U/L Alkaline Phosphatase 94 (46-116) U/L Albumin 4.3 (3.4-4.8) gm/dL Urine 03/23/25 Range/Units 16:33 Urine Color Yellow (Lt Yel-Yel) Urine Clarity Turbid A (Clear/Hazy) Urine pH 6.0 (5.0-7.0) Ur Specific Hawley 1.016 (1.001-1.035) Urine Protein 1+ A (Neg - Trace) Urine Glucose (UA) Negative (Negative) Quality Measures Quality Measures none Advance care planning discussed with:: patient and other (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) Medications Home Medications and Allergies Home Medications ?Medication ?Instructions ?Recorded ?Confirmed ?Type Alendronate Sodium * (FOSAMAX *) 70 mg PO .MONDAY ##0 08/13/12 03/24/25 History simvastatin 10 mg tablet (Zocor) 10 mg PO HS ##0 08/13/12 03/23/25 History MULTIVITAMIN (MULTI VITAMIN DAILY) 1 tab PO QDAY ##0 08/02/16 03/24/25 History docusate sodium 250 mg capsule 1 cap PO BID ##0 08/02/16 03/23/25 History magnesium hydroxide 400 mg/5 mL 30 ml PO EVERYOTHERDAY 03/16/18 03/24/25 History oral suspension (Milk of Magnesia) polyethylene glycol 3350 17 gram 17 g PO QDAY PRN constipation 03/16/18 03/24/25 History oral powder packet (Miralax) melatonin 10 mg tablet 10 mg PO HS 12/12/23 03/24/25 History olanzapine 2.5 mg tablet 5 mg PO HS 12/12/23 03/23/25 History valbenazine 60 mg capsule 60 mg PO QDAY 12/12/23 03/23/25 History (Ingrezza) cranberry-B.fztoyihlz-Z-Fj phos 1 tab PO QDAY 12/25/23 03/24/25 History 480 mg-20 mg-100 million cell tablet (Cranberry-Probiotic) metformin 500 mg tablet 500 mg PO BID 12/25/23 03/24/25 History zolpidem 5 mg tablet 5 mg PO QHSPRN 07/20/24 03/24/25 History Held on 12/25/24. Instructions: Hold until you follow-up with PCP lamotrigine 100 mg tablet 100 mg PO BID 12/21/24 03/23/25 History sertraline 100 mg tablet 100 mg PO Q24H 12/21/24 03/23/25 History tamsulosin 0.4 mg capsule 0.4 mg PO Q24H 03/23/25 03/23/25 History methenamine hippurate 1 gram tablet 1 g PO BID 03/24/25 03/24/25 History olanzapine 7.5 mg tablet 2.5 mg PO HS 03/24/25 03/24/25 History Allergies Allergy/AdvReac Type Severity Reaction Status Date / Time No Known Allergies Allergy Verified 03/21/25 13:32 Visit Medications Dextrose (Dextrose 50%-Water Inj 50 Ml Syringe) 25 ml IV Q15MIN PRN PRN Reason: BG 50-70 responsive npo pt Stop: 04/22/25 17:07 Dextrose (Dextrose 50%-Water Inj 50 Ml Syringe) 50 ml IV Q15MIN PRN PRN Reason: BG <50 OR BG <70 & pt unresponsive Stop: 04/22/25 17:07 Enoxaparin Sodium (Enoxaparin Sod Inj 40 Mg/0.4 Ml Syringe) 40 mg SC QDAY GREG Stop: 04/07/25 08:59 Glucagon (Glucagon Inj 1 Mg Vial) 1 mg IM Q15MIN PRN PRN Reason: BG <70, and no IV access Lactated Ringer's (Lactated Ringers) 1,000 mls @ 75 mls/hr IV .[id number] GREG Stop: 04/22/25 17:14 Acetaminophen (Ofirmev Inj) 1,000 mg in 100 mls @ 250 mls/hr IV Q6H GREG Stop: 03/24/25 14:23 Piperacillin Sod/Tazobactam (Sod 4.5 gm/ Sodium Chloride) 100 mls @ 200 mls/hr IV Q8HR GREG; Protocol Stop: 03/30/25 21:59 Insulin Human Lispro (Insulin Lispro (Admelog) 1 Unit/0.01 Ml Unit) 0 unit SC Q6H GREG; Protocol Stop: 04/22/25 17:14 Lorazepam (Lorazepam 2 Mg/Ml Vial) 2 mg IVP Q15MIN PRN PRN Reason: Breakthrough seizure Stop: 03/28/25 17:05 Ondansetron HCl (Ondansetron Inj 2 Mg/Ml Inj 2 Ml) 4 mg IVP Q6H PRN; Protocol PRN Reason: NAUSEA OR VOMITING Stop: 04/22/25 17:01 Discontinued Medications Piperacillin/Tazobactam/Dextrose (Zosyn) 3.375 gm in 50 mls @ 100 mls/hr IV X1 ONE; Protocol Stop: 03/23/25 14:05 Last Infusion: 03/23/25 14:43 Dose: Infused Lactated Ringer's (Lactated Ringers) 1,000 mls @ 999 mls/hr IV .Q1H1M ONE Stop: 03/23/25 14:36 Last Infusion: 03/23/25 15:02 Dose: Infused Acetaminophen (Ofirmev Inj) 1,000 mg in 100 mls @ 250 mls/hr IV Q6HR GREG Stop: 03/24/25 06:23 Last Infusion: 03/23/25 14:31 Dose: Infused Lactated Ringer's (Lactated Ringers) 1,000 mls @ 999 mls/hr IV .Q1H1M ONE Stop: 03/23/25 15:43 Last Infusion: 03/23/25 16:15 Dose: Infused Meropenem 1,000 mg/ Sodium (Chloride) 50 mls @ 100 mls/hr IV X1 ONE Stop: 03/23/25 15:07 Last Infusion: 03/23/25 16:43 Dose: Infused Lactated Ringer's (Lactated Ringers) 500 mls @ 999 mls/hr IV .Q31M ONE Stop: 03/23/25 16:51 Last Infusion: 03/23/25 17:11 Dose: Infused Lactated Ringer's (Lactated Ringers) 500 mls @ 999 mls/hr IV .Q31M ONE Stop: 03/23/25 17:14 Last Admin: 03/23/25 17:13 Dose: 999 mls/hr Levetiracetam (Levetiracetam Inj 100 Mg/Ml Vial 5ml) 1,000 mg IVP X1 ONE Stop: 03/23/25 13:22 Last Admin: 03/23/25 13:59 Dose: 1,000 mg Assessment & Plan Plan 79-year-old male with a past medical history of developmental delay, seizure disorder, type 2 diabetes mellitus, hyperlipidemia, and history of ESBL UTI who is being admitted for breakthrough seizure. #Breakthrough seizure #Seizure disorder Presents with three tonic clonic seizures in setting of UTI, which is likely trigger as CT head shows stable, chronic findings. Lactate elevated but improved with IVF. Received 1 g Keppra in ED. ? Teleneurology consulted, appreciate recommendations ? EEG ordered ? Bedside swallow screen ? Lamotrigine 100 mg p.o. twice daily ? Seizure and aspiration precautions ? As needed Ativan for breakthrough seizures #Urinary tract infection #History of ESBL E. coli UTI #Recurrent UTI #Bilateral renal calculi #Staghorn calculi #Hypotension Presented 2 days prior to admission due to concerns for UTI. UA this time showing 266 WBC, 179 RBC, no bacteria but was noted to be given IV antibiotics in ED 2 days prior. ? Zosyn (03/23-) ? Follow-up blood and urine cultures ? Midodrine 10 mg p.o. PRN #Lactic acidosis, likely type A In setting of breakthrough seizure and hypotension. Less likely secondary to home metformin. Given total 3 L IVF boluses in ED. ? LR at 75 cc/h ? Follow-up lactate #Developmental delay #Depression # ? Tardive dyskinesia Per caregiver, patient's mentation and behavior is at baseline ? Sertraline 100 mg daily ? Ingrezza 60 mg daily ? Olanzapine 5 mg at night #Prostatomegaly as seen on CT ? Follow-up AM PSA ? Bladder scans BID ? Holding home tamsulosin in setting of hypotension #Type 2 diabetes mellitus A1c 5.8% on 12/16/2024 ? Follow-up A1c ? SSI ? Hypoglycemic protocol in place #Hyperlipidemia ? Atorvastatin 40 mg p.o. daily #Constipation ? Senna scheduled ? Colace scheduled Hospital management: Disposition: pending neuro recommendations, EEG Fluids: LR at 75 cc/hr Diet: NPO, pending nurse swallow screen and speech Lines: PIV DVT prophylaxis: enoxaparin SC Bryne: not in place, diapers, bladder scans BID CODE STATUS: full code ----- Plan discussed with attending physician Dr. Jacob Rees MD PGY-2 Internal Medicine Attending Provider Attestation/Addendum I have examined the patient, reviewed labs and imaging findings, discussed the case with the resident(s), and reviewed entered orders. I agree with the plan of care as outlined in this note, with these additional summaries/recommendations: After examination of the patient and review of the clinical data, I feel that this patient needs admission to the hospital for further treatment and evaluation. Dr. Jacob MD
--- NOTE | 2025-03-23 17:26 | XR_ITS ---
EXAMINATION: AP chest single view TECHNIQUE: AP portable semiupright chest single view Date and time: March 23, 2025, 1737 hours INDICATIONS: Sepsis fever today. FINDINGS: Extensive bilateral pneumonia Associated heart failure with enlarged cardiac contour prominent vascular congestion and probable edema Severe osteopenia IMPRESSION: Extensive bilateral pneumonia At least mild associated heart failure
[2025-03-23 17:28] LABS: Lactic Acid, 3 HR 3.0 mMol/L (0.4-2.0)
[2025-03-23 17:34] LABS: B-Type Natriuretic Peptide 160 pg/mL (0-100)
[2025-03-23 17:41] LABS: Glucose Estimated Average 114 mg/dL (80-131); Hemoglobin A1C 5.6 % Hgb (4.8-6.0)
[2025-03-23] MEDS: RINGERS LACTATED 1000 ML 1,000 ML 75 ML IV (17:55)
--- NOTE | 2025-03-23 18:00 | PC.NURSE ---
Per caregiver, pt drinks thickened liquids and takes meds crushed and mixed in pudding or applesauce. Per Dr. Hicks made aware
--- NOTE | 2025-03-23 19:29 | PC.NURSE ---
SBAR from Marcelino RN, Pt in bed laying right said e lateral, VSS to Pt normal baseline Pt appears postictal and more lrthargic than normal per caregiver. Pt had x3 seizures today and before today last seizure was greater than 1 yr ago. Pt gcs 10 and non verbal @ baseline
[2025-03-23 21:48] LABS: Lactate (Lactic Acid) 2.3 mMol/L (0.4-2.0)
[2025-03-23] MEDS: PIPER/TAZO INJ 4.5 GM in SODIUM CHLORIDE 0.9% (POP) 100 ML IV (21:52)
[2025-03-24] VITALS: BP 96/56; PULSE 65; PULSE 70; RESP 20; TEMP 36.1; O2SAT 98
[2025-03-24 00:47] LABS: Reflex Lactate? Y
[2025-03-24] MEDS: ACETAMINOPHEN IVPB 1,000 MG/100 ML VIAL 250 MG IV ×3 (01:13→14:12)
[2025-03-24 01:26] LABS: Lactic Acid, 3 HR 1.2 mMol/L (0.4-2.0)
[2025-03-24 04:00] VITALS: BP 137/41; PULSE 59; PULSE 61; RESP 19; TEMP 36.6; O2SAT 95
[2025-03-24] MEDS: PIPER/TAZO INJ 4.5 GM in SODIUM CHLORIDE 0.9% (POP) 100 ML IV ×3 (05:25→21:12)
[2025-03-24 06:16] LABS: Basophils # (Auto) 0.0 Thou/mm3 (0.0-0.2); Basophils % (Auto) 0 % (0-2.5); Eosinophils # (Auto) 0.0 Thou/mm3 (0.0-0.5); Eosinophils % (Auto) 0 % (0-10); Hematocrit 28.3 % (41.0-53.0); Hemoglobin 9.8 g/dL (13.5-16.0); Immature Granulocytes Auto 0.08 Thou/mm3 (0.00-0.00); Lymphocytes # (Auto) 0.9 Thou/mm3 (1.0-4.8); Lymphocytes % (Auto) 8 % (10-50); Mean Corpuscular HGB Conc 34.6 g/dl (31.0-37.0); Mean Corpuscular Hemoglobin 32.6 pg (25.0-35.0); Mean Corpuscular Volume 94 fL (80-100); Monocytes # (Auto) 1.0 Thou/mm3 (0.0-0.8); Monocytes % (Auto) 8 % (0-12); Neutrophils # (Auto) 9.7 Thou/mm3 (1.8-7.7); Neutrophils % (Auto) 83 % (37-80); Nucleated Red Blood Cell # 0.00 Thou/mm3 (0.00-0.00); Nucleated Red Blood Cell % 0 /100 WBC (0); Platelet Count 98 Thou/mm3 (140-440); RDW Standard Deviation 43.8 fL (35.1-43.9); Red Blood Count 3.01 Miln/mm3 (4.50-5.90); White Blood Count 11.7 Thou/mm3 (3.8-10.6)
[2025-03-24 06:46] LABS: Anion Gap 8 (7-16); BUN/Creatinine Ratio 18 Ratio (12-20); Blood Urea Nitrogen 14 mg/dL (9-23); Calcium 8.2 mg/dL (8.3-10.6); Carbon Dioxide 26.2 mMol/L (20.0-31.0); Chloride 103 mMol/L (98-107); Creatinine (Component) 0.8 mg/dL (0.6-1.3); Glucose 83 mg/dL (74-106); Magnesium 1.9 mg/dL (1.6-2.6); Osmolality,Calculated 273 (275-295); Phosphorous 2.8 mg/dL (2.4-5.1); Potassium 3.7 mMol/L (3.4-5.1); Sodium 137 mMol/L (136-145); eGFR > 60 See Note
[2025-03-24 07:15] LABS: Prostate Specific Antigen 3.76 ng/mL (0-4.00)
[2025-03-24 08:00] VITALS: BP 93/52; PULSE 69; PULSE 71; RESP 10; TEMP 37.4; O2SAT 93
--- NOTE | 2025-03-24 08:15 | PD.TNEURO ---
Tele Neuro Consultation Consultation Date 03/24/25 Most Recent Vital Signs Last Vital Signs Temp 97.8 F 03/24/25 04:00 Pulse 61 03/24/25 04:00 Resp 19 03/24/25 04:00 BP 137/41 H 03/24/25 04:00 Pulse Ox 95 03/24/25 04:00 O2 Del Method Nasal Cannula 03/24/25 04:00 O2 Flow Rate 3 03/24/25 04:00 Laboratory-Coagulation Panel PT 12.0 Seconds (9.0-12.2) 03/23/25 14:05 INR 1.1 (0.9-1.3) 03/23/25 14:05 APTT 33.0 Seconds (22.0-36.0) 03/23/25 14:05 Consultation Narrative [facility] Tele[facility]urology Consult Services Routine Consult New Patient Name:???Inocencio Hope Date of :???1945 Identification Number:??? Date of Service:???03/24/2025 08:11:30 Diagnosis?G40.89 - Other seizures Impression #Spell of altered consciousness-Concern for breakthrough seizure in the setting of UTI, acute illness. CT head was reviewed without acute abn. Patient is currently alert, without new neurologic deficits at this time. Do not suspect status epilepticus given current examination and clinical status. Further plan as below. Plan: -CT head reviewed from 03/23, non acute -MRI Brain w/o, w/ contrast unlikely to management services technician -Routine EEG pending -Lamictal 100 mg BID - can increase to 125 mg BID if seizure recur -Ativan prn for seizure lasting > 3 min -Seizure precautions as follows: - Observe the following precautions for 6 months from the time of last spell.- No driving, no riding bicycles in traffic, no operating dangerous and/or heavy machinery (4-wheel drive, tractors, lawnmowers etc)- No engaging in activities at dangerous heights including using ladders, no taking baths unattended, - No swimming, engaging in activities near fire unattended- Exercise caution or avoidance of cooking or using potentially dangerous objects such as knives. -Further work-up and plan per primary team Neurology will follow at this time. Call with any questions or concerns. Discussed with staff. Our recommendations are outlined below Nursing Recommendations : Maintain Euglycemia and EuthermiaOnce stable neuro checks q 4hrs Seizure precautions : Seizure precautions including no driving for state mandated time frame were discussed with patient with clear understanding DVT Prophylaxis : Choice of Primary Team Disposition : Outpatient Neurology follow up in 3-6 weeks Chief Complaint: seizure History of Present Illness: Patient is a 79 year old Male. Patient is a 79 yo male with pmhx DD (non-verbal at baseline), seizures, DMII, HLD who presented to the ED for concern for seizures. History mostly obtained from chart review. He had 3 witnessed seizures lasting 2-4 min each. +tongue lac noted. Patient was in the ED 03/21 and treated for UTI. He is on Lamotrigine 100 mg BID. No further seizures since arrival to the floor per staff at bedside. ? Past Medical History: ?There is no history of Hypertension ?There is no history of Diabetes Mellitus ?There is no history of Hyperlipidemia ?There is no history of Atrial Fibrillation ?There is no history of Coronary Artery Disease ?There is no history of Stroke Medications: No Anticoagulant use? No Antiplatelet use Reviewed EMR for current medications Allergies:? Reviewed Social History: Smoking: No Alcohol Use: No Drug Use: No Family History: There is no family history of premature cerebrovascular disease pertinent to this consultation ROS : 14 Points Review of Systems was performed and was negative except mentioned in HPI. Past Surgical History: There Is No Surgical History Contributory To Today?s Visit Examination 1A: Level of Consciousness - Arouses to minor stimulation?+ 1 1B: Ask Month and Age - Could Not Answer Either Question Correctly?+ 2 1C: Blink Eyes & Squeeze Hands - Performs 0 Tasks?+ 2 2: Test Horizontal Extraocular Movements - Normal?+ 0 3: Test Visual Rodarte - No Visual Loss?+ 0 4: Test Facial Palsy (Use Grimace if Obtunded) - Normal symmetry?+ 0 5A: Test Left Arm Motor Drift - Some Effort Against Four [place]?+ 2 5B: Test Right Arm Motor Drift - Some Effort Against [place]?+ 2 6A: Test Left Leg Motor Drift - Some Effort Against [place]?+ 2 6B: Test Right Leg Motor Drift - Some Effort Against [place]?+ 2 7: Test Limb Ataxia (FNF/Heel-[place]) - Does Not Understand?+ 0 8: Test Sensation - No Response and Quadriplegic?+ 2 9: Test Language/Aphasia - Mute/Global Aphasia: No Usable Speech/Auditory Comprehension?+ 3 10: Test Dysarthria - Mute/Anarthric?+ 2 11: Test Extinction/Inattention - No abnormality?+ 0 NIHSS Score:?20 ? This consult was conducted in real time using interactive audio and video technology. Patient was informed of the technology being used for this visit and agreed to proceed. Patient located in hospital and provider located at home/office setting. Telehealth Neurology consultation was provided. I spent minutes providing telehealth care. This includes time spent for face to face visit via telemedicine, review of medical records, imaging studies and discussion of findings with providers, the patient and/or family. Dr Marino Lennon [facility] For Inpatient follow-up with [facility] physician please call [facility] at . As we are not an outpatient service for any post hospital discharge needs please contact the hospital for assistance. If you have any questions for the [facility] physicians or need to reconsult for clinical or diagnostic changes please contact us via [facility] at Signature :?Marino Lennon
[2025-03-24] MEDS: levETIRAcetam INJ 100 MG/ML VIAL 5ML 500 MG IVP ×2 (08:43→21:13)
[2025-03-24] MEDS: ENOXAPARIN SOD INJ 40 MG/0.4 ML SYRINGE SC (08:44)
--- NOTE | 2025-03-24 10:00 | PCS.ST ---
Swallow Evaluation completed. See report for details. Recommend his baseline diet of Puree and Moderately thick liquids. ST will follow up.
--- NOTE | 2025-03-24 10:34 | EEG_ITS ---
EEG Report EEG Interpretation [facility] Tele[facility]urology Consult Services Routine EEG Report Video Performed: Performed Demographics:Patient Name:???Inocencio Hope Date of :???1945 Identification Number:??? Study Times: Study Start Time:???03/24/2025 09:34:09 Study End Time:???03/24/2025 09:55:46 Duration:???21?minutes Indication(s):Seizures Medication: Lamictal Technical Summary: This EEG was performed utilizing standard International 10-20 System of electrode placement. One channel electrocardiogram was monitored. Data were obtained and interpreted utilizing referential montage recording, with reformatting to longitudinal, transverse bipolar, and referential montages as necessary for interpretation. State(s): ?Awake Activation Procedures: Hyperventilation:?Not performed Photic Stimulation:?Performed : No Photic Driving EEG Description: Background: ?Occipital rhythm (posterior dominant rhythm or PDR): Absent ?Frequency: 3-4 ?Voltage: Low ?Organization: Poor ?Reactivity to eye opening/closure: + ?Drowsiness: None ?Sleep: None ?Comments: n/a ?Technical and Activation Procedures: ?Hyperventilation: Not performed ?Photic stimulation: Performed ?Reactivity to stimulation: none ?Abnormalities: ?I. Seizures? No ?II. Rhythmic or Periodic Patterns? No ?III. Other Abnormalities? No Impression: This is an abnormal EEG due to : ? ?1) There is presence of a moderate to severe, diffuse non-specific cerebral dysfunction. ?2) No definite seizures or epileptiform discharges noted during this recording. ? ?Clinical correlation is advised. Dr Marino Lennon [facility] For Inpatient follow-up with [facility] physician please call [facility] at . As we are not an outpatient service for any post hospital discharge needs please contact the hospital for assistance. If you have any questions for the [facility] physicians or need to reconsult for clinical or diagnostic changes please contact us via [facility] at . Signature :Enoc Lennon
[2025-03-24] MEDS: VANCOMYCIN/WATER 1250 MG IVPB 250 ML 120 MG IV (11:32)
[2025-03-24] MEDS: RINGERS LACTATED 1000 ML 1,000 ML 75 ML IV (11:42)
--- NOTE | 2025-03-24 11:46 | PC.SS ---
Patient is alert/oriented. Patient is devel. delayed. SS spoke to Mary [facility]. Mary is the dairy frozen manager at nursing home and confirmed patient resides at nursing home with 24 hour care. Prior to hospitalization patient was requiring total care. Patient uses a wheelchair and has a hospital bed. Staff assist in all transfers. Patient has documented seizure disorder. He follows with Dr. Gonzalez. He follows a Urologist for frequent UTI's. Patient sees a Psychiatrist in [place]. PCP: Dr. Nuñez. Last appt. was in Jan. Pharmacy: [facility]. Discharge plan is to return to [facility]. Staff can provide transport. Patient is affiliated with [facility] and they make all medical decisions. Medical decision maker: [facility] and breeding manager is Markos Silva,
[2025-03-24 12:00] VITALS: BP 99/59; PULSE 62; PULSE 77; RESP 11; TEMP 37.3; O2SAT 95
--- NOTE | 2025-03-24 14:10 | ESPR_ITS ---
<Statement entered by Cynthia Hicks MD - 03/24/25 17:46> Patient was seen and examined at bedside. Caregiver was also at bedside no new symptoms. She reported that the patient now is at his baseline. Patient initially failed swallow screening SPL consultation was sent recommended modified dysphagia diet for him. We noticed that his blood culture grow GNR in 1 bottle and his urine culture grow E. coli ESBL that is sensitive to Zosyn. Will continue the patient on Zosyn at this time. Teleneurologist recommended no need for MRI as it will not change the management. She recommended to wait for the EEG results and will determine if there is any need to change the patient's medications. It seems that his seizures were secondary to an acute infection in which it is been . Will continue treating the patient with IV Zosyn until we get the final results of the blood culture and will decide if the patient's will need PICC line for bacteremia. - Patient's plan and care discussed with my attending, Dr. Jacob Hicks MD Internal Medicine PGY-3 Documentation for date of: 03/24/25 Subjective Subjective Interval history: No acute events overnight. The patient was examined at the bedside and is saturating well on room air. Blood pressure is stable but slightly soft; otherwise, the examination is unremarkable. According to the RN, the patient was unable to swallow oral medications overnight, prompting a consult with speech therapy. Speech therapy recommended a dysphagia diet with crushed and pur?ed foods. Labs were reviewed, showing leukocytosis with a WBC count of 11.7, a downtrend in hemoglobin to 9.8, and hematocrit at 28.3. Platelets have dropped to 98. PSA is 3.76 (normal). Preliminary blood cultures showed growth of gram-negative rods (GNR) in one bottle. Due to significant stool noted on imaging, lactulose MD was ordered however caregiver at bedside refused and stated patient has 1 large bowel movement today. Noted in the abdominal pending results from the MRSA nasal screen and urine culture. The patient has been started on Keppra 500 mg IV twice daily due to concerns of dysphagia Exam Vital Signs Temp Pulse Resp BP Pulse Ox O2 Del Method O2 Flow Rate 99.1 F 62 11 L 99/59 L 95 Nasal Cannula 3 03/24/25 12:00 03/24/25 12:00 03/24/25 12:00 03/24/25 12:00 03/24/25 12:00 03/24/25 12:00 03/24/25 12:00 Narrative Exam General: more fatigued per paper sample clerk, frail, elderly HEENT: NC/AT, mucous membranes moist, bilateral sclera anicteric Cardiovascular: regular rate and rhythm, S1/S2 present, no murmurs appreciated Pulmonary: clear to auscultation bilaterally, no rales/rhonchi/wheezes Abdominal: soft, non-tender, non-distended, no rebound/guarding, normal bowel sounds present Musculoskeletal: lower extremity muscular atrophy; normal ROM, no peripheral edema Skin: warm and dry, intact, no rashes Objective Labs 04/01/25 05:39 04/01/25 05:39 Labs: Laboratory Results - last 24 hr 03/23/25 03/23/25 03/23/25 14:05 14:18 16:33 WBC 4.8 RBC 3.88 L Hgb 12.4 L Hct 36.6 L MCV 94 MCH 32.0 MCHC 33.9 RDW Std Deviation 43.8 Plt Count 114 L D Neut % (Auto) 91 H Lymph % (Auto) 7 L Hopkins % (Auto) 2 Eos % (Auto) 0 Baso % (Auto) 0 Neut # (Auto) 4.4 Lymph # (Auto) 0.3 L Hopkins # (Auto) 0.1 Eos # (Auto) 0.0 Baso # (Auto) 0.0 Immature Gran # (Auto) 0.00 Absolute Nucleated RBC 0.00 Immature Gran % 0 Nucleated RBC % 0 PT 12.0 INR 1.1 APTT 33.0 Sodium 134 L Potassium 4.3 Chloride 96 L Carbon Dioxide 26.3 Anion Gap 12 BUN 16 Creatinine 1.0 Estim Creat Clear Calc Not Performed. eGFR > 60 BUN/Creatinine Ratio [address] Glu mg/dL Hemoglobin A1c Calculated Osmolality 270 L Lactic Acid 6.0 H* Calcium 8.8 Corrected Calcium 8.8 Phosphorus Magnesium 1.9 Total Bilirubin 0.9 AST 34 ALT 31 Alkaline Phosphatase 94 Lactate Dehydrogenase 227 Troponin I < 0.020 B-Natriuretic Peptide 160 H Total Protein 7.5 Albumin 4.3 Globulin 3.2 Albumin/Globulin Ratio 1.3 Prostate Specific Ag Procalcitonin 4.00 H Ur Collection Type Clean Catch Urine Color Yellow Urine Clarity Turbid A Urine pH 6.0 Ur Specific [place] 1.016 Urine Protein 1+ A Urine Glucose (UA) Negative Urine Ketones Negative Urine Blood 3+ A Urine Nitrite Negative Urine Bilirubin Negative Urine Urobilinogen (Auto) Negative Ur Leukocyte Esterase Positive Urine RBC 179 H Urine WBC 266 H Ur Squamous Epith Cells 0 Urine Bacteria Rare Ur Culture Indicated? Yes Urine Opiates Screen Negative Urine Fentanyl Screen Negative Ur Barbiturates Screen Negative U Amphetamin/Meth Scrn Negative U Benzodiazepines Scrn Negative U Cocaine Metab Screen Negative U Marijuana (THC) Screen Negative 03/23/25 03/23/25 03/24/25 17:20 21:45 01:10 WBC RBC Hgb Hct MCV MCH MCHC RDW Std Deviation Plt Count Neut % (Auto) Lymph % (Auto) Hopkins % (Auto) Eos % (Auto) Baso % (Auto) Neut # (Auto) Lymph # (Auto) Hopkins # (Auto) Eos # (Auto) Baso # (Auto) Immature Gran # (Auto) Absolute Nucleated RBC Immature Gran % Nucleated RBC % PT INR APTT Sodium Potassium Chloride Carbon Dioxide Anion Gap BUN Creatinine Estim Creat Clear Calc eGFR BUN/Creatinine Ratio Glucose Estimated Ave Glu mg/dL 114 Hemoglobin A1c 5.6 Calculated Osmolality Lactic Acid 3.0 H 2.3 H 1.2 Calcium Corrected Calcium Phosphorus Magnesium Total Bilirubin AST ALT Alkaline Phosphatase Lactate Dehydrogenase Troponin I B-Natriuretic Peptide Total Protein Albumin Globulin Albumin/Globulin Ratio Prostate Specific Ag Procalcitonin Ur Collection Type Urine Color Urine Clarity Urine pH Ur Specific [place] Urine Protein Urine Glucose (UA) Urine Ketones Urine Blood Urine Nitrite Urine Bilirubin Urine Urobilinogen (Auto) Ur Leukocyte Esterase Urine RBC Urine WBC Ur Squamous Epith Cells Urine Bacteria Ur Culture Indicated? Urine Opiates Screen Urine Fentanyl Screen Ur Barbiturates Screen U Amphetamin/Meth Scrn U Benzodiazepines Scrn U Cocaine Metab Screen U Marijuana (THC) Screen 03/24/25 05:31 WBC 11.7 H D RBC 3.01 L Hgb 9.8 L D Hct 28.3 L MCV 94 MCH 32.6 MCHC 34.6 RDW Std Deviation 43.8 Plt Count 98 L Neut % (Auto) 83 H Lymph % (Auto) 8 L Hopkins % (Auto) 8 Eos % (Auto) 0 Baso % (Auto) 0 Neut # (Auto) 9.7 H Lymph # (Auto) 0.9 L Hopkins # (Auto) 1.0 H Eos # (Auto) 0.0 Baso # (Auto) 0.0 Immature Gran # (Auto) 0.08 H Absolute Nucleated RBC 0.00 Immature Gran % 1 H Nucleated RBC % 0 PT INR APTT Sodium 137 Potassium 3.7 D Chloride 103 Carbon Dioxide 26.2 Anion Gap 8 BUN 14 Creatinine 0.8 Estim Creat Clear Calc Not Performed. eGFR > 60 BUN/Creatinine Ratio [address] Glu mg/dL Hemoglobin A1c Calculated Osmolality 273 L Lactic Acid Calcium 8.2 L Corrected Calcium Phosphorus 2.8 Magnesium 1.9 Total Bilirubin AST ALT Alkaline Phosphatase Lactate Dehydrogenase Troponin I B-Natriuretic Peptide Total Protein Albumin Globulin Albumin/Globulin Ratio Prostate Specific Ag 3.76 Procalcitonin Ur Collection Type Urine Color Urine Clarity Urine pH Ur Specific [place] Urine Protein Urine Glucose (UA) Urine Ketones Urine Blood Urine Nitrite Urine Bilirubin Urine Urobilinogen (Auto) Ur Leukocyte Esterase Urine RBC Urine WBC Ur Squamous Epith Cells Urine Bacteria Ur Culture Indicated? Urine Opiates Screen Urine Fentanyl Screen Ur Barbiturates Screen U Amphetamin/Meth Scrn U Benzodiazepines Scrn U Cocaine Metab Screen U Marijuana (THC) Screen Quality Measures Quality Measures none Advance care planning discussed with:: patient and other Assessment & Plan Assessment Current Active Medications: Generic Name Dose Route Start Last Admin Trade Name Freq PRN Reason Stop Dose Admin Atorvastatin Calcium 5 mg 03/23/25 21:00 03/24/25 00:33 Atorvastatin Calcium 10 Mg Tablet PO 04/22/25 20:59 Not Given HS GREG Protocol Dextrose 25 ml 03/23/25 17:08 Dextrose 50%-Water Inj 50 Ml Syringe IV 04/22/25 17:07 Q15MIN PRN BG 50-70 responsive npo pt Dextrose 50 ml 03/23/25 17:08 Dextrose 50%-Water Inj 50 Ml Syringe IV 04/22/25 17:07 Q15MIN PRN BG <50 OR BG <70 & pt unresponsive Docusate Sodium 250 mg 03/23/25 21:00 03/24/25 08:44 Docusate Sod 250 Mg Capsule PO 04/22/25 20:59 Not Given BID GREG Protocol Enoxaparin Sodium 40 mg 03/24/25 09:00 03/24/25 08:44 Enoxaparin Sod Inj 40 Mg/0.4 Ml Syringe SC 04/07/25 08:59 40 mg QDAY GREG Administration Glucagon 1 mg 03/23/25 17:08 Glucagon Inj 1 Mg Vial IM Q15MIN PRN BG <70, and no IV access Lactated Ringer's 1,000 mls @ 75 mls/hr 03/23/25 17:15 03/24/25 11:42 Lactated Ringers IV 04/22/25 17:14 75 mls/hr .[id number] GREG Administration Acetaminophen 1,000 mg in 100 mls @ 250 mls/hr 03/23/25 20:00 03/24/25 11:10 Ofirmev Inj IV 03/24/25 14:23 Infused Q6H GREG Infusion Piperacillin Sod/Tazobactam 100 mls @ 200 mls/hr 03/23/25 22:00 03/24/25 05:25 Sod 4.5 gm/ Sodium Chloride IV 03/30/25 21:59 200 mls/hr Q8HR GREG Administration Protocol Vancomycin HCl 250 mls @ 120 mls/hr 03/24/25 09:00 03/24/25 11:32 Vancomycin/Water 1250 Mg Ivpb IV 03/31/25 08:59 120 mls/hr Q24H GREG Administration Insulin Human Lispro 0 unit 03/23/25 17:15 03/24/25 11:51 Insulin Lispro (Admelog) 1 Unit/0.01 Ml Unit SC 04/22/25 17:14 Not Given Q6H GREG Protocol Lamotrigine 100 mg 03/23/25 21:00 03/24/25 00:34 Lamotrigine 100 Mg Tablet PO 04/22/25 20:59 Not Given On Hold: 03/24/25 07:52 BID GREG Levetiracetam 500 mg 03/24/25 09:00 03/24/25 08:43 Levetiracetam Inj 100 Mg/Ml Vial 5ml IVP 04/23/25 08:59 500 mg BID GREG Administration Lorazepam 2 mg 03/23/25 17:06 Lorazepam 2 Mg/Ml Vial IVP 03/28/25 17:05 Q15MIN PRN Breakthrough seizure Midodrine 10 mg 03/23/25 17:52 Midodrine 5 Mg Tablet PO 04/22/25 21:59 TID PRN Hypotension Non-Formulary Medication 60 mg 03/24/25 09:00 Valbenazine [Ingrezza] PO 04/23/25 08:59 QDAY GREG Protocol Olanzapine 5 mg 03/23/25 21:00 03/24/25 00:34 Olanzapine 5 Mg Tablet PO 04/22/25 20:59 Not Given HS GREG Ondansetron HCl 4 mg 03/23/25 17:02 Ondansetron Inj 2 Mg/Ml Inj 2 Ml IVP 04/22/25 17:01 Q6H PRN NAUSEA OR VOMITING Protocol Pharmacy Consult 1 each 03/24/25 09:00 Vancomycin Pharmacy To Dose 1 Each Each IV 04/23/25 08:59 QDAY PRN PROTOCOL Sennosides 1 tab 03/24/25 09:00 03/24/25 08:44 Senna Tablet PO 04/23/25 08:59 Not Given QDAY GREG Protocol Sertraline HCl 100 mg 03/23/25 17:30 03/24/25 08:44 Sertraline Hcl 25 Mg Tablet PO 04/22/25 17:29 Not Given QDAY GREG Plan 79-year-old male with a past medical history of developmental delay (non-verbal at baseline), seizure disorder, type 2 diabetes mellitus, hyperlipidemia, and history of ESBL UTI who is being admitted for breakthrough seizure. #Breakthrough seizure #Seizure disorder Presents with three tonic clonic seizures in setting of UTI, which is likely trigger as CT head shows stable, chronic findings. Lactate elevated but improved with IVF. Received 1 g Keppra in ED. - He had 3 witnessed seizures lasting 2-4 min each. + tongue lac noted. Plan ? Teleneurology consulted, appreciate recommendations ? EEG ordered ? Lamotrigine 100 mg p.o. twice daily due to dysphagia started Keppra 500mg BID ? Seizure and aspiration precautions ? As needed Ativan for breakthrough seizures #Urinary tract infection #History of ESBL E. coli UTI #Recurrent UTI #Bilateral renal calculi #Staghorn calculi #Hypotension Presented 2 days prior to admission due to concerns for UTI. UA this time showing 266 WBC, 179 RBC, no bacteria but was noted to be given IV antibiotics in ED 2 days prior. - Blood culture grew preliminary GNR Plan ? Zosyn (03/23-) ? Follow-up blood and urine cultures ? Midodrine 10 mg p.o. PRN #Extensive bilateral pneumonia ddx: CAP vs atypical PNA VS aspiration PNA Patient has presented with 4 breakthrough seizure on found to have bilateral pneumonia on chest x-ray likely due to aspiration as patient woodall poor difficulty swallowing p.o. medication. WBC 11.7. Pro-Giovanni 4 Bedside COVID test negative PSI/PORT Score risk call V:?27.0-29.2% mortality. Hospitalization recommended? Plan - Follow-up blood culture - Vancomycin (03/24- - Zosyn (03/23- - MRSA screening, influenza A, influenza B-pending #Leukocytosis WBC 11.7 reactive to seizure activities. - Continue to monitor CMP - Continue with the antibiotic as mentioned above. #Lactic acidosis, likely type A (resolve) In setting of breakthrough seizure and hypotension. Less likely secondary to home metformin. Given total 3 L IVF boluses in ED. ? LR at 75 cc/h ? Follow-up lactate #Developmental delay #Depression # ?Tardive dyskinesia Per caregiver, patient's mentation and behavior is at baseline ? Sertraline 100 mg daily ? Ingrezza 60 mg daily ? Olanzapine 5 mg at night #Prostatomegaly as seen on CT ? PSA is 3.76 (normal), low suspiction for prostate cancer. Plan ? Bladder scans BID ? Holding home tamsulosin in setting of hypotension #Type 2 diabetes mellitus, well controlled A1c 5.8% on 12/16/2024. Home medication metformin 500 mg p.o. twice daily A1c 5.6 on 03/23/2025 ? SSI ? Hypoglycemic protocol in place #Hyperlipidemia ? Atorvastatin 40 mg p.o. daily #Constipation Noted significant stool impaction on imaging. Order lactulose. However caregiver at bedside refused. ? Senna scheduled ? Colace scheduled Hospital management: Lines: peripheral IV Diet: dysphagia 1- pureed Bowel: Senna GI prophylaxis: pantoprazole DVT prophylaxis: Lovenox 50 Disposition: Breakthrough seizure CODE STATUS: Full code Patient assessed under supervision of attending physician and senior resident Dr. Hicks PGY-3 Sandie Armendariz MD PGY-1, Internal Medicine Please note: this document was transcribed using voice recognition technology; minor inaccuracies may be present. Attending Provider Attestation/Addendum I have examined the patient, reviewed labs and imaging findings, discussed the case with the resident(s), and reviewed entered orders. I agree with the plan of care as outlined in this note. Dr. Jacob MD
[2025-03-24 16:00] VITALS: BP 103/57; PULSE 56; PULSE 65; RESP 14; TEMP 37.2; O2SAT 94
[2025-03-24 20:00] VITALS: BP 98/59; PULSE 61; PULSE 70; RESP 24; TEMP 36.1; O2SAT 94
[2025-03-24] MEDS: DOCUSATE SOD 250 MG CAPSULE PO (21:13)
[2025-03-24] MEDS: ATORVASTATIN CALCIUM 10 MG TABLET 5 MG PO (21:13)
[2025-03-25] VITALS: BP 98/57; PULSE 58; PULSE 59; RESP 18; TEMP 36.1; O2SAT 94
[2025-03-25] MEDS: RINGERS LACTATED 1000 ML 1,000 ML 75 ML IV ×2 (00:17→11:53)
[2025-03-25 04:00] VITALS: BP 113/57; PULSE 65; RESP 12; TEMP 36.4; O2SAT 95
[2025-03-25] MEDS: PIPER/TAZO INJ 4.5 GM in SODIUM CHLORIDE 0.9% (POP) 100 ML IV ×3 (05:36→20:34)
[2025-03-25 06:29] LABS: Basophils # (Auto) 0.0 Thou/mm3 (0.0-0.2); Basophils % (Auto) 0 % (0-2.5); Eosinophils # (Auto) 0.2 Thou/mm3 (0.0-0.5); Eosinophils % (Auto) 2 % (0-10); Hematocrit 29.8 % (41.0-53.0); Hemoglobin 10.4 g/dL (13.5-16.0); Immature Granulocytes Auto 0.04 Thou/mm3 (0.00-0.00); Lymphocytes # (Auto) 1.2 Thou/mm3 (1.0-4.8); Lymphocytes % (Auto) 14 % (10-50); Mean Corpuscular HGB Conc 34.9 g/dl (31.0-37.0); Mean Corpuscular Hemoglobin 32.4 pg (25.0-35.0); Mean Corpuscular Volume 93 fL (80-100); Monocytes # (Auto) 1.0 Thou/mm3 (0.0-0.8); Monocytes % (Auto) 12 % (0-12); Neutrophils # (Auto) 6.1 Thou/mm3 (1.8-7.7); Neutrophils % (Auto) 71 % (37-80); Nucleated Red Blood Cell # 0.00 Thou/mm3 (0.00-0.00); Nucleated Red Blood Cell % 0 /100 WBC (0); Platelet Count 116 Thou/mm3 (140-440); RDW Standard Deviation 43.7 fL (35.1-43.9); Red Blood Count 3.21 Miln/mm3 (4.50-5.90); White Blood Count 8.5 Thou/mm3 (3.8-10.6)
[2025-03-25 06:41] LABS: COVID-19 Antigen (In-House) Negative (Negative)
[2025-03-25 06:52] LABS: Anion Gap 10 (7-16); BUN/Creatinine Ratio 17 Ratio (12-20); Blood Urea Nitrogen 12 mg/dL (9-23); Calcium 8.1 mg/dL (8.3-10.6); Carbon Dioxide 25.7 mMol/L (20.0-31.0); Chloride 106 mMol/L (98-107); Creatinine (Component) 0.7 mg/dL (0.6-1.3); Estimated Creatinine Clearance 76.6 mL/min (>60); Glucose 87 mg/dL (74-106); Magnesium 1.7 mg/dL (1.6-2.6); Osmolality,Calculated 281 (275-295); Phosphorous 2.4 mg/dL (2.4-5.1); Potassium 3.6 mMol/L (3.4-5.1); Sodium 142 mMol/L (136-145); eGFR > 60 See Note
[2025-03-25 06:52] LABS: Influenza A Ag Negative; Influenza B Ag Negative
--- NOTE | 2025-03-25 07:57 | ESPR_ITS ---
Tele Neuro Progress Note Progress Note Date 03/25/25 Most Recent Vital Signs Last Vital Signs Temp 97.6 F 03/25/25 04:00 Pulse 65 03/25/25 04:00 Resp 12 03/25/25 04:00 BP 113/57 L 03/25/25 04:00 Pulse Ox 95 03/25/25 04:00 O2 Del Method Room Air 03/25/25 04:00 O2 Flow Rate 3 03/24/25 12:00 Laboratory-Coagulation Panel PT 12.0 Seconds (9.0-12.2) 03/23/25 14:05 INR 1.1 (0.9-1.3) 03/23/25 14:05 APTT 33.0 Seconds (22.0-36.0) 03/23/25 14:05 Progress Note Narrative [facility] TeleNeurology Consult Services Routine Consult Follow-Up Patient Name:???Inocencio Hope Date of :???1945 Identification Number:??? Date of Service:???03/25/2025 07:56:53 Diagnosis?G40.89 - Other seizures Impression #Spell of altered consciousness-Concern for breakthrough seizure in the setting of UTI, acute illness. CT head was reviewed without acute abn. Patient is currently alert, without new neurologic deficits at this time. Do not suspect status epilepticus given current examination and clinical status. Further plan as below. Plan: -CT head reviewed from 03/23, non acute -MRI Brain w/o, w/ contrast unlikely to exchange trouble shooter -Routine EEG reviewed - see report from 03/24 -Lamictal 100 mg BID - can increase to 125 mg BID if seizure recur -Ativan prn for seizure lasting > 3 min -Seizure precautions as follows: - Observe the following precautions for 6 months from the time of last spell.- No driving, no riding bicycles in traffic, no operating dangerous and/or heavy machinery (4-wheel drive, tractors, lawnmowers etc)- No engaging in activities at dangerous heights including using ladders, no taking baths unattended, - No swimming, engaging in activities near fire unattended- Exercise caution or avoidance of cooking or using potentially dangerous objects such as knives. -Further work-up and plan per primary team Neurology will follow at this time. Call with any questions or concerns. Discussed with staff. Our recommendations are outlined below Laboratory Studies : Lipid panel * I orderedHemoglobin A1c Nursing Recommendations : IV Fluids, avoid dextrose containing fluids, Maintain euglycemiaNeuro checks q4 hrs x 24 hrs and then per shiftHead of bed 30 degreesContinue with Telemetry Consultations : Recommend Speech therapy if failed dysphagia screenPhysical therapy/Occupational therapy Subjective Patient seen this am. No acute changes overall. No seizures reported. ? Examination 1A: Level of Consciousness - Arouses to minor stimulation?+ 1 1B: Ask Month and Age - Could Not Answer Either Question Correctly?+ 2 1C: Blink Eyes & Squeeze Hands - Performs 0 Tasks?+ 2 2: Test Horizontal Extraocular Movements - Normal?+ 0 3: Test Visual [place] - No Visual Loss?+ 0 4: Test Facial Palsy (Use Grimace if Obtunded) - Normal symmetry?+ 0 5A: Test Left Arm Motor Drift - Some Effort Against [place]?+ 2 5B: Test Right Arm Motor Drift - Some Effort Against [place]?+ 2 6A: Test Left Leg Motor Drift - Some Effort Against [place]?+ 2 6B: Test Right Leg Motor Drift - Some Effort Against [place]?+ 2 7: Test Limb Ataxia (FNF/Heel-[place]) - Does Not Understand?+ 0 8: Test Sensation - No Response and Quadriplegic?+ 2 9: Test Language/Aphasia - Mute/Global Aphasia: No Usable Speech/Auditory Comprehension?+ 3 10: Test Dysarthria - Mute/Anarthric?+ 2 11: Test Extinction/Inattention - No abnormality?+ 0 NIHSS Score:?20 ? This consult was conducted in real time using interactive audio and video technology. Patient was informed of the technology being used for this visit and agreed to proceed. Patient located in hospital and provider located at home/office setting. Telehealth Neurology consultation was provided. I spent minutes providing telehealth care. This includes time spent for face to face visit via telemedicine, review of medical records, imaging studies and discussion of findings with providers, the patient and/or family. Dr Marino Lennon [facility] For Inpatient follow-up with [facility] physician please call [facility] at . As we are not an outpatient service for any post hospital discharge needs please contact the hospital for assistance. If you have any questions for the [facility] physicians or need to reconsult for clinical or diagnostic changes please contact us via [facility] at Signature :?Marino Lennon
[2025-03-25 08:00] VITALS: BP 112/90; PULSE 55; PULSE 59; RESP 26; TEMP 36.4; O2SAT 94
--- NOTE | 2025-03-25 09:02 | PC.SS ---
Addendum entered by Lulu Huston 03/25/25 14:44: SS verified with halfway staff, Mary, who states she needs to check with her research program manager if they can accommodate i.v. antibiotics due to licensing. SS received a call from Cecilia Koehler, who is the research program manager of the halfway. She states their licensing will allow them to take patient back with i.v. antibiotics but not for 3 x daily. They have a nurse that works with multiple care homes and she can assist once a day. Cecilia states that SNF is not a preferred option for them. Cecilia states for their clients, a new environment like that tends to cause behaviors due to the unfamiliarity and she feels like they come back to their halfway with bed sores. SS will relay conversation with physician team. Patient is still pending picc line. Cecilia Koehler, halfwayhome support worker, cell# [phone] Original Note: rounding note: Patient has bacteremia. On i.v. antibiotics
[2025-03-25] MEDS: Magnesium Sulfate 4 GM Ivpb 4 GM/50 ML BAG IV (09:14)
[2025-03-25] MEDS: levETIRAcetam INJ 100 MG/ML VIAL 5ML 500 MG IVP (09:14)
[2025-03-25] MEDS: SERTRALINE HCL 25 MG TABLET 100 MG PO (09:15)
[2025-03-25] MEDS: DOCUSATE SOD LIQD 100 MG/10 ML UDC 250 MG PO ×2 (09:15→20:33)
[2025-03-25] MEDS: DOXYCYCLINE INJ 100 MG in SODIUM CHLORIDE 0.9% (POP) 100 ML IV ×2 (09:15→20:29)
[2025-03-25] MEDS: ENOXAPARIN SOD INJ 40 MG/0.4 ML SYRINGE SC (09:15)
--- NOTE | 2025-03-25 10:45 | ESPR_ITS ---
<Statement entered by Cynthia Hicks MD - 03/25/25 19:25> Patient was seen and examined at bedside. agree on the assessment and plan on this note. - Patient's plan and care discussed with my attending, Dr. Raffaele Hicks MD Internal Medicine PGY-3 Documentation for date of: 03/25/25 Subjective Subjective Interval history: No acute events overnight. Patient seen and examined at bedside. Vital stable and afebrile. Labs reviewed CBC stable H&H. CHEM panel unremarkable. Final urine culture grew ESBL E. coli. Blood culture GNR in 1 bottle preliminarily. Discontinue vancomycin and starte the patient on doxycycline 100mg BID. Per speech patient is unable to tolerate p.o. and DC Keppra and resume patient home medication lamotrigen as per the neurology recommendations in which she also recommended to increase the dose to 125mg BID if needed if patient has another episode of seizure. will also resume patient's valbenazine. EEG result showed presence of moderate to severe diffuse nonspecific cerebral dysfunction and negative for seizure or epileptiform discharges. Will continue antibiotic and pending blood culture speciation. Exam Vital Signs Temp Pulse Resp BP Pulse Ox O2 Del Method O2 Flow Rate 97.6 F 59 L 26 H 112/90 H 94 L Room Air 3 03/25/25 08:00 03/25/25 08:00 03/25/25 08:00 03/25/25 08:00 03/25/25 08:00 03/25/25 08:00 03/24/25 12:00 Narrative Exam General: more awake, frail, elderly HEENT: NC/AT, mucous membranes moist, bilateral sclera anicteric Cardiovascular: regular rate and rhythm, S1/S2 present, no murmurs appreciated Pulmonary: clear to auscultation bilaterally, no rales/rhonchi/wheezes Abdominal: soft, non-tender, non-distended, no rebound/guarding, normal bowel sounds present Musculoskeletal: lower extremity muscular atrophy; normal ROM, no peripheral edema Skin: warm and dry, intact, no rashes Objective Labs 04/01/25 05:39 04/01/25 05:39 Labs: Laboratory Results - last 24 hr 03/25/25 03/25/25 05:25 05:58 WBC 8.5 RBC 3.21 L Hgb 10.4 L Hct 29.8 L MCV 93 MCH 32.4 MCHC 34.9 RDW Std Deviation 43.7 Plt Count 116 L Neut % (Auto) 71 Lymph % (Auto) 14 [place] % (Auto) 12 Eos % (Auto) 2 Baso % (Auto) 0 Neut # (Auto) 6.1 Lymph # (Auto) 1.2 [place] # (Auto) 1.0 H Eos # (Auto) 0.2 Baso # (Auto) 0.0 Immature Gran # (Auto) 0.04 H Absolute Nucleated RBC 0.00 Immature Gran % 1 H Nucleated RBC % 0 Sodium 142 Potassium 3.6 Chloride 106 Carbon Dioxide 25.7 Anion Gap 10 BUN 12 Creatinine 0.7 Estim Creat Clear Calc 76.6 eGFR > 60 BUN/Creatinine Ratio 17 Glucose 87 Calculated Osmolality 281 Calcium 8.1 L Phosphorus 2.4 Magnesium 1.7 Influenza A (Rapid) Negative Influenza B (Rapid) Negative SARS-CoV-2 Ag (Rapid) Negative Quality Measures Quality Measures none Advance care planning discussed with:: patient and other Assessment & Plan Assessment Current Active Medications: Generic Name Dose Route Start Last Admin Trade Name Freq PRN Reason Stop Dose Admin Atorvastatin Calcium 5 mg 03/23/25 21:00 03/24/25 21:13 Atorvastatin Calcium 10 Mg Tablet PO 04/22/25 20:59 5 mg HS GREG Administration Protocol Valbenazine ( 0 ea 03/26/25 21:00 Ingrezza) 60mg PO 04/25/25 20:59 Capsule HS GREG Dextrose 25 ml 03/23/25 17:08 Dextrose 50%-Water Inj 50 Ml Syringe IV 04/22/25 17:07 Q15MIN PRN BG 50-70 responsive npo pt Dextrose 50 ml 03/23/25 17:08 Dextrose 50%-Water Inj 50 Ml Syringe IV 04/22/25 17:07 Q15MIN PRN BG <50 OR BG <70 & pt unresponsive Docusate Sodium 250 mg 03/25/25 09:15 03/25/25 09:15 Docusate Sod Liqd 100 Mg/10 Ml Udc PO 04/24/25 09:14 250 mg BID RGEG Administration Enoxaparin Sodium 40 mg 03/24/25 09:00 03/25/25 09:15 Enoxaparin Sod Inj 40 Mg/0.4 Ml Syringe SC 04/07/25 08:59 40 mg QDAY GREG Administration Glucagon 1 mg 03/23/25 17:08 Glucagon Inj 1 Mg Vial IM Q15MIN PRN BG <70, and no IV access Lactated Ringer's 1,000 mls @ 75 mls/hr 03/23/25 17:15 03/25/25 00:17 Lactated Ringers IV 04/22/25 17:14 75 mls/hr .[id number] GREG Administration Piperacillin Sod/Tazobactam 100 mls @ 200 mls/hr 03/23/25 22:00 03/25/25 05:36 Sod 4.5 gm/ Sodium Chloride IV 03/30/25 21:59 200 mls/hr Q8HR GREG Administration Protocol Magnesium Sulfate 4 gm in 50 mls @ 12.5 mls/hr 03/25/25 07:17 03/25/25 09:14 Magnesium Sulfate Ivpb IV 03/25/25 11:16 12.5 mls/hr X1 ONE Administration Doxycycline Hyclate 100 mg/ 100 mls @ 100 mls/hr 03/25/25 09:00 03/25/25 09:15 Sodium Chloride IV 04/01/25 08:59 100 mls/hr BID GREG Administration Insulin Human Lispro 0 unit 03/25/25 07:30 03/25/25 07:40 Insulin Lispro (Admelog) 1 Unit/0.01 Ml Unit SC 04/24/25 07:29 Not Given ACHS GREG Protocol Lamotrigine 100 mg 03/23/25 21:00 03/24/25 00:34 Lamotrigine 100 Mg Tablet PO 04/22/25 20:59 Not Given On Hold: 03/24/25 07:52 BID GREG Levetiracetam 500 mg 03/24/25 09:00 03/25/25 09:14 Levetiracetam Inj 100 Mg/Ml Vial 5ml IVP 04/23/25 08:59 500 mg BID GREG Administration Lorazepam 2 mg 03/23/25 17:06 Lorazepam 2 Mg/Ml Vial IVP 03/28/25 17:05 Q15MIN PRN Breakthrough seizure Midodrine 10 mg 03/23/25 17:52 Midodrine 5 Mg Tablet PO 04/22/25 21:59 TID PRN Hypotension Olanzapine 5 mg 03/23/25 21:00 03/24/25 21:13 Olanzapine 5 Mg Tablet PO 04/22/25 20:59 5 mg HS GREG Administration Ondansetron HCl 4 mg 03/23/25 17:02 Ondansetron Inj 2 Mg/Ml Inj 2 Ml IVP 04/22/25 17:01 Q6H PRN NAUSEA OR VOMITING Protocol Sennosides 1 tab 03/24/25 09:00 03/25/25 09:14 Senna Tablet PO 04/23/25 08:59 1 tab QDAY GREG Administration Protocol Sertraline HCl 100 mg 03/23/25 17:30 03/25/25 09:15 Sertraline Hcl 25 Mg Tablet PO 04/22/25 17:29 100 mg QDAY GREG Administration Plan 79-year-old male with a past medical history of developmental delay (non-verbal at baseline), seizure disorder, type 2 diabetes mellitus, hyperlipidemia, and history of ESBL UTI who is being admitted for breakthrough seizure. #Breakthrough seizure #Seizure disorder Presents with three tonic clonic seizures in setting of UTI, which is likely trigger as CT head shows stable, chronic findings. Lactate elevated but improved with IVF. Received 1 g Keppra in ED. - He had 3 witnessed seizures lasting 2-4 min each. + tongue lac noted. - EEG result showed presence of moderate to severe diffuse nonspecific cerebral dysfunction and negative for seizure or epileptiform discharges. Plan ? Teleneurology consulted, appreciate recommendations- resume home meds antiepileptic medications ? Lamotrigine 100 mg p.o. twice daily - Discontinue Keppra 500mg BID ? Seizure and aspiration precautions ? As needed Ativan for breakthrough seizures #ESBL E.coli UTI #History of ESBL UTI #Recurrent UTI #Bilateral renal calculi #Staghorn calculi #Hypotension (resolve) Presented 2 days prior to admission due to concerns for UTI. UA this time showing 266 WBC, 179 RBC, no bacteria but was noted to be given IV antibiotics in ED 2 days prior. Urine culture taken 03/23/2025 grew E. coli. Plan ? Zosyn 4.5gm Q8HR (03/23-) - Doxycycline 100 mg IV twice daily (03/25- ? Follow-up blood ? Midodrine 10 mg p.o. PRN #Extensive bilateral pneumonia #?GNR bacteremia ddx: CAP vs atypical PNA VS aspiration PNA Patient has presented with 4 breakthrough seizure on found to have bilateral pneumonia on chest x-ray likely due to aspiration as patient woodall poor difficulty swallowing p.o. medication. WBC 11.7. Pro-Giovanni 4 Bedside COVID test negative PSI/PORT Score risk call V:?27.0-29.2% mortality. Hospitalization recommended? -MRSA screening negative, influenza A and B negative - DC Vancomycin (03/24-03/25) Blood culture taken 03/23/25 grew preliminary GNR in 1 bottle Plan - Follow-up blood culture - Zosyn (03/23- - Doxycycline (03/25- - MRSA screening, influenza A, influenza B #Leukocytosis WBC 11.7 reactive to seizure activities. - Continue to monitor CMP - Continue with the antibiotic as mentioned above. #Lactic acidosis, likely type A (resolve) In setting of breakthrough seizure and hypotension. Less likely secondary to home metformin. Given total 3 L IVF boluses in ED. #Developmental delay #Depression # ?Tardive dyskinesia Per caregiver, patient's mentation and behavior is at baseline ? Sertraline 100 mg daily ? Ingrezza 60 mg daily ? Olanzapine 5 mg at night #Prostatomegaly as seen on CT ? PSA is 3.76 (normal), low suspiction for prostate cancer. Plan ? Bladder scans BID ? Holding home tamsulosin in setting of hypotension #Type 2 diabetes mellitus, well controlled A1c 5.8% on 12/16/2024. Home medication metformin 500 mg p.o. twice daily A1c 5.6 on 03/23/2025 ? SSI ? Hypoglycemic protocol in place #Hyperlipidemia ? Atorvastatin 40 mg p.o. daily #Constipation Noted significant stool impaction on imaging. Order lactulose. However caregiver at bedside refused. ? Senna scheduled ? Colace scheduled Hospital management: Lines: peripheral IV Diet: dysphagia 1- pureed Bowel: Senna GI prophylaxis: pantoprazole DVT prophylaxis: Lovenox 50 Disposition: Breakthrough seizure CODE STATUS: Full code Patient assessed under supervision of attending physician and senior resident Dr. Hicks PGY-3 Sandie Armendariz MD PGY-1, Internal Medicine Please note: this document was transcribed using voice recognition technology; minor inaccuracies may be present. Attending Provider Attestation/Addendum Susan, Bess Castorena, DO, attest that I was physically present for the [place] portions of the service and evaluated the patient with the resident and I reviewed and discussed the case with the resident and agree with the resident's findings and plans of care as documented above Patient seen and evaluated this AM. He remains on HFNC with flow of 30L/min and FIO2 of 50%. Patient has failed swallow eval and pending MBS today. However, will need to wean to NC in order to do so. Discussed with RT to wean O2. Patient continues to have scattered rhonchi in b/l lung rosas. Continue with chest PT and breathing treatments. He is noted to have uptrending hypernatremia as well. Will start on D5W and trend sodium. If patient fails MBS, will place NG tube and start free water flushes, as well as discussion of PEG tube placement with pt. He otherwise states he is feeling improved. Patient is much more alert and responsive to questions. He states that he has pain all over his body. Rest of physical exam unremarkable? Delayed signature due to inability to log onto [employer] from remote access. Attestation was written within 24h of seeing patient.
[2025-03-25 11:21] VITALS: BMI 21.8
[2025-03-25 12:00] VITALS: BP 105/50; PULSE 55; PULSE 62; RESP 19; TEMP 36.3; O2SAT 90
[2025-03-25] MEDS: DEXTROSE 5%-WATER 1,000 ML 100 ML IV ×2 (13:24→23:24)
[2025-03-25] MEDS: lamoTRIgine 25 MG CHEW 100 MG PO ×2 (13:38→20:33)
[2025-03-25 16:00] VITALS: BP 133/69; PULSE 58; PULSE 63; RESP 21; TEMP 36.2; O2SAT 91
[2025-03-25 20:00] VITALS: BP 152/79; PULSE 63; PULSE 67; RESP 20; TEMP 37.4; O2SAT 93
[2025-03-25] MEDS: ATORVASTATIN CALCIUM 10 MG TABLET 5 MG PO (20:34)
[2025-03-26] VITALS: BP 136/63; PULSE 50; PULSE 52; RESP 18; TEMP 36.1; O2SAT 99
[2025-03-26 01:34] VITALS: BMI 21.8
[2025-03-26 04:00] VITALS: BP 119/66; PULSE 50; RESP 18; TEMP 36.1; O2SAT 99
[2025-03-26] MEDS: PIPER/TAZO INJ 4.5 GM in SODIUM CHLORIDE 0.9% (POP) 100 ML IV ×3 (05:31→22:28)
[2025-03-26 05:38] LABS: Basophils # (Auto) 0.0 Thou/mm3 (0.0-0.2); Basophils % (Auto) 0 % (0-2.5); Eosinophils # (Auto) 0.2 Thou/mm3 (0.0-0.5); Eosinophils % (Auto) 3 % (0-10); Hematocrit 28.8 % (41.0-53.0); Hemoglobin 9.9 g/dL (13.5-16.0); Immature Granulocytes Auto 0.04 Thou/mm3 (0.00-0.00); Lymphocytes # (Auto) 1.7 Thou/mm3 (1.0-4.8); Lymphocytes % (Auto) 22 % (10-50); Mean Corpuscular HGB Conc 34.4 g/dl (31.0-37.0); Mean Corpuscular Hemoglobin 31.9 pg (25.0-35.0); Mean Corpuscular Volume 93 fL (80-100); Monocytes # (Auto) 0.9 Thou/mm3 (0.0-0.8); Monocytes % (Auto) 12 % (0-12); Neutrophils # (Auto) 4.7 Thou/mm3 (1.8-7.7); Neutrophils % (Auto) 63 % (37-80); Nucleated Red Blood Cell # 0.00 Thou/mm3 (0.00-0.00); Nucleated Red Blood Cell % 0 /100 WBC (0); Platelet Count 117 Thou/mm3 (140-440); RDW Standard Deviation 42.8 fL (35.1-43.9); Red Blood Count 3.10 Miln/mm3 (4.50-5.90); White Blood Count 7.6 Thou/mm3 (3.8-10.6)
[2025-03-26 06:00] LABS: Anion Gap 9 (7-16); BUN/Creatinine Ratio 13 Ratio (12-20); Blood Urea Nitrogen 9 mg/dL (9-23); Calcium 7.7 mg/dL (8.3-10.6); Carbon Dioxide 27.4 mMol/L (20.0-31.0); Chloride 104 mMol/L (98-107); Creatinine (Component) 0.7 mg/dL (0.6-1.3); Estimated Creatinine Clearance 76.6 mL/min (>60); Glucose 175 mg/dL (74-106); Magnesium 1.6 mg/dL (1.6-2.6); Osmolality,Calculated 282 (275-295); Phosphorous 2.0 mg/dL (2.4-5.1); Potassium 3.2 mMol/L (3.4-5.1); Sodium 140 mMol/L (136-145); eGFR > 60 See Note
[2025-03-26 08:00] VITALS: BP 119/83; PULSE 51; PULSE 57; RESP 21; TEMP 36.2; O2SAT 95
[2025-03-26] MEDS: Magnesium Sulfate 4 GM Ivpb 4 GM/50 ML BAG IV (08:05)
[2025-03-26] MEDS: DEXTROSE 5%-WATER 1,000 ML 100 ML IV ×2 (08:19→20:34)
[2025-03-26] MEDS: DOCUSATE SOD LIQD 100 MG/10 ML UDC 250 MG PO ×2 (08:21→21:00)
[2025-03-26] MEDS: lamoTRIgine 25 MG CHEW 100 MG PO ×2 (08:23→21:02)
[2025-03-26] MEDS: ENOXAPARIN SOD INJ 40 MG/0.4 ML SYRINGE SC (08:23)
[2025-03-26] MEDS: POTASSIUM CHLORIDE 10% 20 MEQ/15 ML UDC 40 MEQ PO (08:23)
[2025-03-26] MEDS: SERTRALINE HCL 25 MG TABLET 100 MG PO (08:24)
[2025-03-26] MEDS: DOXYCYCLINE INJ 100 MG in SODIUM CHLORIDE 0.9% (POP) 100 ML IV ×2 (08:28→21:06)
--- NOTE | 2025-03-26 10:00 | PC.SS ---
SS follow up note; Pending Cultures. Patient will discharge back to [facility] when medically cleared.
--- NOTE | 2025-03-26 11:01 | PD.TNEUROPRO ---
Tele Neuro Progress Note Progress Note Date 03/26/25 Most Recent Vital Signs Last Vital Signs Temp 97.2 F 03/26/25 08:00 Pulse 57 L 03/26/25 08:00 Resp 21 H 03/26/25 08:00 BP 119/83 03/26/25 08:00 Pulse Ox 95 03/26/25 08:00 O2 Del Method Nasal Cannula 03/26/25 08:00 O2 Flow Rate 3 03/26/25 08:00 Laboratory-Coagulation Panel PT 12.0 Seconds (9.0-12.2) 03/23/25 14:05 INR 1.1 (0.9-1.3) 03/23/25 14:05 APTT 33.0 Seconds (22.0-36.0) 03/23/25 14:05 Progress Note Narrative [facility] TeleNeurology Consult Services Routine Consult Follow-Up Patient Name:???Inocencio Hope Date of :???1945 Identification Number:??? Date of Service:???03/26/2025 10:59:27 Diagnosis?G40.89 - Other seizures Impression #Spell of altered consciousness-Concern for breakthrough seizure in the setting of UTI, acute illness. CT head was reviewed without acute abn. Patient is currently alert, without new neurologic deficits at this time. Do not suspect status epilepticus given current examination and clinical status. Further plan as below. Plan: -CT head reviewed from 03/23, non acute -MRI Brain w/o, w/ contrast unlikely to post exchange manager -Routine EEG reviewed - see report from 03/24 -Lamictal 100 mg BID - can increase to 125 mg BID if seizure recur -Ativan prn for seizure lasting > 3 min -Seizure precautions as follows: - Observe the following precautions for 6 months from the time of last spell.- No driving, no riding bicycles in traffic, no operating dangerous and/or heavy machinery (4-wheel drive, tractors, lawnmowers etc)- No engaging in activities at dangerous heights including using ladders, no taking baths unattended, - No swimming, engaging in activities near fire unattended- Exercise caution or avoidance of cooking or using potentially dangerous objects such as knives. -Further work-up and plan per primary team Neurology will sign off at this time. Call with any questions or concerns. Discussed with staff. Our recommendations are outlined below Nursing Recommendations : Maintain Euglycemia and EuthermiaOnce stable neuro checks q 4hrs Seizure precautions : Seizure precautions including no driving for state mandated time frame were discussed with patient with clear understanding DVT Prophylaxis : Choice of Primary Team Disposition : Outpatient Neurology follow up in 3-6 weeks Subjective Patient seen this am. Caregiver at bedside. Mentions he is slightly more sleepy than baseline. ? Examination 1A: Level of Consciousness - Arouses to minor stimulation?+ 1 1B: Ask Month and Age - Could Not Answer Either Question Correctly?+ 2 1C: Blink Eyes & Squeeze Hands - Performs 0 Tasks?+ 2 2: Test Horizontal Extraocular Movements - Normal?+ 0 3: Test Visual [place] - No Visual Loss?+ 0 4: Test Facial Palsy (Use Grimace if Obtunded) - Normal symmetry?+ 0 5A: Test Left Arm Motor Drift - Some Effort Against [place]?+ 2 5B: Test Right Arm Motor Drift - Some Effort Against [place]?+ 2 6A: Test Left Leg Motor Drift - Some Effort Against [place]?+ 2 6B: Test Right Leg Motor Drift - Some Effort Against [place]?+ 2 7: Test Limb Ataxia (FNF/Heel-Law[place]) - Does Not Understand?+ 0 8: Test Sensation - No Response and Quadriplegic?+ 2 9: Test Language/Aphasia - Mute/Global Aphasia: No Usable Speech/Auditory Comprehension?+ 3 10: Test Dysarthria - Mute/Anarthric?+ 2 11: Test Extinction/Inattention - No abnormality?+ 0 NIHSS Score:?20 ? This consult was conducted in real time using interactive audio and video technology. Patient was informed of the technology being used for this visit and agreed to proceed. Patient located in hospital and provider located at home/office setting. Telehealth Neurology consultation was provided. I spent minutes providing telehealth care. This includes time spent for face to face visit via telemedicine, review of medical records, imaging studies and discussion of findings with providers, the patient and/or family. Dr Marino Lennon [facility] For Inpatient follow-up with [facility] physician please call [facility] at . As we are not an outpatient service for any post hospital discharge needs please contact the hospital for assistance. If you have any questions for the [facility] physicians or need to reconsult for clinical or diagnostic changes please contact us via [facility] at Signature :?Marino Lennon
[2025-03-26 12:00] VITALS: BP 122/69; PULSE 50; PULSE 56; RESP 20; TEMP 35.9; O2SAT 95
--- NOTE | 2025-03-26 12:09 | PD.RESPRO ---
Documentation for date of: 03/26/25 Subjective Subjective Interval history: No acute events overnight. Today pt was seen and examined at bedside, sleeping comfortable. Vitals stable with pulse 57 and RR 21, afebrile saturating well on room air. CBC Hgb 9.9 and Hct 28.8. CHEM Pane K 3.2, repleted. Pending culture sensitivities , ID consulted. Will continue zosyn. Exam Vital Signs Temp Pulse Resp BP Pulse Ox O2 Del Method O2 Flow Rate 97.2 F 57 L 21 H 119/83 95 Nasal Cannula 3 03/26/25 08:00 03/26/25 08:00 03/26/25 08:00 03/26/25 08:00 03/26/25 08:00 03/26/25 08:00 03/26/25 08:00 Narrative Exam General: more awake, frail, elderly, piloerection HEENT: NC/AT, mucous membranes moist, bilateral sclera anicteric Cardiovascular: regular rate and rhythm, S1/S2 present, no murmurs appreciated Pulmonary: clear to auscultation bilaterally, no rales/rhonchi/wheezes Abdominal: soft, non-tender, non-distended, no rebound/guarding, normal bowel sounds present Musculoskeletal: lower extremity muscular atrophy; normal ROM, no peripheral edema Skin: warm and dry, intact, no rashes Objective Labs 03/26/25 04:34 03/26/25 04:34 Labs: Laboratory Results - last 24 hr 03/26/25 04:34 WBC 7.6 RBC 3.10 L Hgb 9.9 L Hct 28.8 L MCV 93 MCH 31.9 MCHC 34.4 RDW Std Deviation 42.8 Plt Count 117 L Neut % (Auto) 63 Lymph % (Auto) 22 [place] % (Auto) 12 Eos % (Auto) 3 Baso % (Auto) 0 Neut # (Auto) 4.7 Lymph # (Auto) 1.7 [place] # (Auto) 0.9 H Eos # (Auto) 0.2 Baso # (Auto) 0.0 Immature Gran # (Auto) 0.04 H Absolute Nucleated RBC 0.00 Immature Gran % 1 H Nucleated RBC % 0 Sodium 140 Potassium 3.2 L Chloride 104 Carbon Dioxide 27.4 Anion Gap 9 BUN 9 Creatinine 0.7 Estim Creat Clear Calc 76.6 eGFR > 60 BUN/Creatinine Ratio 13 Glucose 175 H D Calculated Osmolality 282 Calcium 7.7 L Phosphorus 2.0 L Magnesium 1.6 Quality Measures Quality Measures none Advance care planning discussed with:: patient Assessment & Plan Assessment Current Active Medications: Generic Name Dose Route Start Last Admin Trade Name Freq PRN Reason Stop Dose Admin Atorvastatin Calcium 5 mg 03/23/25 21:00 03/25/25 20:34 Atorvastatin Calcium 10 Mg Tablet PO 04/22/25 20:59 5 mg HS GREG Administration Protocol Valbenazine ( 0 ea 03/26/25 21:00 Ingrezza) 60mg PO 04/25/25 20:59 Capsule HS GREG Dextrose 25 ml 03/23/25 17:08 Dextrose 50%-Water Inj 50 Ml Syringe IV 04/22/25 17:07 Q15MIN PRN BG 50-70 responsive npo pt Dextrose 50 ml 03/23/25 17:08 Dextrose 50%-Water Inj 50 Ml Syringe IV 04/22/25 17:07 Q15MIN PRN BG <50 OR BG <70 & pt unresponsive Docusate Sodium 250 mg 03/25/25 09:15 03/26/25 08:21 Docusate Sod Liqd 100 Mg/10 Ml Udc PO 04/24/25 09:14 250 mg BID GREG Administration Enoxaparin Sodium 40 mg 03/24/25 09:00 03/26/25 08:23 Enoxaparin Sod Inj 40 Mg/0.4 Ml Syringe SC 04/07/25 08:59 40 mg QDAY GREG Administration Glucagon 1 mg 03/23/25 17:08 Glucagon Inj 1 Mg Vial IM Q15MIN PRN BG <70, and no IV access Piperacillin Sod/Tazobactam 100 mls @ 200 mls/hr 03/23/25 22:00 03/26/25 05:31 Sod 4.5 gm/ Sodium Chloride IV 03/30/25 21:59 200 mls/hr Q8HR GREG Administration Protocol Doxycycline Hyclate 100 mg/ 100 mls @ 100 mls/hr 03/25/25 09:00 03/26/25 08:28 Sodium Chloride IV 04/01/25 08:59 100 mls/hr BID GREG Administration Dextrose 1,000 mls @ 100 mls/hr 03/25/25 13:00 03/26/25 08:19 D5w IV 04/24/25 12:59 100 mls/hr .Q10H GREG Administration Insulin Human Lispro 0 unit 03/25/25 07:30 03/26/25 11:35 Insulin Lispro (Admelog) 1 Unit/0.01 Ml Unit SC 04/24/25 07:29 Not Given ACHS GREG Protocol Lamotrigine 100 mg 03/25/25 13:45 03/26/25 08:23 Lamotrigine 25 Mg Chew PO 04/24/25 13:44 100 mg BID GREG Administration Lorazepam 2 mg 03/23/25 17:06 Lorazepam 2 Mg/Ml Vial IVP 03/28/25 17:05 Q15MIN PRN Breakthrough seizure Midodrine 10 mg 03/23/25 17:52 Midodrine 5 Mg Tablet PO 04/22/25 21:59 TID PRN Hypotension Olanzapine 5 mg 03/23/25 21:00 03/25/25 20:34 Olanzapine 5 Mg Tablet PO 04/22/25 20:59 5 mg HS GREG Administration Ondansetron HCl 4 mg 03/23/25 17:02 Ondansetron Inj 2 Mg/Ml Inj 2 Ml IVP 04/22/25 17:01 Q6H PRN NAUSEA OR VOMITING Protocol Sennosides 1 tab 03/24/25 09:00 03/26/25 08:24 Senna Tablet PO 04/23/25 08:59 1 tab QDAY GREG Administration Protocol Sertraline HCl 100 mg 03/23/25 17:30 03/26/25 08:24 Sertraline Hcl 25 Mg Tablet PO 04/22/25 17:29 100 mg QDAY GREG Administration Plan 79-year-old male with a past medical history of developmental delay (non-verbal at baseline), seizure disorder, type 2 diabetes mellitus, hyperlipidemia, and history of ESBL UTI who is being admitted for breakthrough seizure. #Breakthrough seizure #Seizure disorder Presents with three tonic clonic seizures in setting of UTI, which is likely trigger as CT head shows stable, chronic findings. Lactate elevated but improved with IVF. Received 1 g Keppra in ED. - He had 3 witnessed seizures lasting 2-4 min each. + tongue lac noted. - EEG result showed presence of moderate to severe diffuse nonspecific cerebral dysfunction and negative for seizure or epileptiform discharges. -Discontinue Keppra 500mg IV BID Plan ? Teleneurology consulted, appreciate recommendations- resume home meds antiepileptic medications ? Lamotrigine 100 mg p.o. twice daily- as per the neurology recommendations in which she also recommended to increase the dose to 125mg BID if needed if patient has another episode of seizure. ? Seizure and aspiration precautions ? As needed Ativan for breakthrough seizures #ESBL E.coli UTI #Recurrent UTI #Bilateral renal calculi #Staghorn calculi #Hypotension (resolve) Presented 2 days prior to admission due to concerns for UTI. UA this time showing 266 WBC, 179 RBC, no bacteria but was noted to be given IV antibiotics in ED 2 days prior. Urine culture taken 03/23/2025 grew E. coli. Plan ? Zosyn 4.5gm Q8HR (03/23-) - Doxycycline 100 mg IV twice daily (03/25- ? Follow-up blood ? Midodrine 10 mg p.o. PRN #Extensive bilateral pneumonia #?GNR bacteremia ddx: CAP vs atypical PNA VS aspiration PNA Patient has presented with 4 breakthrough seizure on found to have bilateral pneumonia on chest x-ray likely due to aspiration as patient wooadll poor difficulty swallowing p.o. medication. WBC 11.7. Pro-Giovanni 4 Bedside COVID test negative PSI/PORT Score risk call V:?27.0-29.2% mortality. Hospitalization recommended? -MRSA screening negative, influenza A and B negative - DC Vancomycin (03/24-03/25) Blood culture taken 03/23/25 grew preliminary GNR in 1 bottle Plan - Follow-up blood culture sensitivities - ID consulted-recommendation appreciated- hep C ordered - Zosyn (03/23- - Doxycycline (03/25- - MRSA screening, influenza A, influenza B #Developmental delay #Depression #Tardive dyskinesia Per caregiver, patient's mentation and behavior is at baseline ? Sertraline 100 mg daily ? Ingrezza 60 mg daily ? Olanzapine 5 mg at night #Type 2 diabetes mellitus, well controlled A1c 5.8% on 12/16/2024. Home medication metformin 500 mg p.o. twice daily A1c 5.6 on 03/23/2025 ? ISS ? Hypoglycemic protocol in place #Hyperlipidemia ? Atorvastatin 40 mg p.o. daily #Constipation Noted significant stool impaction on imaging. Order lactulose. However caregiver at bedside refused. ? Senna scheduled ? Colace scheduled #Prostatomegaly as seen on CT ? PSA is 3.76 (normal), low suspiction for prostate cancer. Plan ? Bladder scans BID ? Holding home tamsulosin in setting of hypotension #CT finding of atelectasis in the lower lobes, small left lobe liver cysts, large bilateral renal calculi including 29 mm calculus in the left renal pelvis no hydronephrosis - Average urine output 650 cc to 950 - ID ordered hepatitis C, follow-up #Leukocytosis (resolve) #Lactic acidosis, likely type A (resolve) Hospital management: Lines: peripheral IV Diet: dysphagia 1- pureed Bowel: Senna GI prophylaxis: pantoprazole DVT prophylaxis: Lovenox 50 Disposition: Breakthrough seizure CODE STATUS: Full code Patient assessed under supervision of attending physician and senior resident Dr. Hicks PGY-3 Sandie Armendariz MD PGY-1, Internal Medicine Please note: this document was transcribed using voice recognition technology; minor inaccuracies may be present. Attending Provider Attestation/Addendum I have seen and examined the patient. I was physically present for the [place] portions of the services provided including history, physical exam, diagnosis, treatment plans and orders. I agree with assessment and plan of care as documented by residents. Even though this this note was carefully revised there may still be minor errors in cable cutter and swager due to voice recognition software. Vivi Higginbotham MD
--- NOTE | 2025-03-26 12:55 | ESPR_ITS ---
Subjective Subjective Interval history: 79 y/o man from [place]. not interactive on rx for uti. Exam Vital Signs Temp Pulse Resp BP Pulse Ox O2 Del Method O2 Flow Rate 97.2 F 57 L 21 H 119/83 95 Nasal Cannula 3 03/26/25 08:00 03/26/25 08:00 03/26/25 08:00 03/26/25 08:00 03/26/25 08:00 03/26/25 08:00 03/26/25 08:00 Narrative Exam benign abd. moans mostly. no surgical hx noted. caregiver with limited awareness and note that decision maker is not the pt but that is not clear Objective - Internal Medicine Labs 03/26/25 04:34 03/26/25 04:34 Labs: Laboratory Results - last 24 hr 03/26/25 04:34 WBC 7.6 RBC 3.10 L Hgb 9.9 L Hct 28.8 L MCV 93 MCH 31.9 MCHC 34.4 RDW Std Deviation 42.8 Plt Count 117 L Neut % (Auto) 63 Lymph % (Auto) 22 [place] % (Auto) 12 Eos % (Auto) 3 Baso % (Auto) 0 Neut # (Auto) 4.7 Lymph # (Auto) 1.7 [place] # (Auto) 0.9 H Eos # (Auto) 0.2 Baso # (Auto) 0.0 Immature Gran # (Auto) 0.04 H Absolute Nucleated RBC 0.00 Immature Gran % 1 H Nucleated RBC % 0 Sodium 140 Potassium 3.2 L Chloride 104 Carbon Dioxide 27.4 Anion Gap 9 BUN 9 Creatinine 0.7 Estim Creat Clear Calc 76.6 eGFR > 60 BUN/Creatinine Ratio 13 Glucose 175 H D Calculated Osmolality 282 Calcium 7.7 L Phosphorus 2.0 L Magnesium 1.6 Assessment & Plan A&P Narrative chronic altered mentation chronic haley gnr in [place]. S pending ok to target germ in bc when identified. po ok. I will check in again monday am Time Spent With Patient Time: Total time spent is greater than 50% in coordination of care (as documented) at patient's floor/unit and/or counseling patient:
--- NOTE | 2025-03-26 13:12 | ESCONSULT_ITS ---
RE: BRANDON WRIGHT : 1945 DATE OF CONSULTATION: 03/26/2025 REFERRING PHYSICIAN: Alex James MD. REASON FOR CONSULTATION: Chronic altered mental status. HISTORY OF PRESENT ILLNESS: An 79-year-old man, who is a full code. The patient has possible chronically altered status and did not interact at all. He apparently, according to his caregiver, does not interact regularly, so he may have a component of dementia, but nonetheless is listed as being a full code and his decision maker may be the [facility], though this is not clear. He is still listed as being a full code, which is a source of some concern. PAST MEDICAL HISTORY: His medical problems include osteoporosis based on his treatment, recurrent UTI based on his treatment, borderline diabetes based on his treatment, and possible seizures and BPH based on his treatment as well as hld based on meds as outpt. MEDICATIONS: Many of his medications are being given, but not included, some are being held. His exam shows him to be on Zosyn, which is a fairly broad gram-negative agent. The sensitivities are pending on the blood culture, and the urine is back as looks to be E. coli that is fairly sensitive or resistant to many typical gram-negative therapies, but sensitive to Zosyn as most of our ESBLs are. His Macrobid is intermediate. Macrobid is not usually used for bacteremia. Aminoglycosides are also off the table, so will not use those, and nor is aztreonam. If we need a once a day, we can go with ertapenem, but for now Zosyn is probably fine. I will await his sensitivity on the blood culture. You can target that with a p.o. agent if one is available, as the urine may be contaminated. He does not appear to have a chronic Byrne. Of note, I think his code status needs to be clarified. An abdominopelvic CT showed mild enlargement of the cardiac contour with some bibasilar lower lobe atelectasis and some multiple bilateral renal calculi. No hydronephrosis is seen on the CT scan. That is usually the purpose of a renal ultrasound, so we will skip that for now. Hepatitis C test is ordered for tomorrow. He is 79 years of age. I will check on him Monday. DT: 13:02:51 TT: 13:11:00 Ref: [id number] - TID: [id number] MTDD
[2025-03-26 16:00] VITALS: BP 101/65; PULSE 50; PULSE 57; RESP 20; TEMP 36.1; O2SAT 95
[2025-03-26 20:00] VITALS: BP 109/77; PULSE 60; PULSE 65; RESP 20; TEMP 36.3; O2SAT 99
[2025-03-26] MEDS: ATORVASTATIN CALCIUM 10 MG TABLET 5 MG PO (21:03)
[2025-03-26] MEDS: INSULIN LISPRO (AdmeLOG) 1 UNIT/0.01 ML UNIT SC (21:08)
[2025-03-27] VITALS: BP 124/72; PULSE 52; PULSE 53; RESP 20; TEMP 36.1; O2SAT 94
[2025-03-27 04:00] VITALS: BP 122/55; PULSE 48; PULSE 51; RESP 15; TEMP 36.2; O2SAT 94
[2025-03-27] MEDS: PIPER/TAZO INJ 4.5 GM in SODIUM CHLORIDE 0.9% (POP) 100 ML IV ×3 (05:00→21:56)
[2025-03-27 05:47] LABS: Basophils # (Auto) 0.0 Thou/mm3 (0.0-0.2); Basophils % (Auto) 0 % (0-2.5); Eosinophils # (Auto) 0.3 Thou/mm3 (0.0-0.5); Eosinophils % (Auto) 5 % (0-10); Hematocrit 31.5 % (41.0-53.0); Hemoglobin 10.7 g/dL (13.5-16.0); Immature Granulocytes Auto 0.08 Thou/mm3 (0.00-0.00); Lymphocytes # (Auto) 1.8 Thou/mm3 (1.0-4.8); Lymphocytes % (Auto) 33 % (10-50); Mean Corpuscular HGB Conc 34.0 g/dl (31.0-37.0); Mean Corpuscular Hemoglobin 31.8 pg (25.0-35.0); Mean Corpuscular Volume 94 fL (80-100); Monocytes # (Auto) 0.7 Thou/mm3 (0.0-0.8); Monocytes % (Auto) 12 % (0-12); Neutrophils # (Auto) 2.7 Thou/mm3 (1.8-7.7); Neutrophils % (Auto) 49 % (37-80); Nucleated Red Blood Cell # 0.00 Thou/mm3 (0.00-0.00); Nucleated Red Blood Cell % 0 /100 WBC (0); Platelet Count 135 Thou/mm3 (140-440); RDW Standard Deviation 43.8 fL (35.1-43.9); Red Blood Count 3.36 Miln/mm3 (4.50-5.90); White Blood Count 5.5 Thou/mm3 (3.8-10.6)
[2025-03-27 06:00] VITALS: BMI 21.8
[2025-03-27 06:08] LABS: Anion Gap 9 (7-16); BUN/Creatinine Ratio 10 Ratio (12-20); Blood Urea Nitrogen 7 mg/dL (9-23); Calcium 8.1 mg/dL (8.3-10.6); Carbon Dioxide 27.9 mMol/L (20.0-31.0); Chloride 106 mMol/L (98-107); Creatinine (Component) 0.7 mg/dL (0.6-1.3); Estimated Creatinine Clearance 76.6 mL/min (>60); Glucose 137 mg/dL (74-106); Osmolality,Calculated 284 (275-295); Potassium 3.8 mMol/L (3.4-5.1); Sodium 143 mMol/L (136-145); eGFR > 60 See Note
[2025-03-27 06:44] LABS: Hepatitis C Antibody Non Reactive (Non React)
[2025-03-27] MEDS: DEXTROSE 5%-WATER 1,000 ML 100 ML IV ×2 (07:30→16:51)
[2025-03-27 08:00] VITALS: BP 123/60; PULSE 48; PULSE 53; RESP 15; TEMP 36.1; O2SAT 94
[2025-03-27] MEDS: SERTRALINE HCL 25 MG TABLET 100 MG PO (09:11)
[2025-03-27] MEDS: lamoTRIgine 25 MG CHEW 100 MG PO ×2 (09:11→20:37)
[2025-03-27] MEDS: DOCUSATE SOD LIQD 100 MG/10 ML UDC 250 MG PO ×2 (09:11→20:38)
[2025-03-27] MEDS: DOXYCYCLINE INJ 100 MG in SODIUM CHLORIDE 0.9% (POP) 100 ML IV ×2 (09:12→20:38)
[2025-03-27] MEDS: ENOXAPARIN SOD INJ 40 MG/0.4 ML SYRINGE SC (09:26)
[2025-03-27 12:00] VITALS: BP 155/88; PULSE 49; PULSE 60; RESP 18; TEMP 36.1; O2SAT 94
--- NOTE | 2025-03-27 15:28 | ESPR_ITS ---
<Statement entered by Cynthia Hicks MD - 03/27/25 18:47> Patient was seen and examined at bedside. Agree with assessment and plan in this note. - Patient's plan and care discussed with my attending, Dr. Neftaly Hicks MD Internal Medicine PGY-3 Documentation for date of: 03/27/25 Subjective Subjective Interval history: Overnight patient had 100% percent oxygen had to large bowel movement. Today patient seen and examined about bedside being fed by his glazier helper. Patient was saturating well on room air with vital stable. Labs unremarkable. Infectious disease doctor ordered hepatitis C panel which came back nonreactive. Upon evaluation patient sounded congested and hence started chest physiotherapy and breathing treatment x 1. Per with micro lab should receive blood culture sensitivities tomorrow. Continue Zosyn and doxycycline. Pending blood cultures activities. Exam Vital Signs Temp Pulse Resp BP Pulse Ox O2 Del Method O2 Flow Rate 97.0 F 60 18 155/88 H 94 L Nasal Cannula 2 03/27/25 12:00 03/27/25 12:00 03/27/25 12:00 03/27/25 12:00 03/27/25 12:00 03/27/25 12:00 03/27/25 12:00 Narrative Exam General: more awake, frail, elderly HEENT: NC/AT, mucous membranes moist, bilateral sclera anicteric Cardiovascular: regular rate and rhythm, S1/S2 present, no murmurs appreciated Pulmonary: low breath sound, mild rales appreciated Abdominal: soft, non-tender, non-distended, no rebound/guarding, normal bowel sounds present Musculoskeletal: lower extremity muscular atrophy; normal ROM, no peripheral edema Skin: warm and dry, intact, no rashes Objective Labs 03/28/25 04:48 03/28/25 04:48 Labs: Laboratory Results - last 24 hr 03/27/25 04:40 WBC 5.5 RBC 3.36 L Hgb 10.7 L Hct 31.5 L MCV 94 MCH 31.8 MCHC 34.0 RDW Std Deviation 43.8 Plt Count 135 L Neut % (Auto) 49 Lymph % (Auto) 33 [place] % (Auto) 12 Eos % (Auto) 5 Baso % (Auto) 0 Neut # (Auto) 2.7 Lymph # (Auto) 1.8 [place] # (Auto) 0.7 Eos # (Auto) 0.3 Baso # (Auto) 0.0 Immature Gran # (Auto) 0.08 H Absolute Nucleated RBC 0.00 Immature Gran % 1 H Nucleated RBC % 0 Sodium 143 Potassium 3.8 D Chloride 106 Carbon Dioxide 27.9 Anion Gap 9 BUN 7 L Creatinine 0.7 Estim Creat Clear Calc 76.6 eGFR > 60 BUN/Creatinine Ratio 10 L Glucose 137 H Calculated Osmolality 284 Calcium 8.1 L Hepatitis C Antibody Non Reactive Quality Measures Quality Measures none Advance care planning discussed with:: patient Assessment & Plan Assessment Current Active Medications: Generic Name Dose Route Start Last Admin Trade Name Freq PRN Reason Stop Dose Admin Atorvastatin Calcium 5 mg 03/23/25 21:00 03/26/25 21:03 Atorvastatin Calcium 10 Mg Tablet PO 04/22/25 20:59 5 mg HS GREG Administration Protocol Valbenazine ( 0 ea 03/26/25 21:00 03/26/25 21:06 Ingrezza) 60mg PO 04/25/25 20:59 1 capsule Capsule HS GREG Administration Dextrose 25 ml 03/23/25 17:08 Dextrose 50%-Water Inj 50 Ml Syringe IV 04/22/25 17:07 Q15MIN PRN BG 50-70 responsive npo pt Dextrose 50 ml 03/23/25 17:08 Dextrose 50%-Water Inj 50 Ml Syringe IV 04/22/25 17:07 Q15MIN PRN BG <50 OR BG <70 & pt unresponsive Docusate Sodium 250 mg 03/25/25 09:15 03/27/25 09:11 Docusate Sod Liqd 100 Mg/10 Ml Udc PO 04/24/25 09:14 250 mg BID GREG Administration Enoxaparin Sodium 40 mg 03/24/25 09:00 03/27/25 09:26 Enoxaparin Sod Inj 40 Mg/0.4 Ml Syringe SC 04/07/25 08:59 40 mg QDAY GREG Administration Glucagon 1 mg 03/23/25 17:08 Glucagon Inj 1 Mg Vial IM Q15MIN PRN BG <70, and no IV access Piperacillin Sod/Tazobactam 100 mls @ 200 mls/hr 03/23/25 22:00 03/27/25 13:40 Sod 4.5 gm/ Sodium Chloride IV 03/30/25 21:59 200 mls/hr Q8HR GREG Administration Protocol Doxycycline Hyclate 100 mg/ 100 mls @ 100 mls/hr 03/25/25 09:00 03/27/25 09:12 Sodium Chloride IV 04/01/25 08:59 100 mls/hr BID GREG Administration Dextrose 1,000 mls @ 100 mls/hr 03/25/25 13:00 03/27/25 07:30 D5w IV 04/24/25 12:59 100 mls/hr .Q10H GREG Administration Insulin Human Lispro 0 unit 03/25/25 07:30 03/27/25 11:40 Insulin Lispro (Admelog) 1 Unit/0.01 Ml Unit SC 04/24/25 07:29 Not Given ACHS GREG Protocol Lamotrigine 100 mg 03/25/25 13:45 03/27/25 09:11 Lamotrigine 25 Mg Chew PO 04/24/25 13:44 100 mg BID GREG Administration Lorazepam 2 mg 03/23/25 17:06 Lorazepam 2 Mg/Ml Vial IVP 03/31/25 17:05 Q15MIN PRN Breakthrough seizure Midodrine 10 mg 03/23/25 17:52 Midodrine 5 Mg Tablet PO 04/22/25 21:59 TID PRN Hypotension Olanzapine 5 mg 03/23/25 21:00 03/26/25 21:03 Olanzapine 5 Mg Tablet PO 04/22/25 20:59 5 mg HS GREG Administration Ondansetron HCl 4 mg 03/23/25 17:02 Ondansetron Inj 2 Mg/Ml Inj 2 Ml IVP 04/22/25 17:01 Q6H PRN NAUSEA OR VOMITING Protocol Sennosides 1 tab 03/24/25 09:00 03/27/25 09:11 Senna Tablet PO 04/23/25 08:59 1 tab QDAY GREG Administration Protocol Sertraline HCl 100 mg 03/23/25 17:30 03/27/25 09:11 Sertraline Hcl 25 Mg Tablet PO 04/22/25 17:29 100 mg QDAY GREG Administration Plan 79-year-old male with a past medical history of developmental delay (non-verbal at baseline), seizure disorder, type 2 diabetes mellitus, hyperlipidemia, and history of ESBL UTI who is being admitted for breakthrough seizure. #Breakthrough seizure #Seizure disorder Presents with three tonic clonic seizures in setting of UTI, which is likely trigger as CT head shows stable, chronic findings. Lactate elevated but improved with IVF. Received 1 g Keppra in ED. - He had 3 witnessed seizures lasting 2-4 min each. + tongue lac noted. - EEG result showed presence of moderate to severe diffuse nonspecific cerebral dysfunction and negative for seizure or epileptiform discharges. -Discontinue Keppra 500mg IV BID Plan ? Teleneurology consulted, appreciate recommendations- resume home meds antiepileptic medications ? Lamotrigine 100 mg p.o. twice daily- as per the neurology recommendations in which she also recommended to increase the dose to 125mg BID if needed if patient has another episode of seizure. ? Seizure and aspiration precautions ? As needed Ativan for breakthrough seizures #ESBL E.coli UTI #Recurrent UTI #Bilateral renal calculi #Staghorn calculi #Hypotension (resolve) Presented 2 days prior to admission due to concerns for UTI. UA this time showing 266 WBC, 179 RBC, no bacteria but was noted to be given IV antibiotics in ED 2 days prior. Urine culture taken 03/23/2025 grew E. coli. Plan ? Zosyn 4.5gm Q8HR (03/23-) - Doxycycline 100 mg IV twice daily (03/25- ? Follow-up blood ? Midodrine 10 mg p.o. PRN #Extensive bilateral pneumonia #?GNR bacteremia ddx: CAP vs atypical PNA VS aspiration PNA Patient has presented with 4 breakthrough seizure on found to have bilateral pneumonia on chest x-ray likely due to aspiration as patient woodall poor difficulty swallowing p.o. medication. WBC 11.7. Pro-Giovanni 4 Bedside COVID test negative PSI/PORT Score risk call V:?27.0-29.2% mortality. Hospitalization recommended? -MRSA screening positive on 03/23 but negative on 03/24-nonetheless doxycycline for coverage - Influenza A and B negative negative - DC Vancomycin (03/24-03/25) Blood culture taken 03/23/25 grew preliminary GNR in 1 bottle Plan - Follow-up blood culture sensitivities - ID consulted-recommendation appreciated- hep C ordered - Zosyn (03/23- - Doxycycline (03/25- #Developmental delay #Depression #Tardive dyskinesia Per caregiver, patient's mentation and behavior is at baseline ? Sertraline 100 mg daily ? Ingrezza 60 mg daily ? Olanzapine 5 mg at night #Type 2 diabetes mellitus, well controlled A1c 5.8% on 12/16/2024. Home medication metformin 500 mg p.o. twice daily A1c 5.6 on 03/23/2025 ? ISS ? Hypoglycemic protocol in place #Hyperlipidemia ? Atorvastatin 40 mg p.o. daily #Constipation Noted significant stool impaction on imaging. Order lactulose. However caregiver at bedside refused. ? Senna scheduled ? Colace scheduled #Prostatomegaly as seen on CT ? PSA is 3.76 (normal), low suspiction for prostate cancer. Plan ? Holding home tamsulosin in setting of hypotension CT findings #Atelectasis in the lower lobes #Small left lobe liver cysts, #Large bilateral renal calculi including 29 mm calculus in the left renal pelvis no hydronephrosis - ID ordered hepatitis C- nonreactive - Good urine output #Leukocytosis (resolve) #Lactic acidosis, likely type A (resolve) Hospital management: Lines: peripheral IV Diet: dysphagia 1- pureed Bowel: Senna GI prophylaxis: pantoprazole DVT prophylaxis: Lovenox 40 Sc Disposition: Breakthrough seizure CODE STATUS: Full code Patient assessed under supervision of attending physician and resident Dr. Hicks PGY-3 Sandie Armendariz MD PGY-1, Internal Medicine Please note: this document was transcribed using voice recognition technology; minor inaccuracies may be present. Attending Provider Attestation/Addendum I have seen and examined the patient. I was physically present for the [place] portions of the services provided including history, physical exam, diagnosis, treatment plans and orders. I agree with assessment and plan of care as documented by residents. Even though this this note was carefully revised there may still be minor errors in chinese medicine practitioner due to voice recognition software. Vivi Higginbotham MD
[2025-03-27 16:00] VITALS: BP 124/62; PULSE 50; PULSE 53; RESP 17; TEMP 36.9; O2SAT 96
[2025-03-27 20:00] VITALS: BP 182/93; PULSE 52; RESP 17; TEMP 36.6; O2SAT 93
[2025-03-27] MEDS: ATORVASTATIN CALCIUM 10 MG TABLET 5 MG PO (20:37)
[2025-03-28] VITALS: BP 141/72; PULSE 56; RESP 15; TEMP 36.1; O2SAT 93
[2025-03-28 04:00] VITALS: BP 153/79; PULSE 52; RESP 12; TEMP 36.6; O2SAT 92
[2025-03-28] MEDS: DEXTROSE 5%-WATER 1,000 ML 100 ML IV ×3 (04:00→23:18)
[2025-03-28] MEDS: PIPER/TAZO INJ 4.5 GM in SODIUM CHLORIDE 0.9% (POP) 100 ML IV (05:23)
[2025-03-28 06:43] LABS: Basophils # (Auto) 0.0 Thou/mm3 (0.0-0.2); Basophils % (Auto) 1 % (0-2.5); Eosinophils # (Auto) 0.3 Thou/mm3 (0.0-0.5); Eosinophils % (Auto) 6 % (0-10); Hematocrit 30.6 % (41.0-53.0); Hemoglobin 10.4 g/dL (13.5-16.0); Immature Granulocytes Auto 0.09 Thou/mm3 (0.00-0.00); Lymphocytes # (Auto) 1.9 Thou/mm3 (1.0-4.8); Lymphocytes % (Auto) 36 % (10-50); Mean Corpuscular HGB Conc 34.0 g/dl (31.0-37.0); Mean Corpuscular Hemoglobin 31.2 pg (25.0-35.0); Mean Corpuscular Volume 92 fL (80-100); Monocytes # (Auto) 0.6 Thou/mm3 (0.0-0.8); Monocytes % (Auto) 13 % (0-12); Neutrophils # (Auto) 2.2 Thou/mm3 (1.8-7.7); Neutrophils % (Auto) 43 % (37-80); Nucleated Red Blood Cell # 0.00 Thou/mm3 (0.00-0.00); Nucleated Red Blood Cell % 0 /100 WBC (0); Platelet Count 146 Thou/mm3 (140-440); RDW Standard Deviation 41.6 fL (35.1-43.9); Red Blood Count 3.33 Miln/mm3 (4.50-5.90); White Blood Count 5.1 Thou/mm3 (3.8-10.6)
[2025-03-28 07:02] LABS: Anion Gap 9 (7-16); BUN/Creatinine Ratio 7 Ratio (12-20); Blood Urea Nitrogen < 5 mg/dL (9-23); Calcium 8.1 mg/dL (8.3-10.6); Carbon Dioxide 28.4 mMol/L (20.0-31.0); Chloride 107 mMol/L (98-107); Creatinine (Component) 0.7 mg/dL (0.6-1.3); Estimated Creatinine Clearance 76.5 mL/min (>60); Glucose 143 mg/dL (74-106); Osmolality,Calculated 286 (275-295); Potassium 3.7 mMol/L (3.4-5.1); Sodium 144 mMol/L (136-145); eGFR > 60 See Note
[2025-03-28 08:00] VITALS: BP 138/70; PULSE 51; PULSE 61; RESP 20; TEMP 36.4; O2SAT 95
--- NOTE | 2025-03-28 09:27 | ESPR_ITS ---
Subjective Subjective Interval history: hard to prove that urine is colonized. specimen collection is [place] with bacteremia with esbl, will change to ertapenem and see again prn note lack of fever with zosyn Exam Vital Signs Temp Pulse Resp BP Pulse Ox O2 Del Method O2 Flow Rate 97.5 F 51 L 20 138/70 H 95 Room Air 2 03/28/25 08:00 03/28/25 08:00 03/28/25 08:00 03/28/25 08:00 03/28/25 08:00 03/28/25 08:00 03/27/25 12:00 Narrative Exam limited eval today Objective - Internal Medicine Labs 03/28/25 04:48 03/28/25 04:48 Labs: Laboratory Results - last 24 hr 03/28/25 04:48 WBC 5.1 RBC 3.33 L Hgb 10.4 L Hct 30.6 L MCV 92 MCH 31.2 MCHC 34.0 RDW Std Deviation 41.6 Plt Count 146 Neut % (Auto) 43 Lymph % (Auto) 36 [place] % (Auto) 13 H Eos % (Auto) 6 Baso % (Auto) 1 Neut # (Auto) 2.2 Lymph # (Auto) 1.9 [place] # (Auto) 0.6 Eos # (Auto) 0.3 Baso # (Auto) 0.0 Immature Gran # (Auto) 0.09 H Absolute Nucleated RBC 0.00 Immature Gran % 2 H Nucleated RBC % 0 Sodium 144 Potassium 3.7 Chloride 107 Carbon Dioxide 28.4 Anion Gap 9 BUN < 5 L Creatinine 0.7 Estim Creat Clear Calc 76.5 eGFR > 60 BUN/Creatinine Ratio 7 L Glucose 143 H Calculated Osmolality 286 Calcium 8.1 L Assessment & Plan A&P Narrative chronic altered mentation chronic haley gnr in [place]. esbl noted will target esbl in [place] with ertapenem 1 gm iv daily for 7d as urine with same germ oddly no fever will see again prn Time Spent With Patient Time: Total time spent is greater than 50% in coordination of care (as documented) at patient's floor/unit and/or counseling patient:
[2025-03-28] MEDS: DOXYCYCLINE INJ 100 MG in SODIUM CHLORIDE 0.9% (POP) 100 ML IV (09:30)
[2025-03-28] MEDS: DOCUSATE SOD LIQD 100 MG/10 ML UDC 250 MG PO ×2 (09:31→20:45)
[2025-03-28] MEDS: ENOXAPARIN SOD INJ 40 MG/0.4 ML SYRINGE SC (09:31)
[2025-03-28] MEDS: lamoTRIgine 25 MG CHEW 100 MG PO ×2 (09:32→20:46)
[2025-03-28] MEDS: SERTRALINE HCL 25 MG TABLET 100 MG PO (09:33)
[2025-03-28] MEDS: ERTAPENEM INJ 1,000 MG in SODIUM CHLORIDE 0.9% (Popper) 50 ML 100 MG IV (10:28)
[2025-03-28 12:00] VITALS: BP 134/67; PULSE 60; PULSE 63; RESP 13; TEMP 36.2; O2SAT 93
--- NOTE | 2025-03-28 14:42 | ESPR_ITS ---
<Statement entered by Cynthia Hicks MD - 03/29/25 16:00> Patient was seen and examined at bedside. I agree in the assessment and plan on this note. - Patient's plan and care discussed with my attending, Dr. Vinod Hicks MD Internal Medicine PGY-3 Documentation for date of: 03/28/25 Subjective Subjective Interval history: No acute events overnight. Patient seen and examined at bedside saturating well on room air. Blood culture grew ESBL, will sensitive to meropenem and tobramycin. Infectious disease discontinued Zosyn due to poor coverage and resistance to Zosyn as per blood culture. Started the patient on ertapenem IV for 7 days. PICC line was ordered with the anticipation to discharge IV antibiotics.Penind picc line placement. Exam Vital Signs Temp Pulse Resp BP Pulse Ox O2 Del Method O2 Flow Rate 97.5 F 51 L 20 138/70 H 95 Room Air 2 03/28/25 08:00 03/28/25 08:00 03/28/25 08:00 03/28/25 08:00 03/28/25 08:00 03/28/25 08:00 03/27/25 12:00 Narrative Exam General: more awake, frail, elderly HEENT: NC/AT, mucous membranes moist, bilateral sclera anicteric Cardiovascular: regular rate and rhythm, S1/S2 present, no murmurs appreciated Pulmonary: low breath sound, mild rales appreciated Abdominal: soft, non-tender, non-distended, no rebound/guarding, normal bowel sounds present Musculoskeletal: lower extremity muscular atrophy; normal ROM, no peripheral edema Skin: warm and dry, intact, no rashes Objective Labs 03/29/25 04:10 03/29/25 04:10 Labs: Laboratory Results - last 24 hr 03/28/25 04:48 WBC 5.1 RBC 3.33 L Hgb 10.4 L Hct 30.6 L MCV 92 MCH 31.2 MCHC 34.0 RDW Std Deviation 41.6 Plt Count 146 Neut % (Auto) 43 Lymph % (Auto) 36 [place] % (Auto) 13 H Eos % (Auto) 6 Baso % (Auto) 1 Neut # (Auto) 2.2 Lymph # (Auto) 1.9 [place] # (Auto) 0.6 Eos # (Auto) 0.3 Baso # (Auto) 0.0 Immature Gran # (Auto) 0.09 H Absolute Nucleated RBC 0.00 Immature Gran % 2 H Nucleated RBC % 0 Sodium 144 Potassium 3.7 Chloride 107 Carbon Dioxide 28.4 Anion Gap 9 BUN < 5 L Creatinine 0.7 Estim Creat Clear Calc 76.5 eGFR > 60 BUN/Creatinine Ratio 7 L Glucose 143 H Calculated Osmolality 286 Calcium 8.1 L Quality Measures Quality Measures none Advance care planning discussed with:: other Assessment & Plan Assessment Current Active Medications: Generic Name Dose Route Start Last Admin Trade Name Freq PRN Reason Stop Dose Admin Atorvastatin Calcium 5 mg 03/23/25 21:00 03/27/25 20:37 Atorvastatin Calcium 10 Mg Tablet PO 04/22/25 20:59 5 mg HS GREG Administration Protocol Valbenazine ( 0 ea 03/26/25 21:00 03/27/25 20:38 Ingrezza) 60mg PO 04/25/25 20:59 1 capsule Capsule HS GREG Administration Dextrose 25 ml 03/23/25 17:08 Dextrose 50%-Water Inj 50 Ml Syringe IV 04/22/25 17:07 Q15MIN PRN BG 50-70 responsive npo pt Dextrose 50 ml 03/23/25 17:08 Dextrose 50%-Water Inj 50 Ml Syringe IV 04/22/25 17:07 Q15MIN PRN BG <50 OR BG <70 & pt unresponsive Docusate Sodium 250 mg 03/25/25 09:15 03/28/25 09:31 Docusate Sod Liqd 100 Mg/10 Ml Udc PO 04/24/25 09:14 250 mg BID GREG Administration Enoxaparin Sodium 40 mg 03/24/25 09:00 03/28/25 09:31 Enoxaparin Sod Inj 40 Mg/0.4 Ml Syringe SC 04/07/25 08:59 40 mg QDAY GREG Administration Glucagon 1 mg 03/23/25 17:08 Glucagon Inj 1 Mg Vial IM Q15MIN PRN BG <70, and no IV access Dextrose 1,000 mls @ 100 mls/hr 03/25/25 13:00 03/28/25 12:42 D5w IV 04/24/25 12:59 100 mls/hr .Q10H GREG Administration Ertapenem 1,000 mg/ Sodium 50 mls @ 100 mls/hr 03/28/25 09:45 03/28/25 10:28 Chloride IV 04/04/25 09:44 100 mls/hr QDAY GREG Administration Insulin Human Lispro 0 unit 03/25/25 07:30 03/28/25 11:35 Insulin Lispro (Admelog) 1 Unit/0.01 Ml Unit SC 04/24/25 07:29 Not Given ACHS GREG Protocol Lamotrigine 100 mg 03/25/25 13:45 03/28/25 09:32 Lamotrigine 25 Mg Chew PO 04/24/25 13:44 100 mg BID GREG Administration Lorazepam 2 mg 03/23/25 17:06 Lorazepam 2 Mg/Ml Vial IVP 03/31/25 17:05 Q15MIN PRN Breakthrough seizure Midodrine 10 mg 03/23/25 17:52 Midodrine 5 Mg Tablet PO 04/22/25 21:59 TID PRN Hypotension Olanzapine 5 mg 03/23/25 21:00 03/27/25 20:37 Olanzapine 5 Mg Tablet PO 04/22/25 20:59 5 mg HS GREG Administration Ondansetron HCl 4 mg 03/23/25 17:02 Ondansetron Inj 2 Mg/Ml Inj 2 Ml IVP 04/22/25 17:01 Q6H PRN NAUSEA OR VOMITING Protocol Sennosides 1 tab 03/24/25 09:00 03/28/25 09:33 Senna Tablet PO 04/23/25 08:59 1 tab QDAY GREG Administration Protocol Sertraline HCl 100 mg 03/23/25 17:30 03/28/25 09:33 Sertraline Hcl 25 Mg Tablet PO 04/22/25 17:29 100 mg QDAY GREG Administration Plan 79-year-old male with a past medical history of developmental delay (non-verbal at baseline), seizure disorder, type 2 diabetes mellitus, hyperlipidemia, and history of ESBL UTI who is being admitted for breakthrough seizure. #Breakthrough seizure #Seizure disorder Presents with three tonic clonic seizures in setting of UTI, which is likely trigger as CT head shows stable, chronic findings. Lactate elevated but improved with IVF. Received 1 g Keppra in ED. - He had 3 witnessed seizures lasting 2-4 min each. + tongue lac noted. - EEG result showed presence of moderate to severe diffuse nonspecific cerebral dysfunction and negative for seizure or epileptiform discharges. -Discontinue Keppra 500mg IV BID Plan ? Teleneurology consulted, appreciate recommendations- resume home meds antiepileptic medications ? Lamotrigine 100 mg p.o. twice daily- as per the neurology recommendations in which she also recommended to increase the dose to 125mg BID if needed if patient has another episode of seizure. ? Seizure and aspiration precautions ? As needed Ativan for breakthrough seizures #ESBL E.coli UTI #Recurrent UTI #Bilateral renal calculi #Staghorn calculi #Hypotension (resolve) Presented 2 days prior to admission due to concerns for UTI. UA this time showing 266 WBC, 179 RBC, no bacteria but was noted to be given IV antibiotics in ED 2 days prior. Urine culture taken 03/23/2025 grew E. coli. ? DC Zosyn (03/23-03/28) and Doxycycline (03/25-) as bcx grew ESBL E.coli resistance to zosyn Plan ? Midodrine 10 mg p.o. PRN - Continue with IV abx mention bellow #Extensive bilateral pneumonia # ESBL Ecoli bacteremia ddx: CAP vs atypical PNA VS aspiration PNA Patient has presented with 4 breakthrough seizure on found to have bilateral pneumonia on chest x-ray likely due to aspiration as patient woodall poor difficulty swallowing p.o. medication. WBC 11.7. Pro-Giovanni 4 Bedside COVID test negative PSI/PORT Score risk call V:?27.0-29.2% mortality. Hospitalization recommended? -MRSA screening positive on 03/23 but negative on 03/24-nonetheless doxycycline for coverage - Influenza A and B negative negative - DC Vancomycin (03/24-03/25) Blood culture taken 03/23/25 grew ESBL E.coli only sensitive to ertapenem, meropenem and tobramycin. Plan - ID consulted-recommendation appreciated- Ertapenen for 7 days starting 03/28- - Pending PICC Lines #Developmental delay #Depression #Tardive dyskinesia Per caregiver, patient's mentation and behavior is at baseline ? Sertraline 100 mg daily ? Ingrezza 60 mg daily ? Olanzapine 5 mg at night #Type 2 diabetes mellitus, well controlled A1c 5.8% on 12/16/2024. Home medication metformin 500 mg p.o. twice daily A1c 5.6 on 03/23/2025 ? ISS ? Hypoglycemic protocol in place #Hyperlipidemia ? Atorvastatin 40 mg p.o. daily #Constipation Noted significant stool impaction on imaging. Order lactulose. However caregiver at bedside refused. ? Senna scheduled ? Colace scheduled #Prostatomegaly as seen on CT ? PSA is 3.76 (normal), low suspiction for prostate cancer. Plan ? Holding home tamsulosin in setting of hypotension CT findings #Atelectasis in the lower lobes #Small left lobe liver cysts, #Large bilateral renal calculi including 29 mm calculus in the left renal pelvis no hydronephrosis - ID ordered hepatitis C- nonreactive - Good urine output #Leukocytosis (resolve) #Lactic acidosis, likely type A (resolve) Hospital management: Lines: peripheral IV Diet: dysphagia 1- pureed Bowel: Senna GI prophylaxis: pantoprazole DVT prophylaxis: Lovenox 40 Sc Disposition: Breakthrough seizure CODE STATUS: Full code Patient assessed under supervision of attending physician and resident Dr. Hicks PGY-3 Sandie Armendariz MD PGY-1, Internal Medicine Please note: this document was transcribed using voice recognition technology; minor inaccuracies may be present. Attending Provider Attestation/Addendum I have discussed and was present for the essential components of the history, physical examination, diagnosis, and treatment plan with the resident. I agree with the patient's care as documented by the resident and amended herein by me. Jony Brock DO. Although this document has been carefully reviewed, there may still be some phonetic and other typographical errors. These errors are purely grammatical due to imperfections in the software program and should not be construed in any way to compromise the substance of the patient's medical care during this visit.
[2025-03-28 16:00] VITALS: BP 147/88; PULSE 60; PULSE 63; RESP 19; TEMP 36.4; O2SAT 96
--- NOTE | 2025-03-28 16:01 | PC.SS ---
Rounding note: PICC line 03/31/25, will need 7days of Abx. Discharging back to [facility] when medically clear.
--- NOTE | 2025-03-28 18:47 | PD.VPROG1 ---
Telemedicine visit statement This visit was conducted with the use of interactive audio and video telecommunications system that permits real time communication between the patient and the provider. Patient's verbal consent for virtual visit was obtained on 03/28/25 at 1847. Documentation for date of: 03/28/25 Subjective Subjective Interval history: Patient is in telemetry. No seizures reported after admission, waiting for PICC line placement for continuing antibiotics. Virtual exam Vital Signs Temp Pulse Resp BP Pulse Ox O2 Del Method O2 Flow Rate 97.1 F 63 13 134/67 H 93 L Room Air 2 03/28/25 12:00 03/28/25 16:00 03/28/25 12:00 03/28/25 12:00 03/28/25 12:00 03/28/25 12:00 03/27/25 12:00 Objective Labs 03/28/25 04:48 03/28/25 04:48 Labs: Laboratory Results - last 24 hr 03/28/25 04:48 WBC 5.1 RBC 3.33 L Hgb 10.4 L Hct 30.6 L MCV 92 MCH 31.2 MCHC 34.0 RDW Std Deviation 41.6 Plt Count 146 Neut % (Auto) 43 Lymph % (Auto) 36 [place] % (Auto) 13 H Eos % (Auto) 6 Baso % (Auto) 1 Neut # (Auto) 2.2 Lymph # (Auto) 1.9 [place] # (Auto) 0.6 Eos # (Auto) 0.3 Baso # (Auto) 0.0 Immature Gran # (Auto) 0.09 H Absolute Nucleated RBC 0.00 Immature Gran % 2 H Nucleated RBC % 0 Sodium 144 Potassium 3.7 Chloride 107 Carbon Dioxide 28.4 Anion Gap 9 BUN < 5 L Creatinine 0.7 Estim Creat Clear Calc 76.5 eGFR > 60 BUN/Creatinine Ratio 7 L Glucose 143 H Calculated Osmolality 286 Calcium 8.1 L Assessment & Plan Problem List (1) Sepsis: Status: Acute Assessment and plan: from ESBL in urine. on Ertapenam.ID is following. (2) Altered mental status: Status: Acute Assessment and plan: secondary to infection/sepsis/pneumonia mental status is improving, close to baseline (3) Seizure: Status: Chronic Assessment and plan: no seizures reported after admission. Continue with the Lamictal
[2025-03-28 20:00] VITALS: BP 142/83; PULSE 77; RESP 18; TEMP 36.6; O2SAT 93
[2025-03-28] MEDS: ATORVASTATIN CALCIUM 10 MG TABLET 5 MG PO (20:46)
[2025-03-29] VITALS: BP 149/83; PULSE 56; RESP 18; TEMP 36.4; O2SAT 96
[2025-03-29 04:00] VITALS: BP 135/78; PULSE 54; PULSE 55; RESP 18; TEMP 36.7; O2SAT 94
[2025-03-29 06:15] LABS: Basophils # (Auto) 0.0 Thou/mm3 (0.0-0.2); Basophils % (Auto) 0 % (0-2.5); Eosinophils # (Auto) 0.3 Thou/mm3 (0.0-0.5); Eosinophils % (Auto) 4 % (0-10); Hematocrit 31.1 % (41.0-53.0); Hemoglobin 10.6 g/dL (13.5-16.0); Immature Granulocytes Auto 0.13 Thou/mm3 (0.00-0.00); Lymphocytes # (Auto) 2.1 Thou/mm3 (1.0-4.8); Lymphocytes % (Auto) 31 % (10-50); Mean Corpuscular HGB Conc 34.1 g/dl (31.0-37.0); Mean Corpuscular Hemoglobin 31.7 pg (25.0-35.0); Mean Corpuscular Volume 93 fL (80-100); Monocytes # (Auto) 0.8 Thou/mm3 (0.0-0.8); Monocytes % (Auto) 12 % (0-12); Neutrophils # (Auto) 3.4 Thou/mm3 (1.8-7.7); Neutrophils % (Auto) 50 % (37-80); Nucleated Red Blood Cell # 0.00 Thou/mm3 (0.00-0.00); Nucleated Red Blood Cell % 0 /100 WBC (0); Platelet Count 159 Thou/mm3 (140-440); RDW Standard Deviation 42.5 fL (35.1-43.9); Red Blood Count 3.34 Miln/mm3 (4.50-5.90); White Blood Count 6.7 Thou/mm3 (3.8-10.6)
[2025-03-29 06:36] LABS: Anion Gap 9 (7-16); BUN/Creatinine Ratio 7 Ratio (12-20); Blood Urea Nitrogen 5 mg/dL (9-23); Calcium 8.3 mg/dL (8.3-10.6); Carbon Dioxide 28.1 mMol/L (20.0-31.0); Chloride 106 mMol/L (98-107); Creatinine (Component) 0.7 mg/dL (0.6-1.3); Estimated Creatinine Clearance 76.2 mL/min (>60); Glucose 142 mg/dL (74-106); Osmolality,Calculated 284 (275-295); Potassium 3.8 mMol/L (3.4-5.1); Sodium 143 mMol/L (136-145); eGFR > 60 See Note
[2025-03-29 08:00] VITALS: BP 135/78; PULSE 54; PULSE 98; RESP 25; TEMP 36.4; O2SAT 99
[2025-03-29] MEDS: DOCUSATE SOD LIQD 100 MG/10 ML UDC 250 MG PO ×2 (08:11→20:39)
[2025-03-29] MEDS: ERTAPENEM INJ 1,000 MG in SODIUM CHLORIDE 0.9% (Popper) 50 ML 100 MG IV (08:11)
[2025-03-29] MEDS: ENOXAPARIN SOD INJ 40 MG/0.4 ML SYRINGE SC (08:11)
[2025-03-29] MEDS: SERTRALINE HCL 25 MG TABLET 100 MG PO (08:12)
[2025-03-29] MEDS: lamoTRIgine 25 MG CHEW 100 MG PO ×2 (08:12→20:40)
[2025-03-29] MEDS: DEXTROSE 5%-WATER 1,000 ML 100 ML IV ×2 (08:13→17:05)
[2025-03-29 12:00] VITALS: BP 130/83; PULSE 57; PULSE 74; RESP 18; TEMP 36.1; O2SAT 95
--- NOTE | 2025-03-29 12:19 | ESPR_ITS ---
<Statement entered by Cynthia Hicks MD - 03/29/25 16:01> Patient was seen and examined at bedside. I agree in the assessment and plan on this note. - Patient's plan and care discussed with my attending, Dr. Vinod Hicks MD Internal Medicine PGY-3 Documentation for date of: 03/29/25 Subjective Subjective Interval history: No acute events overnight. Patient seen and examined at bedside resting comfortably. Vital stable, afebrile. Labs unremarkable with stable hemoglobin 10.6 and hematocrit 31.1. Will continue antibiotic ertapenem for ESBL bacteremia, pending PICC line placement. Exam Vital Signs Temp Pulse Resp BP Pulse Ox O2 Del Method O2 Flow Rate 97.5 F 98 25 H 135/78 H 99 Room Air 2 03/29/25 08:00 03/29/25 08:00 03/29/25 08:00 03/29/25 08:00 03/29/25 08:00 03/29/25 08:00 03/27/25 12:00 Narrative Exam General: more awake, frail, elderly HEENT: NC/AT, mucous membranes moist, bilateral sclera anicteric Cardiovascular: regular rate and rhythm, S1/S2 present, no murmurs appreciated Pulmonary: low breath sound, mild rales appreciated Abdominal: soft, non-tender, non-distended, no rebound/guarding, normal bowel sounds present Musculoskeletal: lower extremity muscular atrophy; normal ROM, no peripheral edema Skin: warm and dry, intact, no rashes Objective Labs 03/29/25 04:10 03/29/25 04:10 Labs: Laboratory Results - last 24 hr 03/29/25 04:10 WBC 6.7 RBC 3.34 L Hgb 10.6 L Hct 31.1 L MCV 93 MCH 31.7 MCHC 34.1 RDW Std Deviation 42.5 Plt Count 159 Neut % (Auto) 50 Lymph % (Auto) 31 [place] % (Auto) 12 Eos % (Auto) 4 Baso % (Auto) 0 Neut # (Auto) 3.4 Lymph # (Auto) 2.1 [place] # (Auto) 0.8 Eos # (Auto) 0.3 Baso # (Auto) 0.0 Immature Gran # (Auto) 0.13 H Absolute Nucleated RBC 0.00 Immature Gran % 2 H Nucleated RBC % 0 Sodium 143 Potassium 3.8 Chloride 106 Carbon Dioxide 28.1 Anion Gap 9 BUN 5 L Creatinine 0.7 Estim Creat Clear Calc 76.2 eGFR > 60 BUN/Creatinine Ratio 7 L Glucose 142 H Calculated Osmolality 284 Calcium 8.3 Quality Measures Quality Measures none Advance care planning discussed with:: other Assessment & Plan Assessment Current Active Medications: Generic Name Dose Route Start Last Admin Trade Name Freq PRN Reason Stop Dose Admin Atorvastatin Calcium 5 mg 03/23/25 21:00 03/28/25 20:46 Atorvastatin Calcium 10 Mg Tablet PO 04/22/25 20:59 5 mg HS GREG Administration Protocol Valbenazine ( 0 ea 03/26/25 21:00 03/28/25 21:03 Ingrezza) 60mg PO 04/25/25 20:59 1 capsule Capsule HS GREG Administration Dextrose 25 ml 03/23/25 17:08 Dextrose 50%-Water Inj 50 Ml Syringe IV 04/22/25 17:07 Q15MIN PRN BG 50-70 responsive npo pt Dextrose 50 ml 03/23/25 17:08 Dextrose 50%-Water Inj 50 Ml Syringe IV 04/22/25 17:07 Q15MIN PRN BG <50 OR BG <70 & pt unresponsive Docusate Sodium 250 mg 03/25/25 09:15 03/29/25 08:11 Docusate Sod Liqd 100 Mg/10 Ml Udc PO 04/24/25 09:14 250 mg BID GREG Administration Enoxaparin Sodium 40 mg 03/24/25 09:00 03/29/25 08:11 Enoxaparin Sod Inj 40 Mg/0.4 Ml Syringe SC 04/07/25 08:59 40 mg QDAY GREG Administration Glucagon 1 mg 03/23/25 17:08 Glucagon Inj 1 Mg Vial IM Q15MIN PRN BG <70, and no IV access Dextrose 1,000 mls @ 100 mls/hr 03/25/25 13:00 03/29/25 08:13 D5w IV 04/24/25 12:59 100 mls/hr .Q10H GREG Administration Ertapenem 1,000 mg/ Sodium 50 mls @ 100 mls/hr 03/28/25 09:45 03/29/25 08:11 Chloride IV 04/04/25 09:44 100 mls/hr QDAY GREG Administration Insulin Human Lispro 0 unit 03/25/25 07:30 03/29/25 11:37 Insulin Lispro (Admelog) 1 Unit/0.01 Ml Unit SC 04/24/25 07:29 Not Given ACHS GREG Protocol Lamotrigine 100 mg 03/25/25 13:45 03/29/25 08:12 Lamotrigine 25 Mg Chew PO 04/24/25 13:44 100 mg BID GREG Administration Lorazepam 2 mg 03/23/25 17:06 Lorazepam 2 Mg/Ml Vial IVP 03/31/25 17:05 Q15MIN PRN Breakthrough seizure Midodrine 10 mg 03/23/25 17:52 Midodrine 5 Mg Tablet PO 04/22/25 21:59 TID PRN Hypotension Olanzapine 5 mg 03/23/25 21:00 03/28/25 20:46 Olanzapine 5 Mg Tablet PO 04/22/25 20:59 5 mg HS GREG Administration Ondansetron HCl 4 mg 03/23/25 17:02 Ondansetron Inj 2 Mg/Ml Inj 2 Ml IVP 04/22/25 17:01 Q6H PRN NAUSEA OR VOMITING Protocol Sennosides 1 tab 03/24/25 09:00 03/29/25 08:12 Senna Tablet PO 04/23/25 08:59 1 tab QDAY GREG Administration Protocol Sertraline HCl 100 mg 03/23/25 17:30 03/29/25 08:12 Sertraline Hcl 25 Mg Tablet PO 04/22/25 17:29 100 mg QDAY GREG Administration Plan 79-year-old male with a past medical history of developmental delay (non-verbal at baseline), seizure disorder, type 2 diabetes mellitus, hyperlipidemia, and history of ESBL UTI who is being admitted for breakthrough seizure. #Breakthrough seizure #Seizure disorder Presents with three tonic clonic seizures in setting of UTI, which is likely trigger as CT head shows stable, chronic findings. Lactate elevated but improved with IVF. Received 1 g Keppra in ED. - He had 3 witnessed seizures lasting 2-4 min each. + tongue lac noted. - EEG result showed presence of moderate to severe diffuse nonspecific cerebral dysfunction and negative for seizure or epileptiform discharges. -Discontinue Keppra 500mg IV BID Plan ? Teleneurology consulted, appreciate recommendations- resume home meds antiepileptic medications ? Lamotrigine 100 mg p.o. twice daily- as per the neurology recommendations in which she also recommended to increase the dose to 125mg BID if needed if patient has another episode of seizure. ? Seizure and aspiration precautions ? As needed Ativan for breakthrough seizures #ESBL E.coli UTI #Recurrent UTI #Bilateral renal calculi #Staghorn calculi #Hypotension (resolve) Presented 2 days prior to admission due to concerns for UTI. UA this time showing 266 WBC, 179 RBC, no bacteria but was noted to be given IV antibiotics in ED 2 days prior. Urine culture taken 03/23/2025 grew E. coli. ? DC Zosyn (03/23-03/28) and Doxycycline (03/25-) as bcx grew ESBL E.coli resistance to zosyn Plan ? Midodrine 10 mg p.o. PRN - Continue with IV abx mention bellow #Extensive bilateral pneumonia # ESBL Ecoli bacteremia ddx: CAP vs atypical PNA VS aspiration PNA Patient has presented with 4 breakthrough seizure on found to have bilateral pneumonia on chest x-ray likely due to aspiration as patient woodall poor difficulty swallowing p.o. medication. WBC 11.7. Pro-Giovanni 4 Bedside COVID test negative PSI/PORT Score risk call V:?27.0-29.2% mortality. Hospitalization recommended? - MRSA screening positive on 03/23 but negative on 03/24-nonetheless doxycycline for coverage - Influenza A and B negative negative - DC Vancomycin (03/24-03/25) Blood culture taken 03/23/25 grew ESBL E.coli only sensitive to ertapenem, meropenem and tobramycin. Plan - ID consulted-recommendation appreciated- Ertapenen for 7 days starting 03/28/25-04/03/2025 - Pending PICC Lines #Developmental delay #Depression #Tardive dyskinesia Per caregiver, patient's mentation and behavior is at baseline ? Sertraline 100 mg daily ? Ingrezza 60 mg daily ? Olanzapine 5 mg at night #Type 2 diabetes mellitus, well controlled A1c 5.8% on 12/16/2024. Home medication metformin 500 mg p.o. twice daily A1c 5.6 on 03/23/2025 ? ISS ? Hypoglycemic protocol in place #Hyperlipidemia ? Atorvastatin 40 mg p.o. daily #Constipation Noted significant stool impaction on imaging. Order lactulose. However caregiver at bedside refused. ? Senna scheduled ? Colace scheduled #Prostatomegaly as seen on CT ? PSA is 3.76 (normal), low suspiction for prostate cancer. Plan ? Holding home tamsulosin in setting of hypotension CT findings #Atelectasis in the lower lobes #Small left lobe liver cysts, #Large bilateral renal calculi including 29 mm calculus in the left renal pelvis no hydronephrosis - ID ordered hepatitis C- nonreactive - Good urine output #Leukocytosis (resolve) #Lactic acidosis, likely type A (resolve) Hospital management: Lines: peripheral IV Diet: dysphagia 1- pureed Bowel: Senna GI prophylaxis: pantoprazole DVT prophylaxis: Lovenox 40 Sc Disposition: Breakthrough seizure CODE STATUS: Full code Patient assessed under supervision of attending physician and resident Dr. Hicks PGY-3 Sandie Armendariz MD PGY-1, Internal Medicine Please note: this document was transcribed using voice recognition technology; minor inaccuracies may be present. Attending Provider Attestation/Addendum I have discussed and was present for the essential components of the history, physical examination, diagnosis, and treatment plan with the resident. I agree with the patient's care as documented by the resident and amended herein by me. Jony Brock DO. Although this document has been carefully reviewed, there may still be some phonetic and other typographical errors. These errors are purely grammatical due to imperfections in the software program and should not be construed in any way to compromise the substance of the patient's medical care during this visit. Patient seen and evaluated this AM. No acute events overnight, vital signs stable, patient afebrile. For the patient's ESBL E. coli bacteremia and UTI, patient will need a total 7-day course of carbapenems, we will order ertapenem 1 g daily until 05 April 2025. Home health orders will be placed. A PICC line has been ordered however most likely will not be placed until Monday.
[2025-03-29 16:00] VITALS: BP 121/57; PULSE 61; PULSE 63; RESP 22; TEMP 36.2; O2SAT 97
[2025-03-29] MEDS: INSULIN LISPRO (AdmeLOG) 1 UNIT/0.01 ML UNIT SC ×2 (17:04→20:52)
--- NOTE | 2025-03-29 19:10 | VVPN_ITS ---
Telemedicine visit statement This visit was conducted with the use of interactive audio and video telecommunications system that permits real time communication between the patient and the provider. Patient's verbal consent for virtual visit was obtained on 03/29/25 at 1910. Documentation for date of: 03/29/25 Subjective Subjective Interval history: Patient is in telemetry. No seizures reported after admission. Virtual exam Vital Signs Temp Pulse Resp BP Pulse Ox O2 Del Method O2 Flow Rate 97.1 F 61 22 H 121/57 L 97 Nasal Cannula 2.5 03/29/25 16:00 03/29/25 16:00 03/29/25 16:00 03/29/25 16:00 03/29/25 16:00 03/29/25 16:00 03/29/25 16:00 Objective Labs 03/29/25 04:10 03/29/25 04:10 Labs: Laboratory Results - last 24 hr 03/29/25 04:10 WBC 6.7 RBC 3.34 L Hgb 10.6 L Hct 31.1 L MCV 93 MCH 31.7 MCHC 34.1 RDW Std Deviation 42.5 Plt Count 159 Neut % (Auto) 50 Lymph % (Auto) 31 [place] % (Auto) 12 Eos % (Auto) 4 Baso % (Auto) 0 Neut # (Auto) 3.4 Lymph # (Auto) 2.1 [place] # (Auto) 0.8 Eos # (Auto) 0.3 Baso # (Auto) 0.0 Immature Gran # (Auto) 0.13 H Absolute Nucleated RBC 0.00 Immature Gran % 2 H Nucleated RBC % 0 Sodium 143 Potassium 3.8 Chloride 106 Carbon Dioxide 28.1 Anion Gap 9 BUN 5 L Creatinine 0.7 Estim Creat Clear Calc 76.2 eGFR > 60 BUN/Creatinine Ratio 7 L Glucose 142 H Calculated Osmolality 284 Calcium 8.3 Assessment & Plan Problem List (1) Sepsis: Status: Acute Assessment and plan: from ESBL in urine. on Ertapenam.ID is following. (2) Altered mental status: Status: Acute Assessment and plan: secondary to infection/sepsis/pneumonia mental status is improving, close to baseline (3) Seizure: Status: Chronic Assessment and plan: no seizures reported after admission. Continue with the Lamictal
[2025-03-29 20:00] VITALS: BP 121/64; PULSE 59; PULSE 61; RESP 18; TEMP 36.4; O2SAT 93
[2025-03-29] MEDS: ATORVASTATIN CALCIUM 10 MG TABLET 5 MG PO (20:40)
[2025-03-30] VITALS: BP 131/65; PULSE 72; RESP 21; TEMP 36.9; O2SAT 93
[2025-03-30] MEDS: DEXTROSE 5%-WATER 1,000 ML 100 ML IV ×3 (03:10→22:41)
[2025-03-30 04:00] VITALS: BP 136/65; PULSE 53; RESP 17; TEMP 36.4; O2SAT 92
[2025-03-30 05:22] LABS: Basophils # (Auto) 0.0 Thou/mm3 (0.0-0.2); Basophils % (Auto) 1 % (0-2.5); Eosinophils # (Auto) 0.4 Thou/mm3 (0.0-0.5); Eosinophils % (Auto) 4 % (0-10); Hematocrit 30.5 % (41.0-53.0); Hemoglobin 10.5 g/dL (13.5-16.0); Immature Granulocytes Auto 0.15 Thou/mm3 (0.00-0.00); Lymphocytes # (Auto) 2.3 Thou/mm3 (1.0-4.8); Lymphocytes % (Auto) 29 % (10-50); Mean Corpuscular HGB Conc 34.4 g/dl (31.0-37.0); Mean Corpuscular Hemoglobin 32.2 pg (25.0-35.0); Mean Corpuscular Volume 94 fL (80-100); Monocytes # (Auto) 0.7 Thou/mm3 (0.0-0.8); Monocytes % (Auto) 9 % (0-12); Neutrophils # (Auto) 4.5 Thou/mm3 (1.8-7.7); Neutrophils % (Auto) 56 % (37-80); Nucleated Red Blood Cell # 0.00 Thou/mm3 (0.00-0.00); Nucleated Red Blood Cell % 0 /100 WBC (0); Platelet Count 155 Thou/mm3 (140-440); RDW Standard Deviation 42.5 fL (35.1-43.9); Red Blood Count 3.26 Miln/mm3 (4.50-5.90); White Blood Count 8.0 Thou/mm3 (3.8-10.6)
[2025-03-30 05:37] LABS: Anion Gap 9 (7-16); BUN/Creatinine Ratio 7 Ratio (12-20); Blood Urea Nitrogen 5 mg/dL (9-23); Calcium 8.5 mg/dL (8.3-10.6); Carbon Dioxide 27.6 mMol/L (20.0-31.0); Chloride 106 mMol/L (98-107); Creatinine (Component) 0.7 mg/dL (0.6-1.3); Estimated Creatinine Clearance 76.2 mL/min (>60); Glucose 135 mg/dL (74-106); Osmolality,Calculated 284 (275-295); Potassium 4.1 mMol/L (3.4-5.1); Sodium 143 mMol/L (136-145); eGFR > 60 See Note
[2025-03-30 06:00] VITALS: BMI 19.3
[2025-03-30 08:00] VITALS: BP 137/70; PULSE 53; PULSE 56; RESP 19; TEMP 36.1; O2SAT 91
[2025-03-30] MEDS: lamoTRIgine 25 MG CHEW 100 MG PO ×2 (09:08→20:59)
[2025-03-30] MEDS: SERTRALINE HCL 25 MG TABLET 100 MG PO (09:08)
[2025-03-30] MEDS: DOCUSATE SOD LIQD 100 MG/10 ML UDC 250 MG PO ×2 (09:09→20:58)
[2025-03-30] MEDS: ENOXAPARIN SOD INJ 40 MG/0.4 ML SYRINGE SC (09:09)
[2025-03-30] MEDS: ERTAPENEM INJ 1,000 MG in SODIUM CHLORIDE 0.9% (Popper) 50 ML 100 MG IV (09:09)
--- NOTE | 2025-03-30 09:36 | PD.RESPRO ---
Documentation for date of: 03/30/25 Subjective Subjective Interval history: No acute overnight events. Seen and examined at bedside and patient at his baseline. Does not appear to be in acute distress. Vital signs show pulse of 53 but otherwise stable. CBC stable and unremarkable. Pending PICC line placement for IV antibiotics until 04/05/2025 that will likely be done tomorrow so anticipate discharge in the next 24 to 48 hours. Exam Vital Signs Temp Pulse Resp BP Pulse Ox O2 Del Method O2 Flow Rate 97 F 53 L 19 137/70 H 91 L Room Air 2.5 03/30/25 08:00 03/30/25 08:00 03/30/25 08:00 03/30/25 08:00 03/30/25 08:00 03/30/25 08:00 03/29/25 16:00 Narrative Exam General: more awake, frail, elderly HEENT: NC/AT, mucous membranes moist, bilateral sclera anicteric Cardiovascular: regular rate and rhythm, S1/S2 present, no murmurs appreciated Pulmonary: low breath sound, mild rales appreciated Abdominal: soft, non-tender, non-distended, no rebound/guarding, normal bowel sounds present Musculoskeletal: lower extremity muscular atrophy; normal ROM, no peripheral edema Skin: warm and dry, intact, no rashes Objective Labs 03/30/25 04:53 03/30/25 04:53 Labs: Laboratory Results - last 24 hr 03/30/25 04:53 WBC 8.0 RBC 3.26 L Hgb 10.5 L Hct 30.5 L MCV 94 MCH 32.2 MCHC 34.4 RDW Std Deviation 42.5 Plt Count 155 Neut % (Auto) 56 Lymph % (Auto) 29 [place] % (Auto) 9 Eos % (Auto) 4 Baso % (Auto) 1 Neut # (Auto) 4.5 Lymph # (Auto) 2.3 [place] # (Auto) 0.7 Eos # (Auto) 0.4 Baso # (Auto) 0.0 Immature Gran # (Auto) 0.15 H Absolute Nucleated RBC 0.00 Immature Gran % 2 H Nucleated RBC % 0 Sodium 143 Potassium 4.1 Chloride 106 Carbon Dioxide 27.6 Anion Gap 9 BUN 5 L Creatinine 0.7 Estim Creat Clear Calc 76.2 eGFR > 60 BUN/Creatinine Ratio 7 L Glucose 135 H Calculated Osmolality 284 Calcium 8.5 Quality Measures Quality Measures none Advance care planning discussed with:: other Assessment & Plan Assessment Current Active Medications: Generic Name Dose Route Start Last Admin Trade Name Freq PRN Reason Stop Dose Admin Atorvastatin Calcium 5 mg 03/23/25 21:00 03/29/25 20:40 Atorvastatin Calcium 10 Mg Tablet PO 04/22/25 20:59 5 mg HS GREG Administration Protocol Valbenazine ( 0 ea 03/26/25 21:00 03/29/25 20:42 Ingrezza) 60mg PO 04/25/25 20:59 1 capsule Capsule HS GREG Administration Dextrose 25 ml 03/23/25 17:08 Dextrose 50%-Water Inj 50 Ml Syringe IV 04/22/25 17:07 Q15MIN PRN BG 50-70 responsive npo pt Dextrose 50 ml 03/23/25 17:08 Dextrose 50%-Water Inj 50 Ml Syringe IV 04/22/25 17:07 Q15MIN PRN BG <50 OR BG <70 & pt unresponsive Docusate Sodium 250 mg 03/25/25 09:15 03/30/25 09:09 Docusate Sod Liqd 100 Mg/10 Ml Udc PO 04/24/25 09:14 250 mg BID GREG Administration Enoxaparin Sodium 40 mg 03/24/25 09:00 03/30/25 09:09 Enoxaparin Sod Inj 40 Mg/0.4 Ml Syringe SC 04/07/25 08:59 40 mg QDAY GREG Administration Glucagon 1 mg 03/23/25 17:08 Glucagon Inj 1 Mg Vial IM Q15MIN PRN BG <70, and no IV access Dextrose 1,000 mls @ 100 mls/hr 03/25/25 13:00 03/30/25 03:10 D5w IV 04/24/25 12:59 100 mls/hr .Q10H GREG Administration Ertapenem 1,000 mg/ Sodium 50 mls @ 100 mls/hr 03/28/25 09:45 03/30/25 09:09 Chloride IV 04/04/25 09:44 100 mls/hr QDAY GREG Administration Insulin Human Lispro 0 unit 03/25/25 07:30 03/30/25 08:00 Insulin Lispro (Admelog) 1 Unit/0.01 Ml Unit SC 04/24/25 07:29 Not Given ACHS GREG Protocol Lamotrigine 100 mg 03/25/25 13:45 03/30/25 09:08 Lamotrigine 25 Mg Chew PO 04/24/25 13:44 100 mg BID GREG Administration Lorazepam 2 mg 03/23/25 17:06 Lorazepam 2 Mg/Ml Vial IVP 03/31/25 17:05 Q15MIN PRN Breakthrough seizure Midodrine 10 mg 03/23/25 17:52 Midodrine 5 Mg Tablet PO 04/22/25 21:59 TID PRN Hypotension Olanzapine 5 mg 03/23/25 21:00 03/29/25 20:42 Olanzapine 5 Mg Tablet PO 04/22/25 20:59 5 mg HS GREG Administration Ondansetron HCl 4 mg 03/23/25 17:02 Ondansetron Inj 2 Mg/Ml Inj 2 Ml IVP 04/22/25 17:01 Q6H PRN NAUSEA OR VOMITING Protocol Sennosides 1 tab 03/24/25 09:00 03/30/25 09:08 Senna Tablet PO 04/23/25 08:59 1 tab QDAY GREG Administration Protocol Sertraline HCl 100 mg 03/23/25 17:30 03/30/25 09:08 Sertraline Hcl 25 Mg Tablet PO 04/22/25 17:29 100 mg QDAY GREG Administration Plan 79-year-old male with a past medical history of developmental delay (non-verbal at baseline), seizure disorder, type 2 diabetes mellitus, hyperlipidemia, and history of ESBL UTI who is being admitted for breakthrough seizure. #Breakthrough seizure #Seizure disorder Presents with three tonic clonic seizures in setting of UTI, which is likely trigger as CT head shows stable, chronic findings. Lactate elevated but improved with IVF. Received 1 g Keppra in ED. EEG showed presence of moderate to severe diffuse nonspecific cerebral dysfunction and negative for seizure or epileptiform discharges so Keppra DC'd. ? Teleneurology consulted, appreciate recommendations ? Lamotrigine 100 mg p.o. twice daily ? Can increase dose 125 mg BID if another episode occurs ? Seizure and aspiration precautions ? As needed Ativan for breakthrough seizures #ESBL E.coli UTI #Recurrent UTI #Bilateral renal calculi #Staghorn calculi #Hypotension, resolved Presented 2 days prior to admission due to concerns for UTI. UA this time showing 266 WBC, 179 RBC, no bacteria but was noted to be given IV antibiotics in ED 2 days prior. Zosyn (03/23-03/28) and doxycycline (03/25-03/28). ? Urine cultures: ESBL E. coli resistant to zosyn ? Midodrine 10 mg p.o. PRN ? Ertapenem as below #Extensive bilateral pneumonia #ESBL E. coli bacteremia PSI/PORT Score risk call V:?27.0-29.2% mortality. Hospitalization recommended. MRSA screening positive on 03/23 but negative on 03/24 and received doxycycline and vancomycin. ? Blood cultures: ESBL E. coli sensitive to ertapenem, meropenem and tobramycin ? ID consulted, appreciate recommendations ? Ertapenem for 7 days (03/28/2025-04/05/2025) ? Pending PICC line placement #Developmental delay #Depression #Tardive dyskinesia Per caregiver, patient's mentation and behavior is at baseline ? Sertraline 100 mg daily ? Ingrezza 60 mg daily ? Olanzapine 5 mg at night #Type 2 diabetes mellitus, well controlled A1c 5.8% on 12/16/2024. Home medication metformin 500 mg p.o. twice daily A1c 5.6 on 03/23/2025 ? ISS ? Hypoglycemic protocol in place #Hyperlipidemia ? Atorvastatin 40 mg p.o. daily #Constipation Noted significant stool impaction on imaging. Order lactulose. However caregiver at bedside refused. ? Senna scheduled ? Colace scheduled #Prostatomegaly as seen on CT PSA is 3.76 (normal), low suspiction for prostate cancer. ? Holding home tamsulosin in setting of hypotension #Atelectasis in the lower lobes #Small left lobe liver cysts #Large bilateral renal calculi including 29 mm calculus in left renal pelvis without hydronephrosis ? ID ordered hepatitis C, which was nonreactive ? Monitor urine output #Leukocytosis, resolved #Lactic acidosis, likely type A, resolved Hospital management: Lines: peripheral IV Diet: dysphagia 1- pureed Bowel: Senna GI prophylaxis: pantoprazole DVT prophylaxis: Lovenox 40 Sc Disposition: Breakthrough seizure CODE STATUS: Full code ----- Plan discussed with attending physician Dr. Vinod Rees MD PGY-2 Internal Medicine Attending Provider Attestation/Addendum I have discussed and was present for the essential components of the history, physical examination, diagnosis, and treatment plan with the resident. I agree with the patient's care as documented by the resident and amended herein by me. Jony Brock DO. Although this document has been carefully reviewed, there may still be some phonetic and other typographical errors. These errors are purely grammatical due to imperfections in the software program and should not be construed in any way to compromise the substance of the patient's medical care during this visit.
[2025-03-30 12:00] VITALS: BP 151/60; PULSE 55; PULSE 57; RESP 18; TEMP 36.1; O2SAT 95
[2025-03-30 16:00] VITALS: BP 125/83; PULSE 58; PULSE 60; RESP 81; TEMP 36.2; O2SAT 97
[2025-03-30 20:00] VITALS: BP 159/92; PULSE 62; RESP 25; TEMP 36.1; O2SAT 95
[2025-03-30] MEDS: ATORVASTATIN CALCIUM 10 MG TABLET 5 MG PO (20:59)
--- NOTE | 2025-03-30 21:44 | PD.NEUROPROG ---
Documentation for date of: 03/30/25 Subjective Subjective Interval history: Patient was seen in telemetry today with a caregiver at the bedside. No seizures reported after admission Exam - Neurology Vital Signs Temp Pulse Resp BP Pulse Ox O2 Del Method O2 Flow Rate 96.9 F 62 25 H 159/92 H 95 Room Air 2.5 03/30/25 20:00 03/30/25 20:00 03/30/25 20:00 03/30/25 20:00 03/30/25 20:00 03/30/25 20:00 03/29/25 16:00 Narrative Exam GENERAL APPEARANCE: Well hydrated, well-nourished in no acute distress. HEENT: Normocephalic, atraumatic, extraocular movements intact. Pupils: Equal reacting to light NECK: Supple, no JVD or bruits. CARDIOVASULAR: Heart: S1, S2 heard, regular without S3-S4 or murmur no rubs or gallops. LUNGS/CHEST: Clear to auscultation bilaterally. No rails, rhonchi, or wheezing. Normal inspection. ABDOMEN: Soft, nontender, with normal bowel sounds. No pulsatile masses. No rebound, rigidity, or guarding. Normal inspection and palpation. EXTREMITIES: Normal inspection and palpation. No edema, clubbing or cyanosis. SKIN: Warm and dry without rashes. Normal inspection. MUSCULOSKELETAL: No cervical, thoracic, lumbar or midline bony tenderness. Normal inspection. NEURO: Alert, awake. Nonverbal, moves all 4 extremities no focal deficit noted but limited exam PSYCHIATRIC: Limited exam Objective Labs 03/31/25 05:38 03/31/25 05:38 Labs: Laboratory Results - last 24 hr 03/30/25 04:53 WBC 8.0 RBC 3.26 L Hgb 10.5 L Hct 30.5 L MCV 94 MCH 32.2 MCHC 34.4 RDW Std Deviation 42.5 Plt Count 155 Neut % (Auto) 56 Lymph % (Auto) 29 [place] % (Auto) 9 Eos % (Auto) 4 Baso % (Auto) 1 Neut # (Auto) 4.5 Lymph # (Auto) 2.3 [place] # (Auto) 0.7 Eos # (Auto) 0.4 Baso # (Auto) 0.0 Immature Gran # (Auto) 0.15 H Absolute Nucleated RBC 0.00 Immature Gran % 2 H Nucleated RBC % 0 Sodium 143 Potassium 4.1 Chloride 106 Carbon Dioxide 27.6 Anion Gap 9 BUN 5 L Creatinine 0.7 Estim Creat Clear Calc 76.2 eGFR > 60 BUN/Creatinine Ratio 7 L Glucose 135 H Calculated Osmolality 284 Calcium 8.5 Assessment & Plan Assessment and plan (1) Sepsis: Status: Acute Assessment and plan: Continue with IV antibiotics (2) Altered mental status: Status: Resolved (3) Seizure: Status: Chronic Assessment and plan: Stable on Lamictal no breakthrough seizures reported
[2025-03-31] VITALS: BP 138/74; PULSE 59; RESP 12; TEMP 36.7; O2SAT 95
[2025-03-31 04:00] VITALS: BP 134/68; RESP 15; TEMP 36.7; O2SAT 91
[2025-03-31 05:55] VITALS: BMI 19.3
[2025-03-31 06:20] LABS: Basophils # (Auto) 0.0 Thou/mm3 (0.0-0.2); Basophils % (Auto) 1 % (0-2.5); Eosinophils # (Auto) 0.4 Thou/mm3 (0.0-0.5); Eosinophils % (Auto) 5 % (0-10); Hematocrit 30.3 % (41.0-53.0); Hemoglobin 10.3 g/dL (13.5-16.0); Immature Granulocytes Auto 0.19 Thou/mm3 (0.00-0.00); Lymphocytes # (Auto) 2.1 Thou/mm3 (1.0-4.8); Lymphocytes % (Auto) 30 % (10-50); Mean Corpuscular HGB Conc 34.0 g/dl (31.0-37.0); Mean Corpuscular Hemoglobin 31.4 pg (25.0-35.0); Mean Corpuscular Volume 92 fL (80-100); Monocytes # (Auto) 0.7 Thou/mm3 (0.0-0.8); Monocytes % (Auto) 10 % (0-12); Neutrophils # (Auto) 3.6 Thou/mm3 (1.8-7.7); Neutrophils % (Auto) 52 % (37-80); Nucleated Red Blood Cell # 0.00 Thou/mm3 (0.00-0.00); Nucleated Red Blood Cell % 0 /100 WBC (0); Platelet Count 147 Thou/mm3 (140-440); RDW Standard Deviation 41.8 fL (35.1-43.9); Red Blood Count 3.28 Miln/mm3 (4.50-5.90); White Blood Count 6.9 Thou/mm3 (3.8-10.6)
[2025-03-31 06:34] LABS: Anion Gap 8 (7-16); BUN/Creatinine Ratio 10 Ratio (12-20); Blood Urea Nitrogen 7 mg/dL (9-23); Calcium 8.4 mg/dL (8.3-10.6); Carbon Dioxide 28.7 mMol/L (20.0-31.0); Chloride 104 mMol/L (98-107); Creatinine (Component) 0.7 mg/dL (0.6-1.3); Estimated Creatinine Clearance 67.8 mL/min (>60); Glucose 145 mg/dL (74-106); Osmolality,Calculated 282 (275-295); Potassium 4.2 mMol/L (3.4-5.1); Sodium 141 mMol/L (136-145); eGFR > 60 See Note
[2025-03-31 08:00] VITALS: BP 120/65; PULSE 51; PULSE 55; RESP 15; TEMP 36.7; O2SAT 93
[2025-03-31] MEDS: DOCUSATE SOD LIQD 100 MG/10 ML UDC 250 MG PO ×2 (08:42→21:42)
[2025-03-31] MEDS: SERTRALINE HCL 25 MG TABLET 100 MG PO (08:42)
[2025-03-31] MEDS: lamoTRIgine 25 MG CHEW 100 MG PO ×2 (08:43→21:42)
[2025-03-31] MEDS: ENOXAPARIN SOD INJ 40 MG/0.4 ML SYRINGE SC (08:43)
[2025-03-31] MEDS: ERTAPENEM INJ 1,000 MG in SODIUM CHLORIDE 0.9% (Popper) 50 ML 100 MG IV (08:54)
[2025-03-31] MEDS: DEXTROSE 5%-WATER 1,000 ML 100 ML IV ×2 (09:00→21:30)
--- NOTE | 2025-03-31 09:32 | PD.RESDS ---
Planned Discharge Date 03/31/25 DS: Providers Provider Date of admission: 03/23/25 17:14 Primary care physician: Physician No Primary/Family Admitting Provider: Alex James MD Attending Provider on Admission: Bess Castorena DO Consults: 03/23/25 17:07 Referral Speech Therapy Routine Comment: 03/23/25 17:31 Consult to Neurology / Tele-Neurology Urgent Comment: Tele neurologist Consulting Provider: Darrin Gonzalez 03/26/25 07:44 Consult to Infectious Diseases Routine Comment: Consulting Provider: Amadou Blanco Attending Provider on DC: Yogi Rees MD Discharging Provider: Yogi Rees MD Hospital Course Hospital Course Hospital course: No acute overnight events. Seen and examined at bedside and patient at his baseline. Does not appear to be in acute distress. Vital signs show pulse of 53 but otherwise stable. CBC stable and unremarkable. Pending PICC line placement for IV antibiotics until 04/05/2025 that will likely be done tomorrow so anticipate discharge in the next 24 to 48 hours. Time Spent with Patient Time attestation: Total time spent providing and/or coordinating discharge services: Home Health Home Health Referral Orders: 03/29/25 12:21 Home Health Referral Routine Reason For Exam: Debility Home-Bound The patient must either because of illness or injury, need the aid of supportive devices such as crutches, canes, wheelchairs, and walkers; the use of special transportation; or the assistance of another person in order to leave their place of residence; OR have a condition such that leaving his or her home is medically contraindicated. In addition, the patient also meets the following criteria: patient is normally unable to leave the home and leaving home requires considerable taxing effort. Addendum to Home Health Certification Practitioner's Certification: I certify that the patient has been under my care in the hospital and the care of attending physician (see below). We had a [id number]-[id number] encounter on (see date below). My clinical findings indicate that the patient is home bound per the above criteria and the Home Health Services noted in these orders are medically necessary. The primary reason for the [id number]-zh-[id number] encounter is related to the fact that the patient requires home health services. Date Certifying Eyqb-jf-Knld Physician Encounter: 03/23/25 Physician's Name who will Assume Oversight for HH Services: Physician No Primary/Family JIG BUILDER - Community Resources: No PT to Evaluate: Yes PT to evaluate and provide a treatmnet plan to increase patient's mobility and strength. Wound Care: No IV Therapy: Yes IV Medication: Ertapenem IV Dose: 1 Gm IV Frequency: Daily IV Stop Date: 04/05/25 Discontinue PICC Line Once Treatment Complete: No RN Safety Evaluation: Yes RN to evaluate and create a plan of care that will produce positive outcomes. Palliative Treatment: No Palliative treatment and evaluate the need for hospice. Home Health Aide - Personal Care: No Home Health Aide to assist with any ADL's. Exam Vital Signs Temp Pulse Resp BP Pulse Ox O2 Del Method O2 Flow Rate 98.1 F 55 L 15 120/65 93 L Room Air 2.5 03/31/25 08:00 03/31/25 08:00 03/31/25 08:00 03/31/25 08:00 03/31/25 08:00 03/31/25 08:00 03/29/25 16:00 Discharge Plan Plan Patient Disposition: HOME (Self Care) Disposition Comment: Returning to [facility] Patient condition on transfer: Stable Care Plan Goals: ? Take ertapenem 1 g IV until 04/05/2025 ? Continue taking all other home medications as prescribed ? Follow-up with PCP within 1-2 weeks of discharge ? If you do not have a PCP, you can follow-up at the [facility] (you can call [phone] to make an appointment) ? Return to ED if symptoms worsen or recur Prescriptions/Referrals Prescriptions/Med Rec: New ertapenem 1 gram recon soln 1 g IV Q24H Continued Alendronate Sodium * (FOSAMAX *) 70 MG tablet 70 mg PO .MONDAY Qty: 0 simvastatin [Zocor] 10 MG tablet 10 mg PO HS Qty: 0 docusate sodium 250 MG capsule 1 cap PO BID Qty: 0 MULTIVITAMIN (MULTI VITAMIN DAILY) 1 EACH tablet 1 tab PO QDAY Qty: 0 polyethylene glycol 3350 [Miralax] 17 gram Powder In Packet 17 g PO QDAY PRN (Reason: constipation) Rx Instructions: hold for loose stools magnesium hydroxide [Milk of Magnesia] 400 mg/5 mL Suspension 30 ml PO EVERYOTHERDAY olanzapine 2.5 mg tablet 5 mg PO HS melatonin 10 mg Tablet 10 mg PO HS Ingrezza 60 mg capsule 60 mg PO QDAY sertraline 100 mg tablet 100 mg PO Q24H lamotrigine 100 mg tablet 100 mg PO BID tamsulosin 0.4 mg capsule 0.4 mg PO Q24H methenamine hippurate 1 gram tablet 1 g PO BID olanzapine 7.5 mg tablet 2.5 mg PO HS metformin 500 mg tablet 500 mg PO BID Cranberry-Probiotic 480 mg-20 mg- 100million cell Tablet 1 tab PO QDAY Held zolpidem 5 mg tablet 5 mg PO QHSPRN Hold Instructions: Hold until you follow-up with your PCP Referrals: No Primary/Family,Physician [Primary Care Provider] Patient/Caregiver Discharge Instructions Print Language: Urdu Stand Alone Forms: Sarai Award Info., Patient Portal Info Letter
[2025-03-31] MEDS: ACETAMINOPHEN 325 MG TABLET 650 MG PO (10:05)
[2025-03-31 12:00] VITALS: BP 124/68; PULSE 62; RESP 20; TEMP 36.4; O2SAT 93
--- NOTE | 2025-03-31 12:57 | ESPR_ITS ---
Documentation for date of: 03/31/25 Subjective Subjective Interval history: No acute overnight events. Seen and examined at bedside and resting comfortably in bed and appears at his baseline. PICC line to be placed today. However, will unlikely be able to have antibiotics ready today so anticipate discharge in the next 24 to 48 hours. Exam Vital Signs Temp Pulse Resp BP Pulse Ox O2 Del Method O2 Flow Rate 97.5 F 62 20 124/68 93 L Room Air 2.5 03/31/25 12:00 03/31/25 12:00 03/31/25 12:00 03/31/25 12:00 03/31/25 12:00 03/31/25 12:00 03/29/25 16:00 Narrative Exam General: more awake, frail, elderly HEENT: NC/AT, mucous membranes moist, bilateral sclera anicteric Cardiovascular: regular rate and rhythm, S1/S2 present, no murmurs appreciated Pulmonary: low breath sound, mild rales appreciated Abdominal: soft, non-tender, non-distended, no rebound/guarding, normal bowel sounds present Musculoskeletal: lower extremity muscular atrophy; normal ROM, no peripheral edema Skin: warm and dry, intact, no rashes Objective Labs 03/31/25 05:38 03/31/25 05:38 Labs: Laboratory Results - last 24 hr 03/31/25 05:38 WBC 6.9 RBC 3.28 L Hgb 10.3 L Hct 30.3 L MCV 92 MCH 31.4 MCHC 34.0 RDW Std Deviation 41.8 Plt Count 147 Neut % (Auto) 52 Lymph % (Auto) 30 [place] % (Auto) 10 Eos % (Auto) 5 Baso % (Auto) 1 Neut # (Auto) 3.6 Lymph # (Auto) 2.1 [place] # (Auto) 0.7 Eos # (Auto) 0.4 Baso # (Auto) 0.0 Immature Gran # (Auto) 0.19 H Absolute Nucleated RBC 0.00 Immature Gran % 3 H Nucleated RBC % 0 Sodium 141 Potassium 4.2 Chloride 104 Carbon Dioxide 28.7 Anion Gap 8 BUN 7 L Creatinine 0.7 Estim Creat Clear Calc 67.8 eGFR > 60 BUN/Creatinine Ratio 10 L Glucose 145 H Calculated Osmolality 282 Calcium 8.4 Quality Measures Quality Measures none Advance care planning discussed with:: patient and other Assessment & Plan Assessment Current Active Medications: Generic Name Dose Route Start Last Admin Trade Name Clemencia PRN Reason Stop Dose Admin Acetaminophen 650 mg 03/31/25 09:59 03/31/25 10:05 Acetaminophen 325 Mg Tablet PO 04/30/25 09:58 650 mg Q6HR PRN Administration PAIN 1-6 (mild-mod Atorvastatin Calcium 5 mg 03/23/25 21:00 03/30/25 20:59 Atorvastatin Calcium 10 Mg Tablet PO 04/22/25 20:59 5 mg HS GREG Administration Protocol Valbenazine ( 0 ea 03/26/25 21:00 03/30/25 20:58 Ingrezza) 60mg PO 04/25/25 20:59 1 capsule Capsule HS GREG Administration Dextrose 25 ml 03/23/25 17:08 Dextrose 50%-Water Inj 50 Ml Syringe IV 04/22/25 17:07 Q15MIN PRN BG 50-70 responsive npo pt Dextrose 50 ml 03/23/25 17:08 Dextrose 50%-Water Inj 50 Ml Syringe IV 04/22/25 17:07 Q15MIN PRN BG <50 OR BG <70 & pt unresponsive Docusate Sodium 250 mg 03/25/25 09:15 03/31/25 08:42 Docusate Sod Liqd 100 Mg/10 Ml Udc PO 04/24/25 09:14 250 mg BID GREG Administration Enoxaparin Sodium 40 mg 03/24/25 09:00 03/31/25 08:43 Enoxaparin Sod Inj 40 Mg/0.4 Ml Syringe SC 04/07/25 08:59 40 mg QDAY GREG Administration Glucagon 1 mg 03/23/25 17:08 Glucagon Inj 1 Mg Vial IM Q15MIN PRN BG <70, and no IV access Dextrose 1,000 mls @ 100 mls/hr 03/25/25 13:00 03/30/25 22:41 D5w IV 04/24/25 12:59 100 mls/hr .Q10H GREG Administration Ertapenem 1,000 mg/ Sodium 50 mls @ 100 mls/hr 03/28/25 09:45 03/31/25 08:54 Chloride IV 04/04/25 09:44 100 mls/hr QDAY GREG Administration Insulin Human Lispro 0 unit 03/25/25 07:30 03/31/25 11:15 Insulin Lispro (Admelog) 1 Unit/0.01 Ml Unit SC 04/24/25 07:29 Not Given ACHS GREG Protocol Lamotrigine 100 mg 03/25/25 13:45 03/31/25 08:43 Lamotrigine 25 Mg Chew PO 04/24/25 13:44 100 mg BID GREG Administration Lorazepam 2 mg 03/23/25 17:06 Lorazepam 2 Mg/Ml Vial IVP 03/31/25 17:05 Q15MIN PRN Breakthrough seizure Midodrine 10 mg 03/23/25 17:52 Midodrine 5 Mg Tablet PO 04/22/25 21:59 TID PRN Hypotension Olanzapine 5 mg 03/23/25 21:00 03/30/25 21:00 Olanzapine 5 Mg Tablet PO 04/22/25 20:59 5 mg HS GREG Administration Ondansetron HCl 4 mg 03/23/25 17:02 Ondansetron Inj 2 Mg/Ml Inj 2 Ml IVP 04/22/25 17:01 Q6H PRN NAUSEA OR VOMITING Protocol Sennosides 1 tab 03/24/25 09:00 03/31/25 08:43 Senna Tablet PO 04/23/25 08:59 1 tab QDAY GREG Administration Protocol Sertraline HCl 100 mg 03/23/25 17:30 03/31/25 08:42 Sertraline Hcl 25 Mg Tablet PO 04/22/25 17:29 100 mg QDAY GREG Administration Plan 79-year-old male with a past medical history of developmental delay (non-verbal at baseline), seizure disorder, type 2 diabetes mellitus, hyperlipidemia, and history of ESBL UTI who is being admitted for breakthrough seizure. #Breakthrough seizure #Seizure disorder Presents with three tonic clonic seizures in setting of UTI, which is likely trigger as CT head shows stable, chronic findings. Lactate elevated but improved with IVF. Received 1 g Keppra in ED. EEG showed presence of moderate to severe diffuse nonspecific cerebral dysfunction and negative for seizure or epileptiform discharges so Keppra DC'd. ? Teleneurology consulted, appreciate recommendations ? Lamotrigine 100 mg p.o. twice daily ? Can increase dose 125 mg BID if another episode occurs ? Seizure and aspiration precautions ? As needed Ativan for breakthrough seizures #ESBL E.coli UTI #Recurrent UTI #Bilateral renal calculi #Staghorn calculi #Hypotension, resolved Presented 2 days prior to admission due to concerns for UTI. UA this time showing 266 WBC, 179 RBC, no bacteria but was noted to be given IV antibiotics in ED 2 days prior. Zosyn (03/23-03/28) and doxycycline (03/25-03/28). ? Urine cultures: ESBL E. coli resistant to zosyn ? Midodrine 10 mg p.o. PRN ? Ertapenem as below #Extensive bilateral pneumonia #ESBL E. coli bacteremia PSI/PORT Score risk call V:?27.0-29.2% mortality. Hospitalization recommended. MRSA screening positive on 03/23 but negative on 03/24 and received doxycycline and vancomycin. ? Blood cultures: ESBL E. coli sensitive to ertapenem, meropenem and tobramycin ? ID consulted, appreciate recommendations ? Ertapenem for 7 days (03/28/2025-04/05/2025) ? Pending PICC line placement #Developmental delay #Depression #Tardive dyskinesia Per caregiver, patient's mentation and behavior is at baseline ? Sertraline 100 mg daily ? Ingrezza 60 mg daily ? Olanzapine 5 mg at night #Type 2 diabetes mellitus, well controlled A1c 5.8% on 12/16/2024. Home medication metformin 500 mg p.o. twice daily A1c 5.6 on 03/23/2025 ? ISS ? Hypoglycemic protocol in place #Hyperlipidemia ? Atorvastatin 40 mg p.o. daily #Constipation Noted significant stool impaction on imaging. Order lactulose. However caregiver at bedside refused. ? Senna scheduled ? Colace scheduled #Prostatomegaly as seen on CT PSA is 3.76 (normal), low suspiction for prostate cancer. ? Holding home tamsulosin in setting of hypotension #Atelectasis in the lower lobes #Small left lobe liver cysts #Large bilateral renal calculi including 29 mm calculus in left renal pelvis without hydronephrosis ? ID ordered hepatitis C, which was nonreactive ? Monitor urine output #Leukocytosis, resolved #Lactic acidosis, likely type A, resolved Hospital management: Lines: peripheral IV Diet: dysphagia 1- pureed Bowel: Senna GI prophylaxis: pantoprazole DVT prophylaxis: Lovenox 40 Sc Disposition: Breakthrough seizure CODE STATUS: Full code ----- Plan discussed with attending physician Dr. Vinod Rees MD PGY-2 Internal Medicine Attending Provider Attestation/Addendum I have discussed and was present for the essential components of the history, physical examination, diagnosis, and treatment plan with the resident. I agree with the patient's care as documented by the resident and amended herein by me. Jony Brock DO. Although this document has been carefully reviewed, there may still be some phonetic and other typographical errors. These errors are purely grammatical due to imperfections in the software program and should not be construed in any way to compromise the substance of the patient's medical care during this visit.
[2025-03-31 16:00] VITALS: BP 127/69; PULSE 58; RESP 19; TEMP 36.3; O2SAT 92
--- NOTE | 2025-03-31 16:48 | PC.SS ---
Rounding Note: Plan is for the patient to obtain a PICC line.? IV antibiotics until 04-05-25, 1X a day.
[2025-03-31 20:00] VITALS: BP 135/75; PULSE 64; RESP 17; TEMP 36.9; O2SAT 95
[2025-03-31] MEDS: ATORVASTATIN CALCIUM 10 MG TABLET 5 MG PO (21:43)
[2025-04-01] VITALS (8 sets, daily range): BP systolic 104–141; BP diastolic 57–97; PULSE 60–77; RESP 14–19; TEMP 36.3–37.2; O2SAT 91–97; BMI 19.3
--- NOTE | 2025-04-01 00:25 | VVPN_ITS ---
Telemedicine visit statement This visit was conducted with the use of interactive audio and video telecommunications system that permits real time communication between the patient and the provider. Patient's verbal consent for virtual visit was obtained on 04/01/25 at 0025. Documentation for date of: 04/01/25 Subjective Subjective Interval history: Patient is in telemetry. No seizures reported after admission. Virtual exam Vital Signs Temp Pulse Resp BP Pulse Ox O2 Del Method O2 Flow Rate 97.3 F 58 L 19 127/69 92 L Room Air 2.5 03/31/25 16:00 03/31/25 16:00 03/31/25 16:00 03/31/25 16:00 03/31/25 16:00 03/31/25 16:00 03/29/25 16:00 Objective Labs 04/01/25 05:39 04/01/25 05:39 Labs: Laboratory Results - last 24 hr 03/31/25 05:38 WBC 6.9 RBC 3.28 L Hgb 10.3 L Hct 30.3 L MCV 92 MCH 31.4 MCHC 34.0 RDW Std Deviation 41.8 Plt Count 147 Neut % (Auto) 52 Lymph % (Auto) 30 [place] % (Auto) 10 Eos % (Auto) 5 Baso % (Auto) 1 Neut # (Auto) 3.6 Lymph # (Auto) 2.1 [place] # (Auto) 0.7 Eos # (Auto) 0.4 Baso # (Auto) 0.0 Immature Gran # (Auto) 0.19 H Absolute Nucleated RBC 0.00 Immature Gran % 3 H Nucleated RBC % 0 Sodium 141 Potassium 4.2 Chloride 104 Carbon Dioxide 28.7 Anion Gap 8 BUN 7 L Creatinine 0.7 Estim Creat Clear Calc 67.8 eGFR > 60 BUN/Creatinine Ratio 10 L Glucose 145 H Calculated Osmolality 282 Calcium 8.4 Assessment & Plan Problem List (1) Sepsis: Status: Acute Assessment and plan: from ESBL in urine. on Ertapenam.ID is following. (2) Altered mental status: Status: Resolved Assessment and plan: secondary to infection/sepsis/pneumonia mental status is improving, close to baseline (3) Seizure: Status: Chronic Assessment and plan: no seizures reported after admission. Continue with the Lamictal
[2025-04-01 06:26] LABS: Basophils # (Auto) 0.0 Thou/mm3 (0.0-0.2); Basophils % (Auto) 0 % (0-2.5); Eosinophils # (Auto) 0.3 Thou/mm3 (0.0-0.5); Eosinophils % (Auto) 4 % (0-10); Hematocrit 32.6 % (41.0-53.0); Hemoglobin 11.2 g/dL (13.5-16.0); Immature Granulocytes Auto 0.15 Thou/mm3 (0.00-0.00); Lymphocytes # (Auto) 1.8 Thou/mm3 (1.0-4.8); Lymphocytes % (Auto) 26 % (10-50); Mean Corpuscular HGB Conc 34.4 g/dl (31.0-37.0); Mean Corpuscular Hemoglobin 32.2 pg (25.0-35.0); Mean Corpuscular Volume 94 fL (80-100); Monocytes # (Auto) 0.6 Thou/mm3 (0.0-0.8); Monocytes % (Auto) 9 % (0-12); Neutrophils # (Auto) 4.0 Thou/mm3 (1.8-7.7); Neutrophils % (Auto) 58 % (37-80); Nucleated Red Blood Cell # 0.00 Thou/mm3 (0.00-0.00); Nucleated Red Blood Cell % 0 /100 WBC (0); Platelet Count 179 Thou/mm3 (140-440); RDW Standard Deviation 43.1 fL (35.1-43.9); Red Blood Count 3.48 Miln/mm3 (4.50-5.90); White Blood Count 6.8 Thou/mm3 (3.8-10.6)
[2025-04-01 06:45] LABS: Anion Gap 9 (7-16); BUN/Creatinine Ratio 11 Ratio (12-20); Blood Urea Nitrogen 8 mg/dL (9-23); Calcium 8.4 mg/dL (8.3-10.6); Carbon Dioxide 27.4 mMol/L (20.0-31.0); Chloride 103 mMol/L (98-107); Creatinine (Component) 0.7 mg/dL (0.6-1.3); Estimated Creatinine Clearance 67.8 mL/min (>60); Glucose 150 mg/dL (74-106); Magnesium 1.7 mg/dL (1.6-2.6); Osmolality,Calculated 278 (275-295); Phosphorous 3.4 mg/dL (2.4-5.1); Potassium 3.9 mMol/L (3.4-5.1); Sodium 139 mMol/L (136-145); eGFR > 60 See Note
[2025-04-01] MEDS: DEXTROSE 5%-WATER 1,000 ML 100 ML IV (09:47)
[2025-04-01] MEDS: ENOXAPARIN SOD INJ 40 MG/0.4 ML SYRINGE SC (09:48)
[2025-04-01] MEDS: TAMSULOSIN HCL 0.4 MG CAPSULE PO (09:48)
[2025-04-01] MEDS: SERTRALINE HCL 25 MG TABLET 100 MG PO (09:48)
[2025-04-01] MEDS: DOCUSATE SOD LIQD 100 MG/10 ML UDC 250 MG PO ×2 (09:48→20:26)
[2025-04-01] MEDS: ERTAPENEM INJ 1,000 MG in SODIUM CHLORIDE 0.9% (Popper) 50 ML 100 MG IV (10:03)
[2025-04-01] MEDS: lamoTRIgine 25 MG CHEW 100 MG PO ×2 (10:29→20:25)
--- NOTE | 2025-04-01 11:02 | PC.CC ---
Spoke with Dr. Rees regarding picc line placement, awaiting consent signiture per Dr. Rees. DR. Rees will call back after he gets consent signed. Informed Dr. Rees that we found a pharmacy that can have IV antibiotics delivered today if needed.
--- NOTE | 2025-04-01 11:20 | ESDS_ITS ---
Planned Discharge Date 04/01/25 DS: Providers Provider Date of admission: 03/23/25 17:14 Primary care physician: Physician No Primary/Family Admitting Provider: Alex James MD Attending Provider on Admission: Bess Castorena DO Consults: 03/23/25 17:07 Referral Speech Therapy Routine Comment: 03/23/25 17:31 Consult to Neurology / Tele-Neurology Urgent Comment: Tele neurologist Consulting Provider: Darrin Gonzalez 03/26/25 07:44 Consult to Infectious Diseases Routine Comment: Consulting Provider: Amadou Blanco Attending Provider on DC: Yogi Rees MD Discharging Provider: Yogi Rees MD DS: Diagnosis Problem List Completed Was Problem List Reviewed/Reconciled?: Yes Hospital Course Hospital Course Hospital course: 79-year-old male with a past medical history of developmental delay, seizure disorder, type 2 diabetes mellitus, hyperlipidemia, and history of ESBL UTI who was admitted for breakthrough seizure in setting of UTI. Teleneurology was consulted and EEG showed moderate to severe diffuse, nonspecific cerebral dysfunction but negative for seizure or epileptiform discharges. He was restarted on his home lamotrigine on a milligrams BID and did not have any recurrent seizures while hospitalized. For his UTI he was started on Zosyn and ordered blood and urines that eventually grew ESBL E. coli in both but E. coli from blood cultures are resistant to Zosyn and so antibiotics were changed to ertapenem per ID recommendations. Given holiday/weekend, delay placement of PICC line but eventually placed on 04/01 for outpatient antibiotics until 04/05/2025. Given that vitals were stable, CBC unremarkable, CHEM panel is unremarkable, patient was deemed stable for discharge with previously mentioned antibiotics. Diagnoses during admission: #Breakthrough seizure #Seizure disorder #ESBL E.coli UTI #Recurrent UTI #Bilateral renal calculi #Staghorn calculi #Hypotension, resolved #Extensive bilateral pneumonia #ESBL E. coli bacteremia #Developmental delay #Depression #Tardive dyskinesia #Type 2 diabetes mellitus, well controlled #Hyperlipidemia #Constipation #Prostatomegaly as seen on CT #Atelectasis in the lower lobes #Small left lobe liver cysts #Large bilateral renal calculi including 29 mm calculus in left renal pelvis without hydronephrosis #Leukocytosis, resolved #Lactic acidosis, likely type A, resolved Discharge instructions: ? Take ertapenem 1 g IV until 04/05/2025 ? Continue taking all other home medications as prescribed ? Follow-up with PCP within 1-2 weeks of discharge ? If you do not have a PCP, you can follow-up at the [facility] (you can call [phone] to make an appointment) ? Return to ED if symptoms worsen or recur ----- Plan discussed with attending physician Dr. Jacob Rees MD PGY-2 Internal Medicine Time Spent with Patient Time attestation: Total time spent providing and/or coordinating discharge services: Time spent: Greater than 30 minutes Exam Vital Signs Temp Pulse Resp BP Pulse Ox O2 Del Method O2 Flow Rate 97.4 F 64 16 104/57 L 97 Room Air 2.5 04/01/25 08:00 04/01/25 08:00 04/01/25 08:00 04/01/25 08:00 04/01/25 08:00 04/01/25 08:00 03/29/25 16:00 Narrative Exam General: more awake, frail, elderly HEENT: NC/AT, mucous membranes moist, bilateral sclera anicteric Cardiovascular: regular rate and rhythm, S1/S2 present, no murmurs appreciated Pulmonary: low breath sound, mild rales appreciated Abdominal: soft, non-tender, non-distended, no rebound/guarding, normal bowel sounds present Musculoskeletal: lower extremity muscular atrophy; normal ROM, no peripheral edema Skin: warm and dry, intact, no rashes Discharge Plan Plan Patient Disposition: HOME (Self Care) Disposition Comment: Returning to [facility] Patient condition on transfer: Stable Care Plan Goals: ? Take ertapenem 1 g IV until 04/05/2025 ? Continue taking all other home medications as prescribed ? Follow-up with PCP within 1-2 weeks of discharge ? If you do not have a PCP, you can follow-up at the [facility] (you can call [phone] to make an appointment) ? Return to ED if symptoms worsen or recur Prescriptions/Referrals Prescriptions/Med Rec: New ertapenem 1 gram recon soln 1 g IV Q24H Continued Alendronate Sodium * (FOSAMAX *) 70 MG tablet 70 mg PO .MONDAY Qty: 0 simvastatin [Zocor] 10 MG tablet 10 mg PO HS Qty: 0 docusate sodium 250 MG capsule 1 cap PO BID Qty: 0 MULTIVITAMIN (MULTI VITAMIN DAILY) 1 EACH tablet 1 tab PO QDAY Qty: 0 polyethylene glycol 3350 [Miralax] 17 gram Powder In Packet 17 g PO QDAY PRN (Reason: constipation) Rx Instructions: hold for loose stools magnesium hydroxide [Milk of Magnesia] 400 mg/5 mL Suspension 30 ml PO EVERYOTHERDAY olanzapine 2.5 mg tablet 5 mg PO HS melatonin 10 mg Tablet 10 mg PO HS Ingrezza 60 mg capsule 60 mg PO QDAY sertraline 100 mg tablet 100 mg PO Q24H lamotrigine 100 mg tablet 100 mg PO BID tamsulosin 0.4 mg capsule 0.4 mg PO Q24H methenamine hippurate 1 gram tablet 1 g PO BID olanzapine 7.5 mg tablet 2.5 mg PO HS metformin 500 mg tablet 500 mg PO BID Cranberry-Probiotic 480 mg-20 mg- 100million cell Tablet 1 tab PO QDAY Held zolpidem 5 mg tablet 5 mg PO QHSPRN Hold Instructions: Hold until you follow-up with your PCP Referrals: Slime Nuñez MD [Referring Provider] No Primary/Family,Physician [Primary Care Provider] Patient/Caregiver Discharge Instructions Print Language: Tanzanian Stand Alone Forms: Sarai Award Info., Patient Portal Info Letter Quality Discharge Quality Measures VTE prophylaxis MD Attestestation Attestation I have examined the patient, reviewed labs and imaging findings, discussed the case with the resident(s), and reviewed entered orders. I agree with the plan of care as outlined in this note. Time Spent: [address] Jacob MD
--- NOTE | 2025-04-01 13:25 | XR_ITS ---
Examination: Ultrasound-guided needle placement right basilic vein. Dual-lumen central line placement (PICC line). Fluoroscopy Exam date and time: 04/01/2025, 1:14 p.m. Fluoroscopy time: 0.5 minutes Dose: 2.25 mGy Indications: No intravenous access for medications, no IV access. A timeout was completed verifying correct patient, procedure, site, positioning Informed consent provided Technique: The patient's site was prepped and draped in sterile fashion. Ultrasound guided needle placement right basilic vein. Ultrasound images recorded and stored. 5 cc 1% lidocaine administered for local anesthetic. Successful micropuncture with a 21-gauge needle is performed. 0.18 wire guide is then introduced into the SVC under fluoroscopic guidance. Dual-lumen catheter dilator is then introduced, followed by the catheter in the SVC and proper position under fluoroscopic guidance. Successful aspiration of blood and flushing with heparinized saline is then performed in the 2 venous limbs. The catheter sutured in place. Findings: Under fluoroscopy, the tip of the catheter is in good position at the cavoatrial junction Estimated blood loss 3 cc The patient tolerated the procedure well and was in stable and satisfactory condition at completion of the procedure Impression: Successful ultrasound-guided and fluoroscopic guided placement of the right basilic vein PICC line. Catheter is ready for use
[2025-04-01] MEDS: HEPARIN SOD LOCK SYR 100 UNIT/ML 500 UNIT STFIELD (13:37)
[2025-04-01] MEDS: LIDOCAINE INJ PF 1% 30 ML VIAL INFL (13:37)
--- NOTE | 2025-04-01 14:44 | PC.SS ---
Rounding note: patient is pending a PICC line. Plan is for the patient to return back to [facility], however nursing arrangements will need to be made for the IV abx before patient can d/c back to the home per transfer RN.
--- NOTE | 2025-04-01 16:29 | PC.NURSE ---
made aware that [facility] called. Per Geoffrey from [facility], [facility] between the hours 10:00 am and 12 Noon. Call back number for Geoffrey [phone]
--- NOTE | 2025-04-01 17:44 | PC.CC ---
Addendum entered by Anne Dinero RN 04/01/25 17:55: Spoke with Dr. Watson and informed her that HH and IV infusing are both set up per previous TC notes Addendum entered by Anne Dinero RN 04/01/25 17:48: [facility] can see the patient from - tomorrow. Original Note: Confirmed delivery with [facility] ( IV antibiotics) will be delivered today between 6:00-8:00 and [facility] accepted pt for Home Home with SOD 04/02/25
--- NOTE | 2025-04-01 20:04 | PC.CM ---
Patient accepted by [facility] and [facility]. Patient will be opened tomorrow by [facility] and [facility] will deliver meds today. I called to find out if patient is discharged and he states patient does have d/c orders. I called night doctor and he states he will put in discharge orders after he touches bases with the team that had patient today. I let him know patient should be discharged today, but if he stays he needs to be home by 11 tomorrow to meet the [facility] health nurse. I called and updated the the night charge nurse. I updated [facility] and [facility] on [employer].
[2025-04-01] MEDS: ATORVASTATIN CALCIUM 10 MG TABLET 5 MG PO (20:25)
--- NOTE | 2025-04-01 23:46 | PD.NEUROPROG ---
Documentation for date of: 04/01/25 Subjective Subjective Interval history: Patient was seen in telemetry today with a caregiver at the bedside. No seizures reported after admission Exam - Neurology Vital Signs Temp Pulse Resp BP Pulse Ox O2 Del Method O2 Flow Rate 97.7 F 62 16 141/74 H 91 L Room Air 3 04/01/25 20:00 04/01/25 20:00 04/01/25 20:00 04/01/25 20:00 04/01/25 20:00 04/01/25 20:00 04/01/25 16:00 Narrative Exam GENERAL APPEARANCE: Well hydrated, well-nourished in no acute distress. HEENT: Normocephalic, atraumatic, extraocular movements intact. Pupils: Equal reacting to light NECK: Supple, no JVD or bruits. CARDIOVASULAR: Heart: S1, S2 heard, regular without S3-S4 or murmur no rubs or gallops. LUNGS/CHEST: Clear to auscultation bilaterally. No rails, rhonchi, or wheezing. Normal inspection. ABDOMEN: Soft, nontender, with normal bowel sounds. No pulsatile masses. No rebound, rigidity, or guarding. Normal inspection and palpation. EXTREMITIES: Normal inspection and palpation. No edema, clubbing or cyanosis. SKIN: Warm and dry without rashes. Normal inspection. MUSCULOSKELETAL: No cervical, thoracic, lumbar or midline bony tenderness. Normal inspection. NEURO: Alert, awake. Nonverbal, moves all 4 extremities no focal deficit noted but limited exam PSYCHIATRIC: Limited exam Objective Labs 04/02/25 05:29 04/02/25 05:29 Labs: Laboratory Results - last 24 hr 04/01/25 05:39 WBC 6.8 RBC 3.48 L Hgb 11.2 L Hct 32.6 L MCV 94 MCH 32.2 MCHC 34.4 RDW Std Deviation 43.1 Plt Count 179 D Neut % (Auto) 58 Lymph % (Auto) 26 [place] % (Auto) 9 Eos % (Auto) 4 Baso % (Auto) 0 Neut # (Auto) 4.0 Lymph # (Auto) 1.8 [place] # (Auto) 0.6 Eos # (Auto) 0.3 Baso # (Auto) 0.0 Immature Gran # (Auto) 0.15 H Absolute Nucleated RBC 0.00 Immature Gran % 2 H Nucleated RBC % 0 Sodium 139 Potassium 3.9 Chloride 103 Carbon Dioxide 27.4 Anion Gap 9 BUN 8 L Creatinine 0.7 Estim Creat Clear Calc 67.8 eGFR > 60 BUN/Creatinine Ratio 11 L Glucose 150 H Calculated Osmolality 278 Calcium 8.4 Phosphorus 3.4 Magnesium 1.7 Assessment & Plan Assessment and plan (1) Sepsis: Status: Acute Assessment and plan: Continue with IV antibiotics (2) Altered mental status: Status: Resolved (3) Seizure: Status: Chronic Assessment and plan: Stable on Lamictal no breakthrough seizures reported
[2025-04-02] VITALS: BP 129/72; PULSE 57; RESP 16; TEMP 36.4; O2SAT 90
[2025-04-02] MEDS: DEXTROSE 5%-WATER 1,000 ML 100 ML IV (03:18)
[2025-04-02 04:00] VITALS: BP 133/89; PULSE 64; RESP 16; TEMP 37; O2SAT 94
[2025-04-02 05:57] LABS: Basophils # (Auto) 0.0 Thou/mm3 (0.0-0.2); Basophils % (Auto) 1 % (0-2.5); Eosinophils # (Auto) 0.2 Thou/mm3 (0.0-0.5); Eosinophils % (Auto) 3 % (0-10); Hematocrit 32.3 % (41.0-53.0); Hemoglobin 11.2 g/dL (13.5-16.0); Immature Granulocytes Auto 0.14 Thou/mm3 (0.00-0.00); Lymphocytes # (Auto) 2.0 Thou/mm3 (1.0-4.8); Lymphocytes % (Auto) 33 % (10-50); Mean Corpuscular HGB Conc 34.7 g/dl (31.0-37.0); Mean Corpuscular Hemoglobin 32.1 pg (25.0-35.0); Mean Corpuscular Volume 93 fL (80-100); Monocytes # (Auto) 0.6 Thou/mm3 (0.0-0.8); Monocytes % (Auto) 10 % (0-12); Neutrophils # (Auto) 2.9 Thou/mm3 (1.8-7.7); Neutrophils % (Auto) 50 % (37-80); Nucleated Red Blood Cell # 0.00 Thou/mm3 (0.00-0.00); Nucleated Red Blood Cell % 0 /100 WBC (0); Platelet Count 163 Thou/mm3 (140-440); RDW Standard Deviation 41.5 fL (35.1-43.9); Red Blood Count 3.49 Miln/mm3 (4.50-5.90); White Blood Count 5.9 Thou/mm3 (3.8-10.6)
[2025-04-02 06:21] LABS: Anion Gap 8 (7-16); BUN/Creatinine Ratio 10 Ratio (12-20); Blood Urea Nitrogen 7 mg/dL (9-23); Calcium 9.0 mg/dL (8.3-10.6); Carbon Dioxide 26.1 mMol/L (20.0-31.0); Chloride 104 mMol/L (98-107); Creatinine (Component) 0.7 mg/dL (0.6-1.3); Estimated Creatinine Clearance 67.8 mL/min (>60); Glucose 129 mg/dL (74-106); Magnesium 2.0 mg/dL (1.6-2.6); Osmolality,Calculated 275 (275-295); Phosphorous 3.0 mg/dL (2.4-5.1); Potassium 3.9 mMol/L (3.4-5.1); Sodium 138 mMol/L (136-145); eGFR > 60 See Note
--- NOTE | 2025-04-02 07:12 | PC.NURSE ---
Belongings accounted for my night nurse. Also notified day shift nurse that sandeep does have home medication in the [facility] that will go with him when discharge.
[2025-04-02 08:05] VITALS: BP 103/56; PULSE 58; RESP 16; TEMP 36.3; O2SAT 94
--- NOTE | 2025-04-02 10:01 | PD.RESDS ---
Planned Discharge Date 04/02/25 DS: Providers Provider Date of admission: 03/23/25 17:14 Primary care physician: Physician No Primary/Family Admitting Provider: Alex James MD Attending Provider on Admission: Bess Castorena DO Consults: 03/23/25 17:07 Referral Speech Therapy Routine Comment: 03/23/25 17:31 Consult to Neurology / Tele-Neurology Urgent Comment: Tele neurologist Consulting Provider: Darrin Gonzalez 03/26/25 07:44 Consult to Infectious Diseases Routine Comment: Consulting Provider: Amadou Blanco Attending Provider on DC: Yogi Rees MD Discharging Provider: Yogi Rees MD DS: Diagnosis Problem List Completed Was Problem List Reviewed/Reconciled?: Yes Hospital Course Hospital Course Hospital course: 79-year-old male with a past medical history of developmental delay, seizure disorder, type 2 diabetes mellitus, hyperlipidemia, and history of ESBL UTI who was admitted for breakthrough seizure in setting of UTI. Teleneurology was consulted and EEG showed moderate to severe diffuse, nonspecific cerebral dysfunction but negative for seizure or epileptiform discharges. He was restarted on his home lamotrigine on a milligrams BID and did not have any recurrent seizures while hospitalized. For his UTI he was started on Zosyn and ordered blood and urines that eventually grew ESBL E. coli in both but E. coli from blood cultures are resistant to Zosyn and so antibiotics were changed to ertapenem per ID recommendations. Given holiday/weekend, delay placement of PICC line but eventually placed on 04/01 for outpatient antibiotics until 04/05/2025. Was stable for discharge on 04/01 but antibiotics were unable to be arranged until evening and so discharge delayed until 04/02. Given that vitals were stable, CBC unremarkable, CHEM panel is unremarkable, patient was deemed stable for discharge with previously mentioned antibiotics. Diagnoses during admission: #Breakthrough seizure #Seizure disorder #ESBL E.coli UTI #Recurrent UTI #Bilateral renal calculi #Staghorn calculi #Hypotension, resolved #Extensive bilateral pneumonia #ESBL E. coli bacteremia #Developmental delay #Depression #Tardive dyskinesia #Type 2 diabetes mellitus, well controlled #Hyperlipidemia #Constipation #Prostatomegaly as seen on CT #Atelectasis in the lower lobes #Small left lobe liver cysts #Large bilateral renal calculi including 29 mm calculus in left renal pelvis without hydronephrosis #Leukocytosis, resolved #Lactic acidosis, likely type A, resolved Discharge instructions: ? Take ertapenem 1 g IV until 04/05/2025 ? Continue taking all other home medications as prescribed ? Follow-up with PCP within 1-2 weeks of discharge ? If you do not have a PCP, you can follow-up at the [facility] (you can call [phone] to make an appointment) ? Return to ED if symptoms worsen or recur ----- Plan discussed with attending physician Dr. Jacob Rees MD PGY-2 Internal Medicine Time Spent with Patient Time attestation: Total time spent providing and/or coordinating discharge services: Time spent: Greater than 30 minutes Exam Vital Signs Temp Pulse Resp BP Pulse Ox O2 Del Method O2 Flow Rate 97.4 F 58 L 16 103/56 L 94 L Room Air 3 04/02/25 08:05 04/02/25 08:05 04/02/25 08:05 04/02/25 08:05 04/02/25 08:05 04/02/25 08:05 04/01/25 16:00 Narrative Exam General: more awake, frail, elderly HEENT: NC/AT, mucous membranes moist, bilateral sclera anicteric Cardiovascular: regular rate and rhythm, S1/S2 present, no murmurs appreciated Pulmonary: low breath sound, mild rales appreciated Abdominal: soft, non-tender, non-distended, no rebound/guarding, normal bowel sounds present Musculoskeletal: lower extremity muscular atrophy; normal ROM, no peripheral edema Skin: warm and dry, intact, no rashes Discharge Plan Plan Patient Disposition: HOME (Self Care) Disposition Comment: Returning to [facility] Patient condition on transfer: Stable Care Plan Goals: ? Take ertapenem 1 g IV until 04/05/2025 ? Continue taking all other home medications as prescribed ? Follow-up with PCP within 1-2 weeks of discharge ? If you do not have a PCP, you can follow-up at the [facility] (you can call [phone] to make an appointment) ? Return to ED if symptoms worsen or recur Prescriptions/Referrals Prescriptions/Med Rec: New ertapenem 1 gram recon soln 1 g IV Q24H Continued Alendronate Sodium * (FOSAMAX *) 70 MG tablet 70 mg PO .MONDAY Qty: 0 simvastatin [Zocor] 10 MG tablet 10 mg PO HS Qty: 0 docusate sodium 250 MG capsule 1 cap PO BID Qty: 0 MULTIVITAMIN (MULTI VITAMIN DAILY) 1 EACH tablet 1 tab PO QDAY Qty: 0 polyethylene glycol 3350 [Miralax] 17 gram Powder In Packet 17 g PO QDAY PRN (Reason: constipation) Rx Instructions: hold for loose stools magnesium hydroxide [Milk of Magnesia] 400 mg/5 mL Suspension 30 ml PO EVERYOTHERDAY olanzapine 2.5 mg tablet 5 mg PO HS melatonin 10 mg Tablet 10 mg PO HS Ingrezza 60 mg capsule 60 mg PO QDAY sertraline 100 mg tablet 100 mg PO Q24H lamotrigine 100 mg tablet 100 mg PO BID tamsulosin 0.4 mg capsule 0.4 mg PO Q24H methenamine hippurate 1 gram tablet 1 g PO BID olanzapine 7.5 mg tablet 2.5 mg PO HS metformin 500 mg tablet 500 mg PO BID Cranberry-Probiotic 480 mg-20 mg- 100million cell Tablet 1 tab PO QDAY Held zolpidem 5 mg tablet 5 mg PO QHSPRN Hold Instructions: Hold until you follow-up with your PCP Referrals: Slime Nuñez MD [Referring Provider] No Primary/Family,Physician [Primary Care Provider] Patient/Caregiver Discharge Instructions Education Materials: Urinary Tract Infections in Men, Understanding Urinary Tract ..., ED Seizure, Recurrent (Adult) Print Language: Nepali Stand Alone Forms: Sarai Award Info., Patient Portal Info Letter Discharge Order Discharge Orders: Discharge (Routine); Ordered 04/02/25 Ordered By: Yogi Engel [facility] Quality Discharge Quality Measures VTE prophylaxis Attestestation MD Attestation I have examined the patient, reviewed labs and imaging findings, discussed the case with the resident(s), and reviewed entered orders. I agree with the plan of care as outlined in this note. Time Spent: [address] Jacob MD
--- NOTE | 2025-04-02 15:01 | PC.SS ---
rounding note: Patient discharged today with services and returned to [facility]
== END 2025-04-02 09:24 | disposition home or self-care (01) | DRG 100 ==
LOC: SERX 16:32 → SERHOLD 17:20 → S2NX 23:01 → S3NX 03-31 09:42
PROVIDERS: Internal Medicine Infectious Disease; Registered Nurse General Practice; Student in an Organized Health Care Education/Training Program; Admitting Provider Student in an Organized Health Care Education/Training Program; Emergency Provider Emergency Medicine; Visit Provider Internal Medicine
DX: G40.909 Epilepsy, unspecified, not intractable, without status epilepticus (principal); J18.9 Pneumonia, unspecified organism; N39.0 Urinary tract infection, site not specified; E87.0 Hyperosmolality and hypernatremia; Z16.11 Resistance to penicillins; Z16.12 Extended spectrum beta lactamase (ESBL) resistance; E87.20 Acidosis, unspecified; J98.11 Atelectasis; E11.9 Type 2 diabetes mellitus without complications; E78.5 Hyperlipidemia, unspecified; Z87.440 Personal history of urinary (tract) infections; N20.0 Calculus of kidney; K21.9 Gastro-esophageal reflux disease without esophagitis; F32.A Depression, unspecified; N40.0 Benign prostatic hyperplasia without lower urinary tract symptoms; R13.10 Dysphagia, unspecified; B96.20 Unspecified Escherichia coli [E. coli] as the cause of diseases classified elsewhere; R62.50 Unspecified lack of expected normal physiological development in childhood; I95.9 Hypotension, unspecified; G24.01 Drug induced subacute dyskinesia; K56.41 Fecal impaction; G93.89 Other specified disorders of brain; K76.89 Other specified diseases of liver; S01.512A Laceration without foreign body of oral cavity, initial encounter; Z79.84 Long term (current) use of oral hypoglycemic drugs; Z79.899 Other long term (current) drug therapy
CPT/HCPCS: 36415; 51701; 70450; 71045; 80048; 80053; 80307; 81001; 83036; 83605; 83615; 83735; 83880; 84100; 84145; 84153; 84484; 85025; 85610; 85730; 86803; 87040; 87077; 87081; 87086; 87186; 87502; 87635; 87811; 92526; 92610; 93005; 95816; 96361; 96365; 96375; 99284; A4649; C1751; C1894; J0131; J1335; J1642; J1650; J1815; J1953; J2185; J2543; J3375; J3475; J3490; J7050; J7070; J7120; A9270